=== PATIENT | female | born 1935 | race Caucasian/White ===

== ENCOUNTER → 2018-02-14 14:50 | Outpatient (CLI) | payer MEDICARE, OTHER, SELFPAY ==
--- NOTE | 2018-02-14 | LES_PTH ---
PATIENT: SONIA DOUGHERTY LOC: [facility] U#:[id number] AGE/SX: 89/F ROOM: RE02/14/[address]: Dr. Adrien Taylor MD : [id number] BED: DIS: SPEC #: [id number] RECD: 02/15/18 14:45 STATUS: ESTELLA ROQUE #: [id number] EUNICE: 02/14/18 00:[address]: Adrien Taylor DEPT: SURGICAL PATHOLOGY RECD BY: Bob Amador ENTERED: 02/15/18 14:46 SP TYPE: Lesion OTHR DR: Dr. Morgan Taylor III, MD Tissues: Elbow, NOS Procedures: Surgery Specimen Level IV HEADER OPERATION: Excision left elbow lesion PRE-OP DIAGNOSIS: Left elbow skin lesion TISSUE SUBMITTED: Left elbow tissue MICROSCOPIC DIAGNOSIS Skin lesion of left elbow, excision: Verrucous keratosis, mildly inflamed. AM:joi 9/21/18 COMMENT The lesion appears to have been completely excised in the planes examined. MICROSCOPIC DESCRIPTION Slides are reviewed. GROSS DESCRIPTION Received in fixative is one container labeled with the patient's name and designated left elbow. The specimen consists of a ulloa-white skin ellipse measuring 3 x 1.4 cm and up to 0.5 cm in thickness. A raised nodule is noted on the surface measuring 1 x 1 cm. The specimen is inked, serially sectioned and submitted entirely in three cassettes. Cassette 1 contains the tips of skin ellipse. / SJ:rg 02/15/18 TC:5 CPT: 94789
== END ==
PROVIDERS: Family Provider Family Medicine; PCP Family Medicine; Visit Provider Surgery
DX: L82.0 Inflamed seborrheic keratosis (principal)
CPT/HCPCS: 88305

== ENCOUNTER → 2018-10-05 11:02 | Outpatient (CLI) | payer MEDICARE, OTHER, SELFPAY ==
[2018-01-26 12:49] VITALS: BMI 32.9
--- NOTE | 2018-10-05 11:08 | RAD_ITS ---
STUDY: X-RAY - CERVICAL SPINE REASON FOR EXAM: Female, 83 years old. Posterior cervical pain. TECHNIQUE: 5 view(s) of the cervical spine were obtained. COMPARISON: None FINDINGS: There are degenerative changes of the anterior atlantoaxial articulation. Normal odontoid process. There is straightening of the normal cervical lordosis. There is multi-level endplate spondylosis. 2 there is anterolisthesis of C4 on C5 of 7 mm. The alignment is otherwise preserved. There is no evidence of acute fracture or loss of vertebral axial height. There is mild neural foraminal narrowing on the left at C3-4 and on the right C5-C6. There is no obvious facet joint subluxation. The soft tissue structures are unremarkable. RAD/Cerv Spine 4 or 5 Views IMPRESSION: Degenerative changes cervical spine, as above. Electronically Signed: Fred Gaitan DO at 9:54 EDT Tel [phone], Service support ,
== END ==
PROVIDERS: Family Provider Family Medicine; PCP Family Medicine; Referring Provider Nurse Practitioner Family; Visit Provider Nurse Practitioner Family
DX: M54.2 Cervicalgia (principal)
CPT/HCPCS: 72050

== ENCOUNTER 2018-11-10 13:47 | Inpatient (IN) | payer MEDICARE, OTHER, SELFPAY ==
[2018-11-10] VITALS (10 sets, daily range): BP systolic 121–170; BP diastolic 64–106; PULSE 82–103; RESP 16–19; TEMP 36.6–37; O2SAT 93–98; BMI 32.6; BMI 32.1; BMI 32.2
--- NOTE | 2018-11-10 14:02 | EKG12_ITS ---
Test Reason : DIZZINESS Blood Pressure : / mmHG Vent. Rate : 087 BPM Atrial Rate : 087 BPM P-R Int : 160 ms QRS Dur : 148 ms QT Int : 394 ms P-R-T Axes : 060 -50 108 degrees QTc Int : 474 ms Normal sinus rhythm Left axis deviation Left bundle branch block Abnormal ECG Confirmed by ANGEL STONER, SOLEDAD ([id number]), science editor DAMARI STONE ([id number]) on 11/13/2018 9:29:50 AM Referred By: CLEMENCIA Confirmed By:SOLEDAD ORTIZ MD
--- NOTE | 2018-11-10 14:02 | CT_ITS ---
STUDY: CT BRAIN WITHOUT CONTRAST REASON FOR EXAM: Female, 83 years old. Dizziness likely RADIATION DOSAGE (If Supplied By Facility): CTDIvol = ( 44.99 ) mGy, DLP = ( 762.36 ) mGycm TECHNIQUE: Transaxial CT imaging of the brain was performed without administration of intravenous contrast material. Individualized dose optimization techniques were used for this CT. COMPARISON: May 22, 2016 CT head FINDINGS: Normal soft tissue structures. Normal calvarium. There is mild cerebral atrophy with widening of the extra-axial spaces and ventricular dilatation. There are areas of decreased attenuation within the white matter tracts of the supratentorial brain, consistent with microvascular disease changes. Normal basal ganglia and thalami. Normal brainstem. There is mild cerebellar atrophy. There is no intracranial hemorrhage. There are no findings of an acute ischemic infarction. Normal visualized paranasal sinuses. There is calcification of the cavernous carotid arteries. CT/Brain/Head without Contrast IMPRESSION: Mild atrophy no evidence of acute hemorrhage infarct or edema. Electronically Signed: Ro Patel MD at 14:48 EDT Tel , Service support ,
[2018-11-10] MEDS: 0.9% Normal Saline 1,000 ML 150 ML IV ×2 (14:15→21:59)
[2018-11-10 14:31] LABS: Absolute Lymphocyte Count 1.69 X10^3/ul (0.83-4.51); Absolute Neutrophil Count 5.8 X10^3/uL (2.0-7.7); Basophil# 0.04 X10^3/uL; Basophil% 0.4 % (0-1); Eosinophil# 0.31 X10^3/uL; Eosinophils% 3.4 % (0-5); Hematocrit 38.8 % (37-47); Hemoglobin 12.6 g/dl (12.0-15.0); Lymphocyte # 1.69 X10^3/ul (4.0); Lymphocyte % 18.6 % (19-41); Mean Corp Hgb Conc 32.5 g/gl (32-36); Mean Corpuscular Hgb 32.1 pg (27.0-32.0); Mean Platelet Vol. 8.7 fl (6.2-12.0); Monocyte# 1.27 X10^3/uL; Monocyte% 13.9 % (0-10); Neutrophil # 5.78 X10^3/uL (2.7-7.7); Neutrophil % 63.5 % (47-70); Platelet Count 286 K/mm3 (150-450); RBC Distribution Width SD 50.8 fl (35.1-43.9); Red Blood Count 3.92 M/mm3 (4.2-5.4); White Blood Count 9.1 K/mm3 (4.4-11.0)
[2018-11-10 14:32] LABS: POSITIVE COUNT NO; POSITIVE DIFFERENTIAL NO; POSITIVE MORPHOLOGY NO
--- NOTE | 2018-11-10 14:32 | RAD_ITS ---
STUDY: X-RAY CHEST REASON FOR EXAM: Female, 83 years old. Tachycardia TECHNIQUE: Single AP portable view of the chest. COMPARISON: May 20, 2016 chest x-ray FINDINGS: The lungs are clear and expanded. There is no demonstrated pleural abnormality. Normal size heart. Normal mediastinum and keira. Normal visualized pulmonary arteries. There is atherosclerotic calcification of the aortic arch with tortuosity. There are diffuse degenerative changes of the visualized thoracic spine. Normal visualized ribs, clavicles, and shoulders. There is no demonstrated abnormality of the visualized soft tissue structures of the upper abdomen. RAD/Chest 1 View (Portable) IMPRESSION: Degenerative changes, as described above. No demonstrated acute cardiopulmonary process. Electronically Signed: Ro Patel MD at 14:50 EDT Tel , Service support ,
[2018-11-10 14:43] LABS: Anion Gap 3 (5-15); BUN 15 mg/dL (7-18); BUN/Creat Ratio 21.2 RATIO (10-20); Calcium,Total 8.8 mg/dL (8.5-10.1); Chloride 108 mmol/L (98-107); Creatinine, Serum 0.71 mg/dL (0.55-1.02); EST Glomerular Filtration Rate 84 mL/min (>60); Est Glom Filt Rate - Afr Amer 102 mL/min (>60); Glucose 110 mg/dL (74-106); Potassium 4.2 mmol/L (3.5-5.1); Sodium Level 139 mmol/L (136-145)
[2018-11-10 14:54] LABS: Bacteria 0 SEEN /hpf (None Seen); Mucous, Urine 0 SEEN /hpf (<or=2+); Red Blood Cells-Urine 0 SEEN /hpf (0-5)
[2018-11-10 15:00] LABS: Color, Urine Yellow (Yellow); Glucose, Dipstick Normal (Normal); Ketone-Dipstick Negative (Negative); Leukocyte Esterase-Dipstick 25 /ul (Negative); Nitrite-Dipstick Negative (Negative); Occult Blood-Urine Negative /ul (Negative); Protein-Dipstick Negative (Negative); Urine Bilirubin Dipstick Negative (Negative); Urine Clarity Clear (Clear); Urine Urobilinogen Normal (Normal)
[2018-11-10 15:07] LABS: Squamous Epithelial Cells - UA 0-5 SEEN /hpf (5-10); White Blood Cells 0-5 SEEN /hpf (0-5)
--- NOTE | 2018-11-10 15:14 | ED.VISSUMM ---
- ER Visit Summary Date of Service: 11/10/18 Chief Complaint: [Dizziness and right leg weakness] History of Present Illness: The patient is a 83 F Zentz to the emergency department with lightheaded symptoms since yesterday. Patient also states that she is noticed that since yesterday she is kind of been dragging her right leg and does not seem to want to work just right. Patient denies any headache. She denies any falls or head injuries. She denies any visual changes or difficulty with speech. Had some minimal paresthesias of the left hand intermittently. Patient has chronic neck and back pain issues. Has history of rheumatoid arthritis and osteoarthritis. [] Physical Examination: [HEENT-PERRLA, EOMI. Cranial nerves II through XII grossly intact. TMs clear. Mucous membranes moist. No adenopathy. Cardiovascular-regular rate and rhythm without murmur or ectopy Lungs-clear to auscultation, chest wall stable without crepitus or subcu emphysema Abdomen-normoactive bowel sounds, soft, nontender, no rebound or rigidity, no peritoneal signs. Neuro ucqs-ojqtql-pvyv and heel siu testing within normal limits, negative Romberg, negative pronator drift, fundi benign NIH stroke scale was 0. Extremities-intact ?4, normal range of motion, normal pulses, atraumatic] Test Results: [CT scan of the brain without contrast showed chronic involutional changes. Chest x-ray showed degenerative changes. CBC with additional count of 9.1, hemoglobin 12.6, hematocrit 38.8, platelets 286. Chemistries unremarkable. Urinalysis normal. Troponin is less than 0.015. EKG showed a sinus rhythm with a ventricular rate of 87 bpm with left bundle branch block.] Upon sitting up patient did feel lightheaded during orthostatic testing and her systolic blood pressure dropped by 40 points Emergency Department Course and Treatment: [Patient is not a TPA candidate as she is had symptoms for approximately 24 hours and her NIH stroke scale is a 0.] Treatment Plan: [Admit for further work-up and evaluation. Unclear etiology of patient's complaint of right leg weakness and will need to rule out CVA.] Disposition: [Admit] Impression: [Dizziness Right leg weakness] This note was generated with [employer] dictation software. It may contain incorrect words, spelling, and punctuation that were not noted in review of the chart prior to signing ED Disposition - Plan for ED Patient: Referrals: Morgan Taylor III, MD [Primary Care Provider] -
--- NOTE | 2018-11-10 15:18 | ED.DCSUM_ITS ---
- ER Visit Summary Date of Service: 11/10/18 Chief Complaint: [Dizziness and right leg weakness] History of Present Illness: The patient is a 83 F Zentz to the emergency department with lightheaded symptoms since yesterday. Patient also states that she is noticed that since yesterday she is kind of been dragging her right leg and does not seem to want to work just right. Patient denies any headache. She denies any falls or head injuries. She denies any visual changes or difficulty with speech. Had some minimal paresthesias of the left hand intermittently. Patient has chronic neck and back pain issues. Has history of rheumatoid arthritis and osteoarthritis. [] Physical Examination: [HEENT-PERRLA, EOMI. Cranial nerves II through XII grossly intact. TMs clear. Mucous membranes moist. No adenopathy. Cardiovascular-regular rate and rhythm without murmur or ectopy Lungs-clear to auscultation, chest wall stable without crepitus or subcu emphysema Abdomen-normoactive bowel sounds, soft, nontender, no rebound or rigidity, no peritoneal signs. Neuro hgpg-euneyw-dhyj and heel siu testing within normal limits, negative Romberg, negative pronator drift, fundi benign NIH stroke scale was 0. Extremities-intact ?4, normal range of motion, normal pulses, atraumatic] Test Results: [CT scan of the brain without contrast showed chronic involutional changes. Chest x-ray showed degenerative changes. CBC with additional count of 9.1, hemoglobin 12.6, hematocrit 38.8, platelets 286. Chemistries unremarkable. Urinalysis normal. Troponin is less than 0.015. EKG showed a sinus rhythm with a ventricular rate of 87 bpm with left bundle branch block.] Upon sitting up patient did feel lightheaded during orthostatic testing and her systolic blood pressure dropped by 40 points Emergency Department Course and Treatment: [Patient is not a TPA candidate as she is had symptoms for approximately 24 hours and her NIH stroke scale is a 0.] Treatment Plan: [Admit for further work-up and evaluation. Unclear etiology of patient's complaint of right leg weakness and will need to rule out CVA.] Disposition: [Admit] Impression: [Dizziness Right leg weakness] This note was generated with [employer] dictation software. It may contain incorrect words, spelling, and punctuation that were not noted in review of the chart prior to signing ED Disposition - Plan for ED Patient: Referrals: Morgan Taylor III, MD [Primary Care Provider] -
--- NOTE | 2018-11-10 15:53 | PCM.HP.STD ---
History of Present Illness The patient is a 83 year old F [] Past Medical History Medical History: Medical History (Last Reviewed 03/06/18 @ 12:44 by Mary Jimenez) Skin lesion (Acute) L98.9 Chronic back pain M54.9, G89.29 GERD (gastroesophageal reflux disease) K21.9 Hemorrhoid K64.9 History of hysterectomy Z90.710 Osteoarthritis M19.90 Rheumatoid arthritis M06.9 HTN (hypertension) I10 Allergies erythromycin base [Erythromycin Base] Allergy (Verified 11/10/18 13:50) Rash Sulfa (Sulfonamide Antibiotics) Allergy (Verified 11/10/18 13:50) Rash sulfamethoxazole [From Septra] Allergy (Verified 11/10/18 13:50) Rash trimethoprim [From Janra] Allergy (Verified 11/10/18 13:50) Rash Home Medications: Ambulatory Orders Medication Instructions Recorded Acetaminophen [Tylenol] 325 mg PO PRN PRN 02/25/14 Simvastatin [Zocor] 10 mg PO QHS 02/25/14 lisinopril 5 mg tablet 5 mg PO DAILY 01/26/18 vitamin A-vitamin C-vit E-min 1 tab PO DAILY 01/26/18 tablet Balsalazide Disodium 750 mg PO TID 11/10/18 Magnesium 250 mg PO BID 11/10/18 Meloxicam [Mobic] 1 tab PO DAILY 11/10/18 traMADol [Ultram] 1 tab PO BID PRN 11/10/18 Surgical History: Surgical History (Last Reviewed 03/06/18 @ 12:44 by Mary Jimenez) History of colonoscopy Z98.890 History of esophagogastroduodenoscopy (EGD) Z98.890 History of foot surgery Z98.890 History of laparoscopic cholecystectomy Z90.49 History of left knee replacement Z96.652 History of skin graft Z98.890 History of tonsillectomy Z90.89 Surgical History: cholecystectomy, hysterectomy, total knee arthroplasty, tonsillectomy, - - Skin graft to right hand as a child, foot surgery Psychiatric History: No pertinent psych hx EVENT COORDINATOR History: No pertinent EVENT COORDINATOR history Smoking Status: Never smoker - *Family History Maternal Family History: Family History (Last Reviewed 03/06/18 @ 12:44 by Mary Jimenez) Mother Heart disease Father Heart disease History Items: No pertinent history Paternal Family History: Family History (Last Reviewed 03/06/18 @ 12:44 by Mary Jimenez) Mother Heart disease Father Heart disease History Items: No pertinent history - Physical Exam Vital Signs Temp Pulse Resp BP Pulse Ox 98 F 89 19 H 170/77 H 95 11/10/18 13:48 11/10/18 15:03 11/10/18 15:03 11/10/18 15:03 11/10/18 15:03 Oxygen Delivery Method Room Air Weight: 81.012 kg Body Mass Index (BMI) 32.6 Laboratory Tests Past 24 Hrs 11/10/18 11/10/18 11/10/18 14:11 14:11 14:50 WBC 9.1 RBC 3.92 L Hgb 12.6 Hct 38.8 MCV 99.0 MCH 32.1 H MCHC 32.5 RDW 14.0 RDW Differential 50.8 H Plt Count 286 MPV 8.7 Immature Gran % (Auto) 0.200 Neut % (Auto) 63.5 Lymph % (Auto) 18.6 L [place] % (Auto) 13.9 H Eos % (Auto) 3.4 Baso % (Auto) 0.4 Absolute Neuts (auto) 5.8 Absolute Lymphs (auto) 1.69 Total Counted Not Reportable Sodium 139 Potassium 4.2 Chloride 108 H Carbon Dioxide 28.0 Anion Gap 3 L BUN 15 Creatinine 0.71 Estim Creat Clear Calc 34.90 Est GFR (MDRD) Af Amer 102 Est GFR (MDRD) Non-Af 84 BUN/Creatinine Ratio 21.2 H Glucose 110 H Calcium 8.8 Troponin I < 0.015 Urine Color Yellow Urine Clarity Clear Urine pH 7.0 Ur Specific [place] 1.010 Urine Protein Negative Urine Glucose (UA) Normal Urine Ketones Negative Urine Occult Blood Negative Urine Nitrite Negative Urine Bilirubin Negative Urine Urobilinogen Normal Ur Leukocyte Esterase 25 H Urine RBC 0 SEEN Urine WBC 0-5 SEEN Ur Squamous Epith Cells 0-5 SEEN Urine Bacteria 0 SEEN Urine Mucus 0 SEEN Assessment/Plan All Active Problems (Last Reviewed 03/06/18 @ 12:44 by Mary Jimenez) Skin lesion (Acute) Dizziness (Acute)
--- NOTE | 2018-11-10 16:20 | HP.PCM_ITS ---
<Gelacio Jacob - Last Filed: 11/10/18 16:02> Problem List (1) CVA (cerebral vascular accident) Status: Acute (2) Orthostatic hypotension Status: Chronic (3) Osteoarthritis Status: Chronic History of Present Illness Date of Admission: 11/10/18 Chief Complaint: lightheadedness The patient is a 83 year old F with pmhx of colitis and arthritis who presents to the ER with c/o lightheadedness and RLE weakness. This began yesterday at 0600 after she woke up. She described a feeling of lightheadedness with no spinning sensation. She felt that when she was walking she was dragging her right foot and felt unsteady on her feet when walking. She has no hx stroke. She states she is a dizzy woman and has had dizziness intermittently for several years. She states this is unlike what she has felt in the past. She also has lower back pain and right foot pain chronically from osteoarthritis. According to her and her she has been struggling with her foot worsening for a while. Shedenies recent illness or infection. She has had loose stools but this is nothing new with her hx of colitis. No numbness or tingling. She feels that her symptoms have been constant and have not let up. In the ER her CT brain was negative and her NIH was 0. [] Past Medical History Past Medical History (Chronic Problems): Chronic Problems (Last Reviewed 03/06/18 @ 12:44 by Mary Jimenez) Orthostatic hypotension (Chronic) Osteoarthritis (Chronic) Medical History: Medical History (Last Reviewed 03/06/18 @ 12:44 by Mary Jimenez) Skin lesion (Acute) L98.9 Chronic back pain M54.9, G89.29 GERD (gastroesophageal reflux disease) K21.9 Hemorrhoid K64.9 History of hysterectomy Z90.710 Osteoarthritis M19.90 Rheumatoid arthritis M06.9 HTN (hypertension) I10 Allergies erythromycin base [Erythromycin Base] Allergy (Verified 11/10/18 13:50) Rash Sulfa (Sulfonamide Antibiotics) Allergy (Verified 11/10/18 13:50) Rash sulfamethoxazole [From Septra] Allergy (Verified 11/10/18 13:50) Rash trimethoprim [From Septra] Allergy (Verified 11/10/18 13:50) Rash Home Medications: Ambulatory Orders Medication Instructions Recorded Acetaminophen [Tylenol] 325 mg PO PRN PRN 02/25/14 Simvastatin [Zocor] 10 mg PO QHS 02/25/14 lisinopril 5 mg tablet 5 mg PO DAILY 01/26/18 vitamin A-vitamin C-vit E-min 1 tab PO DAILY 01/26/18 tablet Balsalazide Disodium 750 mg PO TID 11/10/18 Magnesium 250 mg PO BID 11/10/18 Meloxicam [Mobic] 1 tab PO DAILY 11/10/18 traMADol [Ultram] 1 tab PO BID PRN 11/10/18 Surgical History: Surgical History (Last Reviewed 03/06/18 @ 12:44 by Mary Jimenez) History of colonoscopy Z98.890 History of esophagogastroduodenoscopy (EGD) Z98.890 History of foot surgery Z98.890 History of laparoscopic cholecystectomy Z90.49 History of left knee replacement Z96.652 History of skin graft Z98.890 History of tonsillectomy Z90.89 Surgical History: cholecystectomy, hysterectomy, total knee arthroplasty, tonsillectomy, - - Skin graft to right hand as a child, foot surgery Psychiatric History: No pertinent psych hx 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 Lives: Spouse/ Significant Other Smoking Status: Never smoker Tobacco Use: Non-smoker Alcohol: Occasional Drugs: None - *Family History Maternal Family History: Family History (Last Reviewed 03/06/18 @ 12:44 by Mary Jimenez) Mother Heart disease Father Heart disease History Items: No pertinent history Paternal Family History: Family History (Last Reviewed 03/06/18 @ 12:44 by Mary Jimenez) Mother Heart disease Father Heart disease History Items: No pertinent history Review of Systems Constitutional: Denies: Chills, Fever, Weight Change HEENT: Denies: Head Aches, Sinus Congestion, Sinus Drainage Cardiovascular: Denies: Chest Pain, Palpitations Respiratory: Denies: Cough, Shortness of breath at rest, Sputum production Gastrointestinal: Denies: Abdominal Pain, Nausea, Vomiting Genitourinary: Denies: Dysuria Musculoskeletal: Denies: Joint Pain, Joint Tenderness Skin: Denies: Rash, Wounds Neurological: Reports: Balance problems, Focal weakness, Incoordination. Denies: Slurred speech, Confusion, Numbness, Tingling Psychiatric: Denies: Anxiety, Depression, Homicidal Ideations, Suicidal Ideations Hematologic/ Lymphatic: Denies: Easy Bruising, Easy Bleeding VTE Information - Inpt Only VTE Present on Admission: No VTE Mechan Device Prophylaxis: None VTE Pharm Prophylaxis ordered?: Yes Patient Problems: Active and Suspected Problems (Last Reviewed 03/06/18 @ 12:44 by Mary Jimenez) CVA (cerebral vascular accident) (Acute) - Physical Exam General: Alert, Oriented x3, Cooperative HEENT: Atraumatic, PERRLA, EOMI, Normocephalic Neck: Supple, No JVD, Negative Carotid Bruits Lungs: Clear to auscultation, Normal air movement Cardiovascular: Regular rate, No murmurs Abdomen: Bowel Sounds Present, Soft, Non Tender Extremities: No edema, Capillary Refill Less than 3 Seconds Skin: No rashes, No breakdown Musculoskeletal: No Tenderness to Palpation of Joints or Extremities Neurological: Cranial nerves II-XII grossly intact, - - no pronator drift, normal cook helper pastry strength, good point to point upper lower ext, no sensation deficits. Psych/Mental Status: Normal Affect, Appropriate, Alert and oriented to time, place, person, mood and affect Vital Signs Temp Pulse Resp BP Pulse Ox 98 F 89 19 H 170/77 H 95 11/10/18 13:48 11/10/18 15:03 11/10/18 15:03 11/10/18 15:03 11/10/18 15:03 Oxygen Delivery Method Room Air Weight: 178 lb 9.6 oz Body Mass Index (BMI) 32.6 Laboratory Tests Past 24 Hrs 11/10/18 11/10/18 11/10/18 14:11 14:11 14:50 WBC 9.1 RBC 3.92 L Hgb 12.6 Hct 38.8 MCV 99.0 MCH 32.1 H MCHC 32.5 RDW 14.0 RDW Differential 50.8 H Plt Count 286 MPV 8.7 Immature Gran % (Auto) 0.200 Neut % (Auto) 63.5 Lymph % (Auto) 18.6 L [place] % (Auto) 13.9 H Eos % (Auto) 3.4 Baso % (Auto) 0.4 Absolute Neuts (auto) 5.8 Absolute Lymphs (auto) 1.69 Total Counted Not Reportable Sodium 139 Potassium 4.2 Chloride 108 H Carbon Dioxide 28.0 Anion Gap 3 L BUN 15 Creatinine 0.71 Estim Creat Clear Calc 34.90 Est GFR (MDRD) Af Amer 102 Est GFR (MDRD) Non-Af 84 BUN/Creatinine Ratio 21.2 H Glucose 110 H Calcium 8.8 Troponin I < 0.015 Urine Color Yellow Urine Clarity Clear Urine pH 7.0 Ur Specific [place] 1.010 Urine Protein Negative Urine Glucose (UA) Normal Urine Ketones Negative Urine Occult Blood Negative Urine Nitrite Negative Urine Bilirubin Negative Urine Urobilinogen Normal Ur Leukocyte Esterase 25 H Urine RBC 0 SEEN Urine WBC 0-5 SEEN Ur Squamous Epith Cells 0-5 SEEN Urine Bacteria 0 SEEN Urine Mucus 0 SEEN Assessment/Plan All Active Problems (Last Reviewed 03/06/18 @ 12:44 by Mary Jimenez) CVA (cerebral vascular accident) (Acute) Skin lesion (Acute) Dizziness (Acute) 1. RLE weakness with LH for 2 days - CT brain negative. Obtain MRI brain, MRA head and neck. PTOTST evals. NIH 0. Echo in AM. Suspect there may be a component of RLE radiculopathy. Consider MRI lumbar spine. 2. LH - probably 2/2 orthostatic hypotension - + orthos in ER. Gentle hydration with IV 0.9% NaCl 3. Hx Osteoarthritis - pain currently stable, no worsening per patient, however she is requesting morphine for it. Hold mobic. 4. Hx chronic colitis - she is unsure what type, however she is on balsalazide which is for UC. 5. HLD - statin 6. HTN - stable DVT ppx: lovenox This patient was seen by Gelacio Jacob PA-C under the supervision of Dr. Rios. <Khushbu Rios - Last Filed: 11/10/18 17:03> History of Present Illness The patient is a 83 year old F [] Past Medical History Medical History: Medical History (Last Reviewed 03/06/18 @ 12:44 by Mary Jimenez) Skin lesion (Acute) L98.9 Chronic back pain M54.9, G89.29 GERD (gastroesophageal reflux disease) K21.9 Hemorrhoid K64.9 History of hysterectomy Z90.710 Osteoarthritis M19.90 Rheumatoid arthritis M06.9 HTN (hypertension) I10 Allergies erythromycin base [Erythromycin Base] Allergy (Verified 11/10/18 13:50) Rash Sulfa (Sulfonamide Antibiotics) Allergy (Verified 11/10/18 13:50) Rash sulfamethoxazole [From Janra] Allergy (Verified 11/10/18 13:50) Rash trimethoprim [From Janra] Allergy (Verified 11/10/18 13:50) Rash Surgical History: Surgical History (Last Reviewed 03/06/18 @ 12:44 by Mary Jimenez) History of colonoscopy Z98.890 History of esophagogastroduodenoscopy (EGD) Z98.890 History of foot surgery Z98.890 History of laparoscopic cholecystectomy Z90.49 History of left knee replacement Z96.652 History of skin graft Z98.890 History of tonsillectomy Z90.89 - *Family History Maternal Family History: Family History (Last Reviewed 03/06/18 @ 12:44 by Mary Jimenez) Mother Heart disease Father Heart disease Paternal Family History: Family History (Last Reviewed 03/06/18 @ 12:44 by Mary Jimenez) Mother Heart disease Father Heart disease - Physical Exam Vital Signs Temp Pulse Resp BP Pulse Ox 98 F 90 19 H 144/64 H 94 11/10/18 13:48 11/10/18 16:10 11/10/18 15:03 11/10/18 16:10 11/10/18 16:10 Oxygen Delivery Method Room Air Weight: 81.012 kg Body Mass Index (BMI) 32.6 Laboratory Tests Past 24 Hrs 11/10/18 11/10/18 11/10/18 14:11 14:11 14:50 WBC 9.1 RBC 3.92 L Hgb 12.6 Hct 38.8 MCV 99.0 MCH 32.1 H MCHC 32.5 RDW 14.0 RDW Differential 50.8 H Plt Count 286 MPV 8.7 Immature Gran % (Auto) 0.200 Neut % (Auto) 63.5 Lymph % (Auto) 18.6 L [place] % (Auto) 13.9 H Eos % (Auto) 3.4 Baso % (Auto) 0.4 Absolute Neuts (auto) 5.8 Absolute Lymphs (auto) 1.69 Total Counted Not Reportable Sodium 139 Potassium 4.2 Chloride 108 H Carbon Dioxide 28.0 Anion Gap 3 L BUN 15 Creatinine 0.71 Estim Creat Clear Calc 34.90 Est GFR (MDRD) Af Amer 102 Est GFR (MDRD) Non-Af 84 BUN/Creatinine Ratio 21.2 H Glucose 110 H Calcium 8.8 Troponin I < 0.015 Urine Color Yellow Urine Clarity Clear Urine pH 7.0 Ur Specific [place] 1.010 Urine Protein Negative Urine Glucose (UA) Normal Urine Ketones Negative Urine Occult Blood Negative Urine Nitrite Negative Urine Bilirubin Negative Urine Urobilinogen Normal Ur Leukocyte Esterase 25 H Urine RBC 0 SEEN Urine WBC 0-5 SEEN Ur Squamous Epith Cells 0-5 SEEN Urine Bacteria 0 SEEN Urine Mucus 0 SEEN Assessment/Plan This patient was seen in conjunction with JIE Kang. I have independently interviewed and examined the patient and reviewed pertinent historical, laboratory, and other data. Please refer to JIE Kang note for his patient's presentation, findings, and recommendations. I have reviewed and his note and concur with his documentation CC: Dizziness, right lower extremity weakness - 2days HPI: 83-year-old female with past medical history of chronic back and neck pain, usually goes for injections to the back with peripheral neuropathy who comes in with complaints of right lower extremity weakness with a feeling of dragging her right leg. Patient denies any progressive back pain or numbness or tingling. She had ignored the above presentation one day prior to admission and had gone shopping with her and was noticeably dragging the right leg. She had associated dizziness which comes on and off. Denied any hearing loss or upper respiratory illnesses or diarrhea PMHX: Patient also has history of moderate arthritis, osteoarthritis PSHx: Status post cholecystectomy, hysterectomy, total knee arthroplasty, tonsillectomy, skin graft to the right hand as a child, history of foot surgery FHX: Mother and father had heart disease SHX: Lives with her , denies any pain, occasional use of alcohol, denies any illicit drugs Physical Exam: Vitals: Pressure was 98F, blood pressure was 164/81, orthostatic vitals were positive from lying to sitting, respiratory rate was 18, SPO2 is 95% on room air Gen: Appears comfortable, not pale, not jaundiced CVS:HS I +II, regular, no murmurs RESP: Irene clear to auscultation GI: BS present and normal, soft, nontender, no palpable organs EXT:No edema Labs: WBC count is 9.1, hemoglobin 12.6, platelet count 286, sodium 139, potassium 4.2, chloride 108, bicarbonate 28, BUN 15, creatinine 0.7, troponins negative, UA unremarkable. CT scan of the head showed mild atrophy, no evidence of acute hemorrhage/infarct/edema. Chest x-ray showed no acute cardiopulmonary process. ASSESSMENT: 1. Dizziness secondary to orthostatic hypotension 2. Right lower extremity weakness secondary to progressive chronic relative disease versus CVA 3. Rheumatoid arthritis/osteoarthritis 4. History of colitis Plan: Admit to PCU, IV fluids, monitor vitals, repeat orthostatic vitals in a.m. MRI brain, MRA of the head and neck, neurology consult Continue on stroke protocol Code Visit Inpatient E&M: 91953 Init Hosp L3
--- NOTE | 2018-11-10 16:47 | ECHOD_ITS ---
Reason For Study: TIA/CVA Procedure This was a 2D Doppler, Color Flow transthoracic echocardiogram. Exam performed portable in patient room. Left Ventricle Normal LV size. Left ventricular systolic function is normal. The estimated ejection fraction is 55 %. Stage 1 diastolic dysfunction. No regional wall motion abnormalities noted. Right Ventricle Normal right ventricle. Normal systolic function. Atria Normal left atrium. Normal right atrium. Bubble contrast study negative for right to left interatrial shunt. Mitral Valve Normal mitral valve. Tricuspid Valve Normal tricuspid valve. Aortic Valve Normal aortic valve. Pulmonic Valve Normal pulmonic valve. Great Vessels Normal aortic root. The pulmonary artery is normal size. Normal inferior vena cava. Pericardium/Pleural No pericardial effusion. Medication Performed a rapid injection of agitated mix of 9 cc saline and 1cc air to assess for atrial septal defect. MMode/2D Measurements & Calculations LVIDd: 4.5 cm IVSd: 1.4 cm Ao root diam: 3.1 cm LVIDs: 3.4 cm LVPWd: 1.1 cm RVDd: 2.8 cm FS: 24.3 % LAV(MOD-bp): 41.1 ml LA A4 area: 14.4 cm2 LA dimension(2D): 3.9 cm LAV(MOD-bp) Indexed: 22.6 ml/m2 LAV(MOD-sp2): 43.3 ml LAV(MOD-sp4): 37.9 ml RA A4 area: 12.1 cm2 Doppler Measurements & Calculations MV E max andrew: 62.0 cm/sec Lat Peak E' Andrew: 6.8 cm/sec Med Peak E' Andrew: 5.5 cm/sec MV A max andrew: 116.6 cm/sec E/E' lat: 9.1 E/E' med: 11.3 MV E/A: 0.53 Ao V2 max: 127.8 cm/sec LV V1 max: 106.8 cm/sec PA V2 max: 111.9 cm/sec Ao max P.5 mmHg LV V1 max P.6 mmHg TR max andrew: 279.4 cm/sec TR max P.3 mmHg Interpretation Summary Normal LV size. Left ventricular systolic function is normal. The estimated ejection fraction is 55 %. Stage 1 diastolic dysfunction. Bubble contrast study negative for right to left interatrial shunt. Ordering Physician: Khushbu Rios Referring Physician: Morgan Taylor Performed By: Liss Rivera RDCS, RVT
[2018-11-10] MEDS: Atorvastatin Calcium 80 MG Tablet PO (21:06)
[2018-11-10] MEDS: Magnesium Oxide 400 MG Tablet PO (21:06)
[2018-11-11] VITALS (14 sets, daily range): BP systolic 118–153; BP diastolic 71–96; PULSE 81–89; RESP 16–19; TEMP 36.7–37.2; O2SAT 93–95; BMI 32.1
[2018-11-11] MEDS: Acetaminophen 325 MG Tablet 650 MG PO ×4 (01:21→22:34)
[2018-11-11] MEDS: 0.9% Normal Saline 1,000 ML 150 ML IV ×2 (04:40→12:35)
[2018-11-11 07:24] LABS: Anion Gap 8 (5-15); BUN 14 mg/dL (7-18); BUN/Creat Ratio 21.9 RATIO (10-20); Calcium,Total 8.4 mg/dL (8.5-10.1); Chloride 110 mmol/L (98-107); Cholesterol 196 mg/dL (200); Creatinine, Serum 0.64 mg/dL (0.55-1.02); EST Glomerular Filtration Rate 95 mL/min (>60); Est Glom Filt Rate - Afr Amer 115 mL/min (>60); Glucose 99 mg/dL (74-106); High Density Lipoprotein 50 mg/dL; Potassium 4.2 mmol/L (3.5-5.1); Sodium Level 145 mmol/L (136-145); Triglycerides 258 mg/dL; Very Low Density Lipoprotein 52 mg/dL (5-40)
[2018-11-11] MEDS: Aspirin 81 MG TAB.CHEW PO (08:25)
[2018-11-11] MEDS: Lisinopril 5 MG Tablet PO (08:25)
[2018-11-11] MEDS: Magnesium Oxide 400 MG Tablet PO ×2 (08:25→22:34)
[2018-11-11] MEDS: Enoxaparin 40 MG/0.4 ML Syringe SC (08:26)
--- NOTE | 2018-11-11 09:13 | MRI_ITS ---
STUDY: MRI BRAIN WITHOUT CONTRAST REASON FOR EXAM: Female, 83 years old. Right leg weakness and dizziness for 2 days TECHNIQUE: Standardized multiplanar fat and water weighted pulse sequences were obtained. COMPARISON: None. FINDINGS: No evidence for shift of midline structures, mass effect or compression of ventricles noted. No acute intracranial hemorrhage noted. Basal cisterns are patent. Ventricular system appears unremarkable. No discrete mass in the posterior fossa. Small focal area of hyperintense signal on diffusion-weighted imaging in the left posterior limb of the internal capsule seen extending into the left basal ganglia likely a small subacute infarct. No associated hemorrhage or mass effect. Scattered foci of T2/FLAIR hyperintensity in the periventricular and subcortical white matter noted which are nonspecific in imaging appearance however likely related with chronic small vessel disease. Partial opacification of the left-sided mastoid air cells noted. Mild mucosal thickening of the ethmoid vessels. Mild chronic small vessel disease of the brain stem. MRI/Brain without Contrast IMPRESSION: Small subacute infarct in the left posterior limb of the internal capsule/is again noted. No associated hemorrhage or mass effect. Chronic small vessel disease. Electronically Signed: Bashir Hess, at 12:44 EDT Tel , Service support ,
--- NOTE | 2018-11-11 09:14 | MRI_ITS ---
STUDY: MRA NECK WITH AND WITHOUT CONTRAST REASON FOR EXAM: Female, 83 years old. Right-sided leg weakness and dizziness for 2 days TECHNIQUE: 3-D jkxv-hh-[id number] (TOF) imaging was performed in an 1.5 T MRI scanner. 15 IV Dotarem was administered for the contrast enhanced images. COMPARISON: None. FINDINGS: The origin of the great vessels appear patent. Bilateral common carotid arteries the visualized segments appear patent. The carotid bifurcations appear patent. Extracranial segments of the internal carotid arteries are patent. Visualized segments of the vertebral arteries are patent. The origin of the vertebral arteries however are not well visualized. Tortuosity of the vertebral artery seen. IMPRESSION: No evidence for hemodynamically significant extracranial carotid artery stenosis. Motion degraded MRA examination of the neck. Please consider carotid duplex Electronically Signed: Bashir Hess, at 12:50 EDT Tel , Service support , MRI/MRA Neck WITH and W/O Contrast
--- NOTE | 2018-11-11 09:14 | MRI_ITS ---
STUDY: MRA OF THE HEAD WITHOUT CONTRAST REASON FOR EXAM: Female, 83 years old. Right-sided leg weakness and dizziness TECHNIQUE: 3-D [id number]-bkorrh (TOF) imaging was performed with MIPs. The study was performed unenhanced. COMPARISON: None. FINDINGS: Petrous, cavernous and supraclinoid segments of the internal carotid arteries are patent. 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 Bilateral middle cerebral arteries are patent. The anterior cerebral arteries are patent. Visualized segments of the vertebral arteries are patent. Vertebrobasilar junction is patent. The basilar artery is patent. The superior cerebellar arteries are patent. Posterior cerebral arteries are patent. 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 No evidence for intracranial large vessel occlusion. Small left posterior limb internal capsule/basal ganglia subacute infarct better seen on the MRI examination of the brain Electronically Signed: Bashir Hess, at 16:09 EDT Tel , Service support , MRI/MRA Head ONLY without Contrast
--- NOTE | 2018-11-11 09:15 | MRI_ITS ---
STUDY: MRI LUMBAR SPINE WITHOUT CONTRAST REASON FOR EXAM: Female, 83 years old. Right leg weakness and dizziness TECHNIQUE: Standardized fat and water weighted pulse sequences were obtained in the sagittal and axial planes. COMPARISON: None FINDINGS: Levoconvex lumbar scoliotic curvature noted. Visualized spinal cord demonstrates no evidence for edema. Conus terminus at approximately L1 level. Cauda equina nerve roots follow spinal curvature. Mild grade 1 anterolisthesis of L3 on L4 on L5. Left-sided L5 level spondylolysis suspected Mild anterior and lateral wedging of the lumbar vertebrae. Disc desiccation at all levels. Loss of disc height at all levels. Endplate degenerative changes at all levels. Anterior and posterior osteophytic spurring. Hypertrophy of this process processes. T12 vertebral body hemangioma. Level by level segmental analysis L1-L2 level: Bilateral facet arthrosis with broad-based disc bulge resulting in mild to moderate left-sided and moderate right-sided neural foraminal narrowing with mild flattening of thecal sac. L2-L3 level: Bilateral facet arthrosis with eccentric rightward broad-based is bulge and marginal osteophytes resulting in moderate right-sided neural foraminal narrowing and mild left-sided neural foraminal narrowing with mild flattening of the ventral thecal sac. L3-L4 level: Bilateral facet arthrosis with broad-based is bulge and marginal osteophytes resulting in moderate right-sided and mild left-sided neural foraminal narrowing with mild flattening of the thecal sac approximation/impingement of the exiting right L3 nerve root suspected superimposed right subarticular level disc protrusion. L4-L5 level: Bilateral facet arthrosis with broad-based is bulge and marginal osteophytes contributing to moderate bilateral neural foraminal narrowing with approximation/impingement of the exiting L4 nerve root. L5-S1 level: Extensive facet arthrosis with marginal osteophytes and broad-based disc bulge resulting in severe left-sided neural foraminal narrowing with likely impingement of the exiting left L5 nerve root in approximation/impingement of descending S1 nerve root. Moderate right-sided neural foraminal narrowing also noted. Narrowing of the left lateral recess. No paraspinal soft tissue mass. T2 hyperintense lesion left kidney likely cysts. IMPRESSION: Levoconvex lumbar scoliotic curvature with spondylotic changes resulting in multilevel neural foraminal narrowing. No evidence for acute lumbar spine compression fractures. Please see above level by level complete analysis and details. Electronically Signed: Bashir Hess, at 12:21 EDT Tel , Service support , MRI/Spine Lumbar (Routine)
[2018-11-11] MEDS: 0.9% NaCl Peripheral Flush Adult/Peds IV (12:35)
--- NOTE | 2018-11-11 15:41 | PCM.PROGNOTE ---
Patient Problems: Active and Suspected Problems (Last Reviewed 03/06/18 @ 12:44 by Mary Jimenez) CVA (cerebral vascular accident) (Acute) - Physical Exam Vital Signs Temp Pulse Resp BP Pulse Ox 98.1 F 85 19 H 118/88 H 95 11/11/18 12:20 11/11/18 12:36 11/11/18 12:20 11/11/18 12:20 11/11/18 12:20 Oxygen Delivery Method Room Air Weight: 175 lb 14.862 oz Body Mass Index (BMI) 32.1 Orthostatic Vital Signs Start: 11/11/18 00:26 Freq: 0600 Status: Active Protocol: Activity Type Activity Date Activity User E-Sign Co-Sign Detail Recorded Client Recorded Date Recorded By Document 11/11/18 05:04 BB [id number] 11/11/18 05:05 BB 11/11/18 05:04 Orthostatic Vitals Standing -Blood Pressure (90/60-120/80) 137/86 H -Extremity Use Right Arm -Pulse Rate (60-100) 84 Sitting -Blood Pressure (90/60-120/80) 135/96 H -Extremity Use Right Arm -Pulse Rate (60-100) 85 Lying -Blood Pressure (90/60-120/80) 147/73 H -Extremity Use Right Arm -Pulse Rate (60-100) 84 Intake and Output for Last 24 Hours 11/09/18 11/10/18 11/11/18 23:59 23:59 23:59 Intake Total 1163 / 1163 1934 193 Balance 1163 / 1163 1934 Laboratory Tests Past 24 Hrs 11/10/18 11/10/18 11/11/18 17:15 18:16 06:15 Sodium 145 Potassium 4.2 Chloride 110 H Carbon Dioxide 27.0 Anion Gap 8 BUN 14 Creatinine 0.64 Estim Creat Clear Calc 34.90 Est GFR (MDRD) Af Amer 115 Est GFR (MDRD) Non-Af 95 BUN/Creatinine Ratio 21.9 H Glucose 99 Calcium 8.4 L Troponin I < 0.015 < 0.015 Triglycerides 258 H Cholesterol 196 LDL Cholesterol 94 VLDL Cholesterol 52 H HDL Cholesterol 50 Medical Necessity - Tobacco Use Smoking Status: Never smoker Tobacco Use: Non-smoker Assessment/Plan All Active Problems (Last Reviewed 03/06/18 @ 12:44 by Mary Jimenez) CVA (cerebral vascular accident) (Acute) Skin lesion (Acute) Dizziness (Acute)
--- NOTE | 2018-11-11 15:55 | PCM.PROGNOTE ---
<Gelacio Jacob - Last Filed: 11/11/18 15:55> Patient Problems: Active and Suspected Problems (Last Reviewed 03/06/18 @ 12:44 by Mary Jimenez) CVA (cerebral vascular accident) (Acute) Subjective: No slurring, no facial droop, no increased weakness. Pt not sure if symptoms are better or worse as she has not walked today. She has no hx prior stroke. MRI showed subacute stroke. - Physical Exam General: Alert, Oriented x3, Cooperative HEENT: Atraumatic, PERRLA, EOMI, Normocephalic Neck: Supple, No JVD, Negative Carotid Bruits Lungs: Clear to auscultation, Normal air movement Cardiovascular: Regular rate, No murmurs Abdomen: Bowel Sounds Present, Soft, Non Tender Extremities: No edema, Capillary Refill Less than 3 Seconds Skin: No rashes, No breakdown Musculoskeletal: No Tenderness to Palpation of Joints or Extremities Neurological: Cranial nerves II-XII grossly intact Psych/Mental Status: Normal Affect, Appropriate, Alert and oriented to time, place, person, mood and affect Vital Signs Temp Pulse Resp BP Pulse Ox 98.1 F 85 19 H 118/88 H 95 11/11/18 12:20 11/11/18 12:36 11/11/18 12:20 11/11/18 12:20 11/11/18 12:20 Oxygen Delivery Method Room Air Weight: 175 lb 14.862 oz Body Mass Index (BMI) 32.1 Orthostatic Vital Signs Start: 11/11/18 00:26 Freq: 0600 Status: Active Protocol: Activity Type Activity Date Activity User E-Sign Co-Sign Detail Recorded Client Recorded Date Recorded By Document 11/11/18 05:04 BB [id number] 11/11/18 05:05 BB 11/11/18 05:04 Orthostatic Vitals Standing -Blood Pressure (90/60-120/80) 137/86 H -Extremity Use Right Arm -Pulse Rate (60-100) 84 Sitting -Blood Pressure (90/60-120/80) 135/96 H -Extremity Use Right Arm -Pulse Rate (60-100) 85 Lying -Blood Pressure (90/60-120/80) 147/73 H -Extremity Use Right Arm -Pulse Rate (60-100) 84 Intake and Output for Last 24 Hours 0611/10/18 11/11/18 23:59 23:59 23:59 Intake Total 1163 / 1163 1934 Balance 1163 / 1163 1934 Laboratory Tests Past 24 Hrs 11/10/18 11/10/18 11/11/18 17:15 18:16 06:15 Sodium 145 Potassium 4.2 Chloride 110 H Carbon Dioxide 27.0 Anion Gap 8 BUN 14 Creatinine 0.64 Estim Creat Clear Calc 34.90 Est GFR (MDRD) Af Amer 115 Est GFR (MDRD) Non-Af 95 BUN/Creatinine Ratio 21.9 H Glucose 99 Calcium 8.4 L Troponin I < 0.015 < 0.015 Triglycerides 258 H Cholesterol 196 LDL Cholesterol 94 VLDL Cholesterol 52 H HDL Cholesterol 50 Medical Necessity - Tobacco Use Smoking Status: Never smoker Tobacco Use: Non-smoker Assessment/Plan All Active Problems (Last Reviewed 03/06/18 @ 12:44 by Mary Jimenez) CVA (cerebral vascular accident) (Acute) Skin lesion (Acute) Dizziness (Acute) 1. RLE weakness, LH 2/2 small subacute infarct left posterior limb of internal capsule. MRA neck negative. MRA head pending. C/s Neuro, obtain Echo. Continue Asa/statin. 2. orthostatic hypotension - + orthos in ER. Last set negative. DC IV fluids. 3. Hx Osteoarthritis - pain currently stable, no worsening per patient, however she is requesting morphine for it. Hold mobic. 4. Hx chronic colitis - she is unsure what type, however she is on balsalazide which is for UC. Stools are loose, pt requests immodium. 5. HLD - statin 6. HTN - stable DVT ppx: lovenox This patient was seen by Gelacio Jacob PA-C under the supervision of Dr. Mckeon <Drew Mckeon F - Last Filed: 11/12/18 08:29> - Physical Exam Vital Signs Temp Pulse Resp BP Pulse Ox 98.3 F 86 16 160/72 H 93 11/12/18 08:00 11/12/18 08:00 11/12/18 08:00 11/12/18 08:00 11/12/18 08:00 Oxygen Delivery Method Room Air Weight: 175 lb 14.862 oz Body Mass Index (BMI) 32.1 Orthostatic Vital Signs Start: 11/11/18 00:26 Freq: 0600 Status: Active Protocol: Activity Type Activity Date Activity User E-Sign Co-Sign Detail Recorded Client Recorded Date Recorded By Document 11/11/18 05:04 NINA [id number] 11/11/18 05:05 NINA 11/11/18 05:04 Orthostatic Vitals Standing -Blood Pressure (90/60-120/80) 137/86 H -Extremity Use Right Arm -Pulse Rate (60-100) 84 Sitting -Blood Pressure (90/60-120/80) 135/96 H -Extremity Use Right Arm -Pulse Rate (60-100) 85 Lying -Blood Pressure (90/60-120/80) 147/73 H -Extremity Use Right Arm -Pulse Rate (60-100) 84 Intake and Output for Last 24 Hours 11/10/18 11/11/18 11/12/18 23:59 23:59 23:59 Intake Total 1163 / 1163 3465 / 3465 120 / 120 Balance 1163 / 1163 3465 / 3465 120 / 120 Code Visit Addendum: Dr. Mckeon I personally examined the patient and reviewed the chart. I agree with the above. 83 yo F who presented with lightheadedness and RLE weakness. She had an MRI of her brain which was positive for a Left SAMI stroke. She was started on Aspirin and lipitor and will need an echo prior to discharge and f/u with neurology. Anticipate DC in the am if she does not have any therapy needs and she seems to be improving and her strength was 4+/5 in her RLE. Inpatient E&M: 34233 Subs Hosp L2
[2018-11-11] MEDS: Loperamide 2 MG Capsule PO ×2 (16:34→20:34)
[2018-11-11] MEDS: Atorvastatin Calcium 80 MG Tablet PO (22:34)
[2018-11-12] VITALS (8 sets, daily range): BP systolic 127–160; BP diastolic 72–92; PULSE 83–87; RESP 16–18; TEMP 36.8; O2SAT 93–96; BMI 32.1
[2018-11-12] MEDS: Loperamide 2 MG Capsule PO (08:26)
[2018-11-12] MEDS: Aspirin 81 MG TAB.CHEW PO (08:26)
[2018-11-12] MEDS: Acetaminophen 325 MG Tablet 650 MG PO (08:26)
[2018-11-12] MEDS: Enoxaparin 40 MG/0.4 ML Syringe SC (08:55)
[2018-11-12] MEDS: Magnesium Oxide 400 MG Tablet PO (08:55)
[2018-11-12] MEDS: Lisinopril 5 MG Tablet PO (08:55)
--- NOTE | 2018-11-12 09:33 | CON.PCM_ITS ---
Reason for Consult Date of Consultation: 11/12/18 Reason for Consultation: stroke History of Present Illness: im ready to go home. 83 yo right handed female presented after experiecing right sided weakness, now improved, but not back to baseline. also some lightheadedness. per admit note:The patient is a 83 year old F with pmhx of colitis and arthritis who presents to the ER with c/o lightheadedness and RLE weakness. This began yesterday at 0600 after she woke up. She described a feeling of lightheadedness with no spinning sensation. She felt that when she was walking she was dragging her right foot and felt unsteady on her feet when walking. She has no hx stroke. She states she is a dizzy woman and has had dizziness intermittently for several years. She states this is unlike what she has felt in the past. She also has lower back pain and right foot pain chronically from osteoarthritis. According to her and her she has been struggling with her foot worsening for a while. Shedenies recent illness or infection. She has had loose stools but this is nothing new with her hx of colitis. No numbness or tingling. She feels that her symptoms have been constant and have not let up. In the ER her CT brain was negative and her NIH was 0. Past Medical History Past Medical History (Chronic Problems): Chronic Problems (Last Reviewed 11/12/18 @ 09:36 by Karl Thompson MD) Orthostatic hypotension (Chronic) Osteoarthritis (Chronic) Medical History: Medical History (Last Reviewed 11/12/18 @ 09:36 by Karl Thompson MD) Skin lesion (Acute) L98.9 Chronic back pain M54.9, G89.29 GERD (gastroesophageal reflux disease) K21.9 Hemorrhoid K64.9 History of hysterectomy Z90.710 Osteoarthritis M19.90 Rheumatoid arthritis M06.9 HTN (hypertension) I10 Allergies erythromycin base [Erythromycin Base] Allergy (Verified 11/10/18 13:50) Rash Sulfa (Sulfonamide Antibiotics) Allergy (Verified 11/10/18 13:50) Rash sulfamethoxazole [From Septra] Allergy (Verified 11/10/18 13:50) Rash trimethoprim [From Septra] Allergy (Verified 11/10/18 13:50) Rash Home Medications: Ambulatory Orders Medication Instructions Recorded Acetaminophen [Tylenol] 325 mg PO PRN PRN 09/30/14 Simvastatin [Zocor] 10 mg PO QHS 02/25/14 lisinopril 5 mg tablet 5 mg PO DAILY 01/26/18 vitamin A-vitamin C-vit E-min 1 tab PO DAILY 01/26/18 tablet Balsalazide Disodium 750 mg PO TID 11/10/18 Magnesium 250 mg PO BID 11/10/18 Meloxicam [Mobic] 1 tab PO DAILY 11/10/18 Omeprazole 20 mg PO DAILY 11/10/18 traMADol [Ultram] 1 tab PO BID PRN 11/10/18 Surgical History: Surgical History (Last Reviewed 11/12/18 @ 09:36 by Karl Thompson MD) History of colonoscopy Z98.890 History of esophagogastroduodenoscopy (EGD) Z98.890 History of foot surgery Z98.890 History of laparoscopic cholecystectomy Z90.49 History of left knee replacement Z96.652 History of skin graft Z98.890 History of tonsillectomy Z90.89 Surgical History: cholecystectomy, hysterectomy, total knee arthroplasty, tonsillectomy, - - Skin graft to right hand as a child, foot surgery Psychiatric History: No pertinent psych hx 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 Lives: Spouse/ Significant Other Smoking Status: Never smoker Tobacco Use: Non-smoker Alcohol: Occasional Drugs: None - *Family History Maternal Family History: Family History (Last Reviewed 11/12/18 @ 09:36 by Karl Thompson MD) Mother Heart disease Father Heart disease History Items: No pertinent history Paternal Family History: Family History (Last Reviewed 11/12/18 @ 09:36 by Karl Thompson MD) Mother Heart disease Father Heart disease History Items: No pertinent history Review of Systems Constitutional: Denies: Chills, Fever, Weight Change HEENT: Denies: Head Aches, Sinus Congestion, Sinus Drainage Cardiovascular: Denies: Chest Pain, Palpitations Respiratory: Denies: Cough, Shortness of breath at rest, Sputum production Gastrointestinal: Denies: Abdominal Pain, Nausea, Vomiting Genitourinary: Denies: Dysuria Musculoskeletal: Denies: Joint Pain, Joint Tenderness Skin: Denies: Rash, Wounds Neurological: Reports: Focal weakness. Denies: Numbness, Tingling Psychiatric: Denies: Anxiety, Depression, Homicidal Ideations, Suicidal Ideations Hematologic/ Lymphatic: Denies: Easy Bruising, Easy Bleeding Patient Problems: Active and Suspected Problems (Last Reviewed 11/12/18 @ 09:36 by Karl Thompson MD) CVA (cerebral vascular accident) (Acute) - Physical Exam General: Alert, Oriented x3, Cooperative, No apparent distress HEENT: PERRLA, EOMI Neurological: Cranial nerves II-XII grossly intact, - - mild abn right forearm orbit Psych/Mental Status: Normal Affect, Alert and oriented to time, place, person, mood and affect Vital Signs Temp Pulse Resp BP Pulse Ox 36.8 C 86 16 160/72 H 93 11/12/18 08:00 11/12/18 08:00 11/12/18 08:00 11/12/18 08:00 11/12/18 08:00 Oxygen Delivery Method Room Air Weight: 79.8 kg Body Mass Index (BMI) 32.1 Orthostatic Vital Signs Start: 11/11/18 00:26 Freq: 0600 Status: Active Protocol: Activity Type Activity Date Activity User E-Sign Co-Sign Detail Recorded Client Recorded Date Recorded By Document 11/11/18 05:04 BB [id number] 11/11/18 05:05 BB 11/11/18 05:04 Orthostatic Vitals Standing -Blood Pressure (90/60-120/80) 137/86 H -Extremity Use Right Arm -Pulse Rate (60-100) 84 Sitting -Blood Pressure (90/60-120/80) 135/96 H -Extremity Use Right Arm -Pulse Rate (60-100) 85 Lying -Blood Pressure (90/60-120/80) 147/73 H -Extremity Use Right Arm -Pulse Rate (60-100) 84 Intake and Output for Last 24 Hours 11/10/18 11/11/18 11/12/18 23:59 23:59 23:59 Intake Total 1163 / 1163 3465 / 3465 120 / 120 Balance 1163 / 1163 3465 / 3465 120 / 120 Current Home Med List Medication Instructions Recorded Confirmed Type Acetaminophen [Tylenol] 325 mg PO PRN PRN 02/25/14 11/10/18 History Simvastatin [Zocor] 10 mg PO QHS 02/25/14 11/10/18 History lisinopril 5 mg tablet 5 mg PO DAILY 01/26/18 11/10/18 History vitamin A-vitamin C-vit E-min 1 tab PO DAILY 01/26/18 11/10/18 History tablet Balsalazide Disodium 750 mg PO TID 11/10/18 11/10/18 History Magnesium 250 mg PO BID 11/10/18 11/10/18 History Meloxicam [Mobic] 1 tab PO DAILY 11/10/18 11/10/18 History Omeprazole 20 mg PO DAILY 11/10/18 11/10/18 History traMADol [Ultram] 1 tab PO BID PRN 11/10/18 11/10/18 History Current Medications Acetaminophen 650 mg 11/10/18 16:47 11/12/18 08:26 Tylenol PO 650 mg Q6H PRN PRN Administration Mild pain 1-3/Temp > 100.7 F Aspirin 81 mg 11/11/18 08:00 11/12/18 08:26 Aspirin, Baby PO 81 mg DAILY@0800 MARTHA Administration Atorvastatin Calcium 80 mg 11/10/18 22:00 11/11/18 22:34 Lipitor PO 80 mg QHS MARTHA Administration Enoxaparin Sodium 40 mg 11/11/18 10:00 11/12/18 08:55 Lovenox SC 40 mg DAILY MARTHA Administration Lisinopril 5 mg 11/11/18 10:00 11/12/18 08:55 Zestril PO 5 mg DAILY MARTHA Administration Loperamide HCl 2 mg 11/11/18 15:59 11/12/18 08:26 Imodium PO 2 mg Q4H PRN PRN Administration Diarrhea Magnesium Oxide 400 mg 11/10/18 22:00 11/12/18 08:55 Mag-Ox 400 PO 400 mg BID MARTHA Administration Oxycodone HCl 5 mg 11/10/18 16:47 Oxyir PO Q4H PRN PRN Moderate Pain (4-6/10) Sodium Chloride 5 - 15 ml 11/10/18 19:10 11/11/18 12:35 IV 10 ml UD PRN Administration SALINE FLUSH Tramadol HCl 50 mg 11/10/18 16:47 Ultram PO BID PRN PAIN mri reviewed, acute left subcortical infarct, small mra no stenosis Assessment/Plan All Active Problems (Last Reviewed 11/12/18 @ 09:36 by Karl Thompson MD) CVA (cerebral vascular accident) (Acute) Skin lesion (Acute) Dizziness (Acute) acute left subcortical infarct rec no bp rx for 7d after event, until 11/16/18 rec asa daily 81mg ok to dc if echo normal, no arryhthmia and ambulating safely
--- NOTE | 2018-11-12 10:06 | CASEMGMT ---
SW completed a PHQ-9 as patient had a Stroke. Patient scored a 0 which indicates no depression. She denies any need for resources. Netta TYLER MSW
--- NOTE | 2018-11-12 10:50 | CASEMGMT ---
RN CM Assessment Presentation: CVA Intro role of CM and purpose of RN CM assessment to patient and her . Demographics, PCP and Pharmacy verified. Pt is anxious to be dc'd. Dr. Oliveira anticipates dc pending echo results. Discussed Outpt PT/OT with pt. She is agreeable and chooses [facility]. Script completed by JIE Mcclain and faxed to [facility]. PCP: Dr. Morgan Taylor III Preferred Pharmacy: [facility] Insurance: [facility] Prescription Benefit: yes LNOK: , Kamari Simmons Living Arrangements: Lives in one story home, 4 entry steps into home. able to assist if needed. Transportation: Pt drives DME: Rollator, straight cane, raised toilet seat, shower chair, hand held shower HHC: none Patient DC goals: Home DC PLAN: Home with outpt PT- script faxed to [facility]. Lindsey MILLAN RN ACM
--- NOTE | 2018-11-12 11:01 | DCINST_ITS ---
- Discharge Diagnoses Current Active Problems: Current Active and Chronic Problems (Last Reviewed 11/12/18 @ 09:36 by Karl Thompson MD) CVA (cerebral vascular accident) (Acute) Orthostatic hypotension (Chronic) Osteoarthritis (Chronic) You will use the following diet at home:: No restrictions Your food should be the consistency of: Regular Your liquids should be the consistency of: Regular/Thin Discharge Activity: Return to Normal Activity Allergies/Adverse Reactions: Allergies erythromycin base [Erythromycin Base] Allergy (Verified 11/10/18 13:50) Rash Sulfa (Sulfonamide Antibiotics) Allergy (Verified 11/10/18 13:50) Rash sulfamethoxazole [From Septra] Allergy (Verified 11/10/18 13:50) Rash trimethoprim [From ] Allergy (Verified 11/10/18 13:50) Rash Medications to take at Discharge Acetaminophen [Tylenol] 325 mg PO PRN PRN 02/25/14 vitamin A-vitamin C-vit E-min tablet 1 tab PO DAILY 01/26/18 Balsalazide Disodium 750 mg PO TID 11/10/18 Magnesium 250 mg PO BID 11/10/18 Omeprazole 20 mg PO DAILY 11/10/18 traMADol [Ultram] 1 tab PO BID PRN 11/10/18 Aspirin [Aspirin, Baby] 81 mg PO DAILY@0800 tab.chew 11/12/18 Atorvastatin Calcium [Lipitor] 80 mg PO QHS #30 tablet 11/12/18 Lisinopril [Prinivil] 5 mg PO DAILY #0 11/12/18 The following prescriptions were given: Atorvastatin Calcium [Lipitor] 80 mg PO QHS #30 tablet Primary Care Physician: Morgan Taylor III, MD [Primary Care Provider] - Please follow up with your Primary Care Physician in: 1-2 weeks Test Results: Test results from this visit will be discussed in further detail at your follow- up appointment, if applicable. Please Follow Up With: Karl Thompson MD When: 3-4 week Proposed Discharge Date: 11/12/18
--- NOTE | 2018-11-12 11:39 | PHA.DC.MC ---
Pharmacy Service has performed discharge medication reconciliation and counseling for this patient. The patient's discharge medication list was reviewed for discrepancies and discrepancies were resolved. The patient was counseled on the following discharge medications and changes in medications for homegoing were reviewed. 1. ATORVASTATIN 2. ASPIRIN The Reason for Use, instructions for use, and potential side effects were reviewed for all new medications. The patient's questions regarding all of their medications were answered. The patient was able to verbally demonstrate an understanding of their discharge medications. Home Medications Acetaminophen [Tylenol] 325 mg PO PRN PRN 02/25/14 vitamin A-vitamin C-vit E-min tablet 1 tab PO DAILY 01/26/18 Balsalazide Disodium 750 mg PO TID 11/10/18 Magnesium 250 mg PO BID 11/10/18 Omeprazole 20 mg PO DAILY 11/10/18 traMADol [Ultram] 1 tab PO BID PRN 11/10/18 Aspirin [Aspirin, Baby] 81 mg PO DAILY@0800 tab.chew 11/12/18 Atorvastatin Calcium [Lipitor] 80 mg PO QHS #30 tablet 11/12/18 Lisinopril [Prinivil] 5 mg PO DAILY #0 11/12/18
--- NOTE | 2018-11-12 16:20 | PCM.DC.SUM ---
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 RAD/Chest 1 View (Portable) IMPRESSION: Degenerative changes, as described above. No demonstrated acute cardiopulmonary process. MRI/Brain without Contrast IMPRESSION: Small subacute infarct in the left posterior limb of the internal capsule/is again noted. No associated hemorrhage or mass effect. Chronic small vessel disease. 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 No evidence for intracranial large vessel occlusion. Small left posterior limb internal capsule/basal ganglia subacute infarct better seen on the MRI examination of the brain MRA Neck: IMPRESSION: No evidence for hemodynamically significant extracranial carotid artery stenosis. Motion degraded MRA examination of the neck. Please consider carotid duplex MRI lumbar spine IMPRESSION: Levoconvex lumbar scoliotic curvature with spondylotic changes resulting in multilevel neural foraminal narrowing. No evidence for acute lumbar spine compression fractures. Please see above level by level complete analysis and details. Echo: Interpretation Summary Normal LV size. Left ventricular systolic function is normal. The estimated ejection fraction is 55 %. Stage 1 diastolic dysfunction. Bubble contrast study negative for right to left interatrial shunt. Consults: Neuro - Thompson Operations: None Procedures: 2-D Echocardiogram Summary of Care Provided: Hospital Course: The patient is a 83 year old F with pmhx osteoarthritis of the spine and ankle, HTN, HLD, chronic colitis who presented to the ER with c/o RLE weakness and LH that started the day prior. CT brain was negative. She was admitted for concern for acute stroke. She did have orthostatic hypotension and was given IV fluids after which it resolved. UA was negative, troponin was negative. She was placed on aspirin and statin placed on tele in the PCU. MRI brain, MRA head and neck, MRI lumbar spine were obtained. MRI brain revealed subacute infarct as above. 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 MRA neck unremarkable. MRI lumbar with arthritic changes. Neuro was consulted. They recommended Echo, statin, and aspirin. Echo obtained and was unremarkable. She has very good functional status at home and is very active. Outpatient physical therapy was prescribed. She had no events on tele. She will need to follow up with neuro as an outpatient in 3-4 weeks. She will also need to see her PCP in 1-2 weeks. She was discharged home in stable condition. This patient was seen by Gelacio Jacob PA-C under the supervision of Dr. Oliveira [] - Physical Exam General: Alert, Oriented x3, Cooperative HEENT: Atraumatic, PERRLA, EOMI, Normocephalic Neck: Supple, No JVD, Negative Carotid Bruits Lungs: Clear to auscultation, Normal air movement Cardiovascular: Regular rate, No murmurs Abdomen: Bowel Sounds Present, Soft, Non Tender Extremities: No edema, Capillary Refill Less than 3 Seconds Skin: No rashes, No breakdown Musculoskeletal: No Tenderness to Palpation of Joints or Extremities Neurological: Cranial nerves II-XII grossly intact Psych/Mental Status: Normal Affect, Appropriate Vital Signs Temp Pulse Resp BP Pulse Ox 98.3 F 86 18 147/79 H 96 11/12/18 12:43 11/12/18 12:43 11/12/18 12:43 11/12/18 12:43 11/12/18 12:43 Oxygen Delivery Method Room Air Weight: 175 lb 14.862 oz Body Mass Index (BMI) 32.1 Intake and Output for Last 24 Hours 11/10/18 11/11/18 11/12/18 23:59 23:59 23:59 Intake Total 1163 / 1163 3465 / 3465 120 / 120 Balance 1163 / 1163 3465 / 3465 120 / 120 Discharge Diet: Low fat/ Low Cholesterol, 2000 mg Sodium Diet Discharge Activity: Return to Normal Activity Home Medications: Medications to take at Discharge Acetaminophen [Tylenol] 325 mg PO PRN PRN 02/25/14 vitamin A-vitamin C-vit E-min tablet 1 tab PO DAILY 01/26/18 Balsalazide Disodium 750 mg PO TID 11/10/18 Magnesium 250 mg PO BID 11/10/18 Omeprazole 20 mg PO DAILY 11/10/18 traMADol [Ultram] 1 tab PO BID PRN 11/10/18 Aspirin [Aspirin, Baby] 81 mg PO DAILY@0800 tab.chew 11/12/18 Atorvastatin Calcium [Lipitor] 80 mg PO QHS #30 tablet 11/12/18 Lisinopril [Prinivil] 5 mg PO DAILY #0 11/12/18 Following Prescrptions Were Given to Patient: Atorvastatin Calcium [Lipitor] 80 mg PO QHS #30 tablet Primary Care Physician: Morgan Taylor III, MD [Primary Care Provider] - Please follow up with your Primary Care Physician in: 1-2 weeks Please Follow Up With: Karl Thompson MD When: 3-4 week Disposition: Home Medical Necessity - Tobacco Use Smoking Status: Never smoker Tobacco Use: Non-smoker Meaningful Use Info Meaningful Use Diagnoses (Choose all that apply): Ischemic CVA - CVA Therapy Assessed for PT,OT and/or ST?: Yes - Ischemic Stroke Antithrombotic order at d/c?: Yes Dx of Atrial fib/flutter?: No Anticoagulant at discharge?: No Reason anticoagulant not ordered: Procedure not Indicated Statins at discharge?: Yes Primary Dx Acute Ischemic CVA?: Yes IV tPA ordered during stay?: No Reason IV t-PA not ordered: Procedure not Indicated <Al Oliveira - Last Filed: 11/12/18 16:50> Discharge Date and Diagnosis - Secondary Discharge Diagnosis Chronic Problems (Last Reviewed 11/12/18 @ 09:36 by Karl Thompson MD) Orthostatic hypotension (Chronic) Osteoarthritis (Chronic) Hospital Course and Treatment Summary of Care Provided: This patient was seen in conjunction with Gelacio CERON. I have independently interviewed and examined the patient and reviewed pertinent history, examination findings, laboratory and plan of management. I have reviewed the note and agree with the documented findings with the few additional points. In brief, patient is admitted for right lower extremity weakness. CT brain was negative. MRI brain was done which showed Small subacute infarct in the left posterior limb of the internal capsule. MRA neck unremarkable. MRA head showed 3 to 4 mm saccular and review of the SAMI. Seen by neurologist advised discharged home with outpatient physical therapy. No antihypertensive medications for 7 days after event until 11/16/2018. Discharge medication reconciliation done. Discharge follow-up instructions completed. Discharge process discussed with the patient and all questions were answered to patient's satisfaction. Total time spent, exact 35 minutes on discharge meds reconciliation, examination, review of imaging and blood test and discussion with the patient on follow-up instructions. I have discussed my assessment with Gelacio CERON and orders have been reviewed. [] Clinical Impression(s) from Imaging Studies Brain CT 11/10/18 14:02 IMPRESSION: Mild atrophy no evidence of acute hemorrhage infarct or edema. Electronically Signed: Ro Patel MD at 14:48 EDT Tel , Service support , Chest X-Ray 11/10/18 14:32 IMPRESSION: Degenerative changes, as described above. No demonstrated acute cardiopulmonary process. Electronically Signed: Ro Patel MD at 14:50 EDT Tel , Service support , Brain MRI 11/11/18 09:13 IMPRESSION: Small subacute infarct in the left posterior limb of the internal capsule/is again noted. No associated hemorrhage or mass effect. Chronic small vessel disease. Subjective: Patient seen and examined. Patient walked with the help of physical therapist denies any major weakness or problem in walking. - Physical Exam General: Alert, Oriented x3, Cooperative HEENT: Atraumatic, PERRLA, EOMI, Normocephalic Neck: Supple, No JVD, Negative Carotid Bruits Lungs: Clear to auscultation, Normal air movement Cardiovascular: Regular rate, Regular Rhythm, Normal S1, Normal S2, No murmurs Abdomen: Bowel Sounds Present, Soft, Non Tender, Non-Distended Extremities: No edema, Capillary Refill Less than 3 Seconds Skin: No rashes, No breakdown Musculoskeletal: No Tenderness to Palpation of Joints or Extremities Neurological: Cranial nerves II-XII grossly intact, Deep Tendon Reflexes 2+/4 and Symmetrical, Neuro grossly intact, Motor Exam 5/5 strength throughout, - - No speech abnormality/language deficit. No dysarthria or dysphagia Psych/Mental Status: Normal Affect, Appropriate Vital Signs Temp Pulse Resp BP Pulse Ox 98.3 F 86 18 147/79 H 96 11/12/18 12:43 11/12/18 12:43 11/12/18 12:43 11/12/18 12:43 11/12/18 12:43 Oxygen Delivery Method Room Air Weight: 175 lb 14.862 oz Body Mass Index (BMI) 32.1 Intake and Output for Last 24 Hours 11/10/18 11/11/18 11/12/18 23:59 23:59 23:59 Intake Total 1163 / 1163 3465 / 3465 120 / 120 Balance 1163 / 1163 3465 / 3465 120 / 120 Code Visit Inpatient E&M: 62868 Disch Hosp
--- NOTE | 2018-11-12 16:29 | DS.PCM_ITS ---
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 RAD/Chest 1 View (Portable) IMPRESSION: Degenerative changes, as described above. No demonstrated acute cardiopulmonary process. MRI/Brain without Contrast IMPRESSION: Small subacute infarct in the left posterior limb of the internal capsule/is again noted. No associated hemorrhage or mass effect. Chronic small vessel disease. 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 No evidence for intracranial large vessel occlusion. Small left posterior limb internal capsule/basal ganglia subacute infarct better seen on the MRI examination of the brain MRA Neck: IMPRESSION: No evidence for hemodynamically significant extracranial carotid artery stenosis. Motion degraded MRA examination of the neck. Please consider carotid duplex MRI lumbar spine IMPRESSION: Levoconvex lumbar scoliotic curvature with spondylotic changes resulting in multilevel neural foraminal narrowing. No evidence for acute lumbar spine compression fractures. Please see above level by level complete analysis and details. Echo: Interpretation Summary Normal LV size. Left ventricular systolic function is normal. The estimated ejection fraction is 55 %. Stage 1 diastolic dysfunction. Bubble contrast study negative for right to left interatrial shunt. Consults: Neuro - Thompson Operations: None Procedures: 2-D Echocardiogram Summary of Care Provided: Hospital Course: The patient is a 83 year old F with pmhx osteoarthritis of the spine and ankle, HTN, HLD, chronic colitis who presented to the ER with c/o RLE weakness and LH that started the day prior. CT brain was negative. She was admitted for concern for acute stroke. She did have orthostatic hypotension and was given IV fluids after which it resolved. UA was negative, troponin was negative. She was placed on aspirin and statin placed on tele in the PCU. MRI brain, MRA head and neck, MRI lumbar spine were obtained. MRI brain revealed subacute infarct as above. 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 MRA neck unremarkable. MRI lumbar with arthritic changes. Neuro was consulted. They recommended Echo, statin, and aspirin. Echo obtained and was unremarkable. She has very good functional status at home and is very active. Outpatient physical therapy was prescribed. She had no events on tele. She will need to follow up with neuro as an outpatient in 3-4 weeks. She will also need to see her PCP in 1-2 weeks. She was discharged home in stable condition. This patient was seen by Gelacio Jacob PA-C under the supervision of Dr. Oliveira [] - Physical Exam General: Alert, Oriented x3, Cooperative HEENT: Atraumatic, PERRLA, EOMI, Normocephalic Neck: Supple, No JVD, Negative Carotid Bruits Lungs: Clear to auscultation, Normal air movement Cardiovascular: Regular rate, No murmurs Abdomen: Bowel Sounds Present, Soft, Non Tender Extremities: No edema, Capillary Refill Less than 3 Seconds Skin: No rashes, No breakdown Musculoskeletal: No Tenderness to Palpation of Joints or Extremities Neurological: Cranial nerves II-XII grossly intact Psych/Mental Status: Normal Affect, Appropriate Vital Signs Temp Pulse Resp BP Pulse Ox 98.3 F 86 18 147/79 H 96 11/12/18 12:43 11/12/18 12:43 11/12/18 12:43 11/12/18 12:43 11/12/18 12:43 Oxygen Delivery Method Room Air Weight: 175 lb 14.862 oz Body Mass Index (BMI) 32.1 Intake and Output for Last 24 Hours 11/10/18 11/11/18 11/12/18 23:59 23:59 23:59 Intake Total 1163 / 1163 3465 / 3465 120 / 120 Balance 1163 / 1163 3465 / 3465 120 / 120 Discharge Diet: Low fat/ Low Cholesterol, 2000 mg Sodium Diet Discharge Activity: Return to Normal Activity Home Medications: Medications to take at Discharge Acetaminophen [Tylenol] 325 mg PO PRN PRN 02/25/14 vitamin A-vitamin C-vit E-min tablet 1 tab PO DAILY 01/26/18 Balsalazide Disodium 750 mg PO TID 11/10/18 Magnesium 250 mg PO BID 11/10/18 Omeprazole 20 mg PO DAILY 11/10/18 traMADol [Ultram] 1 tab PO BID PRN 11/10/18 Aspirin [Aspirin, Baby] 81 mg PO DAILY@0800 tab.chew 11/12/18 Atorvastatin Calcium [Lipitor] 80 mg PO QHS #30 tablet 11/12/18 Lisinopril [Prinivil] 5 mg PO DAILY #0 11/12/18 Following Prescrptions Were Given to Patient: Atorvastatin Calcium [Lipitor] 80 mg PO QHS #30 tablet Primary Care Physician: Morgan Taylor III, MD [Primary Care Provider] - Please follow up with your Primary Care Physician in: 1-2 weeks Please Follow Up With: Karl Thompson MD When: 3-4 week Disposition: Home Medical Necessity - Tobacco Use Smoking Status: Never smoker Tobacco Use: Non-smoker Meaningful Use Info Meaningful Use Diagnoses (Choose all that apply): Ischemic CVA - CVA Therapy Assessed for PT,OT and/or ST?: Yes - Ischemic Stroke Antithrombotic order at d/c?: Yes Dx of Atrial fib/flutter?: No Anticoagulant at discharge?: No Reason anticoagulant not ordered: Procedure not Indicated Statins at discharge?: Yes Primary Dx Acute Ischemic CVA?: Yes IV tPA ordered during stay?: No Reason IV t-PA not ordered: Procedure not Indicated <Al Oliveira - Last Filed: 11/12/18 16:50> Discharge Date and Diagnosis - Secondary Discharge Diagnosis Chronic Problems (Last Reviewed 11/12/18 @ 09:36 by Karl Thompson MD) Orthostatic hypotension (Chronic) Osteoarthritis (Chronic) Hospital Course and Treatment Summary of Care Provided: This patient was seen in conjunction with Gelacio CERON. I have independently interviewed and examined the patient and reviewed pertinent history, examination findings, laboratory and plan of management. I have reviewed the note and agree with the documented findings with the few additional points. In brief, patient is admitted for right lower extremity weakness. CT brain was negative. MRI brain was done which showed Small subacute infarct in the left posterior limb of the internal capsule. MRA neck unremarkable. MRA head showed 3 to 4 mm saccular and review of the SAMI. Seen by neurologist advised discharged home with outpatient physical therapy. No antihypertensive medications for 7 days after event until 11/16/2018. Discharge medication reconciliation done. Discharge follow-up instructions completed. Discharge process discussed with the patient and all questions were answered to patient's satisfaction. Total time spent, exact 35 minutes on discharge meds reconciliation, examination, review of imaging and blood test and discussion with the patient on follow-up instructions. I have discussed my assessment with Gelacio CERON and orders have been reviewed. [] Clinical Impression(s) from Imaging Studies Brain CT 11/10/18 14:02 IMPRESSION: Mild atrophy no evidence of acute hemorrhage infarct or edema. Electronically Signed: Ro Patel MD at 14:48 EDT Tel , Service support , Chest X-Ray 11/10/18 14:32 IMPRESSION: Degenerative changes, as described above. No demonstrated acute cardiopulmonary process. Electronically Signed: Ro Patel MD at 14:50 EDT Tel , Service support , Brain MRI 11/11/18 09:13 IMPRESSION: Small subacute infarct in the left posterior limb of the internal capsule/is again noted. No associated hemorrhage or mass effect. Chronic small vessel disease. Subjective: Patient seen and examined. Patient walked with the help of physical therapist denies any major weakness or problem in walking. - Physical Exam General: Alert, Oriented x3, Cooperative HEENT: Atraumatic, PERRLA, EOMI, Normocephalic Neck: Supple, No JVD, Negative Carotid Bruits Lungs: Clear to auscultation, Normal air movement Cardiovascular: Regular rate, Regular Rhythm, Normal S1, Normal S2, No murmurs Abdomen: Bowel Sounds Present, Soft, Non Tender, Non-Distended Extremities: No edema, Capillary Refill Less than 3 Seconds Skin: No rashes, No breakdown Musculoskeletal: No Tenderness to Palpation of Joints or Extremities Neurological: Cranial nerves II-XII grossly intact, Deep Tendon Reflexes 2+/4 and Symmetrical, Neuro grossly intact, Motor Exam 5/5 strength throughout, - - No speech abnormality/language deficit. No dysarthria or dysphagia Psych/Mental Status: Normal Affect, Appropriate Vital Signs Temp Pulse Resp BP Pulse Ox 98.3 F 86 18 147/79 H 96 11/12/18 12:43 11/12/18 12:43 11/12/18 12:43 11/12/18 12:43 11/12/18 12:43 Oxygen Delivery Method Room Air Weight: 175 lb 14.862 oz Body Mass Index (BMI) 32.1 Intake and Output for Last 24 Hours 11/10/18 11/11/18 11/12/18 23:59 23:59 23:59 Intake Total 1163 / 1163 3465 / 3465 120 / 120 Balance 1163 / 1163 3465 / 3465 120 / 120 Code Visit Inpatient E&M: [id number] Disch Hosp
== END 2018-11-12 12:27 | disposition home or self-care (01) | DRG 66 ==
LOC: ED 14:14 → PCU 15:56
PROVIDERS: Admitting Provider Internal Medicine; Emergency Provider Emergency Medicine; Family Provider Family Medicine; PCP Family Medicine; Visit Provider Internal Medicine
DX: I63.9 Cerebral infarction, unspecified (principal); I95.1 Orthostatic hypotension; E86.0 Dehydration; E78.5 Hyperlipidemia, unspecified; I10 Essential (primary) hypertension; M19.90 Unspecified osteoarthritis, unspecified site; K52.9 Noninfective gastroenteritis and colitis, unspecified; I67.1 Cerebral aneurysm, nonruptured
CPT/HCPCS: 36415; 70450; 70544; 70549; 70551; 71045; 72148; 80048; 80061; 81001; 84484; 85025; 92610; 93005; 93306; 97162; 97166; 97802; 99285; A9575; J7030; Q9957; A4216

== ENCOUNTER 2018-11-13 05:41 | Inpatient (IN) | payer MEDICARE, OTHER, SELFPAY ==
[2018-11-12 09:52] VITALS: BMI 32.1
[2018-11-13] VITALS (16 sets, daily range): BP systolic 125–157; BP diastolic 55–86; PULSE 75–108; RESP 13–22; TEMP 36.4–37; O2SAT 93–98; BMI 32.5; BMI 31.6
--- NOTE | 2018-11-13 05:46 | RAD_ITS ---
STUDY: X-RAY CHEST REASON FOR EXAM: Female, 83 years old. Stroke alert. TECHNIQUE: AP portable chest. COMPARISON: November 10, 2018. FINDINGS: The lungs are clear and expanded. There is no demonstrated pleural abnormality. Borderline cardiomegaly. Normal mediastinum and keira. Normal visualized pulmonary arteries. Normal visualized aortic arch and descending thoracic aorta. Normal visualized thoracic spine. Normal visualized ribs, clavicles, and shoulders. There is no demonstrated abnormality of the visualized soft tissue structures of the upper abdomen. RAD/Chest 1 View IMPRESSION: No acute cardiopulmonary disease. Electronically Signed: Brian Worley MD at 6:33 EDT , Service support ,
--- NOTE | 2018-11-13 05:46 | EKG12_ITS ---
Test Reason : Blood Pressure : / mmHG Vent. Rate : 076 BPM Atrial Rate : 076 BPM P-R Int : 162 ms QRS Dur : 148 ms QT Int : 446 ms P-R-T Axes : 052 -60 102 degrees QTc Int : 501 ms Normal sinus rhythm Left axis deviation Left bundle branch block Abnormal ECG Confirmed by MANJIT PARDO ([id number]), editor managing newspaper ANTONIO MARCOS ([id number]) on 11/19/2018 10:32:56 AM Referred By: NIC Confirmed By:MANJIT PARDO
--- NOTE | 2018-11-13 05:46 | CT_ITS ---
STUDY: CT BRAIN WITHOUT CONTRAST REASON FOR EXAM: Female, 83 years old. Right sided weakness RADIATION DOSAGE (If Supplied By Facility): CTDIvol = ( 44.99 ) mGy, DLP = ( 796.11 ) mGycm TECHNIQUE: Transaxial CT imaging of the brain was performed without administration of intravenous contrast material. Individualized dose optimization techniques were used for this CT. COMPARISON: No relevant priors. FINDINGS: Normal soft tissue structures. Normal calvarium. Normal size ventricles and extra-axial spaces for the patient's age. Normal white matter tracts of the cerebral hemispheres. Normal basal ganglia and thalami. Normal brainstem. Normal cerebellum. There is no intracranial hemorrhage. There are no findings of an acute ischemic infarction. Normal visualized paranasal sinuses. CT/Brain/Head without Contrast IMPRESSION: Normal unenhanced CT scan of the brain. No acute findings in the brain N.B. : The above information has been verbally conveyed by Mao Malloy MD to Anu Evans on 11/13/2018 06:26:05 (ET). Electronically Signed: Mao Malloy MD at 6:27 EDT Tel , Service support ,
--- NOTE | 2018-11-13 05:46 | ED.RN ---
RN CALLED FOR EKG, PULLED OLD EKGS FOR
--- NOTE | 2018-11-13 05:48 | CT_ITS ---
STUDY: CTA NECK WITH CONTRAST REASON FOR EXAM: Female, 83 years old. Right-sided weakness RADIATION DOSAGE (If Supplied By Facility): CTDIvol = ( ) mGy, DLP = ( ) mGycm TECHNIQUE: CT angiography with multi-detector data acquisition was performed from the aortic arch to the skull base following intravenous administration of 100ML IV Isovue 370. MIP images were reconstructed from the axial data set. Post-processing of the angiographic images was performed, with multiplanar reformation and 3D reconstruction. Individualized dose optimization techniques were used for this CT. COMPARISON: None. FINDINGS: AORTIC ARCH: Normal visualized aortic arch. Normal origins of the brachiocephalic, left common carotid, and left subclavian arteries. RIGHT CAROTID ARTERIES: Normal right common carotid artery (CCA). Normal right common carotid bulb. Normal origin of the right internal carotid (ICA) artery without a hemodynamically significant stenosis. Normal visualized cervical portion of the right internal carotid artery. Normal origin of the right external carotid artery (ECA). LEFT CAROTID ARTERIES: Normal left common carotid artery (CCA). Mild calcific atherosclerosis changes involving the distal end of the left carotid. There is no inguinal canal stenosis. Normal origin of the left internal carotid (ICA) artery without a hemodynamically significant stenosis. Normal visualized cervical portion of the left internal carotid artery. Normal origin of the left external carotid artery (ECA). VERTEBRAL ARTERIES: Normal bilateral vertebral arteries. IMPRESSION: Normal bilateral cervical carotid and vertebral arteries except for a small area of calcified plaque formation in the distal left carotid bulb with no evidence of a hemodynamically significant stenosis. Electronically Signed: Mao Malloy MD at 6:56 EDT Tel , Service support , STUDY: CTA OF THE BRAIN REASON FOR EXAM: Female, 83 years old. Right sided weakness RADIATION DOSAGE (If Supplied By Facility): CTDIvol = ( 16.71 ) mGy, DLP = ( 760.34 ) mGycm TECHNIQUE: CT angiography was performed with a multi-detector CT scanner. Data acquisition was obtained from the skull base through the vertex following intravenous administration of 100mL IV Isovue 370. MIP images were reconstructed from the axial data set. Post-processing of the angiographic images was performed, with multiplanar reformation and 3D reconstruction. Individualized dose optimization techniques were used for this CT. COMPARISON: None. FINDINGS: Normal bilateral petrous carotid arteries. Normal right cavernous carotid artery with a normal supraclinoid bifurcation. Normal left cavernous carotid artery with a normal supraclinoid bifurcation. Normal right A1 segments of the anterior cerebral artery. Normal left A1 segments of the anterior cerebral artery. Normal intact anterior communicating artery (ACOM). Normal bilateral A2 segments of the anterior cerebral arteries. Normal right M1 and M2 segments of the middle cerebral arteries, with a normal M1 bifurcation. Normal left M1 and M2 segments of the middle cerebral arteries, with a normal M1 bifurcation. Normal right posterior communicating artery (PCOM). Normal left posterior communicating artery (PCOM). Normal bilateral vertebral arteries. Normal basilar artery with a normal basilar bifurcation. The visualized bilateral superior cerebellar (SCA) arteries are normal. Normal bilateral P1, P2 and visualized P3 segments of the posterior cerebral arteries. There is no demonstrated aneurysm of the [place]. There is no demonstrated abnormality of the visualized brain. CT/CTA Neck W/WO Contrast IMPRESSION: Normal [place] without a demonstrated aneurysm or hemodynamically significant stenosis. Electronically Signed: Mao Malloy MD at 6:57 EDT Tel , Service support ,
--- NOTE | 2018-11-13 05:48 | CT_ITS ---
STUDY: CTA NECK WITH CONTRAST REASON FOR EXAM: Female, 83 years old. Right-sided weakness RADIATION DOSAGE (If Supplied By Facility): CTDIvol = ( ) mGy, DLP = ( ) mGycm TECHNIQUE: CT angiography with multi-detector data acquisition was performed from the aortic arch to the skull base following intravenous administration of 100ML IV Isovue 370. MIP images were reconstructed from the axial data set. Post-processing of the angiographic images was performed, with multiplanar reformation and 3D reconstruction. Individualized dose optimization techniques were used for this CT. COMPARISON: None. FINDINGS: AORTIC ARCH: Normal visualized aortic arch. Normal origins of the brachiocephalic, left common carotid, and left subclavian arteries. RIGHT CAROTID ARTERIES: Normal right common carotid artery (CCA). Normal right common carotid bulb. Normal origin of the right internal carotid (ICA) artery without a hemodynamically significant stenosis. Normal visualized cervical portion of the right internal carotid artery. Normal origin of the right external carotid artery (ECA). LEFT CAROTID ARTERIES: Normal left common carotid artery (CCA). Mild calcific atherosclerosis changes involving the distal end of the left carotid. There is no inguinal canal stenosis. Normal origin of the left internal carotid (ICA) artery without a hemodynamically significant stenosis. Normal visualized cervical portion of the left internal carotid artery. Normal origin of the left external carotid artery (ECA). VERTEBRAL ARTERIES: Normal bilateral vertebral arteries. IMPRESSION: Normal bilateral cervical carotid and vertebral arteries except for a small area of calcified plaque formation in the distal left carotid bulb with no evidence of a hemodynamically significant stenosis. Electronically Signed: Mao Malloy MD at 6:56 EDT Tel , Service support , STUDY: CTA OF THE BRAIN REASON FOR EXAM: Female, 83 years old. Right sided weakness RADIATION DOSAGE (If Supplied By Facility): CTDIvol = ( 16.71 ) mGy, DLP = ( 760.34 ) mGycm TECHNIQUE: CT angiography was performed with a multi-detector CT scanner. Data acquisition was obtained from the skull base through the vertex following intravenous administration of 100mL IV Isovue 370. MIP images were reconstructed from the axial data set. Post-processing of the angiographic images was performed, with multiplanar reformation and 3D reconstruction. Individualized dose optimization techniques were used for this CT. COMPARISON: None. FINDINGS: Normal bilateral petrous carotid arteries. Normal right cavernous carotid artery with a normal supraclinoid bifurcation. Normal left cavernous carotid artery with a normal supraclinoid bifurcation. Normal right A1 segments of the anterior cerebral artery. Normal left A1 segments of the anterior cerebral artery. Normal intact anterior communicating artery (ACOM). Normal bilateral A2 segments of the anterior cerebral arteries. Normal right M1 and M2 segments of the middle cerebral arteries, with a normal M1 bifurcation. Normal left M1 and M2 segments of the middle cerebral arteries, with a normal M1 bifurcation. Normal right posterior communicating artery (PCOM). Normal left posterior communicating artery (PCOM). Normal bilateral vertebral arteries. Normal basilar artery with a normal basilar bifurcation. The visualized bilateral superior cerebellar (SCA) arteries are normal. Normal bilateral P1, P2 and visualized P3 segments of the posterior cerebral arteries. There is no demonstrated aneurysm of the [place]. There is no demonstrated abnormality of the visualized brain. CT/CTA Head W/WO Contrast IMPRESSION: Normal [place] without a demonstrated aneurysm or hemodynamically significant stenosis. Electronically Signed: Mao Malloy MD at 6:57 EDT Tel , Service support ,
[2018-11-13 05:50] LABS: Bedside Glucose 189 mg/dL (70-110)
[2018-11-13 06:39] LABS: Absolute Lymphocyte Count 2.34 X10^3/ul (0.83-4.51); Absolute Neutrophil Count 4.7 X10^3/uL (2.0-7.7); Basophil# 0.04 X10^3/uL; Basophil% 0.5 % (0-1); Eosinophil# 0.22 X10^3/uL; Eosinophils% 2.7 % (0-5); Hematocrit 39.8 % (37-47); Lymphocyte # 2.34 X10^3/ul (4.0); Lymphocyte % 28.8 % (19-41); Mean Corp Hgb Conc 32.7 g/gl (32-36); Mean Corpuscular Hgb 32.3 pg (27.0-32.0); Mean Platelet Vol. 8.9 fl (6.2-12.0); Monocyte# 0.81 X10^3/uL; Neutrophil % 57.6 % (47-70); Platelet Count 289 K/mm3 (150-450); RBC Distribution Width CV 13.9 % (11.6-14.6); RBC Distribution Width SD 49.3 fl (35.1-43.9); Red Blood Count 4.02 M/mm3 (4.2-5.4); White Blood Count 8.1 K/mm3 (4.4-11.0)
[2018-11-13 06:42] LABS: POSITIVE COUNT NO; POSITIVE DIFFERENTIAL NO; POSITIVE MORPHOLOGY NO
[2018-11-13 06:42] LABS: Neutrophil # 4.68 X10^3/uL (2.7-7.7)
[2018-11-13 06:57] LABS: Anion Gap 8 (5-15); BUN 15 mg/dL (7-18); BUN/Creat Ratio 16.1 RATIO (10-20); Calcium,Total 8.8 mg/dL (8.5-10.1); Chloride 105 mmol/L (98-107); Creatinine, Serum 0.93 mg/dL (0.55-1.02); EST Glomerular Filtration Rate 61 mL/min (>60); Est Glom Filt Rate - Afr Amer 74 mL/min (>60); Estimated Creatinine Clearance 40.97 ml/min; Glucose 162 mg/dL (74-106); Potassium 4.5 mmol/L (3.5-5.1); Sodium Level 139 mmol/L (136-145)
--- NOTE | 2018-11-13 07:04 | ED.DCSUM_ITS ---
- ER Visit Summary Date of Service: 11/13/18 Chief Complaint: Weakness History of Present Illness: The patient is a 83 F called as a prehospital stroke alert. Patient reportedly was admitted to the hospital November 10 with right- sided weakness that quickly improved. She had a subacute infarct in the left posterior limb of the internal capsule noted on MRI. Patient states that she was up this morning and able to speak to her normally. At 5 AM she had onset of right arm and leg paralysis. EMS notes the patient was unresponsive on their arrival. They rapidly moved her to the ambulance and she came around rather quickly. She is been alert and talking since that time. On arrival to the emergency room right arm and leg are limp. Physical Examination: Vital signs unremarkable. Patient lying in bed no acute distress. She is answering questions appropriately. Head and neck examination unremarkable. Heart is regular rate and rhythm. Lung sounds are clear. Abdomen is soft and nontender. NIH score is initially 4. She receives 3 points for right upper extremity w eakness at one point for right lower extremity weakness. Symptoms are improving from the time that she was brought into the ED exam room by squad. Test Results: CT head and CTA head and neck are unremarkable. Portable chest x- ray shows no acute disease. EKG is sinus at 76. CBC and chemistry studies unremarkable. Troponin negative. Emergency Department Course and Treatment: Patient was checked immediately upon returning from CAT scan. NIH score at that point is 2. Right upper extremity strength is quickly improving. At this time she continues to have improved strength in the right upper extremity but does have some ataxia noted. She is able to lift her right leg without any difficulty. Patient we discussed with hospitalist and admitted. I suspect she will need some medication adjustments as she just had a large work-up for the same symptoms. Treatment Plan: [] Disposition: Admit Impression: CVA with right-sided weakness, improving This note was generated with [employer] dictation software. It may contain incorrect words, spelling, and punctuation that were not noted in review of the chart prior to signing ED Disposition - Plan for ED Patient: Referrals: Care Physician,No Primary [Primary Care Provider] -
--- NOTE | 2018-11-13 07:08 | NURSING ---
DR AUSTIN FOR DR MONTEMAYOR
--- NOTE | 2018-11-13 07:11 | NURSING ---
PCU OBS CVA SEMENTI
--- NOTE | 2018-11-13 07:30 | HP.PCM_ITS ---
History of Present Illness Date of Admission: 11/13/18 Chief Complaint: R side weakness and aphasia...waxing and waning The patient is a 83 year old F [] Recent echocardiogram on 11/12/2018 showed a 55% ejection fraction with no wall motion abnormalities and stage I diastolic dysfunction. The bubble contrast study was negative for right to left intra-atrial shunts. MRI done 11/11/2018 showed a small subacute infarct in the left posterior limb of the internal capsule. Small vessel disease. MRI of the neck was unremarkable. 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 Past Medical History Past Medical History (Chronic Problems): Chronic Problems (Last Reviewed 11/12/18 @ 09:36 by Karl Thompson MD) Orthostatic hypotension (Chronic) Osteoarthritis (Chronic) Medical History: Medical History (Last Reviewed 11/12/18 @ 09:36 by Karl Thompson MD) Skin lesion (Acute) L98.9 Chronic back pain M54.9, G89.29 GERD (gastroesophageal reflux disease) K21.9 Hemorrhoid K64.9 History of hysterectomy Z90.710 Osteoarthritis M19.90 Rheumatoid arthritis M06.9 HTN (hypertension) I10 Allergies erythromycin base [Erythromycin Base] Allergy (Verified 11/13/18 05:53) Rash Sulfa (Sulfonamide Antibiotics) Allergy (Verified 11/13/18 05:53) Rash sulfamethoxazole [From Septra] Allergy (Verified 11/13/18 05:53) Rash trimethoprim [From Septra] Allergy (Verified 11/13/18 05:53) Rash Home Medications: Ambulatory Orders Medication Instructions Recorded Acetaminophen [Tylenol] 325 mg PO PRN PRN 02/25/14 Balsalazide Disodium 750 mg PO TID 11/10/18 Omeprazole 20 mg PO DAILY 11/10/18 traMADol [Ultram] 1 tab PO BID PRN 11/10/18 Aspirin [Aspirin, Baby] 81 mg PO DAILY@0800 tab.chew 11/12/18 Atorvastatin Calcium [Lipitor] 80 mg PO QHS #30 tablet 11/12/18 Lisinopril [Prinivil] 5 mg PO DAILY #0 11/12/18 Multivitamin [Multivitamins] 1 ea PO DAILY 11/13/18 Surgical History: Surgical History (Last Reviewed 11/12/18 @ 09:36 by Karl Thompson MD) History of colonoscopy Z98.890 History of esophagogastroduodenoscopy (EGD) Z98.890 History of foot surgery Z98.890 History of laparoscopic cholecystectomy Z90.49 History of left knee replacement Z96.652 History of skin graft Z98.890 History of tonsillectomy Z90.89 Surgical History: cholecystectomy, hysterectomy, total knee arthroplasty, tonsillectomy, - - Skin graft to right hand as a child, foot surgery Psychiatric History: No pertinent psych hx 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 Smoking Status: Never smoker - *Family History Maternal Family History: Family History (Last Reviewed 11/12/18 @ 09:36 by Karl Thompson MD) Mother Heart disease Father Heart disease History Items: No pertinent history Paternal Family History: Family History (Last Reviewed 11/12/18 @ 09:36 by Karl Thompson MD) Mother Heart disease Father Heart disease History Items: No pertinent history - Physical Exam Vital Signs Temp Pulse Resp BP Pulse Ox 97.6 F L 79 22 H 139/66 H 98 11/13/18 05:45 11/13/18 07:05 11/13/18 07:05 11/13/18 07:05 11/13/18 07:05 Oxygen Flow Rate (L/min) 2 Oxygen Delivery Method Room Air Weight: 189 lb 6.033 oz Body Mass Index (BMI) 32.5 Finger Stick Blood Glucose 189 Laboratory Tests Past 24 Hrs 11/13/18 11/13/18 11/13/18 06:26 06:26 06:26 WBC 8.1 RBC 4.02 L Hgb 13.0 Hct 39.8 MCV 99.0 MCH 32.3 H MCHC 32.7 RDW 13.9 RDW Differential 49.3 H Plt Count 289 MPV 8.9 Immature Gran % (Auto) 0.400 Neut % (Auto) 57.6 Lymph % (Auto) 28.8 [place] % (Auto) 10.0 Eos % (Auto) 2.7 Baso % (Auto) 0.5 Absolute Neuts (auto) 4.7 Absolute Lymphs (auto) 2.34 Total Counted Not Reportable PT 12.3 INR 0.9 APTT Pending Sodium 139 Potassium 4.5 Chloride 105 Carbon Dioxide 26.0 Anion Gap 8 BUN 15 Creatinine 0.93 Estim Creat Clear Calc 40.97 Est GFR (MDRD) Af Amer 74 Est GFR (MDRD) Non-Af 61 BUN/Creatinine Ratio 16.1 Glucose 162 H Calcium 8.8 Troponin I < 0.015 POC Glucose 11/13/18 05:47 POC Glucose 189 H Assessment/Plan All Active Problems (Last Reviewed 11/12/18 @ 09:36 by Karl Thompson MD) CVA (cerebral vascular accident) (Acute) Skin lesion (Acute) Dizziness (Acute)
[2018-11-13] MEDS: 0.9% Normal Saline 1,000 ML 100 ML IV ×2 (08:30→18:31)
[2018-11-13] MEDS: Enoxaparin 40 MG/0.4 ML Syringe SC (09:16)
[2018-11-13] MEDS: Aspirin 81 MG TAB.CHEW PO (09:16)
[2018-11-13] MEDS: Multivitamins,Therapeutic Tablet 1 TABLET PO (09:16)
[2018-11-13] MEDS: Loperamide 2 MG Capsule PO ×3 (09:16→21:20)
[2018-11-13 09:44] LABS: Magnesium 2.3 mg/dL (1.6-2.6); Thyroid Stim Hormone (TSH) 2.11 uIU/mL (0.358-3.74)
[2018-11-13 10:35] LABS: International Normalized Ratio 0.9; Prothrombin Time (Protime)PT. 12.1 SECONDS (11.7-14.9)
[2018-11-13 10:36] LABS: Partial Thromboplast Time 25.2 Seconds (24.1-36.2)
--- NOTE | 2018-11-13 12:25 | PCM.CONS.GEN ---
Reason for Consult Date of Consultation: 11/13/18 Reason for Consultation: RIGHT SIDED WEAKNESS History of Present Illness: The patient is a 83 year old F with recent dx of cva with mild right sided weakness.mri showed small left subcortical infarct and was doing well, went home yesterday, this am became more weak and apparently lost consciousness, apparently slumped over but did not go to floor.woke up in ambulance, feels ok now but worsening right sided weakness. symptoms happened after going to bathroom. was given lisinopril Past Medical History Past Medical History (Chronic Problems): Chronic Problems (Last Reviewed 11/12/18 @ 09:36 by Karl Thompson MD) Orthostatic hypotension (Chronic) Osteoarthritis (Chronic) Medical History: Medical History (Last Reviewed 11/12/18 @ 09:36 by Karl Thompson MD) Skin lesion (Acute) L98.9 Chronic back pain M54.9, G89.29 GERD (gastroesophageal reflux disease) K21.9 Hemorrhoid K64.9 History of hysterectomy Z90.710 Osteoarthritis M19.90 Rheumatoid arthritis M06.9 HTN (hypertension) I10 Allergies erythromycin base [Erythromycin Base] Allergy (Verified 11/13/18 05:53) Rash Sulfa (Sulfonamide Antibiotics) Allergy (Verified 11/13/18 05:53) Rash sulfamethoxazole [From Septra] Allergy (Verified 11/13/18 05:53) Rash trimethoprim [From Janra] Allergy (Verified 11/13/18 05:53) Rash Home Medications: Ambulatory Orders Medication Instructions Recorded Acetaminophen [Tylenol] 325 mg PO PRN PRN 02/25/14 Balsalazide Disodium 750 mg PO TID 11/10/18 Omeprazole 20 mg PO DAILY 11/10/18 traMADol [Ultram] 1 tab PO BID PRN 11/10/18 Lisinopril [Prinivil] 5 mg PO DAILY #0 11/12/18 Aspirin [Aspirin, Baby] 81 mg PO DAILY@0800 11/13/18 Multivitamin [Multivitamins] 1 ea PO DAILY 11/13/18 Simvastatin 40 mg PO QHS 11/13/18 Surgical History: Surgical History (Last Reviewed 11/12/18 @ 09:36 by Karl Thompson MD) History of colonoscopy Z98.890 History of esophagogastroduodenoscopy (EGD) Z98.890 History of foot surgery Z98.890 History of laparoscopic cholecystectomy Z90.49 History of left knee replacement Z96.652 History of skin graft Z98.890 History of tonsillectomy Z90.89 Surgical History: cholecystectomy, hysterectomy, total knee arthroplasty, tonsillectomy, - - Skin graft to right hand as a child, foot surgery 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 Smoking Status: Never smoker - *Family History Maternal Family History: Family History (Last Reviewed 11/12/18 @ 09:36 by Karl Thompson MD) Mother Heart disease Father Heart disease History Items: No pertinent history Paternal Family History: Family History (Last Reviewed 11/12/18 @ 09:36 by Karl Thompson MD) Mother Heart disease Father Heart disease History Items: No pertinent history Review of Systems Constitutional: Denies: Chills, Fever, Weight Change Cardiovascular: Denies: Chest Pain, Palpitations - Physical Exam Vital Signs Temp Pulse Resp BP Pulse Ox 36.6 C 85 16 130/79 H 98 11/13/18 08:25 11/13/18 08:56 11/13/18 08:25 11/13/18 08:26 11/13/18 08:25 Oxygen Flow Rate (L/min) 2 Oxygen Delivery Method Room Air Weight: 78.4 kg Body Mass Index (BMI) 31.6 Finger Stick Blood Glucose 189 Laboratory Tests Past 24 Hrs 11/13/18 11/13/18 11/13/18 06:26 06:26 06:26 WBC 8.1 RBC 4.02 L Hgb 13.0 Hct 39.8 MCV 99.0 MCH 32.3 H MCHC 32.7 RDW 13.9 RDW Differential 49.3 H Plt Count 289 MPV 8.9 Immature Gran % (Auto) 0.400 Neut % (Auto) 57.6 Lymph % (Auto) 28.8 [place] % (Auto) 10.0 Eos % (Auto) 2.7 Baso % (Auto) 0.5 Absolute Neuts (auto) 4.7 Absolute Lymphs (auto) 2.34 Total Counted Not Reportable PT Cancelled INR Cancelled APTT Cancelled Sodium 139 Potassium 4.5 Chloride 105 Carbon Dioxide 26.0 Anion Gap 8 BUN 15 Creatinine 0.93 Estim Creat Clear Calc 40.97 Est GFR (MDRD) Af Amer 74 Est GFR (MDRD) Non-Af 61 BUN/Creatinine Ratio 16.1 Glucose 162 H Calcium 8.8 Magnesium Troponin I < 0.015 TSH 11/13/18 11/13/18 09:10 09:10 WBC RBC Hgb Hct MCV MCH MCHC RDW RDW Differential Plt Count MPV Immature Gran % (Auto) Neut % (Auto) Lymph % (Auto) [place] % (Auto) Eos % (Auto) Baso % (Auto) Absolute Neuts (auto) Absolute Lymphs (auto) Total Counted PT 12.1 INR 0.9 APTT 25.2 Sodium Potassium Chloride Carbon Dioxide Anion Gap BUN Creatinine Estim Creat Clear Calc Est GFR (MDRD) Af Amer Est GFR (MDRD) Non-Af BUN/Creatinine Ratio Glucose Calcium Magnesium 2.3 Troponin I < 0.015 TSH 2.11 POC Glucose 11/13/18 05:47 POC Glucose 189 H Assessment/Plan All Active Problems (Last Reviewed 11/12/18 @ 09:36 by Karl Thompson MD) CVA (cerebral vascular accident) (Acute) Skin lesion (Acute) Dizziness (Acute) cva, intercurrent syncope RECOMMEND NO BP RX FOR NOW UNLESS SBP>200, if bp drops below 110 would administer fluids. repeat mri pt/ot/sp exam mildly worse but expect recovery please recall if needed
--- NOTE | 2018-11-13 12:34 | MRI_ITS ---
STUDY: MRI BRAIN WITH AND WITHOUT CONTRAST REASON FOR EXAM: Female, 83 years old. CVA. Increasing right arm and leg weakness. TECHNIQUE: Standardized multiplanar fat and water weighted pulse sequences were obtained. 15 IV Dotarem was administered for the contrast portion of the examination. COMPARISON: 11/11/2018. FINDINGS: There is restricted diffusion in the left putamen, greatest posteriorly and laterally, increased compared to the prior study. No additional areas of restricted diffusion. This is consistent with acute infarct. There is moderate cerebral atrophy with widening of the extra-axial spaces and ventricular dilatation. There are multiple white matter hyperintensities, distributed throughout the deep white matter tracts of the cerebral hemispheres, consistent with moderate chronic white matter ischemic changes. Normal bilateral basal ganglia. Normal thalami. There is no extra-axial fluid accumulation. Normal flow voids within the major intracranial circulation suggesting patency by spin echo criteria. There is no enhancing intra-axial or extra-axial abnormality. Normal sella [place], pituitary gland, infundibular stalk, optic chiasm and hypothalamus. Normal tectal plate and pineal gland. Normal midbrain, [place] and medulla. Normal cerebellum. Normal basal cisterns. Normal bilateral temporal bones. Normal bilateral internal auditory canals. No demonstrated orbital abnormality, within the constraints of a routine brain study. Normal visualized paranasal sinuses. Normal calvarium and skull base. Normal visualized soft tissue structures. MRI/Brain W/WO Contrast IMPRESSION: 1. Small but enlarging 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 2. Mild chronic microvascular ischemic changes. Atrophy. Electronically Signed: Marisol Unger MD at 21:53 EDT Tel , Service support ,
--- NOTE | 2018-11-13 14:16 | CASEMGMT ---
[place] notified patient during her last admission (yesterday 11-12-18) that her advance directives are not on file. Netta TYLER MSW
--- NOTE | 2018-11-13 15:46 | PCM.HP.STD ---
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 She had presented that admission with left sided upper and lower extremity weakness and lightheadedness. She was found to also have orthostatic hypotension. She was started on aspirin and lipitor. She was told to hold her lisinopril for a week. The patient followed her instructions. She directly tells me that she did not take lisinopril at home, and according to her MAR here she has NOT received lisinopril since coming back to the hospital either. At home this morning she developed severel right sided upper and lower extremity weakness. She also had a syncopal episode while sitting - slumped over did not go to the floor. Her weakness is more severe than previous admission. She woke up in the squad on the way to the ER and her mentation was normal however the weakness is persistent. She is comfortable in bed now, with ongoing weakness. She has no chest pain or palp. Labs are unremarkable. [] Past Medical History Past Medical History (Chronic Problems): Chronic Problems (Last Reviewed 11/12/18 @ 09:36 by Karl Thompson MD) Orthostatic hypotension (Chronic) Osteoarthritis (Chronic) Colitis (Chronic) HTN (hypertension) (Chronic) Medical History: Medical History (Last Reviewed 11/12/18 @ 09:36 by Karl Thompson MD) Skin lesion (Acute) L98.9 Chronic back pain M54.9, G89.29 GERD (gastroesophageal reflux disease) K21.9 Hemorrhoid K64.9 History of hysterectomy Z90.710 Osteoarthritis M19.90 Rheumatoid arthritis M06.9 HTN (hypertension) I10 Allergies erythromycin base [Erythromycin Base] Allergy (Verified 11/13/18 05:53) Rash Sulfa (Sulfonamide Antibiotics) Allergy (Verified 11/13/18 05:53) Rash sulfamethoxazole [From Septra] Allergy (Verified 11/13/18 05:53) Rash trimethoprim [From Septra] Allergy (Verified 11/13/18 05:53) Rash Home Medications: Ambulatory Orders Medication Instructions Recorded Acetaminophen [Tylenol] 325 mg PO PRN PRN 02/25/14 Balsalazide Disodium 750 mg PO TID 11/10/18 Omeprazole 20 mg PO DAILY 11/10/18 traMADol [Ultram] 1 tab PO BID PRN 11/10/18 Lisinopril [Prinivil] 5 mg PO DAILY #0 11/12/18 Aspirin [Aspirin, Baby] 81 mg PO DAILY@0800 11/13/18 Multivitamin [Multivitamins] 1 ea PO DAILY 11/13/18 Simvastatin 40 mg PO QHS 11/13/18 Surgical History: Surgical History (Last Reviewed 11/12/18 @ 09:36 by Karl Thompson MD) History of colonoscopy Z98.890 History of esophagogastroduodenoscopy (EGD) Z98.890 History of foot surgery Z98.890 History of laparoscopic cholecystectomy Z90.49 History of left knee replacement Z96.652 History of skin graft Z98.890 History of tonsillectomy Z90.89 Surgical History: cholecystectomy, hysterectomy, total knee arthroplasty, tonsillectomy, - - Skin graft to right hand as a child, foot surgery Psychiatric History: No pertinent psych hx 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 history Lives: Spouse/ Significant Other Smoking Status: Never smoker Tobacco Use: Non-smoker Alcohol: None Drugs: None - *Family History Maternal Family History: Family History (Last Reviewed 11/12/18 @ 09:36 by Karl Thompson MD) Mother Heart disease Father Heart disease History Items: No pertinent history Paternal Family History: Family History (Last Reviewed 11/12/18 @ 09:36 by Karl Thompson MD) Mother Heart disease Father Heart disease History Items: No pertinent history Review of Systems Constitutional: Denies: Chills, Fever, Weight Change HEENT: Denies: Head Aches, Sinus Congestion, Sinus Drainage Cardiovascular: Reports: Syncope. Denies: Chest Pain, Palpitations Respiratory: Denies: Cough, Shortness of breath at rest, Sputum production Gastrointestinal: Denies: Abdominal Pain, Nausea, Vomiting Genitourinary: Denies: Dysuria Musculoskeletal: Denies: Joint Pain, Joint Tenderness Skin: Denies: Rash, Wounds Neurological: Reports: Focal weakness, Numbness, Tingling. Denies: Blurred vision, Double vision, Change in Speech, Slurred speech, Headaches, Tremor, Seizures Psychiatric: Denies: Anxiety, Depression, Homicidal Ideations, Suicidal Ideations Hematologic/ Lymphatic: Denies: Easy Bruising, Easy Bleeding VTE Information - Inpt Only VTE Present on Admission: No VTE Mechan Device Prophylaxis: None VTE Pharm Prophylaxis ordered?: Yes Patient Problems: Active and Suspected Problems (Last Reviewed 11/12/18 @ 09:36 by Karl Thompson MD) HLD (hyperlipidemia) (Acute) - Physical Exam General: Alert, Oriented x3, Cooperative HEENT: Atraumatic, PERRLA, EOMI, Normocephalic Neck: Supple, No JVD, Negative Carotid Bruits Lungs: Clear to auscultation, Normal air movement Cardiovascular: Regular rate, No murmurs Abdomen: Bowel Sounds Present, Soft, Non Tender Extremities: No edema, Capillary Refill Less than 3 Seconds Skin: No rashes, No breakdown Musculoskeletal: No Tenderness to Palpation of Joints or Extremities Neurological: Cranial nerves II-XII grossly intact, - - RLE RUE weakness Psych/Mental Status: Normal Affect, Appropriate, Alert and oriented to time, place, person, mood and affect Vital Signs Temp Pulse Resp BP Pulse Ox 98.6 F 100 18 127/71 H 93 11/13/18 12:25 11/13/18 14:58 11/13/18 12:25 11/13/18 12:25 11/13/18 12:25 Oxygen Flow Rate (L/min) 2 Oxygen Delivery Method Room Air Weight: 172 lb 13.478 oz Body Mass Index (BMI) 31.6 Finger Stick Blood Glucose 189 Intake and Output for Last 24 Hours 11/11/18 11/12/18 11/13/18 23:59 23:59 23:59 Intake Total 651 / 651 Balance 651 / 651 Laboratory Tests Past 24 Hrs 11/13/18 11/13/18 11/13/18 06:26 06:26 06:26 WBC 8.1 RBC 4.02 L Hgb 13.0 Hct 39.8 MCV 99.0 MCH 32.3 H MCHC 32.7 RDW 13.9 RDW Differential 49.3 H Plt Count 289 MPV 8.9 Immature Gran % (Auto) 0.400 Neut % (Auto) 57.6 Lymph % (Auto) 28.8 [place] % (Auto) 10.0 Eos % (Auto) 2.7 Baso % (Auto) 0.5 Absolute Neuts (auto) 4.7 Absolute Lymphs (auto) 2.34 Total Counted Not Reportable PT Cancelled INR Cancelled APTT Cancelled Sodium 139 Potassium 4.5 Chloride 105 Carbon Dioxide 26.0 Anion Gap 8 BUN 15 Creatinine 0.93 Estim Creat Clear Calc 40.97 Est GFR (MDRD) Af Amer 74 Est GFR (MDRD) Non-Af 61 BUN/Creatinine Ratio 16.1 Glucose 162 H Calcium 8.8 Magnesium Troponin I < 0.015 TSH 11/13/18 11/13/18 09:10 09:10 WBC RBC Hgb Hct MCV MCH MCHC RDW RDW Differential Plt Count MPV Immature Gran % (Auto) Neut % (Auto) Lymph % (Auto) [place] % (Auto) Eos % (Auto) Baso % (Auto) Absolute Neuts (auto) Absolute Lymphs (auto) Total Counted PT 12.1 INR 0.9 APTT 25.2 Sodium Potassium Chloride Carbon Dioxide Anion Gap BUN Creatinine Estim Creat Clear Calc Est GFR (MDRD) Af Amer Est GFR (MDRD) Non-Af BUN/Creatinine Ratio Glucose Calcium Magnesium 2.3 Troponin I < 0.015 TSH 2.11 POC Glucose 11/13/18 05:47 POC Glucose 189 H Assessment/Plan All Active Problems (Last Reviewed 11/12/18 @ 09:36 by Karl Thompson MD) CVA (cerebral vascular accident) (Acute) HLD (hyperlipidemia) (Acute) Skin lesion (Acute) Dizziness (Acute) 1. Worsening of RUE RLE weakness and syncopal episode - Trop neg, EKG neg, tele negative so far - maintain. To clarify: No BP meds were administered at home or here. Labs unremarkable. CTA head and neck in ER unremarkable. Neuro reconsulted recommends MRI brain repeat. Echo last admission was unremarkbale. 2. Orthostatic hypotension - present on last admission possibly contributing to syncope, but this doesnt explain her new ongoing weakness and speech change. 3. Htn - antihypertensives continue to be held as directed at discharge last admission 4. Worsening of debility - patient may need SNF at [place]. 5. Hx chronic colitis - pt to bring in her home meds that we do not carry here, until then prn immodium. 6 GERD - continue ppi DVT ppx: lovenox DC Planning: MRI pending, reconsult to PTOT This patient was seen by Gelacio Jacob PA-C under the supervision of Dr. Dolan
--- NOTE | 2018-11-13 17:30 | CASEMGMT ---
TITI CM RE-ADMISSION NOTE: Pt admitted 11/11/18 w/diagnoses of CVA and discharged home on 11/12/18 with Out-pt PT and to follow-up with Neurologist as an out-pt in 3-4 weeks. Pt lives @ home with her . Pt re-admitted 11/13/18 w/CVA, presenting with rt sided weakness and aphasia. PT/OT/ST has been ordered. Repeat MRI ordered. CM to follow for discharge planning. Kuldip MILLAN RN CM
--- NOTE | 2018-11-13 20:30 | NURSING ---
2024 scheduled NIHSS and VSA late d/t patient being off floor for MRI.
[2018-11-13] MEDS: Atorvastatin Calcium 80 MG Tablet PO (21:20)
[2018-11-14] VITALS (13 sets, daily range): BP systolic 139–170; BP diastolic 61–81; PULSE 74–117; RESP 16–18; TEMP 36.7–37; O2SAT 94–97; BMI 31.6
[2018-11-14] MEDS: 0.9% Normal Saline 1,000 ML 100 ML IV ×3 (05:20→22:10)
[2018-11-14] MEDS: BALSALAZIDE DISODIUM 750 MG CAPSULE PO ×3 (05:21→22:09)
[2018-11-14 06:44] LABS: Cholesterol 180 mg/dL (200); High Density Lipoprotein 51 mg/dL; Triglycerides 262 mg/dL; Very Low Density Lipoprotein 52 mg/dL (5-40)
[2018-11-14] MEDS: Aspirin 81 MG TAB.CHEW PO (08:19)
[2018-11-14] MEDS: Pantoprazole Sodium 20 MG Tablet PO (08:20)
[2018-11-14] MEDS: Multivitamins,Therapeutic Tablet 1 TABLET PO (08:20)
--- NOTE | 2018-11-14 09:47 | CASEMGMT ---
OT is recommending [facility] Inpatient Rehab Unit. BIBIANA spoke with patient and she is very interested in going to the rehab unit. BIBIANA told her SW will make the referral and Dr Thompson will have to approve her first. She thanked BIBIANA. BIBIANA called Sarah in rehab and left her a voice mail with referral. Plan: [facility] 4th floor Inpatient Rehab Unit pending acceptance Netta SIMMONS
--- NOTE | 2018-11-14 10:01 | CASEMGMT ---
BIBIANA received a return call from Sarah and she will ask Dr Thompson about patient. She will let BIBIANA know as soon as she hears something. Netta TYLER MSW
--- NOTE | 2018-11-14 12:54 | CASEMGMT ---
Received call from Sarah in Rehab and she said Dr Thompson said patient is not read today. She did say Dr Thompson didn't say he approved patient for rehab nor did he say he wouldn't approve her. notified JIE Brizuela and patient will stay until tomorrow. Sarah will follow up with Dr Thompson regarding whether or not patient can go to the rehab unit. Plan: [facility] 4th floor rehab unit pending acceptance. Netta TYLER REFLECTOR DRILLER AND DEBURRER
[2018-11-14] MEDS: Enoxaparin 40 MG/0.4 ML Syringe SC (13:20)
--- NOTE | 2018-11-14 13:29 | PCM.PROGNOTE ---
Patient Problems: Active and Suspected Problems (Last Reviewed 11/12/18 @ 09:36 by Karl Thompson MD) HLD (hyperlipidemia) (Acute) Subjective: Weakness unchanged. No Dizziness / LH. MRI shows development of prior infarct. - Physical Exam General: Alert, Oriented x3, Cooperative HEENT: Atraumatic, PERRLA, EOMI, Normocephalic Neck: Supple, No JVD, Negative Carotid Bruits Lungs: Clear to auscultation, Normal air movement Cardiovascular: Regular rate, No murmurs Abdomen: Bowel Sounds Present, Soft, Non Tender Extremities: No edema, Capillary Refill Less than 3 Seconds Skin: No rashes, No breakdown Musculoskeletal: No Tenderness to Palpation of Joints or Extremities Neurological: Cranial nerves II-XII grossly intact Psych/Mental Status: Normal Affect, Appropriate, Alert and oriented to time, place, person, mood and affect Vital Signs Temp Pulse Resp BP Pulse Ox 98.1 F 74 18 148/73 H 97 11/14/18 09:00 11/14/18 09:00 11/14/18 09:00 11/14/18 09:00 11/14/18 09:00 Oxygen Flow Rate (L/min) 2 Oxygen Delivery Method Room Air Weight: 172 lb 13.478 oz Body Mass Index (BMI) 31.6 Finger Stick Blood Glucose 189 Orthostatic Vital Signs Start: 11/13/18 18:51 Freq: q24h Status: Active Protocol: Activity Type Activity Date Activity User E-Sign Co-Sign Detail Recorded Client Recorded Date Recorded By Document 11/14/18 05:07 [facility] [id number] 11/14/18 05:12 [facility] 11/14/18 05:07 Orthostatic Vitals Standing -Blood Pressure (90/60-120/80 mm Hg) 147/73 H -Extremity Use Left Arm -Pulse Rate (60-100 beats/min) 117 H Sitting -Blood Pressure (90/60-120/80 mm Hg) 154/79 H -Extremity Use Left Arm -Pulse Rate (60-100 beats/min) 103 H Lying -Blood Pressure (90/60-120/80 mm Hg) 150/78 H -Extremity Use Left Arm -Pulse Rate (60-100 beats/min) 100 Intake and Output for Last 24 Hours 11/12/18 11/13/18 11/14/18 23:59 23:59 23:59 Intake Total 2085 426 / 426 Balance 2085 426 / 426 Laboratory Tests Past 24 Hrs 11/14/18 05:50 Triglycerides 262 H Cholesterol 180 LDL Cholesterol 77 VLDL Cholesterol 52 H HDL Cholesterol 51 Medical Necessity - Tobacco Use Smoking Status: Never smoker Tobacco Use: Non-smoker Assessment/Plan All Active Problems (Last Reviewed 11/12/18 @ 09:36 by Karl Thompson MD) CVA (cerebral vascular accident) (Acute) HLD (hyperlipidemia) (Acute) Skin lesion (Acute) Dizziness (Acute) 1. Worsening of RUE RLE weakness and syncopal episode - MRI shows development of prior infarct. Neuro consult. PTOTST. 2. Orthostatic hypotension - orthos negative. 3. Htn - antihypertensives continue to be held as directed at discharge last admission 4. Worsening of debility - patient may need SNF at dc. 5. Hx chronic colitis - pt to bring in her home meds that we do not carry here, until then prn immodium. 6 GERD - continue ppi DVT ppx: lovenox DC Planning: SNF vs Rehab unit This patient was seen by Gelacio Jacob PA-C under the supervision of Dr. Dolan
--- NOTE | 2018-11-14 16:56 | CHAPLAIN ---
Type of Pastoral Visit _x__ Initial Visit ___ Follow-up Visit ___ On-call Visit ___ General Patient Visit ___ Spiritual Assessment ___ Family Conference ___ Bereavement ___ Rapid Response ___ Code Blue ___ Other (describe below) Pastoral Care Referral From _x__ Patient ___ Family ___ Nurse ___ Physician ___ Liner Machine Operator Helper ___ Network Developer ___ Other (describe below) Sacrament/Intervention _x__ Active listening ___ Anointing ___ Restorationism ___ Bereavement ___ Communion ___ Lyndsay exploration ___ ___ Life review _x__ Prayer ___ Reconciliation ___ Sacrament of Sick _x__ Supportive presence ___ Wedding ___ Other (describe below) Pastoral Comments patient seeks future visits from splicer machine operator if she goes to Rehab
--- NOTE | 2018-11-14 18:53 | CON.PCM_ITS ---
Reason for Consult Date of Consultation: 11/14/18 Reason for Consultation: Evaluation of abnormal heart rhythm History of Present Illness: The patient is a 83 year old F who was just discharged from the hospital on 11/12/18 after being diagnosed with a subacute ischemic infarct of the left posterior limb of the internal capsule. She had no significant residual at the time of discharge. She was discharged on aspirin 81 mg daily and Lipitor 80 mg nightly. She was told NOT to take the Lisinopril for the next week and she confirmed that she had not taken Lisinopril since DC. She represented to the emergency department at [facility] today complaining of sudden onset of right side weakness and transient aphasia. A noncontrasted brain CT done in the emergency room showed no findings of acute ischemic infarction or intracranial hemorrhage. CTA of the head and neck at the initial admission showed normal bilateral cervical carotid and vertebral arteries, except for a small area of calcified plaque in the distal left carotid bulb with no evidence of hemodynamically significant stenosis. It appeared that she had extended her infarct. She was admitted to the telemetry unit and during monitoring she was noted to have a wide-complex tachycardic rhythm which was asymptomatic. Her initial presenting rhythm her demonstrated normal sinus rhythm with a left bundle branch block and a rate of 76 bpm. Her echocardiogram demonstrated an ejection fraction of 55% with no segmental wall motion abnormalities. She denies any neck arm or jaw discomfort suggest angina no previous cardiac issues. Past Medical History Allergies/Adverse Reactions: Allergies erythromycin base [Erythromycin Base] Allergy (Verified 11/13/18 05:53) Rash Sulfa (Sulfonamide Antibiotics) Allergy (Verified 11/13/18 05:53) Rash sulfamethoxazole [From Septra] Allergy (Verified 11/13/18 05:53) Rash trimethoprim [From Janra] Allergy (Verified 11/13/18 05:53) Rash Home Medications: Ambulatory Orders Medication Instructions Recorded Acetaminophen [Tylenol] 325 mg PO PRN PRN 02/25/14 Balsalazide Disodium 750 mg PO TID 11/10/18 Omeprazole 20 mg PO DAILY 11/10/18 traMADol [Ultram] 1 tab PO BID PRN 11/10/18 Lisinopril [Prinivil] 5 mg PO DAILY #0 11/12/18 Aspirin [Aspirin, Baby] 81 mg PO DAILY@0800 11/13/18 Multivitamin [Multivitamins] 1 ea PO DAILY 11/13/18 Simvastatin 40 mg PO QHS 11/13/18 Past Medical History (Chronic Problems): Chronic Problems (Last Reviewed 11/12/18 @ 09:36 by Karl Thompson MD) Orthostatic hypotension (Chronic) Osteoarthritis (Chronic) Colitis (Chronic) HTN (hypertension) (Chronic) Surgical History: cholecystectomy, hysterectomy, total knee arthroplasty, tonsillectomy, - - Skin graft to right hand as a child, foot surgery Psychiatric History: No pertinent psych hx 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 SHAREPOINT ANALYST history - *Family History Maternal Family History: Family History (Last Reviewed 11/12/18 @ 09:36 by Karl Thompson MD) Mother Heart disease Father Heart disease History Items: No pertinent history Paternal Family History: Family History (Last Reviewed 11/12/18 @ 09:36 by Karl Thompson MD) Mother Heart disease Father Heart disease History Items: No pertinent history Lives: Spouse/ Significant Other Smoking Status: Never smoker Tobacco Use: Non-smoker Alcohol: None Drugs: None Review of Systems - Review of Systems General: Denies: Fever, Night Sweats, Fatigue HEENT: Denies: Vision Change Cardiovascular: Denies: Chest Discomfort, Shortness of Breath, Orthopnea, PND, Peripheral Edema, Palpitations, Lightheadedness, Dizziness, Near Syncope, Syncope Respiratory: Denies: Cough, Sputum Production, Hemoptysis Gastrointestinal: Denies: Hematemesis, Hematochezia, Melena Genitourinary: Denies: Dysuria, Hematuria Muscoloskeletal: Denies: Myalgias Skin: Denies: Rash Neurological: Reports: Weakness. Denies: Dizziness Psychiatric: Denies: Anxiety Endocrine: Denies: Heat Intolerance Hematologic/ Lymphatic: Denies: Lymph Node Enlargement Subjectve: Pleasant lady no apparent distress Objective: Vital Signs Temp Pulse Resp BP Pulse Ox 98.1 F 77 18 139/81 H 97 11/14/18 17:00 11/14/18 17:00 11/14/18 17:00 11/14/18 17:00 11/14/18 17:00 Oxygen Flow Rate (L/min) 2 Oxygen Delivery Method Room Air Weight: 172 lb 13.478 oz Body Mass Index (BMI) 31.6 Finger Stick Blood Glucose 189 Orthostatic Vital Signs Start: 11/13/18 18:51 Freq: q24h Status: Active Protocol: Activity Type Activity Date Activity User E-Sign Co-Sign Detail Recorded Client Recorded Date Recorded By Document 11/14/18 05:07 [facility] [id number] 11/14/18 05:12 [facility] 11/14/18 05:07 Orthostatic Vitals Standing -Blood Pressure (90/60-120/80 mm Hg) 147/73 H -Extremity Use Left Arm -Pulse Rate (60-100 beats/min) 117 H Sitting -Blood Pressure (90/60-120/80 mm Hg) 154/79 H -Extremity Use Left Arm -Pulse Rate (60-100 beats/min) 103 H Lying -Blood Pressure (90/60-120/80 mm Hg) 150/78 H -Extremity Use Left Arm -Pulse Rate (60-100 beats/min) 100 Intake and Output for Last 24 Hours 11/12/18 11/13/18 11/14/18 23:59 23:59 23:59 Intake Total 2085 1747 / 174 Output Total 1000 / 1000 Balance 2085 747 / 747 General: Awake, Alert, Oriented x 3 HEENT: PERRL, EOMI, Sclera Non Icteric Neck: Supple, Good ROM, No Lymph Node Enlargement Lungs: Clear to auscultation Cardiovascular: Regular Rhythm, Normal S1, Normal S2, No Murmurs, No Rubs, No Gallops Vascular: No Carotid Bruits, Normal Femoral Pulses, Normal Radial Pulses, Normal Dorsalis Pedal Pulse, Normal Posterior Tibial Pulses Abdomen: Bowel Sounds Present, Soft, Non Tender, No HSM, No Organomegaly Extremities: No Cyanosis, No Clubbing, No edema Musculoskeletal: No Erythema Lymphatic: No Lymph Node Enlargement Neurological: Decreased Motor Strength, - - Right arm weakness 11/14/18 05:50: Triglycerides 262 H, Cholesterol 180, LDL Cholesterol 77, VLDL Cholesterol 52 H, HDL Cholesterol 51 Rhythm: EKG: Normal sinus rhythm with a rate of 76 bpm and left bundle branch block ECHO: Preserved left ventricular systolic function estimated EF 55% Assessment/Plan 1. Wide-complex tachycardia * The above appears to be reminiscent of ventricular tachycardia at a rate of approximately 170 bpm. She does have preserved left ventricular systolic function. Ideally she does need a beta-hannah but in an attempt to prevent hypotension as suggested by the neurologist I would recommend loading her with amiodarone instead. * Would administer an IV loading dose of 150 mg then oral amiodarone 200 mg twice a day * He may eventually need a pharmacologic stress test when she is more stable from the cerebral standpoint * When it is permissible by the neurologist will start a beta-hannah with metoprolol 25 mg twice a day * * Above discussed with patient and hospitalist. * * Thank you for allowing me to participate in the care of your patient. Please don't hesitate to call if any issues arise
[2018-11-14] MEDS: Amiodarone 200 MG Tablet PO (22:10)
[2018-11-14] MEDS: Atorvastatin Calcium 80 MG Tablet PO (22:10)
[2018-11-15] VITALS (7 sets, daily range): BP systolic 137–164; BP diastolic 61–76; PULSE 79–91; RESP 16; TEMP 36.7–36.9; O2SAT 93–96
[2018-11-15] MEDS: BALSALAZIDE DISODIUM 750 MG CAPSULE PO ×2 (05:30→14:17)
[2018-11-15 06:28] LABS: Anion Gap 8 (5-15); BUN 12 mg/dL (7-18); BUN/Creat Ratio 20.4 RATIO (10-20); Calcium,Total 8.6 mg/dL (8.5-10.1); Chloride 108 mmol/L (98-107); Creatinine, Serum 0.59 mg/dL (0.55-1.02); EST Glomerular Filtration Rate 104 mL/min (>60); Est Glom Filt Rate - Afr Amer 126 mL/min (>60); Glucose 102 mg/dL (74-106); Magnesium 2.3 mg/dL (1.6-2.6); Potassium 3.8 mmol/L (3.5-5.1); Sodium Level 142 mmol/L (136-145)
--- NOTE | 2018-11-15 07:39 | PN.CARD_ITS ---
Subjectve: Patient seen and evaluated. Appears to be doing well. Did well overnight with no issues. Objective: Vital Signs Temp Pulse Resp BP Pulse Ox 98.1 F 87 16 154/68 H 94 11/15/18 05:00 11/15/18 05:00 11/15/18 05:00 11/15/18 05:00 11/15/18 05:00 Oxygen Flow Rate (L/min) 2 Oxygen Delivery Method Room Air Weight: 172 lb 13.478 oz Body Mass Index (BMI) 31.6 Finger Stick Blood Glucose 189 Orthostatic Vital Signs Start: 11/13/18 18:51 Freq: 0600 Status: Active Protocol: Activity Type Activity Date Activity User E-Sign Co-Sign Detail Recorded Client Recorded Date Recorded By Document 11/15/18 05:00 BS [id number] 11/15/18 05:27 BS 11/15/18 05:00 Orthostatic Vitals Standing -Blood Pressure (90/60-120/80) 150/61 H -Extremity Use Left Arm -Pulse Rate (60-100) 91 Sitting -Blood Pressure (90/60-120/80) 159/74 H -Extremity Use Left Arm -Pulse Rate (60-100) 89 Lying -Blood Pressure (90/60-120/80) 154/68 H -Extremity Use Left Arm -Pulse Rate (60-100) 87 Intake and Output for Last 24 Hours 11/13/18 11/14/18 11/15/18 23:59 23:59 23:59 Intake Total 2085 2451 / 2451 625 / 625 Output Total 2150 / 2150 Balance 2085 / 2085 301 / 301 625 / 625 General: Awake, Alert, Oriented x 3 HEENT: PERRL, EOMI, Sclera Non Icteric Neck: Supple, Good ROM, No Lymph Node Enlargement Lungs: Clear to auscultation Cardiovascular: Regular Rhythm, Normal S1, Normal S2, No Murmurs, No Rubs, No Gallops Vascular: No Carotid Bruits, Normal Femoral Pulses, Normal Radial Pulses, Normal Dorsalis Pedal Pulse, Normal Posterior Tibial Pulses Abdomen: Bowel Sounds Present, Soft, Non Tender, No HSM, No Organomegaly Extremities: No Cyanosis, No Clubbing, No edema Neurological: No Focal Motor or Sensory Deficit Psych/Mental Status: Appropriate 11/14/18 18:15: Troponin I < 0.015 11/14/18 20:58: Troponin I < 0.015 11/14/18 23:00: Troponin I < 0.015 11/15/18 05:52: Sodium 142, Potassium 3.8, Chloride 108 H, Carbon Dioxide 26.0, Anion Gap 8, BUN 12, Creatinine 0.59, Est GFR (MDRD) Af Amer 126, Est GFR (MDRD) Non-Af 104, BUN/Creatinine Ratio 20.4 H, Glucose 102, Calcium 8.6, Magnesium 2.3 Rhythm: EKG: ECHO: Stress Test: Cardiac Cath: PCI: CT Surgery: Holter monitor: EPS: PPM: CXR: Chest CT Scan: Medical Necessity - Tobacco Use Smoking Status: Never smoker Tobacco Use: Non-smoker Assessment/Plan 1. Wide-complex tachycardia * The above appears to be reminiscent of ventricular tachycardia at a rate of approximately 170 bpm. She does have preserved left ventricular systolic function. Ideally she does need a beta-hannah but in an attempt to prevent hypotension as suggested by the neurologist I would recommend loading her with amiodarone instead. * Would administer an IV loading dose of 150 mg then oral amiodarone 200 mg twice a day. Will recommend continuing this for 2 weeks and then reducing to once a day. * He may eventually need a pharmacologic stress test when she is more stable from the cerebral standpoint * When it is permissible by the neurologist will start a beta-hannah with metoprolol 25 mg twice a day * * Above discussed with patient and hospitalist. * From my standpoint the patient will be ready to start cardiac rehabilitation. * Thank you for allowing me to participate in the care of your patient. Please don't hesitate to call if any issues arise
[2018-11-15 07:55] LABS: Hemoglobin A1c 7.2 % (4.2-6.3)
--- NOTE | 2018-11-15 09:52 | CASEMGMT ---
Addendum entered by Netta Elaine 11/15/18 10:04: Physician and patient notified of approval for rehab unit. Netta SIMMONS Original Note: Received call from Sarah in Rehab and patient was approved. SW notified RN and will notify patient as well as physician. Plan: [facility] 4th floor Inpatient Rehab Unit. Netta SIMMONS
[2018-11-15] MEDS: Aspirin 81 MG TAB.CHEW PO (10:51)
[2018-11-15] MEDS: Multivitamins,Therapeutic Tablet 1 TABLET PO (10:52)
[2018-11-15] MEDS: Pantoprazole Sodium 20 MG Tablet PO (10:52)
[2018-11-15] MEDS: Enoxaparin 40 MG/0.4 ML Syringe SC (10:52)
[2018-11-15] MEDS: Amiodarone 200 MG Tablet PO (10:52)
[2018-11-15] MEDS: Loperamide 2 MG Capsule PO (10:55)
[2018-11-15] MEDS: 0.9% Normal Saline 1,000 ML 100 ML IV (11:15)
--- NOTE | 2018-11-15 15:39 | DCINST_ITS ---
- Discharge Diagnoses Current Active Problems: Current Active and Chronic Problems (Last Reviewed 11/12/18 @ 09:36 by Karl Thompson MD) Colitis (Chronic) HTN (hypertension) (Chronic) HLD (hyperlipidemia) (Acute) You will use the following diet at home:: Cardiac Your food should be the consistency of: Regular Your liquids should be the consistency of: Regular/Thin Additional Instructions: Keep on amiodarone 200 mg BID x 14 days and then d ecrease to 200 mg once a day. In 1 week will start a beta hannah for HTN and DC the Lisinopril. Will need a stress test at some point to evaluate for ischemia in light of Ventricular tachycardia while in the hospital. Allergies/Adverse Reactions: Allergies erythromycin base [Erythromycin Base] Allergy (Verified 11/13/18 05:53) Rash Sulfa (Sulfonamide Antibiotics) Allergy (Verified 11/13/18 05:53) Rash sulfamethoxazole [From Septra] Allergy (Verified 11/13/18 05:53) Rash trimethoprim [From Septra] Allergy (Verified 11/13/18 05:53) Rash Medications to take at Discharge Acetaminophen [Tylenol] 325 mg PO PRN PRN 02/25/14 Balsalazide Disodium 750 mg PO TID 11/10/18 traMADol [Ultram] 1 tab PO BID PRN 11/10/18 Lisinopril [Prinivil] 5 mg PO DAILY #0 11/12/18 Aspirin [Aspirin, Baby] 81 mg PO DAILY@0800 11/13/18 Multivitamin [Multivitamins] 1 ea PO DAILY 11/13/18 Amiodarone HCl [Cordarone] 200 mg PO BID tab 11/15/18 Atorvastatin Calcium [Lipitor] 80 mg PO QHS tab 11/15/18 Loperamide [Imodium] 2 - 4 mg PO Q4H PRN PRN cap 11/15/18 Pantoprazole Sodium [Protonix] 20 mg PO DAILY tab 11/15/18 Primary Care Physician: Morgan Taylor Jr. [HONORARY STAFF] - Please follow up with your Primary Care Physician in: following DC from TCU Test Results: Test results from this visit will be discussed in further detail at your follow- up appointment, if applicable. Proposed Discharge Date: 11/15/18
--- NOTE | 2018-11-15 15:48 | PCM.DC.SUM ---
Discharge Date and Diagnosis - Problem List Patient Problems: Active and Suspected Problems (Last Reviewed 11/16/18 @ 13:49 by Stephanie Dolan DO) Syncope (Acute) Hypotension (Acute) Ventricular tachycardia (Acute) recent hospital admission.....started on Amiodarone Date of Admission: 11/13/18 Date of Discharge: 11/15/18 - Primary Discharge Diagnosis Active and Suspected Problems (Last Reviewed 11/12/18 @ 09:36 by Karl Thompson MD) Ischemic CVA (cerebral vascular accident) (Acute) Ventricular Tachycardia - Secondary Discharge Diagnosis Chronic Problems (Last Reviewed 11/12/18 @ 09:36 by Karl Thompson MD) Obesity (Chronic) Left bundle branch block (Chronic)-intermittent Osteoarthritis (Chronic) Colitis (Chronic) HTN (hypertension) (Chronic) HLD (hyperlipidemia) (Chronic) Stage I diastolic dysfunction Hospital Course and Treatment Imaging Results: Clinical Impression(s) from Imaging Studies Brain CT 11/13/18 05:46 IMPRESSION: Normal unenhanced CT scan of the brain. No acute findings in the brain N.B. : The above information has been verbally conveyed by Mao Malloy MD to Anu Evans on 11/13/2018 06:26:05 (ET). Electronically Signed: Mao Malloy MD at 6:27 EDT Tel , Service support , ADDENDUM: 11/13/18 0634 IMPRESSION: Normal unenhanced CT scan of the brain. No acute findings in the brain N.B. : The above information has been verbally conveyed by Mao Malloy MD to Anu Evans on 11/13/2018 06:26:05 (ET). Electronically Signed: Mao Malloy MD at 6:27 EDT Tel , Service support , Chest X-Ray 11/13/18 05:46 IMPRESSION: No acute cardiopulmonary disease. Electronically Signed: Brian Worley MD at 6:33 EDT , Service support , Head CTA 11/13/18 05:48 IMPRESSION: Normal oneida of Wang without a demonstrated aneurysm or hemodynamically significant stenosis. Electronically Signed: Mao Malloy MD at 6:57 EDT Tel , Service support , Neck CTA 11/13/18 05:48 IMPRESSION: Normal oneida of Wang without a demonstrated aneurysm or hemodynamically significant stenosis. Electronically Signed: Mao Malloy MD at 6:57 EDT Tel , Service support , Brain MRI 11/13/18 12:34 IMPRESSION: 1. Small but enlarging 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 2. Mild chronic microvascular ischemic changes. Atrophy. Electronically Signed: Marisol Unger MD at 21:53 EDT Tel , Service support , Laboratory Results - last 24 hr 11/14/18 11/14/18 11/14/18 18:15 20:58 23:00 Sodium Potassium Chloride Carbon Dioxide Anion Gap BUN Creatinine Estim Creat Clear Calc Est GFR (MDRD) Af Amer Est GFR (MDRD) Non-Af BUN/Creatinine Ratio Glucose Hemoglobin A1c Calcium Magnesium Troponin I < 0.015 < 0.015 < 0.015 11/15/18 11/15/18 05:52 05:52 Sodium 142 Potassium 3.8 Chloride 108 H Carbon Dioxide 26.0 Anion Gap 8 BUN 12 Creatinine 0.59 Estim Creat Clear Calc 34.90 Est GFR (MDRD) Af Amer 126 Est GFR (MDRD) Non-Af 104 BUN/Creatinine Ratio 20.4 H Glucose 102 Hemoglobin A1c 7.2 H Calcium 8.6 Magnesium 2[address] Karl Thompson-neurology Dr. [facility] cardiology Operations: None Procedures: None Summary of Care Provided: The patient is an 83-year-old female with a past medical history of colitis, hypertension, hyperlipidemia, obesity and dyslipidemia who presented to the emergency department at [facility] on 11/13/2018 complaining of right-sided weakness. She had just been discharged from the hospital on 11/12/2018 after being admitted to the hospital for subacute ischemic infarct in the left posterior limb of internal capsule. She was discharged on aspirin 81 mg daily and Lipitor 80 mg nightly. She was instructed not to resume lisinopril for 1 week and she was compliant with this order. On 11/13/2018 she experienced sudden onset of right-sided weakness and also had a aphasia which was fortunately transient. A noncontrasted CT brain at admission showed no acute ischemic infarction and no intracranial hemorrhage. CTA of the head showed a normal oneida of Wang without a demonstrated aneurysm or hemodynamically significant stenosis. CTA of the neck showed normal bilateral cervical carotid and vertebral arteries except for a small area of calcified plaque formation in the distal left carotid bulb with no evidence of hemodynamically significant stenosis. MRI of the brain showed a small but enlarging 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 While in the hospital she had 2 runs of NSVT and she was seen in consultation by Dr. Mir. She was started on Amiodarone and had no VT after MN on the . She was seen in consultation by Dr. Thompson from neurology and accepted for transfer to inpatient rehab on 11/15/2018. Lisinopril has been discontinued and will allow permissive HTN for the next 1 week. Will start a beta hannah in 1 week which will help prevent VT and may help with chronic orthostatic hypotension. Will need a Stress test to evaluate for CAD in the future after recovery from acute CVA to evaluate for ischemia. PHYSICAL EXAM: GENERAL: alert, oriented X 3, Cooperative, NAD ORAL: moist mucosa, no mucosal lesions NECK: No JVD, supple, trachea midline LUNGS: CTA, symmetric chest expansion HEART: RRR, Normal S1 and S2, no rub, no gallop ABDOMEN: soft, NT, ND, BS present, no guarding with palpation EXTREMITIES: no edema, no cyanosis, no calf tenderness SKIN: No rashes, no breakdown NEUROLOGIC: Cranial nerves II through XII grossly intact. Residual right-sided weakness in the upper extremity and lower extremity area no a aphasia PSYCH: appropriate, normal affect, pleasant This note was generated with [employer] dictation software. It may contain incorrect words, spelling, and punctuation that were not noted in checking the note before signing. Patient Problems: Active and Suspected Problems (Last Reviewed 11/16/18 @ 13:49 by Stephanie Dolan DO) Syncope (Acute) Hypotension (Acute) Ventricular tachycardia (Acute) recent hospital admission.....started on Amiodarone - Physical Exam Vital Signs Temp Pulse Resp BP Pulse Ox 98.3 F 87 16 137/68 H 93 11/15/18 13:00 11/15/18 13:00 11/15/18 13:00 11/15/18 13:00 11/15/18 13:00 Oxygen Flow Rate (L/min) 2 Oxygen Delivery Method Room Air Weight: 172 lb 13.478 oz Body Mass Index (BMI) 31.6 Finger Stick Blood Glucose 189 Orthostatic Vital Signs Start: 11/13/18 18:51 Freq: 0600 Status: Active Protocol: Activity Type Activity Date Activity User E-Sign Co-Sign Detail Recorded Client Recorded Date Recorded By Document 11/15/18 05:00 BS [id number] 11/15/18 05:27 BS 11/15/18 05:00 Orthostatic Vitals Standing -Blood Pressure (90/60-120/80 mm Hg) 150/61 H -Extremity Use Left Arm -Pulse Rate (60-100 beats/min) 91 Sitting -Blood Pressure (90/60-120/80 mm Hg) 159/74 H -Extremity Use Left Arm -Pulse Rate (60-100 beats/min) 89 Lying -Blood Pressure (90/60-120/80 mm Hg) 154/68 H -Extremity Use Left Arm -Pulse Rate (60-100 beats/min) 87 Intake and Output for Last 24 Hours 11/13/18 11/14/18 11/15/18 23:59 23:59 23:59 Intake Total 2085 2451 / 2451 969 / 969 Output Total 2149 / 215 250 / 250 Balance 2085 301 / 301 719 / 719 Laboratory Tests Past 24 Hrs 11/14/18 11/14/18 11/14/18 18:15 20:58 23:00 Sodium Potassium Chloride Carbon Dioxide Anion Gap BUN Creatinine Estim Creat Clear Calc Est GFR (MDRD) Af Amer Est GFR (MDRD) Non-Af BUN/Creatinine Ratio Glucose Hemoglobin A1c Calcium Magnesium Troponin I < 0.015 < 0.015 < 0.015 11/15/18 11/15/18 05:52 05:52 Sodium 142 Potassium 3.8 Chloride 108 H Carbon Dioxide 26.0 Anion Gap 8 BUN 12 Creatinine 0.59 Estim Creat Clear Calc 34.90 Est GFR (MDRD) Af Amer 126 Est GFR (MDRD) Non-Af 104 BUN/Creatinine Ratio 20.4 H Glucose 102 Hemoglobin A1c 7.2 H Calcium 8.6 Magnesium 2.3 Troponin I Home Medications: Medications to take at Discharge Balsalazide Disodium 750 mg PO TID 11/10/18 traMADol [Ultram] 50 mg PO BID PRN 11/10/18 Lisinopril [Prinivil] 5 mg PO DAILY #0 11/12/18 Aspirin [Aspirin, Baby] 81 mg PO DAILY@0800 11/13/18 Multivitamin [Multivitamins] 1 ea PO DAILY 11/13/18 Amiodarone HCl [Cordarone] 200 mg PO BID 11/15/18 Atorvastatin Calcium [Lipitor] 80 mg PO QHS 11/15/18 Pantoprazole Sodium [Protonix] 20 mg PO DAILY 11/15/18 Loperamide [Imodium] 2 mg PO Q4H PRN PRN 11/16/18 Primary Care Physician: Morgan Taylor Jr. [HONORARY STAFF] - Please follow up with your Primary Care Physician in: following DC from TCU Disposition: Inpt Rehab Unit/Facility Minutes spent on discharge:: 35 Patient Condition:: Stable Medical Necessity - Tobacco Use Smoking Status: Never smoker Tobacco Use: Non-smoker Meaningful Use Info Meaningful Use Diagnoses (Choose all that apply): Ischemic CVA - CVA Therapy Assessed for PT,OT and/or ST?: Yes - Ischemic Stroke Antithrombotic order at d/c?: Yes Dx of Atrial fib/flutter?: No Anticoagulant at discharge?: No Reason anticoagulant not ordered: Treatment not Indicated Statins at discharge?: Yes Primary Dx Acute Ischemic CVA?: Yes IV tPA ordered during stay?: No Reason IV t-PA not ordered: Treatment not Indicated Code Visit Inpatient E&M: 52580 Disch Hosp
== END 2018-11-15 16:56 | DRG 65 ==
LOC: ED 07:36 → PCU 07:59
PROVIDERS: Admitting Provider Internal Medicine; Emergency Provider Emergency Medicine; Family Provider Family Medicine; PCP Family Medicine; Visit Provider Internal Medicine
DX: I63.9 Cerebral infarction, unspecified (principal); I47.2 Ventricular tachycardia; G81.91 Hemiplegia, unspecified affecting right dominant side; K21.9 Gastro-esophageal reflux disease without esophagitis; R47.01 Aphasia; I10 Essential (primary) hypertension; R29.704 NIHSS score 4; R55 Syncope and collapse; E66.9 Obesity, unspecified; Z68.31 Body mass index [BMI] 31.0-31.9, adult; M19.90 Unspecified osteoarthritis, unspecified site; E78.5 Hyperlipidemia, unspecified; I44.7 Left bundle-branch block, unspecified; K52.9 Noninfective gastroenteritis and colitis, unspecified; I51.89 Other ill-defined heart diseases
CPT/HCPCS: 36415; 70450; 70496; 70498; 70553; 71045; 80048; 80061; 82962; 83036; 83735; 84443; 84484; 85025; 85610; 85730; 92523; 93005; 97163; 97166; 97530; 97535; 97802; 99285; A9575; J7030; Q9967

== ENCOUNTER 2018-11-15 17:07 | Inpatient (IN) | payer MEDICARE, OTHER, SELFPAY ==
[2018-11-14 23:40] VITALS: BMI 31.6
[2018-11-15 17:24] VITALS: BP 149/82; PULSE 92; RESP 16; TEMP 37; O2SAT 91; BMI 31.6; BMI 31.7
--- NOTE | 2018-11-15 17:36 | NURSING ---
Patient aware of being a fall risk and must ask for staff assist.
--- NOTE | 2018-11-15 17:50 | HP.PCM.COS_ITS ---
History of Present Illness Date of Admission: 11/15/18 Chief Complaint: Debility secondary to 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 The patient is a 83 year old F with PMH of HTN, HLD, ulcerative colitis, GERD, RA, and HX of uterine cancer post hysterectomy admitted to [facility] on 11/15/2018 for debility secondary to 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 On November 10, 2018 patient presented to [facility] ER for complaints of lightheadedness and right lower extremity weakness, which she felt unsteady when walking. Patient's dizziness was secondary to orthostatic hypotension. A CT of brain was completed and negative for acute findings and her NIH was 0. Echocardiogram obtained showed a normal LV and left ventricular systolic function and EF is 55%. Stage 1 diastolic dysfunction in the bubble contrast study negative for right to left intra-arterial shunt. On 11/11/2018 MRA neck showed no evidence for hemodynamically significant extracranial carotid artery stenosis. 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 She was started on aspirin and statin. Her strength was 5 out of 5 and was discharged home on November 12, 2018 with outpatient therapy. Patient returned back to [facility] on November 13, 2018 due to an onset of right-sided weakness, transient aphasia and couple episodes while sitting without fall. CT of brain completed showed no findings of acute ischemic infarction or intracranial hemorrhage. CTA of neck showed normal bilateral vocal cervical carotid and vertebral arteries except for small area of calcified plaque formation in the distal left carotid bulb with no evidence of a hemodynamically significant stenosis. Head CTA normal three affiliated of Wang without a demonstrated aneurysm or hemodynamically significant stenosis. 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 Atrophy. November 14, 2018 LDL 77. November 15, 2018 HgbA1c 7.2%. Biomedical Instrument Technician was consulted and Dr. Mir saw patient on November 15, 2018 for reminiscent of ventricular tachycardia, rate of 170 bpm. DX wide?complex tachycardia. Started on amiodarone 200 mg twice a day for 2 weeks then will be decreased to 200 mg daily. On 11/15/2018 patient was started on lisinopril 5mg daily for 1 week and then to start a metoprolol 25 mg twice daily for hypertension, directed by neurology. Patient lives with spouse in a one level home 3 steps to enter. It has a full flight of steps into the basement which she uses daily. Patient was independent with all ADLs, mobility and driving prior to hospital admission. Past Medical History Past Medical History (Chronic Problems): Chronic Problems (Last Updated 11/15/18 @ 17:58 by Carina Cameron NP-C) Osteoarthritis (Chronic) Colitis (Chronic) HTN (hypertension) (Chronic) HLD (hyperlipidemia) (Chronic) Left bundle branch block (Chronic) Obesity (Chronic) Medical History: Medical History (Last Updated 11/15/18 @ 17:58 by NIYA TorresC) Uterine cancer C55 hysterectomy and chemo Chronic back pain M54.9, G89.29 GERD (gastroesophageal reflux disease) K21.9 Hemorrhoid K64.9 History of hysterectomy Z90.710 Osteoarthritis M19.90 Rheumatoid arthritis M06.9 HTN (hypertension) I10 Allergies erythromycin base [Erythromycin Base] Allergy (Verified 11/13/18 05:53) Rash Sulfa (Sulfonamide Antibiotics) Allergy (Verified 11/13/18 05:53) Rash sulfamethoxazole [From Septra] Allergy (Verified 11/13/18 05:53) Rash trimethoprim [From Septra] Allergy (Verified 11/13/18 05:53) Rash Home Medications: Ambulatory Orders Medication Instructions Recorded Balsalazide Disodium 750 mg PO TID 11/10/18 traMADol [Ultram] 1 tab PO BID PRN 11/10/18 Lisinopril [Prinivil] 5 mg PO DAILY #0 11/12/18 Aspirin [Aspirin, Baby] 81 mg PO DAILY@0800 11/13/18 Multivitamin [Multivitamins] 1 ea PO DAILY 11/13/18 Amiodarone HCl [Cordarone] 200 mg PO BID 11/15/18 Atorvastatin Calcium [Lipitor] 80 mg PO QHS 11/15/18 Loperamide [Imodium] 2 - 4 mg PO Q4H PRN PRN cap 11/15/18 Pantoprazole Sodium [Protonix] 20 mg PO DAILY 11/15/18 Surgical History: Surgical History (Last Reviewed 11/12/18 @ 09:36 by Karl Thompson MD) History of colonoscopy Z98.890 History of esophagogastroduodenoscopy (EGD) Z98.890 History of foot surgery Z98.890 History of laparoscopic cholecystectomy Z90.49 History of left knee replacement Z96.652 History of skin graft Z98.890 History of tonsillectomy Z90.89 Surgical History: cholecystectomy, hysterectomy - D/T uterine CA, total knee arthroplasty, tonsillectomy, - - Skin graft to right hand as a child, foot surgery. Bunion removals to bilateral feet. Psychiatric History: Depression - prior history GUIDANCE SERVICES COORDINATOR History: No pertinent GUIDANCE SERVICES COORDINATOR history Lives: Spouse/ Significant Other Smoking Status: Never smoker Alcohol: Rare - 2 drinks per month Drugs: None - *Family History Maternal Family History: Family History (Last Updated 11/15/18 @ 19:07 by Carina Cameron NP-C) Mother No problems noted. Father No problems noted. History Items: Dementia, Stroke Paternal Family History: Family History (Last Updated 11/15/18 @ 19:07 by Carina Cameron NP-C) Mother No problems noted. Father No problems noted. History Items: - - Patient unaware Review of Systems Constitutional: Denies: Chills, Fever, Weight Change Eyes: Denies: Blurred vision, Double vision, Pain, Vision Change HEENT: Denies: Difficulty Hearing, Difficulty Swallowing, Dysphasia Cardiovascular: Denies: Chest Pain, Chest Pressure, Chest Tightness, Edema Respiratory: Denies: Cough, Shortness of Breath, Shortness of breath at rest Gastrointestinal: Reports: Diarrhea - ulcerative colitis. Denies: Abdominal Pain, Constipation, Nausea Musculoskeletal: Denies: Joint Pain, Joint Tenderness Skin: Denies: Rash, Wounds Neurological: Reports: Focal weakness - unable to move RUE and RLE weaker. Denies: Blurred vision, Double vision, Change in Speech, Slurred speech, Confusion, Difficulty swallowing, Headaches Psychiatric: Reports: Depression - History and some feeling of sadness from diagnosis of stroke VTE Information - Inpt Only VTE Present on Admission: No VTE Mechan Device Prophylaxis: Knee High JAMEE Hose VTE Pharm Prophylaxis ordered?: Yes Subjective: Per patient discussed feelings of sadness of unable to move RUE and RLE weaker and does not want to be a burden on family. Denied thoughts of harming self, nor has a plan. Per patient had a history of depression during chemo treatments, but could not remember medication. Discussed Lexapro and agreeable. Son in-law present in room. - Physical Exam General: Alert, Oriented x3, Cooperative HEENT: Atraumatic, PERRLA Oral: Moist Mucosa Neck: Supple, No JVD Lungs: Clear to auscultation, Normal air movement Cardiovascular: Regular rate, Regular Rhythm Abdomen: Bowel Sounds Present, Soft, Non Tender, Obese Extremities: No clubbing, No cyanosis, No edema Neurological: Cranial nerves II-XII grossly intact - Motor strength LUE/LLE 5/5, RUE flaccid, RLE 3/5 Psych/Mental Status: Normal Affect, Appropriate, Alert and oriented to time, place, person, mood and affect Vital Signs Temp Pulse Resp BP Pulse Ox 98.6 F 92 16 149/82 H 91 11/15/18 17:24 11/15/18 17:24 11/15/18 17:24 11/15/18 17:24 11/15/18 17:24 Oxygen Delivery Method Room Air Weight: 78.613 kg Body Mass Index (BMI) 31.6 Finger Stick Blood Glucose 189 Assessment/Plan All Active Problems (Last Updated 11/15/18 @ 17:58 by Carina Cameron, EXTRACT MIXER-C) CVA (cerebral vascular accident) (Acute) Orthostatic hypotension (Ruled-out) The patient is a 83 year old F with PMH of HTN, HLD, ulcerative colitis, GERD, RA, and HX of uterine cancer post hysterectomy admitted to [facility] on 11/15/2018 for debility secondary to 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 On November 10, 2018 patient presented to [facility] ER for complaints of lightheadedness and right lower extremity weakness, which she felt unsteady when walking. Patient's dizziness was secondary to orthostatic hypotension. A CT of brain was completed and negative for acute findings and her NIH was 0. Echocardiogram obtained showed a normal LV and left ventricular systolic function and EF is 55%. Stage 1 diastolic dysfunction in the bubble contrast study negative for right to left intra-arterial shunt. On 11/11/2018 MRA neck showed no evidence for hemodynamically significant extracranial carotid artery stenosis. 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 She was started on aspirin and statin. Her strength was 5 out of 5 and was discharged home on November 12, 2018 with outpatient therapy. Patient returned back to [facility] on November 13, 2018 due to an onset of right-sided weakness, transient aphasia and couple episodes while sitting without fall. CT of brain completed showed no findings of acute ischemic infarction or intracranial hemorrhage. CTA of neck showed normal bilateral vocal cervical carotid and vertebral arteries except for small area of calcified plaque formation in the distal left carotid bulb with no evidence of a hemodynamically significant stenosis. Head CTA normal three affiliated of Wang without a demonstrated aneurysm or hemodynamically significant stenosis. 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 Atrophy. November 14, 2018 LDL 77. November 15, 2018 HgbA1c 7.2%. Biomedical Instrument Technician was consulted and Dr. Mir saw patient on November 15, 2018 for reminiscent of ventricular tachycardia, rate of 170 bpm. DX wide?complex tachycardia. Started on amiodarone 200 mg twice a day for 2 weeks then will be decreased to 200 mg daily. On 11/15/2018 patient was started on lisinopril 5mg daily for 1 week and then to start a metoprolol 25 mg twice daily for hypertension, directed by neurology. Patient lives with spouse in a one level home 3 steps to enter. It has a full flight of steps into the basement which she uses daily. Patient was independent with all ADLs, mobility and driving prior to hospital admission. 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 - HTN on lisinopril and amiodarone BP goal SBP >130 - HLD on Lipitor 11/14/18 LDL 87 - GERD on Protonix - RA sees pain management Dr. Del Castillo on Ultram as needed - Ulcerative colitis on balsalazide and Imodium as needed - Depression started Lexapro - HgbA1c 7.2% on 11/15/18 monitor accuchecks AC/HS x 24 hours - GI/DVT prophylax on Protonix/Lovenox, knee-high JAMEE hose, and SCDs - Bowel protocol - Fall precautions - Medical management per hospitalist-consult - F/U cardiology, PCP, neurology
[2018-11-15 21:40] LABS: Bedside Glucose 113 mg/dL (70-110)
[2018-11-15] MEDS: BALSALAZIDE DISODIUM 750 MG CAPSULE PO (22:31)
[2018-11-15] MEDS: Atorvastatin Calcium 80 MG Tablet PO (22:32)
[2018-11-15] MEDS: Acetaminophen 325 MG Tablet 650 MG PO (22:32)
[2018-11-15] MEDS: Amiodarone 200 MG Tablet PO (22:32)
[2018-11-16 02:10] VITALS: BMI 31.6
--- NOTE | 2018-11-16 04:30 | NURSING ---
Reviewed and agree with LPNs fims and handoff
[2018-11-16 06:15] LABS: Absolute Lymphocyte Count 2.41 X10^3/ul (0.83-4.51); Absolute Neutrophil Count 4.5 X10^3/uL (2.0-7.7); Basophil# 0.05 X10^3/uL; Basophil% 0.6 % (0-1); Eosinophils% 3.7 % (0-5); Hematocrit 40.8 % (37-47); Hemoglobin 13.2 g/dl (12.0-15.0); Lymphocyte # 2.41 X10^3/ul (4.0); Lymphocyte % 29.9 % (19-41); Mean Corp Hgb Conc 32.4 g/gl (32-36); Mean Corpuscular Hgb 31.7 pg (27.0-32.0); Mean Corpuscular Volume 97.8 fL (81-99); Monocyte# 0.79 X10^3/uL; Monocyte% 9.8 % (0-10); Neutrophil # 4.51 X10^3/uL (2.7-7.7); Neutrophil % 55.9 % (47-70); Platelet Count 290 K/mm3 (150-450); RBC Distribution Width CV 13.7 % (11.6-14.6); RBC Distribution Width SD 47.9 fl (35.1-43.9); Red Blood Count 4.17 M/mm3 (4.2-5.4); White Blood Count 8.1 K/mm3 (4.4-11.0)
[2018-11-16 06:16] LABS: POSITIVE COUNT NO; POSITIVE DIFFERENTIAL NO; POSITIVE MORPHOLOGY NO
[2018-11-16] MEDS: BALSALAZIDE DISODIUM 750 MG CAPSULE PO (06:24)
[2018-11-16] MEDS: Enoxaparin 40 MG/0.4 ML Syringe SC (06:24)
[2018-11-16 06:45] LABS: ALB/GLOB Ratio 0.9 RATIO (0.9-2.4); AST(SGOT) 31 U/L (15-37); Alanine Aminotransfer ALT/SGPT 43 U/L (13-56); Albumin, Serum 3.2 g/dL (3.2-5.0); Alkaline Phosphatase 102 U/L (45-117); Anion Gap 5 (5-15); BUN 11 mg/dL (7-18); BUN/Creat Ratio 17.7 RATIO (10-20); Chloride 107 mmol/L (98-107); Creatinine, Serum 0.62 mg/dL (0.55-1.02); EST Glomerular Filtration Rate 98 mL/min (>60); Est Glom Filt Rate - Afr Amer 118 mL/min (>60); Globulin 3.6 g/dL (2.2-4.2); Glucose 112 mg/dL (74-106); Potassium 3.8 mmol/L (3.5-5.1); Protein, Total 6.8 g/dL (6.4-8.2); Sodium Level 139 mmol/L (136-145)
[2018-11-16 06:48] VITALS: O2SAT 91
[2018-11-16 07:10] LABS: Bedside Glucose 111 mg/dL (70-110)
[2018-11-16] MEDS: Aspirin 81 MG TAB.CHEW PO (07:52)
[2018-11-16] MEDS: Escitalopram Oxalate 10 MG Tablet PO (07:52)
[2018-11-16] MEDS: Amiodarone 200 MG Tablet PO (07:52)
[2018-11-16] MEDS: Multivitamins,Therapeutic Tablet 1 TABLET PO (07:53)
[2018-11-16] MEDS: Pantoprazole Sodium 20 MG Tablet PO (07:53)
--- NOTE | 2018-11-16 08:10 | PCM.PN.NEU ---
Patient Problems: Active and Suspected Problems (Last Reviewed 11/16/18 @ 13:49 by Stephanie Dolan DO) Syncope (Acute) Hypotension (Acute) Ventricular tachycardia (Acute) recent hospital admission.....started on Amiodarone Subjective: Per nursing no issues overnight. Per patient voiced awakened a couple of times at night and had some difficulty falling back to sleep. Discussed standing order for insomnia to try tonight. Patient denies headaches, blurred/double vision, dizziness or lightheadedness. Patient sitting up in chair eating breakfast. Patient pleasant and talkative. Denies further questions or concerns. - Physical Exam General: Alert, Oriented x3, Cooperative HEENT: Atraumatic, PERRLA Oral: Moist Mucosa Neck: Supple, No JVD Lungs: Clear to auscultation, Normal air movement Cardiovascular: Regular rate, Regular Rhythm Abdomen: Bowel Sounds Present, Soft, Non Tender Extremities: No clubbing, No cyanosis, No edema Skin: Excoriated - under bilateral breasts Neurological: Cranial nerves II-XII grossly intact, Deep Tendon Reflexes 2+/4 and Symmetrical, - - motor strength LUE/LLE 5/5, RUE flaccid, RLE 3/5 Psych/Mental Status: Normal Affect, Appropriate, Alert and oriented to time, place, person, mood and affect Vital Signs Temp Pulse Resp BP Pulse Ox 97.6 F L 78 79 H 147/87 H 93 11/16/18 08:49 11/16/18 10:08 11/16/18 08:49 11/16/18 10:08 11/16/18 08:49 Oxygen Delivery Method Room Air Weight: 78.613 kg Body Mass Index (BMI) 31.6 Finger Stick Blood Glucose 189 Intake and Output for Last 24 Hours 11/14/18 11/15/18 11/16/18 23:59 23:59 23:59 Intake Total 240 / 240 Output Total 201 / 201 Balance 240 / 240 -201 / -201 Laboratory Tests Past 24 Hrs 11/16/18 11/16/18 05:47 05:47 WBC 8.1 RBC 4.17 L Hgb 13.2 Hct 40.8 MCV 97.8 MCH 31.7 MCHC 32.4 RDW 13.7 RDW Differential 47.9 H Plt Count 290 MPV 9.0 Immature Gran % (Auto) 0.100 Neut % (Auto) 55.9 Lymph % (Auto) 29.9 [place] % (Auto) 9.8 Eos % (Auto) 3.7 Baso % (Auto) 0.6 Absolute Neuts (auto) 4.5 Absolute Lymphs (auto) 2.41 Total Counted Not Reportable Sodium 139 Potassium 3.8 Chloride 107 Carbon Dioxide 27.0 Anion Gap 5 BUN 11 Creatinine 0.62 Estim Creat Clear Calc 34.90 Est GFR (MDRD) Af Amer 118 Est GFR (MDRD) Non-Af 98 BUN/Creatinine Ratio 17.7 Glucose 112 H Calcium 9.0 Total Bilirubin 0.70 AST 31 ALT 43 Alkaline Phosphatase 102 Total Protein 6.8 Albumin 3.2 Globulin 3.6 Albumin/Globulin Ratio 0.9 POC Glucose 11/16/18 11/16/18 11/15/18 11:18 07:06 21:28 POC Glucose 97 111 H 113 H Medical Necessity - Tobacco Use Smoking Status: Never smoker Assessment/Plan All Active Problems (Last Reviewed 11/16/18 @ 13:49 by Stephanie Dolan DO) Syncope (Acute) Hypotension (Acute) Ventricular tachycardia (Acute) The patient is a 83 year old F with PMH of HTN, HLD, ulcerative colitis, GERD, RA, and HX of uterine cancer post hysterectomy admitted to [facility] on 11/15/2018 for debility secondary to 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 On November 10, 2018 patient presented to [facility] ER for complaints of lightheadedness and right lower extremity weakness, which she felt unsteady when walking. Patient's dizziness was secondary to orthostatic hypotension. A CT of brain was completed and negative for acute findings and her NIH was 0. Echocardiogram obtained showed a normal LV and left ventricular systolic function and EF is 55%. Stage 1 diastolic dysfunction in the bubble contrast study negative for right to left intra-arterial shunt. On 11/11/2018 MRA neck showed no evidence for hemodynamically significant extracranial carotid artery stenosis. 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 She was started on aspirin and statin. Her strength was 5 out of 5 and was discharged home on November 12, 2018 with outpatient therapy. Patient returned back to [facility] on November 13, 2018 due to an onset of right-sided weakness, transient aphasia and couple episodes while sitting without fall. CT of brain completed showed no findings of acute ischemic infarction or intracranial hemorrhage. CTA of neck showed normal bilateral vocal cervical carotid and vertebral arteries except for small area of calcified plaque formation in the distal left carotid bulb with no evidence of a hemodynamically significant stenosis. Head CTA normal [place] without a demonstrated aneurysm or hemodynamically significant stenosis. 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 Atrophy. November 14, 2018 LDL 77. November 15, 2018 HgbA1c 7.2%. S[employer] Portable Machine was consulted and Dr. Mir saw patient on November 15, 2018 for reminiscent of ventricular tachycardia, rate of 170 bpm. DX wide?complex tachycardia. Started on amiodarone 200 mg twice a day for 2 weeks then will be decreased to 200 mg daily. On 11/15/2018 patient was started on lisinopril 5mg daily for 1 week and then to start a metoprolol 25 mg twice daily for hypertension, directed by neurology. Patient lives with spouse in a one level home 3 steps to enter. It has a full flight of steps into the basement which she uses daily. Patient was independent with all ADLs, mobility and driving prior to hospital admission. 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 - HTN on lisinopril and amiodarone BP goal SBP >130 - HLD on Lipitor 11/14/18 LDL 87 - GERD on Protonix - RA sees pain management Dr. Del Castillo on Ultram as needed - Ulcerative colitis on balsalazide and Imodium as needed - Depression started Lexapro - HgbA1c 7.2% on 11/15/18 monitor accuchecks AC/HS x 24 hours - GI/DVT prophylax on Protonix/Lovenox, knee-high JAMEE hose, and SCDs - Excoriation under bilateral breasts- nystatin powder - Bowel protocol - Fall precautions - Medical management per hospitalist-consult - F/U cardiology, PCP, neurology
[2018-11-16 08:49] VITALS: BP 146/65; PULSE 79; RESP 79; TEMP 36.4; O2SAT 93
[2018-11-16] MEDS: Lisinopril 5 MG Tablet PO (10:06)
[2018-11-16 10:08] VITALS: BP 147/87; PULSE 78
[2018-11-16 10:18] VITALS: BMI 31.6
[2018-11-16 11:35] LABS: Bedside Glucose 97 mg/dL (70-110)
--- NOTE | 2018-11-16 12:00 | NURSING ---
Syncope episode during end of therapy session, patient very lethargic, pale in color, diaphoretic. Patient assisted to bed x2 assist. BS taken prior recently and wnl. BP per machine left arm semi fowlers 96/42. Pulse 77 and normal rhythm. Respirations 18- 92% RA. Patient agreed to drink 8 oz water and once patient was in bed patient became more alert and talking to staff wnl. Patient alert and oriented. Carina RECIO called with update and will await call back.
--- NOTE | 2018-11-16 12:20 | NURSING ---
BP 78/42, pulse 70-18- 90%RA. Patient reports she feels dizzy. Dr. Dolan had been paged per finisher operator 5 minutes ago, Neurology Carina called at this time and Dr. Thompson given update with order to call KITCHEN AIDE. IV lock had been started to right wrist.
--- NOTE | 2018-11-16 12:25 | NURSING ---
Dr. Dolan present, bolus IV started. New order to transfer patient to PCU.
--- NOTE | 2018-11-19 11:31 | PCM.RU.DC ---
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 Patient Problems: Active and Suspected Problems (Last Reviewed 11/16/18 @ 13:49 by Stephanie Dolan DO) Syncope (Acute) Hypotension (Acute) Ventricular tachycardia (Acute) recent hospital admission.....started on Amiodarone - Physical Exam Vital Signs Temp Pulse Resp BP Pulse Ox 97.6 F L 78 79 H 147/87 H 93 11/16/18 08:49 11/16/18 10:08 11/16/18 08:49 11/16/18 10:08 11/16/18 08:49 Oxygen Delivery Method Room Air Weight: 78.613 kg Body Mass Index (BMI) 31.6 Finger Stick Blood Glucose 189 Home Medications: Medications to take at Discharge Balsalazide Disodium 750 mg PO TID 11/10/18 traMADol [Ultram] 50 mg PO BID PRN 11/10/18 Lisinopril [Prinivil] 5 mg PO DAILY #0 11/12/18 Aspirin [Aspirin, Baby] 81 mg PO DAILY@0800 11/13/18 Multivitamin [Multivitamins] 1 ea PO DAILY 11/13/18 Amiodarone HCl [Cordarone] 200 mg PO BID 11/15/18 Atorvastatin Calcium [Lipitor] 80 mg PO QHS 11/15/18 Pantoprazole Sodium [Protonix] 20 mg PO DAILY 11/15/18 Loperamide [Imodium] 2 mg PO Q4H PRN PRN 11/16/18 Primary Care Physician: Morgan Taylor III, MD [Primary Care Provider] - Rehab Course The patient is a 83 year old F with PMH of HTN, HLD, ulcerative colitis, GERD, RA, and HX of uterine cancer post hysterectomy admitted to [facility] on 11/15/2018 for debility secondary to 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 On November 10, 2018 patient presented to [facility] ER for complaints of lightheadedness and right lower extremity weakness, which she felt unsteady when walking. Patient's dizziness was secondary to orthostatic hypotension. A CT of brain was completed and negative for acute findings and her NIH was 0. Echocardiogram obtained showed a normal LV and left ventricular systolic function and EF is 55%. Stage 1 diastolic dysfunction in the bubble contrast study negative for right to left intra-arterial shunt. On 11/11/2018 MRA neck showed no evidence for hemodynamically significant extracranial carotid artery stenosis. 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 She was started on aspirin and statin. Her strength was 5 out of 5 and was discharged home on November 12, 2018 with outpatient therapy. Patient returned back to [facility] on November 13, 2018 due to an onset of right-sided weakness, transient aphasia and couple episodes while sitting without fall. CT of brain completed showed no findings of acute ischemic infarction or intracranial hemorrhage. CTA of neck showed normal bilateral vocal cervical carotid and vertebral arteries except for small area of calcified plaque formation in the distal left carotid bulb with no evidence of a hemodynamically significant stenosis. Head CTA normal [place] of [place] without a demonstrated aneurysm or hemodynamically significant stenosis. 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 Atrophy. November 14, 2018 LDL 77. November 15, 2018 HgbA1c 7.2%. Driver'S License Examiner was consulted and Dr. Mir saw patient on November 15, 2018 for reminiscent of ventricular tachycardia, rate of 170 bpm. DX wide?complex tachycardia. Started on amiodarone 200 mg twice a day for 2 weeks then will be decreased to 200 mg daily. On 11/15/2018 patient was started on lisinopril 5mg daily for 1 week and then to start a metoprolol 25 mg twice daily for hypertension, directed by neurology. Patient lives with spouse in a one level home 3 steps to enter. It has a full flight of steps into the basement which she uses daily. Patient was independent with all ADLs, mobility and driving prior to hospital admission. During the end of therapy session in rehab on 11/16/18, patient had a syncope episode, which the patient was lethargic, pale and diaphoretic. Bedside glucose was 97, BP decreased to 78/42, pulse 70 R 18 and SPO2 90% RA, with c/o dizziness. INSTRUMENT ADJUSTER called and patient was given IV fluids and discharged to PCU and was not readmitted within the 3 days back to [facility]. Patient discharged on 11/16/2018 to PCU at [facility]. Meaningful Use Info Meaningful Use Diagnoses (Choose all that apply): Ischemic CVA - CVA Therapy Assessed for PT,OT and/or ST?: Yes - Ischemic Stroke Antithrombotic order at d/c?: Yes Dx of Atrial fib/flutter?: No Statins at discharge?: Yes Primary Dx Acute Ischemic CVA?: Yes IV tPA ordered during stay?: No Reason IV t-PA not ordered: Treatment not Indicated
== END 2018-11-16 12:53 | disposition short-term general hospital (02) | DRG 57 ==
PROVIDERS: Nurse Practitioner Family; Admitting Provider Psychiatry & Neurology Neurology; Family Provider Family Medicine; PCP Family Medicine; Referring Provider Psychiatry & Neurology Neurology; Visit Provider Psychiatry & Neurology Neurology
DX: I69.351 Hemiplegia and hemiparesis following cerebral infarction affecting right dominant side (principal); K51.90 Ulcerative colitis, unspecified, without complications; I69.320 Aphasia following cerebral infarction; K21.9 Gastro-esophageal reflux disease without esophagitis; I10 Essential (primary) hypertension; E78.5 Hyperlipidemia, unspecified; M19.90 Unspecified osteoarthritis, unspecified site; E66.9 Obesity, unspecified; Z68.31 Body mass index [BMI] 31.0-31.9, adult; Z71.3 Dietary counseling and surveillance; Z85.42 Personal history of malignant neoplasm of other parts of uterus; G89.29 Other chronic pain; M06.9 Rheumatoid arthritis, unspecified; F32.9 Major depressive disorder, single episode, unspecified
CPT/HCPCS: 36415; 80053; 82962; 85025; 93005; 97163; 97166; 97802

== ENCOUNTER 2018-11-16 13:02 | Inpatient (IN) | payer MEDICARE, OTHER, SELFPAY ==
[2018-11-16] VITALS (8 sets, daily range): BP systolic 120–147; BP diastolic 48–68; PULSE 75–88; RESP 18; TEMP 36.6–37.3; O2SAT 92–97; BMI 31.6; BMI 31.1; BMI 29.2
--- NOTE | 2018-11-16 13:42 | HP.PCM_ITS ---
Problem List (1) Syncope Status: Acute (2) Hypotension Status: Acute (3) CVA (cerebral vascular accident) Status: Chronic (4) Orthostatic hypotension Status: Suspected (5) Osteoarthritis Status: Chronic (6) Colitis Status: Chronic (7) HTN (hypertension) Status: Chronic (8) HLD (hyperlipidemia) Status: Chronic (9) Left bundle branch block Status: Chronic (10) Obesity Status: Chronic (11) Ventricular tachycardia Status: Acute Comment: recent hospital admission.....started on Amiodarone History of Present Illness Date of Admission: 11/16/18 Chief Complaint: syncope, lightheadedness, hypotension The patient is a 83 year old F with a past medical history of colitis, hypertension, hyperlipidemia, obesity, left bundle branch block and dyslipidemia who was discharged from [facility] on 11/15/2018 after having extension of a recent left putamen ischemic CVA. She has right-sided weakness. Was discharged to the rehab unit and an DIESEL TECHNOLOGY INSTRUCTOR was called 11/16/2018 when the patient had a syncopal episode while in physical therapy. She was hypotensive plaint of lightheadedness. She denied any chest discomfort or shortness of breath. She was pale. Systolic blood pressure was in the 70-90 range. A 500 cc bolus of normal saline was administered. Patient denied any palpitations. She was recently started on amiodarone while in the acute hospital setting for 2 runs of ventricular tachycardia. She is going to be transferred to PCU and fluid resuscitation has been ordered. She will remain at bedrest today. Orthostatic blood pressures will be ordered for the a.m. She did receive 5 mg of lisinopril today. This was to be discontinued and allow permissive hypertension for 1 week. In 1 week if her blood pressure is stable she was to be started on a beta-hannah for nonsustained ventricular tachycardia. Past Medical History Past Medical History (Chronic Problems): Chronic Problems (Last Updated 11/15/18 @ 17:58 by GARRETT Torres) CVA (cerebral vascular accident) (Chronic) Osteoarthritis (Chronic) Colitis (Chronic) HTN (hypertension) (Chronic) HLD (hyperlipidemia) (Chronic) Left bundle branch block (Chronic) Obesity (Chronic) Medical History: Medical History (Last Reviewed 11/16/18 @ 13:49 by Stephanie Dolan DO) Chronic back pain M54.9, G89.29 GERD (gastroesophageal reflux disease) K21.9 Hemorrhoid K64.9 History of hysterectomy Z90.710 Osteoarthritis M19.90 Rheumatoid arthritis M06.9 HTN (hypertension) I10 Uterine cancer C55 hysterectomy and chemo Allergies erythromycin base [Erythromycin Base] Allergy (Verified 11/13/18 05:53) Rash Sulfa (Sulfonamide Antibiotics) Allergy (Verified 11/13/18 05:53) Rash sulfamethoxazole [From Septra] Allergy (Verified 11/13/18 05:53) Rash trimethoprim [From Janra] Allergy (Verified 11/13/18 05:53) Rash Home Medications: Ambulatory Orders Medication Instructions Recorded Balsalazide Disodium 750 mg PO TID 11/10/18 traMADol [Ultram] 50 mg PO BID PRN 11/10/18 Lisinopril [Prinivil] 5 mg PO DAILY #0 11/12/18 Aspirin [Aspirin, Baby] 81 mg PO DAILY@0800 11/13/18 Multivitamin [Multivitamins] 1 ea PO DAILY 11/13/18 Amiodarone HCl [Cordarone] 200 mg PO BID 11/15/18 Atorvastatin Calcium [Lipitor] 80 mg PO QHS 11/15/18 Pantoprazole Sodium [Protonix] 20 mg PO DAILY 11/15/18 Loperamide [Imodium] 2 mg PO Q4H PRN PRN 11/16/18 Surgical History: Surgical History (Last Reviewed 11/16/18 @ 13:49 by Stephanie Dolan DO) History of colonoscopy Z98.890 History of esophagogastroduodenoscopy (EGD) Z98.890 History of foot surgery Z98.890 History of laparoscopic cholecystectomy Z90.49 History of left knee replacement Z96.652 History of skin graft Z98.890 History of tonsillectomy Z90.89 Surgical History: cholecystectomy, hysterectomy - D/T uterine CA, total knee arthroplasty, tonsillectomy, - - Skin graft to right hand as a child, foot surgery. Bunion removals to bilateral feet. Psychiatric History: Depression - prior history SOUND TECHNICIAN SUPERVISOR History: No pertinent SOUND TECHNICIAN SUPERVISOR history Lives: Spouse/ Significant Other Smoking Status: Never smoker Tobacco Use: Non-smoker Alcohol: Rare Drugs: None - *Family History Paternal Family History: Family History (Last Updated 11/15/18 @ 19:07 by GARRETT Torres) Mother No problems noted. Father No problems noted. History Items: - - Patient unaware Maternal Family History: Family History (Last Updated 11/15/18 @ 19:07 by GARRETT Torres) Mother No problems noted. Father No problems noted. History Items: Dementia, Stroke Review of Systems Constitutional: Denies: Anorexia, Chills, Fever, Weight Change HEENT: Denies: Difficulty Swallowing, Head Aches, Sinus Congestion, Sinus Drainage Cardiovascular: Reports: Light Headedness. Denies: Chest Pain, Palpitations Respiratory: Denies: Cough, Shortness of breath at rest, Sputum production Gastrointestinal: Denies: Abdominal Pain, Nausea, Vomiting Genitourinary: Denies: Dysuria Musculoskeletal: Denies: Joint Pain, Joint Tenderness Skin: Denies: Rash, Wounds Neurological: Denies: Numbness, Tingling, Focal weakness Psychiatric: Denies: Anxiety, Depression, Homicidal Ideations, Suicidal Ideations Hematologic/ Lymphatic: Denies: Easy Bruising, Easy Bleeding, Hx of blood clot VTE Information - Inpt Only VTE Present on Admission: No VTE Mechan Device Prophylaxis: SCD's, Knee High JAMEE Hose VTE Pharm Prophylaxis ordered?: Yes Patient Problems: Active and Suspected Problems (Last Updated 11/15/18 @ 17:58 by GARRETT Torres) Syncope (Acute) Hypotension (Acute) Ventricular tachycardia (Acute) recent hospital admission.....started on Amiodarone - Physical Exam General: Alert, Oriented x3, Cooperative, - - pale HEENT: Atraumatic, PERRLA, EOMI, Normocephalic Oral: Dry Mucosa Neck: Supple, No JVD Lungs: Clear to auscultation, Normal air movement Cardiovascular: Regular rate, Regular Rhythm, No murmurs, No Ectopic Activity, No Gallop, - - Review of the EKG shows left bundle branch block which is un changed from prior EKGs. Rhythm is sinus. Abdomen: Bowel Sounds Present, Soft, Non Tender Extremities: No clubbing, No cyanosis, No edema, Capillary Refill Less than 3 Seconds Skin: No rashes, No breakdown Neurological: Cranial nerves II-XII grossly intact, - - Right-sided weakness. Psych/Mental Status: Normal Affect, Appropriate Body Mass Index (BMI) 31.6 Finger Stick Blood Glucose 189 Assessment/Plan All Active Problems (Last Updated 11/15/18 @ 17:58 by Carina Cameron, ALMITA-C) Syncope (Acute) Hypotension (Acute) Ventricular tachycardia (Acute) Impressions 1. Syncope-possibly secondary to orthostatic hypotension related to volume depletion and administration of lisinopril today. Lisinopril was to be disconti nued and we were going to allow permissive HTN for the next week. 2. hypotension 3. recent extension of a Left putamen CVA with right side weakness and transient aphsia. 4. History of hypertension 5. Colitis 6. Recent episodes of nonsustained ventricular tachycardia while on PCU. Seen in consultation by Dr. Mir. Amiodarone was initiated and the patient is currently on amiodarone 200 mg p.o. twice daily. 7. Diabetes mellitus type 2-hemoglobin A1c is 7.2. This is a new diagnosis 8. Hyperlipidemia 9. History of chronic orthostatic hypotension Admit to a monitored bed on the acute side of the hospital/PCU CBC, CMP, magnesium, phosphorus, cardiac enzymes series now EKG at presentation to progressive care unit Keep at bedrest today Orthostatic blood pressures in the a.m. Discontinue lisinopril and do not treat blood pressure unless greater than 200/[address] Thompson was notified of the transfer by the rehab charge nurse. Code Visit Inpatient E&M: 61649 Init Hosp L3
[2018-11-16 14:06] LABS: Hematocrit 37.5 % (37-47); Hemoglobin 12.1 g/dl (12.0-15.0); Mean Corp Hgb Conc 32.3 g/gl (32-36); Mean Corpuscular Hgb 31.7 pg (27.0-32.0); Mean Corpuscular Volume 98.2 fL (81-99); Mean Platelet Vol. 8.7 fl (6.2-12.0); Platelet Count 238 K/mm3 (150-450); RBC Distribution Width CV 13.7 % (11.6-14.6); RBC Distribution Width SD 47.5 fl (35.1-43.9); Red Blood Count 3.82 M/mm3 (4.2-5.4); White Blood Count 8.5 K/mm3 (4.4-11.0)
[2018-11-16 14:07] LABS: Scan Indicated on CBC? Y/N NO
[2018-11-16 14:19] LABS: ALB/GLOB Ratio 0.9 RATIO (0.9-2.4); AST(SGOT) 29 U/L (15-37); Alanine Aminotransfer ALT/SGPT 40 U/L (13-56); Alkaline Phosphatase 94 U/L (45-117); Anion Gap 4 (5-15); BUN 15 mg/dL (7-18); BUN/Creat Ratio 21.3 RATIO (10-20); Calcium,Total 8.6 mg/dL (8.5-10.1); Chloride 108 mmol/L (98-107); EST Glomerular Filtration Rate 85 mL/min (>60); Est Glom Filt Rate - Afr Amer 102 mL/min (>60); Globulin 3.3 g/dL (2.2-4.2); Glucose 107 mg/dL (74-106); Magnesium 2.1 mg/dL (1.6-2.6); Potassium 4.2 mmol/L (3.5-5.1); Protein, Total 6.3 g/dL (6.4-8.2); Sodium Level 139 mmol/L (136-145)
[2018-11-16] MEDS: 0.9% Normal Saline 1,000 ML 150 ML IV (14:37)
--- NOTE | 2018-11-16 16:21 | PCM.PN.NEU ---
Patient Problems: Active and Suspected Problems (Last Reviewed 11/16/18 @ 13:49 by Stephanie Dolan DO) Syncope (Acute) Hypotension (Acute) Ventricular tachycardia (Acute) recent hospital admission.....started on Amiodarone Subjective: Per nursing no issues overnight. Per patient voiced awakened a couple of times at night and had some difficulty falling back to sleep. Discussed standing order for insomnia to try tonight. Patient denies headaches, blurred/double vision, dizziness or lightheadedness. Patient sitting up in chair eating breakfast. Patient pleasant and talkative. Denies further questions or concerns. - Physical Exam General: Alert, Oriented x3, Cooperative HEENT: Atraumatic, PERRLA Oral: Moist Mucosa Lungs: Clear to auscultation, Normal air movement Cardiovascular: Regular rate, Regular Rhythm Abdomen: Bowel Sounds Present, Soft, Non Tender Extremities: No clubbing, No cyanosis, No edema Skin: Excoriated - under bilateral breasts Neurological: Cranial nerves II-XII grossly intact, Deep Tendon Reflexes 2+/4 and Symmetrical, - - muscle strength LUE/LLE 5/5, RUE flaccid, RLE 3/5 Psych/Mental Status: Normal Affect, Appropriate, Alert and oriented to time, place, person, mood and affect Vital Signs Temp Pulse Resp BP Pulse Ox 98.1 F 75 18 124/48 H 97 11/16/18 13:45 11/16/18 14:30 11/16/18 13:45 11/16/18 14:30 11/16/18 14:18 Oxygen Delivery Method Room Air Weight: 79.8 kg Body Mass Index (BMI) 29.2 Finger Stick Blood Glucose 189 Orthostatic Vital Signs Start: 11/16/18 15:35 Freq: q24h Status: Active Protocol: Activity Type Activity Date Activity User E-Sign Co-Sign Detail Recorded Client Recorded Date Recorded By Document 11/16/18 14:30 LUCY [id number] 11/16/18 15:46 LUCY 11/16/18 14:30 Orthostatic Vitals Standing -Blood Pressure (90/60-120/80) 121/51 H -Extremity Use Left Arm -Pulse Rate (60-100) 88 Sitting -Blood Pressure (90/60-120/80) 120/49 L -Extremity Use Left Arm -Pulse Rate (60-100) 85 Lying -Blood Pressure (90/60-120/80) 124/48 H -Extremity Use Left Arm -Pulse Rate (60-100) 75 Laboratory Tests Past 24 Hrs 11/16/18 11/16/18 11/16/18 13:50 13:50 13:55 WBC 8.5 RBC 3.82 L Hgb 12.1 Hct 37.5 MCV 98.2 MCH 31.7 MCHC 32.3 RDW 13.7 RDW Differential 47.5 H Plt Count 238 MPV 8.7 Sodium 139 Potassium 4.2 Chloride 108 H Carbon Dioxide 27.0 Anion Gap 4 L BUN 15 Creatinine 0.70 Estim Creat Clear Calc 39.70 Est GFR (MDRD) Af Amer 102 Est GFR (MDRD) Non-Af 85 BUN/Creatinine Ratio 21.3 H Glucose 107 H Calcium 8.6 Magnesium 2.1 Total Bilirubin 0.50 AST 29 ALT 40 Alkaline Phosphatase 94 Troponin I < 0.015 Total Protein 6.3 L Albumin 3.0 L Globulin 3.3 Albumin/Globulin Ratio 0.9 Medical Necessity - Tobacco Use Smoking Status: Never smoker Tobacco Use: Non-smoker Assessment/Plan All Active Problems (Last Reviewed 11/16/18 @ 13:49 by Stephanie Dolan DO) Syncope (Acute) Hypotension (Acute) Ventricular tachycardia (Acute) The patient is a 83 year old F with PMH of HTN, HLD, ulcerative colitis, GERD, RA, and HX of uterine cancer post hysterectomy admitted to [facility] on 11/15/2018 for debility secondary to 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 On November 10, 2018 patient presented to [facility] ER for complaints of lightheadedness and right lower extremity weakness, which she felt unsteady when walking. Patient's dizziness was secondary to orthostatic hypotension. A CT of brain was completed and negative for acute findings and her NIH was 0. Echocardiogram obtained showed a normal LV and left ventricular systolic function and EF is 55%. Stage 1 diastolic dysfunction in the bubble contrast study negative for right to left intra-arterial shunt. On 11/11/2018 MRA neck showed no evidence for hemodynamically significant extracranial carotid artery stenosis. 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 She was started on aspirin and statin. Her strength was 5 out of 5 and was discharged home on November 12, 2018 with outpatient therapy. Patient returned back to [facility] on November 13, 2018 due to an onset of right-sided weakness, transient aphasia and couple episodes while sitting without fall. CT of brain completed showed no findings of acute ischemic infarction or intracranial hemorrhage. CTA of neck showed normal bilateral vocal cervical carotid and vertebral arteries except for small area of calcified plaque formation in the distal left carotid bulb with no evidence of a hemodynamically significant stenosis. Head CTA normal [place] without a demonstrated aneurysm or hemodynamically significant stenosis. 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 Atrophy. November 14, 2018 LDL 77. November 15, 2018 HgbA1c 7.2%. Manager Housekeeping was consulted and Dr. Mir saw patient on November 15, 2018 for reminiscent of ventricular tachycardia, rate of 170 bpm. DX wide?complex tachycardia. Started on amiodarone 200 mg twice a day for 2 weeks then will be decreased to 200 mg daily. On 11/15/2018 patient was started on lisinopril 5mg daily for 1 week and then to start a metoprolol 25 mg twice daily for hypertension, directed by neurology. Patient lives with spouse in a one level home 3 steps to enter. It has a full flight of steps into the basement which she uses daily. Patient was independent with all ADLs, mobility and driving prior to hospital admission. 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 - HTN on lisinopril and amiodarone BP goal SBP >130 - HLD on Lipitor 11/14/18 LDL 87 - GERD on Protonix - RA sees pain management Dr. Del Castillo on Ultram as needed - Ulcerative colitis on balsalazide and Imodium as needed - Depression started Lexapro - HgbA1c 7.2% on 11/15/18 monitor accuchecks AC/HS x 24 hours - GI/DVT prophylax on Protonix/Lovenox, knee-high JAMEE hose, and SCDs - Excoriation under bilateral breasts- nystatin powder - Bowel protocol - Fall precautions - Medical management per hospitalist-consult - F/U cardiology, PCP, neurology
--- NOTE | 2018-11-16 16:26 | CASEMGMT ---
Patient came from [facility] 4th floor rehab unit. Per Sarah in rehab she can return when ready. Green sheet on chart. Netta TYLER MSW
--- NOTE | 2018-11-16 16:30 | PN.NEURO_ITS ---
Patient Problems: Active and Suspected Problems (Last Reviewed 11/16/18 @ 13:49 by Stephanie Dolan DO) Syncope (Acute) Hypotension (Acute) Ventricular tachycardia (Acute) recent hospital admission.....started on Amiodarone Subjective: Per nursing no issues overnight. Per patient voiced awakened a couple of times at night and had some difficulty falling back to sleep. Discussed standing order for insomnia to try tonight. Patient denies headaches, blurred/double vision, dizziness or lightheadedness. Patient sitting up in chair eating breakfast. Patient pleasant and talkative. Denies further questions or concerns. - Physical Exam General: Alert, Oriented x3, Cooperative HEENT: Atraumatic, PERRLA Oral: Moist Mucosa Neck: Supple, No JVD Lungs: Clear to auscultation, Normal air movement Cardiovascular: Regular rate, Regular Rhythm Abdomen: Bowel Sounds Present, Soft, Non Tender Extremities: No clubbing, No cyanosis, No edema, - Skin: Excoriated - under bilateral breasts Neurological: Cranial nerves II-XII grossly intact, Deep Tendon Reflexes 2+/4 and Symmetrical, - - Motor strength LUE/LLE 5/5, RUE flaccid, RLE 3/5 Psych/Mental Status: Normal Affect, Appropriate, Alert and oriented to time, place, person, mood and affect Vital Signs Temp Pulse Resp BP Pulse Ox 98.1 F 75 18 124/48 H 97 11/16/18 13:45 11/16/18 14:30 11/16/18 13:45 11/16/18 14:30 11/16/18 14:18 Oxygen Delivery Method Room Air Weight: 79.8 kg Body Mass Index (BMI) 29.2 Finger Stick Blood Glucose 189 Orthostatic Vital Signs Start: 11/16/18 15:35 Freq: q24h Status: Active Protocol: Activity Type Activity Date Activity User E-Sign Co-Sign Detail Recorded Client Recorded Date Recorded By Document 11/16/18 14:30 LUCY [id number] 11/16/18 15:46 ANG 11/16/18 14:30 Orthostatic Vitals Standing -Blood Pressure (90/60-120/80) 121/51 H -Extremity Use Left Arm -Pulse Rate (60-100) 88 Sitting -Blood Pressure (90/60-120/80) 120/49 L -Extremity Use Left Arm -Pulse Rate (60-100) 85 Lying -Blood Pressure (90/60-120/80) 124/48 H -Extremity Use Left Arm -Pulse Rate (60-100) 75 Laboratory Tests Past 24 Hrs 11/16/18 11/16/18 11/16/18 13:50 13:50 13:55 WBC 8.5 RBC 3.82 L Hgb 12.1 Hct 37.5 MCV 98.2 MCH 31.7 MCHC 32.3 RDW 13.7 RDW Differential 47.5 H Plt Count 238 MPV 8.7 Sodium 139 Potassium 4.2 Chloride 108 H Carbon Dioxide 27.0 Anion Gap 4 L BUN 15 Creatinine 0.70 Estim Creat Clear Calc 39.70 Est GFR (MDRD) Af Amer 102 Est GFR (MDRD) Non-Af 85 BUN/Creatinine Ratio 21.3 H Glucose 107 H Calcium 8.6 Magnesium 2.1 Total Bilirubin 0.50 AST 29 ALT 40 Alkaline Phosphatase 94 Troponin I < 0.015 Total Protein 6.3 L Albumin 3.0 L Globulin 3.3 Albumin/Globulin Ratio 0.9 Medical Necessity - Tobacco Use Smoking Status: Never smoker Tobacco Use: Non-smoker Assessment/Plan All Active Problems (Last Reviewed 11/16/18 @ 13:49 by Stephanie Dolan DO) Syncope (Acute) Hypotension (Acute) Ventricular tachycardia (Acute) The patient is a 83 year old F with PMH of HTN, HLD, ulcerative colitis, GERD, RA, and HX of uterine cancer post hysterectomy admitted to [facility] on 11/15/2018 for debility secondary to 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 On November 10, 2018 patient presented to [facility] ER for complaints of lightheadedness and right lower extremity weakness, which she felt unsteady when walking. Patient's dizziness was secondary to orthostatic hypotension. A CT of brain was completed and negative for acute findings and her NIH was 0. Echocardiogram obtained showed a normal LV and left ventricular systolic function and EF is 55%. Stage 1 diastolic dysfunction in the bubble contrast study negative for right to left intra-arterial shunt. On 11/11/2018 MRA neck showed no evidence for hemodynamically significant extracranial carotid artery stenosis. 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 She was started on aspirin and statin. Her strength was 5 out of 5 and was discharged home on November 12, 2018 with outpatient therapy. Patient returned back to [facility] on November 13, 2018 due to an onset of right-sided weakness, transient aphasia and couple episodes while sitting without fall. CT of brain completed showed no findings of acute ischemic infarction or intracranial hemorrhage. CTA of neck showed normal bilateral vocal cervical carotid and vertebral arteries except for small area of calcified plaque formation in the distal left carotid bulb with no evidence of a hemodynamically significant stenosis. Head CTA normal [place] of [place] without a demonstrated aneurysm or hemodynamically significant stenosis. 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 Atrophy. November 14, 2018 LDL 77. November 15, 2018 HgbA1c 7.2%. Financial Health Counselor was consulted and Dr. Mir saw patient on November 15, 2018 for reminiscent of ventricular tachycardia, rate of 170 bpm. DX wide?complex tachycardia. Started on amiodarone 200 mg twice a day for 2 weeks then will be decreased to 200 mg daily. On 11/15/2018 patient was started on lisinopril 5mg daily for 1 week and then to start a metoprolol 25 mg twice daily for hypertension, directed by neurology. Patient lives with spouse in a one level home 3 steps to enter. It has a full flight of steps into the basement which she uses daily. Patient was independent with all ADLs, mobility and driving prior to hospital admission. 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 - HTN on lisinopril and amiodarone BP goal SBP >130 - HLD on Lipitor 11/14/18 LDL 87 - GERD on Protonix - RA sees pain management Dr. Del Castillo on Ultram as needed - Ulcerative colitis on balsalazide and Imodium as needed - Depression started Lexapro - HgbA1c 7.2% on 11/15/18 monitor accuchecks AC/HS x 24 hours - GI/DVT prophylax on Protonix/Lovenox, knee-high JAMEE hose, and SCDs - Excoriation under bilateral breasts- nystatin powder - Bowel protocol - Fall precautions - Medical management per hospitalist-consult - F/U cardiology, PCP, neurology
[2018-11-16 21:31] LABS: Bedside Glucose 124 mg/dL (70-110)
[2018-11-16] MEDS: Atorvastatin Calcium 80 MG Tablet PO (22:22)
[2018-11-16] MEDS: Amiodarone 200 MG Tablet PO (22:23)
[2018-11-16] MEDS: Nystatin Powder 15gm Bottle 1 APPLIC TOPICAL (22:23)
[2018-11-16] MEDS: BALSALAZIDE DISODIUM 750 MG CAPSULE PO (22:24)
[2018-11-16 22:36] LABS: Bedside Glucose 107 mg/dL (70-110)
[2018-11-16] MEDS: MELATONIN 3 MG TABLET PO (22:46)
[2018-11-17] VITALS (12 sets, daily range): BP systolic 131–154; BP diastolic 58–76; PULSE 70–77; RESP 16–18; TEMP 36.8–37.2; O2SAT 92–95; BMI 29.2
[2018-11-17] MEDS: BALSALAZIDE DISODIUM 750 MG CAPSULE PO ×3 (06:18→21:08)
[2018-11-17 07:01] LABS: Bedside Glucose 120 mg/dL (70-110)
[2018-11-17] MEDS: Acetaminophen 325 MG Tablet 650 MG PO (07:04)
[2018-11-17] MEDS: Nystatin Powder 15gm Bottle 1 APPLIC TOPICAL ×2 (08:36→21:08)
[2018-11-17] MEDS: Multivitamins,Therapeutic Tablet 1 TABLET PO (08:36)
[2018-11-17] MEDS: Aspirin 81 MG TAB.CHEW PO (08:36)
[2018-11-17] MEDS: Amiodarone 200 MG Tablet PO ×2 (08:36→21:08)
[2018-11-17] MEDS: Pantoprazole Sodium 20 MG Tablet PO (08:37)
[2018-11-17] MEDS: Enoxaparin 40 MG/0.4 ML Syringe SC (08:37)
[2018-11-17 12:11] LABS: Bedside Glucose 116 mg/dL (70-110)
--- NOTE | 2018-11-17 12:26 | PN_ITS ---
Patient Problems: Active and Suspected Problems (Last Reviewed 11/16/18 @ 13:49 by Stephanie Dolan DO) Syncope (Acute) Hypotension (Acute) Ventricular tachycardia (Acute) recent hospital admission.....started on Amiodarone Subjective: Afebrile Vital signs stable. Current blood pressure is 141/72. She is maintaining marianne ropriate oxygen saturation on room air. All lab was reviewed. Serial troponins were negative. Orthostatic vital signs at presentation to PCU were negative. She denies lightheadedness Telemetry shows normal sinus rhythm with no atrial fibrillation and no ventricular tachycardia Serial troponins were negative. Patient tells me that she does get bloated in her stomach feels like it does not empty. She sometimes has bowel movement right after eating. She chronically has lightheadedness with prolonged standing and she manages this by owrking a little and then sitting down and then working again and then sitting down Objective: PHYSICAL EXAM: GENERAL: alert, oriented X 3, Cooperative, NAD ORAL: moist mucosa, no mucosal lesions NECK: No JVD, supple, trachea midline LUNGS: CTA, symmetric chest expansion HEART: RRR, Normal S1 and S2, no rub, no gallop ABDOMEN: soft, NT, ND, BS present, no guarding with palpation EXTREMITIES: no edema, no cyanosis, no calf tenderness SKIN: No rashes, no breakdown NEUROLOGIC: mild right side weakness PSYCH: appropriate, normal affect, pleasant - Physical Exam Vital Signs Temp Pulse Resp BP Pulse Ox 98.3 F 74 17 141/72 H 94 11/17/18 08:33 11/17/18 08:33 11/17/18 08:33 11/17/18 08:33 11/17/18 08:33 Oxygen Delivery Method Room Air Weight: 175 lb 14.862 oz Body Mass Index (BMI) 29.2 Finger Stick Blood Glucose 189 Orthostatic Vital Signs Start: 11/16/18 15:35 Freq: q24h Status: Active Protocol: Activity Type Activity Date Activity User E-Sign Co-Sign Detail Recorded Client Recorded Date Recorded By Document 11/16/18 14:30 ANG [id number] 11/16/18 15:46 ANG 11/16/18 14:30 Orthostatic Vitals Standing -Blood Pressure (90/60-120/80 mm Hg) 121/51 H -Extremity Use Left Arm -Pulse Rate (60-100 beats/min) 88 Sitting -Blood Pressure (90/60-120/80 mm Hg) 120/49 L -Extremity Use Left Arm -Pulse Rate (60-100 beats/min) 85 Lying -Blood Pressure (90/60-120/80 mm Hg) 124/48 H -Extremity Use Left Arm -Pulse Rate (60-100 beats/min) 75 Intake and Output for Last 24 Hours 11/15/18 11/16/18 11/17/18 23:59 23:59 23:59 Intake Total 745 / 1703 1528 / 1528 Output Total 500 / 1050 550 / 550 Balance 245 / 653 978 / 978 Laboratory Tests Past 24 Hrs 11/16/18 11/16/18 11/16/18 13:50 13:50 13:55 WBC 8.5 RBC 3.82 L Hgb 12.1 Hct 37.5 MCV 98.2 MCH 31.7 MCHC 32.3 RDW 13.7 RDW Differential 47.5 H Plt Count 238 MPV 8.7 Sodium 139 Potassium 4.2 Chloride 108 H Carbon Dioxide 27.0 Anion Gap 4 L BUN 15 Creatinine 0.70 Estim Creat Clear Calc 39.70 Est GFR (MDRD) Af Amer 102 Est GFR (MDRD) Non-Af 85 BUN/Creatinine Ratio 21.3 H Glucose 107 H Calcium 8.6 Magnesium 2.1 Total Bilirubin 0.50 AST 29 ALT 40 Alkaline Phosphatase 94 Troponin I < 0.015 Total Protein 6.3 L Albumin 3.0 L Globulin 3.3 Albumin/Globulin Ratio 0.9 11/16/18 11/16/18 17:13 20:21 WBC RBC Hgb Hct MCV MCH MCHC RDW RDW Differential Plt Count MPV Sodium Potassium Chloride Carbon Dioxide Anion Gap BUN Creatinine Estim Creat Clear Calc Est GFR (MDRD) Af Amer Est GFR (MDRD) Non-Af BUN/Creatinine Ratio Glucose Calcium Magnesium Total Bilirubin AST ALT Alkaline Phosphatase Troponin I < 0.015 < 0.015 Total Protein Albumin Globulin Albumin/Globulin Ratio POC Glucose 11/17/18 11/17/18 11/16/18 11:47 06:54 22:27 POC Glucose 116 H 120 H 107 11/16/18 17:58 POC Glucose 124 H Medical Necessity - Tobacco Use Smoking Status: Never smoker Tobacco Use: Non-smoker Assessment/Plan All Active Problems (Last Reviewed 11/16/18 @ 13:49 by Stephanie Dolan DO) Syncope (Acute) Hypotension (Acute) Ventricular tachycardia (Acute) Impressions 1. Syncope-possibly secondary to orthostatic hypotension related to volume depletion and administration of lisinopril today. Lisinopril was to be dis continued and we were going to allow permissive HTN for the next week. 2. hypotension - I suspect she may have autonomic hypotension........she likely got symptomatic yesterday because she was standing for a prolonged period of time doing PT 3. recent extension of a Left putamen CVA with right side weakness and transient aphasia. 4. History of hypertension 5. Colitis 6. Recent episodes of nonsustained ventricular tachycardia while on PCU. Seen in consultation by Dr. Mir. Amiodarone was initiated and the patient is currently on amiodarone 200 mg p.o. twice daily. 7. Diabetes mellitus type 2-hemoglobin A1c is 7.2. This is a new diagnosis 8. Hyperlipidemia 9. History of chronic orthostatic hypotension Continue current care DC the bedrest Must have assist to the BR Will discuss with Dr. Mir getting a tilt table test in the future JAMEE olvera Code Visit Inpatient E&M: 76883 Subs Hosp L2
[2018-11-17 16:55] LABS: Bedside Glucose 99 mg/dL (70-110)
[2018-11-17] MEDS: Atorvastatin Calcium 80 MG Tablet PO (21:08)
[2018-11-17] MEDS: MELATONIN 3 MG TABLET PO (21:09)
[2018-11-17 21:36] LABS: Bedside Glucose 130 mg/dL (70-110)
[2018-11-18] VITALS (11 sets, daily range): BP systolic 110–156; BP diastolic 60–86; PULSE 64–84; RESP 16–17; TEMP 36.7–36.9; O2SAT 92–94
[2018-11-18] MEDS: BALSALAZIDE DISODIUM 750 MG CAPSULE PO ×3 (05:36→22:01)
[2018-11-18 06:51] LABS: Bedside Glucose 112 mg/dL (70-110)
[2018-11-18] MEDS: Multivitamins,Therapeutic Tablet 1 TABLET PO (10:04)
[2018-11-18] MEDS: Aspirin 81 MG TAB.CHEW PO (10:05)
[2018-11-18] MEDS: Amiodarone 200 MG Tablet PO ×2 (10:05→22:01)
[2018-11-18] MEDS: Nystatin Powder 15gm Bottle 1 APPLIC TOPICAL ×2 (10:05→22:01)
[2018-11-18] MEDS: Pantoprazole Sodium 20 MG Tablet PO (10:05)
[2018-11-18] MEDS: Enoxaparin 40 MG/0.4 ML Syringe SC (10:05)
[2018-11-18 12:11] LABS: Bedside Glucose 109 mg/dL (70-110)
--- NOTE | 2018-11-18 16:31 | PCM.PROGNOTE ---
Patient Problems: Active and Suspected Problems (Last Reviewed 11/16/18 @ 13:49 by Stephanie Dolan DO) Syncope (Acute) Hypotension (Acute) Ventricular tachycardia (Acute) recent hospital admission.....started on Amiodarone Subjective: Vital signs stable Telemetry shows normal sinus rhythm with no ectopy Patient denies lightheadedness, shortness of breath, chest pain, headache Objective: GENERAL: alert, oriented X 3, Cooperative, NAD ORAL: moist mucosa, no mucosal lesions NECK: No JVD, supple, trachea midline LUNGS: CTA, symmetric chest expansion HEART: RRR, Normal S1 and S2, no rub, no gallop ABDOMEN: soft, NT, ND, BS present, no guarding with palpation EXTREMITIES: no edema, no cyanosis, no calf tenderness SKIN: No rashes, no breakdown NEUROLOGIC: she has 2/5 strength in the RUE and the RLE, no facial asymmetry, decreased metal worker strength on the R PSYCH: appropriate, normal affect, pleasant - Physical Exam Vital Signs Temp Pulse Resp BP Pulse Ox 98.5 F 69 17 156/78 H 94 11/18/18 16:03 11/18/18 16:03 11/18/18 16:03 11/18/18 16:03 11/18/18 16:03 Oxygen Delivery Method Room Air Weight: 175 lb 14.862 oz Body Mass Index (BMI) 29.2 Finger Stick Blood Glucose 189 Orthostatic Vital Signs Start: 11/16/18 15:35 Freq: 0600 Status: Active Protocol: Activity Type Activity Date Activity User E-Sign Co-Sign Detail Recorded Client Recorded Date Recorded By Document 11/18/18 05:38 BS [id number] 11/18/18 05:51 BS 11/18/18 05:38 Orthostatic Vitals Standing -Blood Pressure (90/60-120/80 mm Hg) 131/60 H -Extremity Use Left Arm -Pulse Rate (60-100 beats/min) 84 Sitting -Blood Pressure (90/60-120/80 mm Hg) 142/86 H -Extremity Use Left Arm -Pulse Rate (60-100 beats/min) 72 Lying -Blood Pressure (90/60-120/80 mm Hg) 133/64 H -Extremity Use Left Arm -Pulse Rate (60-100 beats/min) 71 Intake and Output for Last 24 Hours 11/16/18 11/17/1819 23:59 23:59 23:59 Intake Total 745 / 1703 2188 / 2188 645 / 645 Output Total 500 / 1050 550 / 550 Balance 245 / 653 1638 / 1638 645 / 645 POC Glucose 11/18/18 11/18/18 11/17/18 11:44 06:32 21:03 POC Glucose 109 112 H 130 H 11/17/18 16:25 POC Glucose 99 Medical Necessity - Tobacco Use Smoking Status: Never smoker Tobacco Use: Non-smoker Assessment/Plan All Active Problems (Last Reviewed 11/16/18 @ 13:49 by Stephanie Dolan DO) Syncope (Acute) Hypotension (Acute) Ventricular tachycardia (Acute) Impressions 1. Syncope-possibly secondary to orthostatic hypotension related to volume depletion and administration of lisinopril today. Lisinopril was to be discontinued and we were going to allow permissive HTN for the next week. 2. hypotension - I suspect she may have autonomic hypotension........she likely got symptomatic yesterday because she was standing for a prolonged period of time doing PT 3. recent extension of a Left putamen CVA with right side weakness and transient aphasia. 4. History of hypertension 5. Colitis 6. Recent episodes of nonsustained ventricular tachycardia while on PCU. Seen in consultation by Dr. Mir. Amiodarone was initiated and the patient is currently on amiodarone 200 mg p.o. twice daily. 7. Diabetes mellitus type 2-hemoglobin A1c is 7.2. This is a new diagnosis 8. Hyperlipidemia 9. History of chronic orthostatic hypotension Transfer to Rehab tomorrow Will D/W Dr. Mir scheduling a tilt table test Continue the amiodarone Code Visit Inpatient E&M: 47590 Subs Hosp L1
[2018-11-18 16:36] LABS: Bedside Glucose 115 mg/dL (70-110)
[2018-11-18] MEDS: Atorvastatin Calcium 80 MG Tablet PO (22:01)
[2018-11-18] MEDS: MELATONIN 3 MG TABLET PO (22:02)
[2018-11-18] MEDS: Acetaminophen 325 MG Tablet 650 MG PO (22:05)
[2018-11-18 22:41] LABS: Bedside Glucose 129 mg/dL (70-110)
[2018-11-19] VITALS (8 sets, daily range): BP systolic 120–145; BP diastolic 79–88; PULSE 64–77; RESP 16–18; TEMP 36.7–36.8; O2SAT 96–98
[2018-11-19] MEDS: BALSALAZIDE DISODIUM 750 MG CAPSULE PO ×2 (06:19→14:49)
[2018-11-19 06:45] LABS: Bedside Glucose 115 mg/dL (70-110)
[2018-11-19] MEDS: Pantoprazole Sodium 20 MG Tablet PO (09:16)
[2018-11-19] MEDS: Multivitamins,Therapeutic Tablet 1 TABLET PO (09:16)
[2018-11-19] MEDS: Nystatin Powder 15gm Bottle 1 APPLIC TOPICAL (09:16)
[2018-11-19] MEDS: Amiodarone 200 MG Tablet PO (09:16)
[2018-11-19] MEDS: Aspirin 81 MG TAB.CHEW PO (09:16)
[2018-11-19] MEDS: Enoxaparin 40 MG/0.4 ML Syringe SC (09:17)
[2018-11-19 11:45] LABS: Bedside Glucose 118 mg/dL (70-110)
--- NOTE | 2018-11-19 11:55 | CASEMGMT ---
Inpatient Rehab is not able to take patient back as they feel medically 3 hours of therapy would be too much. Sarah said they will have a bed for her in TCU. SW spoke with patient explaining above. She was in agreement with going to TCU. She expressed frustration as she feels like she is not making any progress. She said she would like to be started on an anti-depressant. SW told her SW will talk with physician about this. SW provided emotional support. Plan: [facility] Netta TYLER MSW
--- NOTE | 2018-11-19 14:20 | CASEMGMT ---
Patient has a Healthcare LW and Healthcare POA. She is aware they are not on file at [facility]. Netta TYLER MSW
[2018-11-19] MEDS: Venlafaxine XR 75 MG Capsule PO (15:38)
--- NOTE | 2018-11-19 15:53 | PCM.TXEXTCAR ---
- Diet 11/16/18 13:45 Diet: Cardiac: Calorie-Controlled Food consistency:: Regular Liquid Consistency:: Regular/Thin How many daily calories?: 1600 calorie - Routine Orders/Code Status Enema Type: Fleetz Enema Frequency: Daily PRN Suppository Type: Dulcolax 10mg Suppository Frequency: Daily PRN - Suggestions for Active Care Positions to Avoid: no prolonged standing - Therapies Weight Bearing: Full weight bearing Extremity Affected:: Right Upper Physical Therapy: Eval and Treat Occupational Therapy: Eval and Treat - Problem/Diagnosis (1) Syncope Status: Acute Comment: due to orthostatic hypotension Current Visit: Yes (2) Hypotension Status: Acute Comment: likely due to orthostasis Current Visit: Yes (3) CVA (cerebral vascular accident) Status: Acute Comment: subactue with R side hemiparesis Current Visit: No (4) Orthostatic hypotension Status: Suspected Current Visit: No (5) Osteoarthritis Status: Chronic Current Visit: No (6) Colitis Status: Chronic Current Visit: No (7) HTN (hypertension) Status: Chronic Current Visit: No (8) HLD (hyperlipidemia) Status: Chronic Current Visit: No (9) Left bundle branch block Status: Chronic Current Visit: No (10) Obesity Status: Chronic Current Visit: No (11) Ventricular tachycardia Status: Acute Comment: recent hospital admission.....started on Amiodarone Current Visit: Yes (12) Autonomic neuropathy Status: Suspected Current Visit: Yes - Allergies/Procedures Done in Hospital Allergies/Adverse Reactions: Allergies erythromycin base [Erythromycin Base] Allergy (Verified 11/13/18 05:53) Rash Sulfa (Sulfonamide Antibiotics) Allergy (Verified 11/13/18 05:53) Rash sulfamethoxazole [From Septra] Allergy (Verified 11/13/18 05:53) Rash trimethoprim [From Septra] Allergy (Verified 11/13/18 05:53) Rash - Type of Care/Length of Stay Estimated LOS: Convalescent Care Less Than 30 days Type of Care Needed: Skilled Rehab Potential: Good Prognosis: Good - Additional Orders/Day of Discharge Additional Orders: She MUST always have JAMEE hose on if she is getting out of bed.......please put them on the minute she swings her legs over the edge of the bed. NO ANTIHYPERTENSIVES H&P will serve as current which was dated: 11/16/18 Day of Discharge: 11/19/18 - Follow Up Care Primary Care Physician: Morgan Taylor III, MD [Primary Care Provider] - Please follow up with your Primary Care Physician in: Following discharge from transitional care Please Follow Up With: neurology When: following DC from TCU Please Follow Up With: Yoni Mir MD When: 1 month
--- NOTE | 2018-11-19 16:03 | DS.PCM_ITS ---
Discharge Date and Diagnosis - Problem List Patient Problems: Active and Suspected Problems (Last Reviewed 11/16/18 @ 13:49 by Stephanie Dolan DO) Syncope (Acute) due to orthostatic hypotension Hypotension (Acute) likely due to orthostasis Ventricular tachycardia (Acute) recent hospital admission.....started on Amiodarone Autonomic neuropathy (Suspected) Date of Admission: 11/16/18 Date of Discharge: 11/19/18 - Primary Discharge Diagnosis Active and Suspected Problems (Last Reviewed 11/16/18 @ 13:49 by Stephanie Dolan DO) Syncope (Acute) suspect due to orthostatic hypotension due to suspected autonomic neuropathy Hypotension (Acute) likely due to orthostasis Ventricular tachycardia (Acute) recent hospital admission.....started on Amiodarone.....no VT while in the hospital for this admission Autonomic neuropathy (Suspected) - Secondary Discharge Diagnosis Chronic Problems (Last Reviewed 11/16/18 @ 13:49 by Stephanie Dolan DO) Osteoarthritis (Chronic) Colitis (Chronic) HTN (hypertension) (Chronic) HLD (hyperlipidemia) (Chronic) Left bundle branch block (Chronic) Obesity (Chronic) Hospital Course and Treatment Imaging Results: Laboratory Tests 11/19/18 11/19/18 11/18/18 Range/Units 11:36 06:17 22:00 WBC (4.4-11.0) K/mm3 RBC (4.2-5.4) M/mm3 Hgb (12.0-15.0) g/dl Hct (37-47) % MCV (81-99) fL MCH (27.0-32.0) pg MCHC (32-36) g/gl RDW (11.6-14.6) % RDW Differential (35.1-43.9) fl Plt Count (150-450) K/mm3 MPV (6.2-12.0) fl Sodium (136-145) mmol/L Potassium (3.5-5.1) mmol/L Chloride (98-107) mmol/L Carbon Dioxide (21.0-32.0) mmol/L Anion Gap (5-15) BUN (7-18) mg/dL Creatinine (0.55-1.02) mg/dL Estim Creat Clear Calc ml/min Est GFR (MDRD) Af Amer (>60) mL/min Est GFR (MDRD) Non-Af (>60) mL/min BUN/Creatinine Ratio (10-20) RATIO Glucose (74-106) mg/dL Calcium (8.5-10.1) mg/dL Magnesium (1.6-2.6) mg/dL Total Bilirubin (0.20-1.00) mg/dL AST (15-37) U/L ALT (13-56) U/L Alkaline Phosphatase (45-117) U/L Troponin I (<0.045) ng/mL Total Protein (6.4-8.2) g/dL Albumin (3.2-5.0) g/dL Globulin (2.2-4.2) g/dL Albumin/Globulin Ratio (0.9-2.4) RATIO POC Glucose 118 H 115 H 129 H (70-110) mg/dL 11/18/18 11/18/18 11/18/18 Range/Units 16:17 11:44 06:32 WBC (4.4-11.0) K/mm3 RBC (4.2-5.4) M/mm3 Hgb (12.0-15.0) g/dl Hct (37-47) % MCV (81-99) fL MCH (27.0-32.0) pg MCHC (32-36) g/gl RDW (11.6-14.6) % RDW Differential (35.1-43.9) fl Plt Count (150-450) K/mm3 MPV (6.2-12.0) fl Sodium (136-145) mmol/L Potassium (3.5-5.1) mmol/L Chloride (98-107) mmol/L Carbon Dioxide (21.0-32.0) mmol/L Anion Gap (5-15) BUN (7-18) mg/dL Creatinine (0.55-1.02) mg/dL Estim Creat Clear Calc ml/min Est GFR (MDRD) Af Amer (>60) mL/min Est GFR (MDRD) Non-Af (>60) mL/min BUN/Creatinine Ratio (10-20) RATIO Glucose (74-106) mg/dL Calcium (8.5-10.1) mg/dL Magnesium (1.6-2.6) mg/dL Total Bilirubin (0.20-1.00) mg/dL AST (15-37) U/L ALT (13-56) U/L Alkaline Phosphatase (45-117) U/L Troponin I (<0.045) ng/mL Total Protein (6.4-8.2) g/dL Albumin (3.2-5.0) g/dL Globulin (2.2-4.2) g/dL Albumin/Globulin Ratio (0.9-2.4) RATIO POC Glucose 115 H 109 112 H (70-110) mg/dL 11/17/18 11/17/18 11/17/18 Range/Units 21:03 16:25 11:47 WBC (4.4-11.0) K/mm3 RBC (4.2-5.4) M/mm3 Hgb (12.0-15.0) g/dl Hct (37-47) % MCV (81-99) fL MCH (27.0-32.0) pg MCHC (32-36) g/gl RDW (11.6-14.6) % RDW Differential (35.1-43.9) fl Plt Count (150-450) K/mm3 MPV (6.2-12.0) fl Sodium (136-145) mmol/L Potassium (3.5-5.1) mmol/L Chloride (98-107) mmol/L Carbon Dioxide (21.0-32.0) mmol/L Anion Gap (5-15) BUN (7-18) mg/dL Creatinine (0.55-1.02) mg/dL Estim Creat Clear Calc ml/min Est GFR (MDRD) Af Amer (>60) mL/min Est GFR (MDRD) Non-Af (>60) mL/min BUN/Creatinine Ratio (10-20) RATIO Glucose (74-106) mg/dL Calcium (8.5-10.1) mg/dL Magnesium (1.6-2.6) mg/dL Total Bilirubin (0.20-1.00) mg/dL AST (15-37) U/L ALT (13-56) U/L Alkaline Phosphatase (45-117) U/L Troponin I (<0.045) ng/mL Total Protein (6.4-8.2) g/dL Albumin (3.2-5.0) g/dL Globulin (2.2-4.2) g/dL Albumin/Globulin Ratio (0.9-2.4) RATIO POC Glucose 130 H 99 116 H (70-110) mg/dL 11/17/18 11/16/18 11/16/18 Range/Units 06:54 22:27 20:21 WBC (4.4-11.0) K/mm3 RBC (4.2-5.4) M/mm3 Hgb (12.0-15.0) g/dl Hct (37-47) % MCV (81-99) fL MCH (27.0-32.0) pg MCHC (32-36) g/gl RDW (11.6-14.6) % RDW Differential (35.1-43.9) fl Plt Count (150-450) K/mm3 MPV (6.2-12.0) fl Sodium (136-145) mmol/L Potassium (3.5-5.1) mmol/L Chloride (98-107) mmol/L Carbon Dioxide (21.0-32.0) mmol/L Anion Gap (5-15) BUN (7-18) mg/dL Creatinine (0.55-1.02) mg/dL Estim Creat Clear Calc ml/min Est GFR (MDRD) Af Amer (>60) mL/min Est GFR (MDRD) Non-Af (>60) mL/min BUN/Creatinine Ratio (10-20) RATIO Glucose (74-106) mg/dL Calcium (8.5-10.1) mg/dL Magnesium (1.6-2.6) mg/dL Total Bilirubin (0.20-1.00) mg/dL AST (15-37) U/L ALT (13-56) U/L Alkaline Phosphatase (45-117) U/L Troponin I < 0.015 (<0.045) ng/mL Total Protein (6.4-8.2) g/dL Albumin (3.2-5.0) g/dL Globulin (2.2-4.2) g/dL Albumin/Globulin Ratio (0.9-2.4) RATIO POC Glucose 120 H 107 (70-110) mg/dL 11/16/18 11/16/18 11/16/18 Range/Units 17:58 17:13 13:55 WBC (4.4-11.0) K/mm3 RBC (4.2-5.4) M/mm3 Hgb (12.0-15.0) g/dl Hct (37-47) % MCV (81-99) fL MCH (27.0-32.0) pg MCHC (32-36) g/gl RDW (11.6-14.6) % RDW Differential (35.1-43.9) fl Plt Count (150-450) K/mm3 MPV (6.2-12.0) fl Sodium (136-145) mmol/L Potassium (3.5-5.1) mmol/L Chloride (98-107) mmol/L Carbon Dioxide (21.0-32.0) mmol/L Anion Gap (5-15) BUN (7-18) mg/dL Creatinine (0.55-1.02) mg/dL Estim Creat Clear Calc ml/min Est GFR (MDRD) Af Amer (>60) mL/min Est GFR (MDRD) Non-Af (>60) mL/min BUN/Creatinine Ratio (10-20) RATIO Glucose (74-106) mg/dL Calcium (8.5-10.1) mg/dL Magnesium (1.6-2.6) mg/dL Total Bilirubin (0.20-1.00) mg/dL AST (15-37) U/L ALT (13-56) U/L Alkaline Phosphatase (45-117) U/L Troponin I < 0.015 < 0.015 (<0.045) ng/mL Total Protein (6.4-8.2) g/dL Albumin (3.2-5.0) g/dL Globulin (2.2-4.2) g/dL Albumin/Globulin Ratio (0.9-2.4) RATIO POC Glucose 124 H (70-110) mg/dL 11/16/18 11/16/18 Range/Units 13:50 13:50 WBC 8.5 (4.4-11.0) K/mm3 RBC 3.82 L (4.2-5.4) M/mm3 Hgb 12.1 (12.0-15.0) g/dl Hct 37.5 (37-47) % MCV 98.2 (81-99) fL MCH 31.7 (27.0-32.0) pg MCHC 32.3 (32-36) g/gl RDW 13.7 (11.6-14.6) % RDW Differential 47.5 H (35.1-43.9) fl Plt Count 238 (150-450) K/mm3 MPV 8.7 (6.2-12.0) fl Sodium 139 (136-145) mmol/L Potassium 4.2 (3.5-5.1) mmol/L Chloride 108 H (98-107) mmol/L Carbon Dioxide 27.0 (21.0-32.0) mmol/L Anion Gap 4 L (5-15) BUN 15 (7-18) mg/dL Creatinine 0.70 (0.55-1.02) mg/dL Estim Creat Clear Calc 39.70 ml/min Est GFR (MDRD) Af Amer 102 (>60) mL/min Est GFR (MDRD) Non-Af 85 (>60) mL/min BUN/Creatinine Ratio 21.3 H (10-20) RATIO Glucose 107 H (74-106) mg/dL Calcium 8.6 (8.5-10.1) mg/dL Magnesium 2.1 (1.6-2.6) mg/dL Total Bilirubin 0.50 (0.20-1.00) mg/dL AST 29 (15-37) U/L ALT 40 (13-56) U/L Alkaline Phosphatase 94 (45-117) U/L Troponin I (<0.045) ng/mL Total Protein 6.3 L (6.4-8.2) g/dL Albumin 3.0 L (3.2-5.0) g/dL Globulin 3.3 (2.2-4.2) g/dL Albumin/Globulin Ratio 0.9 (0.9-2.4) RATIO POC Glucose (70-110) mg/dL none Operations: None Procedures: None Summary of Care Provided: The patient is an 83 year old F with a past medical history of colitis, hypertension, hyperlipidemia, obesity, left bundle branch block and dyslipidemia who was discharged from [facility] on 11/15/2018 after having extension of a recent left putamen ischemic CVA. She has right-sided weakness 2/5 in the RLE and the RUE. She was discharged to the rehab unit on 11/15/18. [employer] THER[employer]IST was called on 11/16/2018 when the patient had a syncopal episode while in physical therapy. She was hypotensive with a BP of 70- 90 systolic and complaining of lightheadedness. She denied any chest discomfort or shortness of breath. She was pale. EKG showed NSR with a LBBB tht was unchanged from prior EKG's. A 500 cc bolus of normal saline was administered. Patient denied any palpitations. She had NSVT during the initial hospital admit and was seen by Dr. Mir. She was placed on Amiodarone prior to DC to the rehab unit. She was given a 500 cc bolus of NS and transferred to a monitored bed on PCU. She was kept at bedrest on 11/16 and the following morning orthostatics were done. The BP did not drop but the HR increased by 13 BPM. She was only able to stand for a brief time. Serial cardiac enzymes were negative. BMP at admission showed unremarkable electrolytes with a BUN of 15 and creatinine of 0.7. CBC was within normal limits. Telemetry monitoring during the hospital admission revealed NSR with no significant ventricular ectopy and no AF. She had no N SVT. BP was stable throughout the hospital stay. She has bloating after meals and episodic lightheadedness. She has abdominal cramping and diarrhea which may be due to colitis but, the sx come and go. I suspect she has autonomic neuropathy/POTS. Kj hose were ordered for anytime she is out of bed. she was instructed to always stay well hydrated. She was instructed to avoid prolonged standing. At some point she may be a candidate for a tilt table test but, that would be very dangerous at this point due to the recent ischemic CVA with R hemiplegia......we do not want to risk dropping the BP. She should NOT take antihypertensives. On the day of DC she told me she was depressed and requested an antidepressant. I chose Effexor because this medication is used to treat orthostatic hypotension....so are SSRI's and Effexor tends to increase BP. Dr. Thompson feels that she can not tolerate 3 hours of therapy and so she is going to be transferred to TCU. If she continues to have syncope and lightheadedness may consider starting a low dose of midodrine. She should have a stress test sometime in the future to exclude CAD as the etiology of the NSVT but, not for at least 6-8 weeks. She will follow up with Dr. Mir in 1 month. GENERAL: alert, oriented X 3, Cooperative, NAD ORAL: moist mucosa, no mucosal lesions NECK: No JVD, supple, trachea midline LUNGS: CTA, symmetric chest expansion HEART: RRR, Normal S1 and S2, no rub, no gallop ABDOMEN: soft, NT, ND, BS present, no guarding with palpation EXTREMITIES: no edema, no cyanosis, no calf tenderness SKIN: No rashes, no breakdown NEUROLOGIC: she has 2/5 strength in the RUE and the RLE, no facial asymmetry, decreased environmental monitoring specialist strength on the R PSYCH: appropriate, normal affect, pleasant This note was generated with [employer] software. It may contain incorrect words, spelling, and punctuation that were not noted in checking the note before signing. Patient Problems: Active and Suspected Problems (Last Reviewed 11/16/18 @ 13:49 by Stephanie Dolan DO) Syncope (Acute) due to orthostatic hypotension Hypotension (Acute) likely due to orthostasis Ventricular tachycardia (Acute) recent hospital admission.....started on Amiodarone Autonomic neuropathy (Suspected) - Physical Exam Vital Signs Temp Pulse Resp BP Pulse Ox 98.3 F 72 18 139/88 H 96 11/19/18 09:20 11/19/18 12:00 11/19/18 09:20 11/19/18 09:20 11/19/18 09:20 Oxygen Delivery Method Room Air Weight: 175 lb 14.862 oz Body Mass Index (BMI) 29.2 Finger Stick Blood Glucose 189 Orthostatic Vital Signs Start: 11/16/18 15:35 Freq: 0600 Status: Active Protocol: Activity Type Activity Date Activity User E-Sign Co-Sign Detail Recorded Client Recorded Date Recorded By Document 11/18/18 05:38 BS [id number] 11/18/18 05:51 BS 11/18/18 05:38 Orthostatic Vitals Standing -Blood Pressure (90/60-120/80 mm Hg) 131/60 H -Extremity Use Left Arm -Pulse Rate (60-100 beats/min) 84 Sitting -Blood Pressure (90/60-120/80 mm Hg) 142/86 H -Extremity Use Left Arm -Pulse Rate (60-100 beats/min) 72 Lying -Blood Pressure (90/60-120/80 mm Hg) 133/64 H -Extremity Use Left Arm -Pulse Rate (60-100 beats/min) 71 Intake and Output for Last 24 Hours 11/17/18 11/18/18 11/19/18 23:59 23:59 23:59 Intake Total 2188 / 2188 1440 / 1440 410 / 410 Output Total 550 / 550 450 / 450 Balance 1638 / 1638 1440 / 1440 -40 / -40 POC Glucose 11/19/18 11/19/18 11/18/18 11:36 06:17 22:00 POC Glucose 118 H 115 H 129 H 11/18/18 16:17 POC Glucose 115 H Home Medications: Medications to take at Discharge Balsalazide Disodium 750 mg PO TID 11/10/18 Aspirin [Aspirin, Baby] 81 mg PO DAILY@0800 11/13/18 Multivitamin [Multivitamins] 1 ea PO DAILY 11/13/18 Atorvastatin Calcium [Lipitor] 80 mg PO QHS 11/15/18 Pantoprazole Sodium [Protonix] 20 mg PO DAILY 11/15/18 Loperamide [Imodium] 2 mg PO Q4H PRN PRN 11/16/18 Amiodarone HCl [Cordarone] 200 mg PO BID #0 11/19/18 Magnesium Hydroxide [Milk Of Magnesia] 30 ml PO DAILY PRN PRN udc 11/19/18 Melatonin 3 mg PO QHS PRN PRN tab 11/19/18 Nystatin Powder [Mycostatin Powder] 1 applic TOPICAL BID bottle 11/19/18 Venlafaxine XR [Effexor Xr] 75 mg PO DAILY cap 11/19/18 traMADol [Ultram] 50 mg PO BID PRN PRN #0 11/19/18 Primary Care Physician: Morgan Taylor III, MD [Primary Care Provider] - Please follow up with your Primary Care Physician in: Following discharge from transitional care Please Follow Up With: neurology When: following DC from TCU Please Follow Up With: Yoni Mir MD When: 1 month Disposition: [facility] facility Minutes spent on discharge:: 40 Medical Necessity - Tobacco Use Smoking Status: Never smoker Tobacco Use: Non-smoker Meaningful Use Info Meaningful Use Diagnoses (Choose all that apply): Ischemic CVA - CVA Therapy Assessed for PT,OT and/or ST?: Yes - Ischemic Stroke Antithrombotic order at d/c?: Yes Dx of Atrial fib/flutter?: No Anticoagulant at discharge?: No Reason anticoagulant not ordered: Treatment not Indicated Statins at discharge?: Yes Primary Dx Acute Ischemic CVA?: Yes IV tPA ordered during stay?: No Reason IV t-PA not ordered: Treatment not Indicated Code Visit Inpatient E&M: 08010 Disch Hosp
[2018-11-19 16:41] LABS: Bedside Glucose 96 mg/dL (70-110)
== END 2018-11-19 18:55 | disposition skilled nursing facility (03) | DRG 312 ==
PROVIDERS: Admitting Provider Internal Medicine; Family Provider Family Medicine; PCP Family Medicine; Referring Provider Internal Medicine; Visit Provider Internal Medicine
DX: I95.1 Orthostatic hypotension (principal); I69.351 Hemiplegia and hemiparesis following cerebral infarction affecting right dominant side; I10 Essential (primary) hypertension; E78.5 Hyperlipidemia, unspecified; E11.9 Type 2 diabetes mellitus without complications; G90.9 Disorder of the autonomic nervous system, unspecified; M19.90 Unspecified osteoarthritis, unspecified site; E66.9 Obesity, unspecified; I44.7 Left bundle-branch block, unspecified; K52.9 Noninfective gastroenteritis and colitis, unspecified; Z68.29 Body mass index [BMI] 29.0-29.9, adult
CPT/HCPCS: 36415; 80053; 82962; 83735; 84484; 85027; 97110; 97162; 97166; 97530; 97535; J7030

== ENCOUNTER 2018-11-19 19:05 | Inpatient (IN) | payer MEDICARE, OTHER, SELFPAY ==
[2018-11-17 08:42] VITALS: BMI 29.2
[2018-11-19 19:38] VITALS: BP 151/53; PULSE 62; RESP 16; TEMP 36.9; O2SAT 92
--- NOTE | 2018-11-19 19:51 | PCM.HP.STD ---
Problem List (1) Debility Status: Acute (2) Diabetes mellitus Status: Acute (3) Right hemiparesis Status: Acute (4) GERD (gastroesophageal reflux disease) Status: Chronic (5) CVA (cerebral vascular accident) Status: Acute Comment: subactue with R side hemiparesis (6) Orthostatic hypotension Status: Chronic (7) Colitis Status: Chronic (8) HTN (hypertension) Status: Chronic (9) HLD (hyperlipidemia) Status: Chronic (10) Left bundle branch block Status: Chronic (11) Syncope Status: Acute Comment: due to orthostatic hypotension (12) Ventricular tachycardia Status: Acute Comment: recent hospital admission.....started on Amiodarone History of Present Illness Date of Admission: 11/19/18 Chief Complaint: Here for rehabilitation, strengthening, prior to discharge home with spouse. The patient is a 83 year old Female with below past medical history presented to [facility] Emergency Department 11/13/2018 with weakness. 11/12/2018 Echo Normal LV size. EF 55 % Stage 1 diastolic dysfunction. Bubble study negative shunt. 11/13/2018 CT head NEGATIVE. 11/13/2018 Chest X-ray negative. 11/13/2018 EKG showed normal sinus rhythm, left axis deviation, left bundle branch block. 11/13/2018 CTA neck small plaque distal left carotid bulb. 11/13/2018 CTA head negative. 11/13/2018 MRI brain small but enlarging left putamen stroke. Recent stroke 11/10/2018. Right arm, right leg paralysis, unresponsive upon squad arrival. CBCD okay, BMP okay, Troponin negative 11/15/2018 Admit to [facility]. 11/16/2917 Admit to Hospital for syncope, lightheadedness, hypotension. IV fluid resuscitation ordered. Lisinopril stopped. Jamee hose ordered for orthostatic hypotension. Recommend NO antihypertensives. Effexor ordered for depression, and to help maintain blood pressure. Consider midodrine for orthostasis if persists. Patient had non-sustained ventricular tachycardia, Dr. Mir consulted and started amiodarone. Cardiac stress test after 01/19/2019 to evaluate cause of NSVT, follow up with Dr. Mir as outpatient. Unable to tolerate 3 hours therapy daily. 11/19/2018 Admit to TCU with debility, here for rehabilitation, strengthening, prior to discharge home with spouse. Past Medical History Past Medical History (Chronic Problems): Chronic Problems (Last Reviewed 11/16/18 @ 13:49 by Stephanie Dolan DO) Orthostatic hypotension (Chronic) Osteoarthritis (Chronic) Colitis (Chronic) HTN (hypertension) (Chronic) HLD (hyperlipidemia) (Chronic) Left bundle branch block (Chronic) Obesity (Chronic) GERD (gastroesophageal reflux disease) (Chronic) Medical History: Medical History (Last Reviewed 11/16/18 @ 13:49 by Stephanie Dolan DO) Chronic back pain M54.9, G89.29 GERD (gastroesophageal reflux disease) K21.9 Hemorrhoid K64.9 History of hysterectomy Z90.710 Osteoarthritis M19.90 Rheumatoid arthritis M06.9 HTN (hypertension) I10 Uterine cancer C55 hysterectomy and chemo Allergies erythromycin base [Erythromycin Base] Allergy (Verified 11/13/18 05:53) Rash Sulfa (Sulfonamide Antibiotics) Allergy (Verified 11/13/18 05:53) Rash sulfamethoxazole [From Septra] Allergy (Verified 11/13/18 05:53) Rash trimethoprim [From Janra] Allergy (Verified 11/13/18 05:53) Rash Home Medications: Ambulatory Orders Medication Instructions Recorded Balsalazide Disodium 750 mg PO TID 11/10/18 Aspirin [Aspirin, Baby] 81 mg PO DAILY@0800 11/13/18 Multivitamin [Multivitamins] 1 ea PO DAILY 11/13/18 Atorvastatin Calcium [Lipitor] 80 mg PO QHS 11/15/18 Pantoprazole Sodium [Protonix] 20 mg PO DAILY 11/15/18 Loperamide [Imodium] 2 mg PO Q4H PRN PRN 11/16/18 Amiodarone HCl [Cordarone] 200 mg PO BID #0 11/19/18 Magnesium Hydroxide [Milk Of 30 ml PO DAILY PRN PRN udc 11/19/18 Magnesia] Melatonin 3 mg PO QHS PRN PRN tab 11/19/18 Nystatin Powder [Mycostatin Powder] 1 applic TOPICAL BID 11/19/18 Venlafaxine XR [Effexor Xr] 75 mg PO DAILY 11/19/18 traMADol [Ultram] 50 mg PO BID PRN PRN #0 11/19/18 Surgical History: Surgical History (Last Reviewed 11/16/18 @ 13:49 by Stephanie Dolan DO) History of colonoscopy Z98.890 History of esophagogastroduodenoscopy (EGD) Z98.890 History of foot surgery Z98.890 History of laparoscopic cholecystectomy Z90.49 History of left knee replacement Z96.652 History of skin graft Z98.890 History of tonsillectomy Z90.89 Surgical History: cholecystectomy - Laparoscopic., hysterectomy - D/T uterine CA, total knee arthroplasty - Left., tonsillectomy, - - Skin graft to right hand as a child, foot surgery. Bunion removals to bilateral feet. 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 Father No problems noted. History Items: - - Patient unaware Maternal Family History: Family History (Last Updated 11/15/18 @ 19:07 by Carina Cameron NP-Emani) Mother No problems noted. Father No problems noted. History Items: Dementia, Stroke Review of Systems Constitutional: Denies: Chills, Fever, Weight Change HEENT: Denies: Head Aches, Sinus Congestion, Sinus Drainage Cardiovascular: Denies: Chest Pain, Palpitations Respiratory: Denies: Cough, Shortness of breath at rest, Sputum production Gastrointestinal: Denies: Abdominal Pain, Nausea, Vomiting Genitourinary: Denies: Dysuria Musculoskeletal: Denies: Joint Pain, Joint Tenderness Skin: Denies: Rash, Wounds Neurological: Reports: - - Right sided weakness.. Denies: Focal weakness, Numbness, Tingling Psychiatric: Denies: Anxiety, Depression, Homicidal Ideations, Suicidal Ideations Hematologic/ Lymphatic: Denies: Easy Bruising, Easy Bleeding VTE Information - Inpt Only VTE Present on Admission: No VTE Mechan Device Prophylaxis: Knee High JAMEE Hose VTE Pharm Prophylaxis ordered?: Yes Patient Problems: Active and Suspected Problems (Last Reviewed 11/16/18 @ 13:49 by Stephanie Dolan DO) Debility (Acute) Diabetes mellitus (Acute) Right hemiparesis (Acute) - Physical Exam General: Alert, Oriented x3, Cooperative HEENT: Atraumatic, PERRLA, EOMI, Normocephalic Neck: Supple, No JVD, Negative Carotid Bruits Lungs: Clear to auscultation, Normal air movement Cardiovascular: Regular rate, No murmurs Abdomen: Bowel Sounds Present, Soft, Non Tender Extremities: No edema, Capillary Refill Less than 3 Seconds Skin: No rashes, No breakdown Musculoskeletal: No Tenderness to Palpation of Joints or Extremities Neurological: Cranial nerves II-XII grossly intact, - - Right hemiparesis. Psych/Mental Status: Normal Affect, Appropriate Vital Signs Temp Pulse Resp BP Pulse Ox 98.4 F 62 16 151/53 H 92 11/19/18 19:38 11/19/18 19:38 11/19/18 19:38 11/19/18 19:38 11/19/18 19:38 Oxygen Delivery Method Room Air Weight: 170 kg Body Mass Index (BMI) 29.2 Finger Stick Blood Glucose 189 Assessment/Plan All Active Problems (Last Reviewed 11/16/18 @ 13:49 by Stephanie Dolan DO) CVA (cerebral vascular accident) (Acute) Syncope (Acute) Hypotension (Acute) Ventricular tachycardia (Acute) Debility (Acute) Diabetes mellitus (Acute) Right hemiparesis (Acute) 83 year old female with below past medical history hospitalized for syncope secondary to orthostatic hypotension, complicated by recent left putamen stroke with extension, NSVT, admitted to TCU with debility, here for rehabilitation, strengthening, prior to discharge home with spouse. Debility - PT/OT. Pain - Tylenol 1000MG Q6H PRN mild pain, Tramadol 50MG BID PRN moderate pain. Bowel - Dulcolax 10MG daily PRN, order X-ray of abdomen to evaluate for constipation, she has history of colitis, X-ray shows constipation, clean out with Magnesium Citrate 300ML PO x 1 dose, add Miralax 17GM daily, Senna/colace 1 tablet BID. Pneumonia vaccination - Administer Prevnar 13 and/or Pneumovax 23 as necessary. DVT prophylaxis - Lovenox 30MG SC daily. NSVT - Amiodarone 200MG BID thru 11/26/2018, then 200MG daily, stress test after 01/19/2019, follow up with Dr. Mir. Left putamen stroke - Aspirin 81MG daily. Hyperlipidemia - Atorvastatin 80MG QHS. Colitis - Balsalazide 750MG TID. Diarrhea - Loperamide 2MG Q4H PRN, order X-ray of abdomen to look for stool impaction, resident constipated, stop Loperamide. Insomnia - Melatonin 3MG QHS PRN. Nutrition - MVI daily. Tinea Corporis - Nystatin powder BID under breasts. GERD - Pantoprazole 20MG daily. Depression - Venlafaxine XR 75MG daily. Orthostatic hypotension - Consider Ryley Stewart Northera.
[2018-11-19 20:08] VITALS: BMI 31.1
[2018-11-19 20:16] VITALS: BMI 31.1
--- NOTE | 2018-11-19 20:34 | NURSING ---
Pt arrived from [facility] at 1905.
--- NOTE | 2018-11-19 20:36 | RAD_ITS ---
STUDY: X-RAY - ABDOMEN/PELVIS REASON FOR EXAM: Female, 83 years old. Constipation, abdominal distention TECHNIQUE: 2 views COMPARISON: None. FINDINGS: Normal visualized lung bases. Cardiomegaly. There is an unremarkable bowel gas pattern. There is no demonstrated free abdominal air. There are surgical clips in the right upper quadrant. Normal soft tissue structures. Degenerative vertebral changes. RAD/Abdomen Single View IMPRESSION: No sign of bowel obstruction. Electronically Signed: Toni King DO at 20:57 EDT Tel [phone], Service support ,
[2018-11-19] MEDS: BALSALAZIDE DISODIUM 750 MG CAPSULE PO (21:11)
[2018-11-19] MEDS: Amiodarone 200 MG Tablet PO (21:13)
[2018-11-19] MEDS: Atorvastatin Calcium 80 MG Tablet PO (21:13)
[2018-11-19] MEDS: Nystatin Powder 15gm Bottle 1 APPLIC TOPICAL (21:14)
[2018-11-19] MEDS: Acetaminophen 500 MG Tablet 1000 MG PO (21:25)
[2018-11-19 21:29] VITALS: PULSE 76; O2SAT 93
[2018-11-20 05:28] LABS: Absolute Lymphocyte Count 1.79 X10^3/ul (0.83-4.51); Absolute Neutrophil Count 4.6 X10^3/uL (2.0-7.7); Basophil# 0.04 X10^3/uL; Basophil% 0.5 % (0-1); Eosinophil# 0.44 X10^3/uL; Eosinophils% 5.8 % (0-5); Hematocrit 39.1 % (37-47); Hemoglobin 12.8 g/dl (12.0-15.0); Lymphocyte # 1.79 X10^3/ul (4.0); Lymphocyte % 23.6 % (19-41); Mean Corp Hgb Conc 32.7 g/gl (32-36); Mean Corpuscular Hgb 31.6 pg (27.0-32.0); Mean Corpuscular Volume 96.5 fL (81-99); Mean Platelet Vol. 8.7 fl (6.2-12.0); Monocyte# 0.71 X10^3/uL; Monocyte% 9.3 % (0-10); Neutrophil % 60.5 % (47-70); Platelet Count 320 K/mm3 (150-450); RBC Distribution Width CV 13.5 % (11.6-14.6); RBC Distribution Width SD 45.3 fl (35.1-43.9); Red Blood Count 4.05 M/mm3 (4.2-5.4); White Blood Count 7.6 K/mm3 (4.4-11.0)
[2018-11-20 05:34] LABS: POSITIVE COUNT NO; POSITIVE DIFFERENTIAL NO; POSITIVE MORPHOLOGY NO
[2018-11-20 05:43] LABS: Anion Gap 8 (5-15); BUN 14 mg/dL (7-18); Calcium,Total 9.1 mg/dL (8.5-10.1); Chloride 106 mmol/L (98-107); Creatinine, Serum 0.67 mg/dL (0.55-1.02); EST Glomerular Filtration Rate 90 mL/min (>60); Est Glom Filt Rate - Afr Amer 109 mL/min (>60); Glucose 107 mg/dL (74-106); Potassium 3.7 mmol/L (3.5-5.1); Sodium Level 143 mmol/L (136-145)
[2018-11-20] MEDS: Nystatin Powder 15gm Bottle 1 APPLIC TOPICAL ×2 (05:46→21:04)
[2018-11-20] MEDS: Menthol/Lanolin/Calamine/Znox 113 GM Tube 1 APPLIC TOPICAL ×2 (05:49→21:04)
[2018-11-20] MEDS: Amiodarone 200 MG Tablet PO ×2 (05:51→17:42)
[2018-11-20] MEDS: Venlafaxine XR 75 MG Capsule PO (05:51)
[2018-11-20] MEDS: BALSALAZIDE DISODIUM 750 MG CAPSULE PO ×3 (05:51→21:06)
[2018-11-20] MEDS: Enoxaparin 30 MG/0.3 ML Syringe SC (05:52)
[2018-11-20] MEDS: Pantoprazole Sodium 20 MG Tablet PO (05:55)
[2018-11-20] MEDS: Acetaminophen 500 MG Tablet 1000 MG PO ×2 (05:58→21:13)
[2018-11-20 06:31] LABS: Bedside Glucose 115 mg/dL (70-110)
--- NOTE | 2018-11-20 08:24 | NURSING ---
Addendum entered by Melissa Chamorro 11/20/18 09:13: Pt prefers to take mag citrate after therapy is completed. Original Note: Dr Perez reviewed KUB, new orders for miralax & senna daily, mag citrate x1
[2018-11-20] MEDS: Glucerna Shake 120 ML LIQUID PO ×3 (08:28→17:41)
[2018-11-20] MEDS: Aspirin 81 MG TAB.CHEW PO (08:29)
[2018-11-20] MEDS: Multivitamins,Therapeutic Tablet 1 TABLET PO (08:29)
[2018-11-20] MEDS: Tuberculin,Purif.prot.deriv. 50 TU/ML Vial 5 ML ID (09:36)
[2018-11-20 09:40] VITALS: O2SAT 88
[2018-11-20 10:00] VITALS: PULSE 72; RESP 18; O2SAT 95
--- NOTE | 2018-11-20 11:01 | NURSING ---
Nahun from therapy came to this nurse and stated pt SpO2 was 88% ON RA. This nurse went to room with O2 supplies and SpO2 had dropped to 85% on RA. BP 135/72, P 72, R 18. Pt stated she felt light-headed and hot. O2 applied at 2L via NC and SpO2 increased to 97%. This nurse took O2 off, removed pulse oximeter and placed on different finger. Pt fluctuating between 93-95% on RA. Pt transferred from recliner chair to bed by therapy. Pt still having c/o light-headedness and feeling hot. Cool washcloth placed on forehead. BP 115/65, P 70. SpO2 fluctuating between 87-92% on RA. Vitals retaken BP 120/59, P 66, SpO2 fluctuating between 93-96% on RA. Pt states she felt better with no more c/o of light-headedness or feeling hot. Stephanie WALLS aware.
[2018-11-20] MEDS: Magnesium Citrate 300 ML PO (15:45)
[2018-11-20 16:00] VITALS: BP 147/78; PULSE 70; RESP 20; TEMP 36.6; O2SAT 93
[2018-11-20] MEDS: Senna/Docusate Sodium 1 Tablet PO (17:42)
--- NOTE | 2018-11-20 19:32 | NURSING ---
Pt has had no more c/o light-headedness. Pt SpO2 monitored frequently by this nurse with and w/o activity. Spo2 fluctuating between 94-97% on RA. Stephanie WALLS aware.
--- NOTE | 2018-11-20 20:00 | NURSING ---
Addendum entered by Ashley Davies 11/21/18 08:49: New order for artificial tears and to monitor eye. Original Note: When this nurse entered room found patient rubbing left eye. States 'It feels itchy. Sl redness noted lower lid and discoloration in corner of bottom lid. Enc not to rub so hard. Given cool cloth to apply with some relief noted. Clear watery drainage noted. Granddaughter was visiting. Granddaughter had been working outside on the farm and in the barn. Afebrile. Will cont to monitor. Same reported to TITI Mariee and TITI Vasquez.
[2018-11-20] MEDS: Atorvastatin Calcium 80 MG Tablet PO (21:07)
[2018-11-21] MEDS: Acetaminophen 500 MG Tablet 1000 MG PO (06:06)
[2018-11-21] MEDS: Menthol/Lanolin/Calamine/Znox 113 GM Tube 1 APPLIC TOPICAL ×2 (06:08→22:04)
[2018-11-21] MEDS: BALSALAZIDE DISODIUM 750 MG CAPSULE PO ×3 (06:08→22:04)
[2018-11-21] MEDS: Senna/Docusate Sodium 1 Tablet PO (06:09)
[2018-11-21] MEDS: Polyethylene Glycol 3350 17 GM PACKET PO (06:09)
[2018-11-21] MEDS: Enoxaparin 30 MG/0.3 ML Syringe SC (06:09)
[2018-11-21] MEDS: Venlafaxine XR 75 MG Capsule PO (06:09)
[2018-11-21] MEDS: Amiodarone 200 MG Tablet PO ×2 (06:09→17:10)
[2018-11-21] MEDS: Nystatin Powder 15gm Bottle 1 APPLIC TOPICAL ×2 (06:10→22:03)
[2018-11-21] MEDS: Pantoprazole Sodium 20 MG Tablet PO (06:15)
[2018-11-21 06:26] LABS: Bedside Glucose 98 mg/dL (70-110)
[2018-11-21] MEDS: Aspirin 81 MG TAB.CHEW PO (09:08)
[2018-11-21] MEDS: Multivitamins,Therapeutic Tablet 1 TABLET PO (09:08)
--- NOTE | 2018-11-21 12:32 | NURSING ---
Patient having frequent diarrhea, afebrile, no other complaints. History of colitis. Dr. Perez notified, new order for imodium PRN and make senokot and miralax PRN.
[2018-11-21] MEDS: Loperamide 2 MG Capsule PO (13:30)
[2018-11-21 16:00] VITALS: BP 143/67; PULSE 76; RESP 18; TEMP 36.7; O2SAT 98
[2018-11-21 16:30] VITALS: PULSE 76; RESP 18; O2SAT 95
[2018-11-21] MEDS: Glucerna Shake 120 ML LIQUID PO (17:08)
[2018-11-21] MEDS: Atorvastatin Calcium 80 MG Tablet PO (22:01)
[2018-11-21] MEDS: Glycerin/Hypromellose/PEG400 15 ml Bottle 2 DRP LEFT EYE (22:02)
[2018-11-22] MEDS: BALSALAZIDE DISODIUM 750 MG CAPSULE PO ×3 (06:12→21:05)
[2018-11-22] MEDS: Amiodarone 200 MG Tablet PO ×2 (06:12→17:49)
[2018-11-22] MEDS: Venlafaxine XR 75 MG Capsule PO (06:13)
[2018-11-22] MEDS: Enoxaparin 30 MG/0.3 ML Syringe SC (06:13)
[2018-11-22] MEDS: Pantoprazole Sodium 20 MG Tablet PO (06:15)
[2018-11-22] MEDS: Glycerin/Hypromellose/PEG400 15 ml Bottle 2 DRP LEFT EYE (06:17)
[2018-11-22] MEDS: Menthol/Lanolin/Calamine/Znox 113 GM Tube 1 APPLIC TOPICAL ×2 (06:21→21:05)
[2018-11-22] MEDS: Nystatin Powder 15gm Bottle 1 APPLIC TOPICAL ×2 (06:21→21:05)
[2018-11-22 06:41] LABS: Bedside Glucose 104 mg/dL (70-110)
[2018-11-22] MEDS: Aspirin 81 MG TAB.CHEW PO (08:34)
[2018-11-22] MEDS: Multivitamins,Therapeutic Tablet 1 TABLET PO (08:34)
[2018-11-22] MEDS: Acetaminophen 500 MG Tablet 1000 MG PO ×2 (08:34→21:09)
[2018-11-22] MEDS: Glucerna Shake 120 ML LIQUID PO ×2 (13:45→17:49)
[2018-11-22] MEDS: traMADol 50 MG Tablet PO (13:52)
--- NOTE | 2018-11-22 14:12 | PHA.CONS_ITS ---
<Chas Farmer D - Last Filed: 11/22/18 14:12> Progress Note - Pharmacy Subjective: TCU Admission Objective: Allergies erythromycin base [Erythromycin Base] Allergy (Verified 11/13/18 05:53) Rash Sulfa (Sulfonamide Antibiotics) Allergy (Verified 11/13/18 05:53) Rash sulfamethoxazole [From Janra] Allergy (Verified 11/13/18 05:53) Rash trimethoprim [From Janra] Allergy (Verified 11/13/18 05:53) Rash Current Medications Generic Name Dose Route Start Last Admin Trade Name Freq PRN Reason Stop Dose Admin Acetaminophen 1,000 mg 11/19/18 20:09 11/22/18 08:34 Tylenol PO 1,000 mg Q6H PRN Administration MILD PAIN (1-310) Amiodarone HCl 200 mg 11/19/18 22:00 11/22/18 06:12 Cordarone PO 11/26/18 22:01 200 mg BID MARTHA Administration Amiodarone HCl 200 mg 11/27/18 06:00 Cordarone PO DAILY MARTHA Aspirin 81 mg 11/20/18 08:00 11/22/18 08:34 Aspirin, Baby PO 81 mg DAILY@0800 [facility] Administration Atorvastatin Calcium 80 mg 11/19/18 22:00 11/21/18 22:01 Lipitor PO 80 mg QHS MARTHA Administration Balsalazide 750 mg 11/20/18 06:00 11/22/18 13:50 Balsalazide Disodium PO 750 mg TID MARTHA Administration Bisacodyl 10 mg 11/19/18 19:54 Dulcolax PO DAILY PRN PRN Constipation Calamine/Phenol 1 applic 11/20/18 06:00 11/22/18 06:21 Calmoseptine Ointment TOPICAL 1 applicatio 0600,2200 [facility] Administration Protocol Enoxaparin Sodium 30 mg 11/20/18 06:00 11/22/18 06:13 Lovenox SC 30 mg DAILY@0600 [facility] Administration Loperamide HCl 2 mg 11/21/18 12:30 11/21/18 13:30 Imodium PO 2 mg Q6H PRN PRN Administration Constipation Melatonin 3 mg 11/19/18 19:49 Melatonin PO QHS PRN PRN SLEEP Multivitamins 1 tablet 11/20/18 08:00 11/22/18 08:34 Multivitamin PO 1 tablet DAILY@0800 MARTHA Administration Nutritional Formula (Lactose Free) 120 ml 11/20/18 07:45 11/22/18 13:45 Glucerna Shake PO 120 ml TIDCM MARTHA Administration Nystatin 1 applic 11/19/18 22:00 11/22/18 06:21 Mycostatin Powder TOPICAL 1 applicatio 0600,2200 MARTHA Administration Protocol Pantoprazole Sodium 20 mg 11/20/18 06:00 11/22/18 06:15 Protonix PO 20 mg DAILY MARTHA Administration Polyethylene Glycol 17 gm 11/21/18 12:31 Miralax PO DAILY PRN Constipation Senna/Docusate Sodium 1 tablet 11/21/18 12:31 Senokot-S, Joya-Colace PO DAILY PRN Constipation Tramadol HCl 50 mg 11/19/18 20:10 11/22/18 13:52 Ultram PO 50 mg BID PRN PRN Administration MODERATE PAIN (4-5/10) Tuberculin PPD 5 tu 11/27/18 10:00 Tubersol, Aplisol, Ppd ID 11/27/18 10:01 X1 ONE Venlafaxine HCl 75 mg 11/20/18 06:00 11/22/18 06:13 Effexor Xr PO 75 mg DAILY MARTHA Administration Problem List (Last Reviewed 11/16/18 @ 13:49 by Stephanie Dolan DO) Debility (Acute) Diabetes mellitus (Acute) Right hemiparesis (Acute) GERD (gastroesophageal reflux disease) (Chronic) Vital Signs Temp Pulse Resp BP Pulse Ox 98.1 F 76 18 143/67 H 95 11/21/18 16:00 11/21/18 16:30 11/21/18 16:30 11/21/18 16:00 11/21/18 16:30 Oxygen Delivery Method Room Air Weight: 77.111 kg Body Mass Index (BMI) 31.1 Finger Stick Blood Glucose 189 Sodium 143 mmol/L (136-145) 11/20/18 05:05 Potassium 3.7 mmol/L (3.5-5.1) 11/20/18 05:05 Chloride 106 mmol/L (98-107) 11/20/18 05:05 Carbon Dioxide 29.0 mmol/L (21.0-32.0) 11/20/18 05:05 8 (5-15) 11/20/18 05:05 BUN 14 mg/dL (7-18) 11/20/18 05:05 0.67 mg/dL (0.55-1.02) 11/20/18 05:05 Est GFR (MDRD) Af Amer 109 mL/min (>60) 11/20/18 05:05 Est GFR (MDRD) Non-Af 90 mL/min (>60) 11/20/18 05:05 21.0 RATIO (10-20) H 11/20/18 05:05 Glucose 107 mg/dL (74-106) H 11/20/18 05:05 Assessment/Plan: 1) Pain APAP for mild pain, tramadol for moderate pain. Continue to monitor daily pain scores, prn medication use. 2) NSVT Amiodarone. Continue to monitor BP/HR. 3) Stroke ASA, atorvastatin. Continue to monitor lipids, s/s stroke. 4) DVT PPx Enoxaparin. Continue to monitor for bleeding/clot. 5) GI Pantoprazole, balsalazide. Continue to monitor s/s GI distress. Psychotropic Medications: 6) Depression Venlafaxine daily. Continue to monitor s/s infection. Unnecessary Medications: None Bowel Regimen: * 7) Senna/s, PEG, prn bisacodyl, prn loperamide. Continue to monitor prn medication use, for constipation/diarrhea. * Loperamide prn instruction is for constipation. Please clarify. Thank you. Date of Note:: 11/22/18 - Provider Comments Provider responsibility: Provider responsible to enter orders to implement recommendations <Carlton Perez Chi - Last Filed: 11/22/18 20:19> Progress Note - Pharmacy Subjective: [] Objective: Allergies erythromycin base [Erythromycin Base] Allergy (Verified 11/13/18 05:53) Rash Sulfa (Sulfonamide Antibiotics) Allergy (Verified 11/13/18 05:53) Rash sulfamethoxazole [From Septra] Allergy (Verified 11/13/18 05:53) Rash trimethoprim [From Janra] Allergy (Verified 11/13/18 05:53) Rash Current Medications Generic Name Dose Route Start Last Admin Trade Name Freq PRN Reason Stop Dose Admin Acetaminophen 1,000 mg 11/19/18 20:09 11/22/18 08:34 Tylenol PO 1,000 mg Q6H PRN Administration MILD PAIN (1-3/10) Amiodarone HCl 200 mg 11/19/18 22:00 11/22/18 17:49 Cordarone PO 11/26/18 22:01 200 mg BID MARTHA Administration Amiodarone HCl 200 mg 11/27/18 06:00 Cordarone PO DAILY [facility] Aspirin 81 mg 11/20/18 08:00 11/22/18 08:34 Aspirin, Baby PO 81 mg DAILY@0800 [facility] Administration Atorvastatin Calcium 80 mg 11/19/18 22:00 11/21/18 22:01 Lipitor PO 80 mg QHS [facility] Administration Balsalazide 750 mg 11/20/18 06:00 11/22/18 13:50 Balsalazide Disodium PO 750 mg TID [facility] Administration Bisacodyl 10 mg 11/19/18 19:54 Dulcolax PO DAILY PRN PRN Constipation Calamine/Phenol 1 applic 11/20/18 06:00 11/22/18 06:21 Calmoseptine Ointment TOPICAL 1 applicatio 599,0 [facility] Administration Protocol Enoxaparin Sodium 30 mg 11/20/18 06:00 11/22/18 06:13 Lovenox SC 30 mg DAILY@0600 [facility] Administration Loperamide HCl 2 mg 11/21/18 12:30 11/21/18 13:30 Imodium PO 2 mg Q6H PRN PRN Administration Constipation Melatonin 3 mg 11/19/18 19:49 Melatonin PO QHS PRN PRN SLEEP Multivitamins 1 tablet 11/20/18 08:00 11/22/18 08:34 Multivitamin PO 1 tablet DAILY@0800 [facility] Administration Nutritional Formula (Lactose Free) 120 ml 11/20/18 07:45 11/22/18 17:49 Glucerna Shake PO 120 ml TIDCM [facility] Administration Nystatin 1 applic 11/19/18 22:00 11/22/18 06:21 Mycostatin Powder TOPICAL 1 applicatio 599,2200 [facility] Administration Protocol Pantoprazole Sodium 20 mg 11/20/18 06:00 11/22/18 06:15 Protonix PO 20 mg DAILY MARTHA Administration Polyethylene Glycol 17 gm 11/21/18 12:31 Miralax PO DAILY PRN Constipation Senna/Docusate Sodium 1 tablet 11/21/18 12:31 Senokot-S, Joya-Colace PO DAILY PRN Constipation Tramadol HCl 50 mg 11/19/18 20:10 11/22/18 13:52 Ultram PO 50 mg BID PRN PRN Administration MODERATE PAIN (4-5/10) Tuberculin PPD 5 tu 11/27/18 10:00 Tubersol, Aplisol, Ppd ID 11/27/18 10:01 X1 ONE Venlafaxine HCl 75 mg 11/20/18 06:00 11/22/18 06:13 Effexor Xr PO 75 mg DAILY MARTHA Administration Problem List (Last Reviewed 11/16/18 @ 13:49 by Stephanie Dolan DO) Debility (Acute) Diabetes mellitus (Acute) Right hemiparesis (Acute) GERD (gastroesophageal reflux disease) (Chronic) Vital Signs Temp Pulse Resp BP Pulse Ox 98.1 F 68 18 127/59 H 94 11/22/18 15:39 11/22/18 15:39 11/22/18 15:39 11/22/18 15:39 11/22/18 15:39 Oxygen Delivery Method Room Air Weight: 77.111 kg Body Mass Index (BMI) 31.1 Finger Stick Blood Glucose 189 Sodium 143 mmol/L (136-145) 11/20/18 05:05 Potassium 3.7 mmol/L (3.5-5.1) 11/20/18 05:05 Chloride 106 mmol/L (98-107) 11/20/18 05:05 Carbon Dioxide 29.0 mmol/L (21.0-32.0) 11/20/18 05:05 8 (5-15) 11/20/18 05:05 BUN 14 mg/dL (7-18) 11/20/18 05:05 0.67 mg/dL (0.55-1.02) 11/20/18 05:05 Est GFR (MDRD) Af Amer 109 mL/min (>60) 11/20/18 05:05 Est GFR (MDRD) Non-Af 90 mL/min (>60) 11/20/18 05:05 21.0 RATIO (10-20) H 11/20/18 05:05 Glucose 107 mg/dL (74-106) H 11/20/18 05:05 Assessment/Plan: Psychotropic Medications: Unnecessary Medications: Bowel Regimen: - Provider Comments Provider responsibility: Provider responsible to enter orders to implement recommendations Provider Comments to Recommendations by Pharmacy: Agree
[2018-11-22 15:39] VITALS: BP 127/59; PULSE 68; RESP 18; TEMP 36.7; O2SAT 94
[2018-11-22] MEDS: Atorvastatin Calcium 80 MG Tablet PO (21:05)
[2018-11-23] MEDS: Pantoprazole Sodium 20 MG Tablet PO (06:36)
[2018-11-23] MEDS: Venlafaxine XR 75 MG Capsule PO (06:36)
[2018-11-23] MEDS: Amiodarone 200 MG Tablet PO ×2 (06:36→17:19)
[2018-11-23] MEDS: BALSALAZIDE DISODIUM 750 MG CAPSULE PO ×3 (06:37→21:34)
[2018-11-23] MEDS: Enoxaparin 30 MG/0.3 ML Syringe SC (06:37)
[2018-11-23] MEDS: Nystatin Powder 15gm Bottle 1 APPLIC TOPICAL ×2 (06:40→21:41)
[2018-11-23] MEDS: Menthol/Lanolin/Calamine/Znox 113 GM Tube 1 APPLIC TOPICAL ×2 (06:40→21:41)
[2018-11-23] MEDS: Aspirin 81 MG TAB.CHEW PO (08:03)
[2018-11-23] MEDS: Multivitamins,Therapeutic Tablet 1 TABLET PO (08:03)
[2018-11-23] MEDS: Glucerna Shake 120 ML LIQUID PO ×3 (08:09→17:18)
[2018-11-23] MEDS: Glycerin/Hypromellose/PEG400 15 ml Bottle 2 DRP LEFT EYE ×2 (11:11→17:19)
[2018-11-23 15:21] VITALS: BP 131/72; PULSE 72; RESP 16; TEMP 36.2; O2SAT 93
[2018-11-23] MEDS: Atorvastatin Calcium 80 MG Tablet PO (21:34)
[2018-11-23] MEDS: Acetaminophen 500 MG Tablet 1000 MG PO (21:38)
[2018-11-24] MEDS: Enoxaparin 30 MG/0.3 ML Syringe SC (05:55)
[2018-11-24] MEDS: BALSALAZIDE DISODIUM 750 MG CAPSULE PO ×3 (05:55→20:16)
[2018-11-24] MEDS: Amiodarone 200 MG Tablet PO ×2 (05:55→17:22)
[2018-11-24] MEDS: Venlafaxine XR 75 MG Capsule PO (05:55)
[2018-11-24] MEDS: Pantoprazole Sodium 20 MG Tablet PO (05:58)
[2018-11-24] MEDS: Menthol/Lanolin/Calamine/Znox 113 GM Tube 1 APPLIC TOPICAL ×2 (06:02→20:16)
[2018-11-24] MEDS: Nystatin Powder 15gm Bottle 1 APPLIC TOPICAL ×2 (06:02→20:16)
[2018-11-24] MEDS: Multivitamins,Therapeutic Tablet 1 TABLET PO (08:15)
[2018-11-24] MEDS: Glucerna Shake 120 ML LIQUID PO ×3 (08:15→17:21)
[2018-11-24] MEDS: Aspirin 81 MG TAB.CHEW PO (08:15)
--- NOTE | 2018-11-24 11:48 | NURSING ---
Eucerin cream not available in pharmacy per Tiffany. Ashley WALLS aware.
[2018-11-24 15:42] VITALS: BP 159/62; PULSE 72; RESP 18; TEMP 37.1; O2SAT 94
[2018-11-24] MEDS: Glycerin/Hypromellose/PEG400 15 ml Bottle 2 DRP LEFT EYE (17:23)
[2018-11-24] MEDS: Acetaminophen 500 MG Tablet 1000 MG PO (17:31)
--- NOTE | 2018-11-24 17:52 | NURSING ---
Family took home bottle of Balsalazide Disodium 750mg provided from home. Medication now available from pharmacy. Summer WALLS made aware.
[2018-11-24] MEDS: Atorvastatin Calcium 80 MG Tablet PO (20:16)
[2018-11-24 20:29] VITALS: PULSE 52; RESP 18; O2SAT 96
[2018-11-25] MEDS: Venlafaxine XR 75 MG Capsule PO (06:27)
[2018-11-25] MEDS: Enoxaparin 30 MG/0.3 ML Syringe SC (06:27)
[2018-11-25] MEDS: BALSALAZIDE DISODIUM 750 MG CAPSULE PO ×3 (06:28→20:46)
[2018-11-25] MEDS: Nystatin Powder 15gm Bottle 1 APPLIC TOPICAL ×2 (06:28→20:47)
[2018-11-25] MEDS: Amiodarone 200 MG Tablet PO ×2 (06:28→17:04)
[2018-11-25] MEDS: Pantoprazole Sodium 20 MG Tablet PO (06:29)
[2018-11-25] MEDS: Menthol/Lanolin/Calamine/Znox 113 GM Tube 1 APPLIC TOPICAL ×2 (06:29→20:47)
[2018-11-25] MEDS: Multivitamins,Therapeutic Tablet 1 TABLET PO (08:12)
[2018-11-25] MEDS: Glucerna Shake 120 ML LIQUID PO ×3 (08:12→17:04)
[2018-11-25] MEDS: Aspirin 81 MG TAB.CHEW PO (08:12)
[2018-11-25] MEDS: Acetaminophen 500 MG Tablet 1000 MG PO ×2 (08:15→17:07)
[2018-11-25] MEDS: Glycerin/Hypromellose/PEG400 15 ml Bottle 2 DRP LEFT EYE (13:43)
[2018-11-25 14:17] VITALS: BP 137/50; PULSE 71; RESP 14; TEMP 36.5; O2SAT 96
[2018-11-25 14:36] VITALS: RESP 18; O2SAT 95
[2018-11-25] MEDS: Atorvastatin Calcium 80 MG Tablet PO (20:46)
[2018-11-26] MEDS: Enoxaparin 30 MG/0.3 ML Syringe SC (05:22)
[2018-11-26] MEDS: BALSALAZIDE DISODIUM 750 MG CAPSULE PO ×3 (05:22→20:28)
[2018-11-26] MEDS: Amiodarone 200 MG Tablet PO ×2 (05:23→17:07)
[2018-11-26] MEDS: Senna/Docusate Sodium 1 Tablet PO (05:23)
[2018-11-26] MEDS: Venlafaxine XR 75 MG Capsule PO (05:23)
[2018-11-26] MEDS: Pantoprazole Sodium 20 MG Tablet PO (05:26)
[2018-11-26] MEDS: Nystatin Powder 15gm Bottle 1 APPLIC TOPICAL ×2 (05:29→20:29)
[2018-11-26] MEDS: Menthol/Lanolin/Calamine/Znox 113 GM Tube 1 APPLIC TOPICAL ×2 (05:29→20:29)
[2018-11-26] MEDS: Multivitamins,Therapeutic Tablet 1 TABLET PO (09:35)
[2018-11-26] MEDS: Aspirin 81 MG TAB.CHEW PO (09:35)
[2018-11-26] MEDS: Glucerna Shake 120 ML LIQUID PO ×2 (11:09→17:06)
[2018-11-26] MEDS: Acetaminophen 500 MG Tablet 1000 MG PO (15:23)
[2018-11-26 15:53] VITALS: BP 129/66; PULSE 72; RESP 18; TEMP 36.9; O2SAT 96
--- NOTE | 2018-11-26 16:49 | CHAPLAIN ---
Type of Pastoral Visit _x__ Initial Visit ___ Follow-up Visit ___ On-call Visit ___ General Patient Visit ___ Spiritual Assessment ___ Family Conference ___ Bereavement ___ Rapid Response ___ Code Blue ___ Other (describe below) Pastoral Care Referral From _x__ Patient ___ Family ___ Nurse ___ Physician ___ Refrigeration Engineering Teacher ___ Director Orange ___ Other (describe below) Sacrament/Intervention _x__ Active listening ___ Anointing ___ Mormon ___ Bereavement ___ Communion ___ Lyndsay exploration ___ _x__ Life review _x__ Prayer ___ Reconciliation ___ Sacrament of Sick _x__ Supportive presence ___ Wedding ___ Other (describe below) Pastoral Comments
[2018-11-26] MEDS: Atorvastatin Calcium 80 MG Tablet PO (20:28)
[2018-11-27] MEDS: Venlafaxine XR 75 MG Capsule PO (05:11)
[2018-11-27] MEDS: Amiodarone 200 MG Tablet PO (05:11)
[2018-11-27] MEDS: BALSALAZIDE DISODIUM 750 MG CAPSULE PO ×3 (05:11→20:22)
[2018-11-27] MEDS: Enoxaparin 30 MG/0.3 ML Syringe SC (05:12)
[2018-11-27] MEDS: Pantoprazole Sodium 20 MG Tablet PO (05:13)
[2018-11-27] MEDS: Nystatin Powder 15gm Bottle 1 APPLIC TOPICAL ×2 (05:14→20:26)
[2018-11-27] MEDS: Menthol/Lanolin/Calamine/Znox 113 GM Tube 1 APPLIC TOPICAL ×2 (05:16→20:26)
[2018-11-27 05:47] LABS: Absolute Lymphocyte Count 2.03 X10^3/ul (0.83-4.51); Absolute Neutrophil Count 4.3 X10^3/uL (2.0-7.7); Basophil# 0.05 X10^3/uL; Basophil% 0.6 % (0-1); Eosinophil# 0.63 X10^3/uL; Eosinophils% 7.8 % (0-5); Hematocrit 39.3 % (37-47); Hemoglobin 12.8 g/dl (12.0-15.0); Lymphocyte # 2.03 X10^3/ul (4.0); Lymphocyte % 25.3 % (19-41); Mean Corp Hgb Conc 32.6 g/gl (32-36); Mean Corpuscular Hgb 32.1 pg (27.0-32.0); Mean Corpuscular Volume 98.5 fL (81-99); Mean Platelet Vol. 8.9 fl (6.2-12.0); Monocyte# 0.98 X10^3/uL; Monocyte% 12.2 % (0-10); Neutrophil % 53.6 % (47-70); Platelet Count 409 K/mm3 (150-450); RBC Distribution Width CV 13.8 % (11.6-14.6); RBC Distribution Width SD 48.5 fl (35.1-43.9); Red Blood Count 3.99 M/mm3 (4.2-5.4)
[2018-11-27 05:51] LABS: POSITIVE COUNT NO; POSITIVE DIFFERENTIAL NO; POSITIVE MORPHOLOGY NO
[2018-11-27 05:58] LABS: Anion Gap 8 (5-15); BUN 14 mg/dL (7-18); BUN/Creat Ratio 19.7 RATIO (10-20); Calcium,Total 8.8 mg/dL (8.5-10.1); Chloride 104 mmol/L (98-107); Creatinine, Serum 0.71 mg/dL (0.55-1.02); EST Glomerular Filtration Rate 84 mL/min (>60); Est Glom Filt Rate - Afr Amer 101 mL/min (>60); Glucose 102 mg/dL (74-106); Potassium 4.5 mmol/L (3.5-5.1); Sodium Level 140 mmol/L (136-145)
[2018-11-27] MEDS: Glucerna Shake 120 ML LIQUID PO ×3 (07:54→17:04)
[2018-11-27] MEDS: Aspirin 81 MG TAB.CHEW PO (07:54)
[2018-11-27] MEDS: Multivitamins,Therapeutic Tablet 1 TABLET PO (07:54)
[2018-11-27] MEDS: Tuberculin,Purif.prot.deriv. 50 TU/ML Vial 5 ML ID (10:19)
[2018-11-27 15:39] VITALS: BP 156/71; PULSE 88; RESP 16; O2SAT 97
[2018-11-27] MEDS: Atorvastatin Calcium 80 MG Tablet PO (20:22)
[2018-11-27] MEDS: Acetaminophen 500 MG Tablet 1000 MG PO (20:25)
[2018-11-28] MEDS: BALSALAZIDE DISODIUM 750 MG CAPSULE PO ×3 (05:58→21:18)
[2018-11-28] MEDS: Pantoprazole Sodium 20 MG Tablet PO (05:58)
[2018-11-28] MEDS: Amiodarone 200 MG Tablet PO (05:58)
[2018-11-28] MEDS: Venlafaxine XR 75 MG Capsule PO (05:58)
[2018-11-28] MEDS: Enoxaparin 30 MG/0.3 ML Syringe SC (05:58)
[2018-11-28] MEDS: Menthol/Lanolin/Calamine/Znox 113 GM Tube 1 APPLIC TOPICAL ×2 (06:03→21:20)
[2018-11-28] MEDS: Nystatin Powder 15gm Bottle 1 APPLIC TOPICAL ×2 (06:03→21:20)
--- NOTE | 2018-11-28 07:51 | MDS.RN ---
Information for the mds was obtained from review of the clinical record, interview of resident, staff, and direct observation of resident's care.
[2018-11-28] MEDS: Multivitamins,Therapeutic Tablet 1 TABLET PO (09:36)
[2018-11-28] MEDS: Aspirin 81 MG TAB.CHEW PO (09:36)
[2018-11-28] MEDS: Glucerna Shake 120 ML LIQUID PO ×3 (09:36→17:29)
--- NOTE | 2018-11-28 15:15 | CASEMGMT ---
Social Work IDT met with pt, daughter and . Discussed progress in therapy. Still mod-max assist with lower body, mod assist with upper body, and beginning to walk with tierra-walker. Pt continuing to improve and adjust to right-sided neglect. Explained Medicare insurance - pt understood. Goal is to return home with . Will continue to follow. Katie Parry, ROOFING SUPERINTENDENT FPGA ENGINEER
[2018-11-28 16:00] VITALS: BP 145/58; PULSE 78; RESP 18; TEMP 36.8; O2SAT 91
[2018-11-28] MEDS: Acetaminophen 500 MG Tablet 1000 MG PO (21:18)
[2018-11-28] MEDS: Atorvastatin Calcium 80 MG Tablet PO (21:18)
[2018-11-29] MEDS: Venlafaxine XR 75 MG Capsule PO (05:44)
[2018-11-29] MEDS: Menthol/Lanolin/Calamine/Znox 113 GM Tube 1 APPLIC TOPICAL ×2 (05:44→21:10)
[2018-11-29] MEDS: Amiodarone 200 MG Tablet PO (05:44)
[2018-11-29] MEDS: BALSALAZIDE DISODIUM 750 MG CAPSULE PO ×3 (05:44→21:09)
[2018-11-29] MEDS: Enoxaparin 30 MG/0.3 ML Syringe SC (05:44)
[2018-11-29] MEDS: Nystatin Powder 15gm Bottle 1 APPLIC TOPICAL ×2 (05:44→21:09)
[2018-11-29] MEDS: Pantoprazole Sodium 20 MG Tablet PO (05:46)
[2018-11-29] MEDS: Aspirin 81 MG TAB.CHEW PO (08:13)
[2018-11-29] MEDS: Glucerna Shake 120 ML LIQUID PO ×3 (08:13→17:20)
[2018-11-29] MEDS: Multivitamins,Therapeutic Tablet 1 TABLET PO (08:14)
[2018-11-29] MEDS: Acetaminophen 500 MG Tablet 1000 MG PO ×2 (08:16→21:12)
[2018-11-29 14:20] VITALS: BP 143/66; PULSE 93; RESP 16; TEMP 36.8; O2SAT 93
[2018-11-29] MEDS: Atorvastatin Calcium 80 MG Tablet PO (21:09)
[2018-11-30] MEDS: Pantoprazole Sodium 20 MG Tablet PO (06:36)
[2018-11-30] MEDS: Amiodarone 200 MG Tablet PO (06:36)
[2018-11-30] MEDS: Enoxaparin 30 MG/0.3 ML Syringe SC (06:36)
[2018-11-30] MEDS: Venlafaxine XR 75 MG Capsule PO (06:36)
[2018-11-30] MEDS: BALSALAZIDE DISODIUM 750 MG CAPSULE PO ×3 (06:36→21:01)
[2018-11-30] MEDS: Nystatin Powder 15gm Bottle 1 APPLIC TOPICAL ×2 (06:39→21:03)
[2018-11-30] MEDS: Menthol/Lanolin/Calamine/Znox 113 GM Tube 1 APPLIC TOPICAL ×2 (06:40→21:05)
[2018-11-30] MEDS: Acetaminophen 500 MG Tablet 1000 MG PO ×2 (08:24→17:38)
[2018-11-30] MEDS: Glucerna Shake 120 ML LIQUID PO ×3 (08:24→17:37)
[2018-11-30] MEDS: Multivitamins,Therapeutic Tablet 1 TABLET PO (08:24)
[2018-11-30] MEDS: Aspirin 81 MG TAB.CHEW PO (08:24)
[2018-11-30 10:00] VITALS: RESP 18; O2SAT 95
[2018-11-30 15:28] VITALS: BP 147/69; PULSE 74; RESP 20; TEMP 36.4; O2SAT 92
[2018-11-30] MEDS: Atorvastatin Calcium 80 MG Tablet PO (21:01)
[2018-12-01] MEDS: Venlafaxine XR 75 MG Capsule PO (06:42)
[2018-12-01] MEDS: BALSALAZIDE DISODIUM 750 MG CAPSULE PO ×3 (06:42→20:31)
[2018-12-01] MEDS: Amiodarone 200 MG Tablet PO (06:42)
[2018-12-01] MEDS: Enoxaparin 30 MG/0.3 ML Syringe SC (06:43)
[2018-12-01] MEDS: Acetaminophen 500 MG Tablet 1000 MG PO ×3 (06:48→20:36)
[2018-12-01] MEDS: Pantoprazole Sodium 20 MG Tablet PO (06:48)
[2018-12-01] MEDS: Menthol/Lanolin/Calamine/Znox 113 GM Tube 1 APPLIC TOPICAL ×2 (06:53→20:30)
[2018-12-01] MEDS: Nystatin Powder 15gm Bottle 1 APPLIC TOPICAL ×2 (06:53→20:31)
[2018-12-01] MEDS: Aspirin 81 MG TAB.CHEW PO (08:08)
[2018-12-01] MEDS: Multivitamins,Therapeutic Tablet 1 TABLET PO (08:08)
[2018-12-01] MEDS: Glucerna Shake 120 ML LIQUID PO ×3 (08:09→17:08)
[2018-12-01 10:00] VITALS: PULSE 68; RESP 18; O2SAT 95
[2018-12-01 16:00] VITALS: BP 131/60; PULSE 76; RESP 17; TEMP 36.8; O2SAT 94
[2018-12-01] MEDS: Atorvastatin Calcium 80 MG Tablet PO (20:32)
[2018-12-02] MEDS: Enoxaparin 30 MG/0.3 ML Syringe SC (06:56)
[2018-12-02] MEDS: Amiodarone 200 MG Tablet PO (06:56)
[2018-12-02] MEDS: Venlafaxine XR 75 MG Capsule PO (06:56)
[2018-12-02] MEDS: Menthol/Lanolin/Calamine/Znox 113 GM Tube 1 APPLIC TOPICAL ×2 (06:56→19:59)
[2018-12-02] MEDS: BALSALAZIDE DISODIUM 750 MG CAPSULE PO ×3 (06:56→20:01)
[2018-12-02] MEDS: Nystatin Powder 15gm Bottle 1 APPLIC TOPICAL ×2 (06:57→20:00)
[2018-12-02] MEDS: Pantoprazole Sodium 20 MG Tablet PO (07:00)
[2018-12-02] MEDS: Glucerna Shake 120 ML LIQUID PO ×3 (08:19→16:25)
[2018-12-02] MEDS: Aspirin 81 MG TAB.CHEW PO (08:20)
[2018-12-02] MEDS: Multivitamins,Therapeutic Tablet 1 TABLET PO (08:20)
[2018-12-02 10:00] VITALS: PULSE 74; RESP 18; O2SAT 96
[2018-12-02] MEDS: Senna/Docusate Sodium 1 Tablet PO (14:02)
[2018-12-02 16:00] VITALS: BP 154/70; PULSE 68; RESP 18; TEMP 37; O2SAT 90
[2018-12-02] MEDS: Acetaminophen 500 MG Tablet 1000 MG PO (19:58)
[2018-12-02] MEDS: Atorvastatin Calcium 80 MG Tablet PO (20:01)
[2018-12-02 20:05] VITALS: PULSE 70; RESP 16; O2SAT 94
[2018-12-03] MEDS: Nystatin Powder 15gm Bottle 1 APPLIC TOPICAL ×2 (04:50→19:36)
[2018-12-03] MEDS: Menthol/Lanolin/Calamine/Znox 113 GM Tube 1 APPLIC TOPICAL ×2 (04:50→19:37)
[2018-12-03] MEDS: Venlafaxine XR 75 MG Capsule PO (04:52)
[2018-12-03] MEDS: Amiodarone 200 MG Tablet PO (04:52)
[2018-12-03] MEDS: BALSALAZIDE DISODIUM 750 MG CAPSULE PO ×3 (04:52→19:36)
[2018-12-03] MEDS: Acetaminophen 500 MG Tablet 1000 MG PO ×2 (04:53→17:21)
[2018-12-03] MEDS: Enoxaparin 30 MG/0.3 ML Syringe SC (04:54)
[2018-12-03] MEDS: Pantoprazole Sodium 20 MG Tablet PO (07:10)
[2018-12-03] MEDS: Glucerna Shake 120 ML LIQUID PO ×3 (07:44→17:18)
[2018-12-03] MEDS: Multivitamins,Therapeutic Tablet 1 TABLET PO (07:44)
[2018-12-03] MEDS: Aspirin 81 MG TAB.CHEW PO (07:44)
[2018-12-03 19:30] VITALS: BP 147/61; PULSE 70; RESP 18; TEMP 36.9; O2SAT 91
[2018-12-03] MEDS: Atorvastatin Calcium 80 MG Tablet PO (19:36)
[2018-12-04] MEDS: Acetaminophen 500 MG Tablet 1000 MG PO ×2 (03:10→14:27)
[2018-12-04] MEDS: Enoxaparin 30 MG/0.3 ML Syringe SC (06:14)
[2018-12-04] MEDS: Amiodarone 200 MG Tablet PO (06:15)
[2018-12-04] MEDS: Venlafaxine XR 75 MG Capsule PO (06:16)
[2018-12-04] MEDS: BALSALAZIDE DISODIUM 750 MG CAPSULE PO ×3 (06:16→19:55)
[2018-12-04] MEDS: Menthol/Lanolin/Calamine/Znox 113 GM Tube 1 APPLIC TOPICAL ×2 (06:18→19:54)
[2018-12-04 06:20] LABS: Anion Gap 5 (5-15); BUN 13 mg/dL (7-18); BUN/Creat Ratio 18.4 RATIO (10-20); Calcium,Total 9.1 mg/dL (8.5-10.1); Chloride 105 mmol/L (98-107); EST Glomerular Filtration Rate 85 mL/min (>60); Est Glom Filt Rate - Afr Amer 102 mL/min (>60); Glucose 105 mg/dL (74-106); Potassium 4.3 mmol/L (3.5-5.1); Sodium Level 138 mmol/L (136-145)
[2018-12-04] MEDS: Nystatin Powder 15gm Bottle 1 APPLIC TOPICAL ×2 (06:20→19:53)
[2018-12-04] MEDS: Pantoprazole Sodium 20 MG Tablet PO (06:28)
[2018-12-04 06:49] LABS: Absolute Lymphocyte Count 2.05 X10^3/ul (0.83-4.51); Absolute Neutrophil Count 4.9 X10^3/uL (2.0-7.7); Basophil# 0.05 X10^3/uL; Basophil% 0.6 % (0-1); Eosinophil# 0.32 X10^3/uL; Eosinophils% 3.9 % (0-5); Hematocrit 39.4 % (37-47); Hemoglobin 12.7 g/dl (12.0-15.0); Lymphocyte # 2.05 X10^3/ul (4.0); Lymphocyte % 24.8 % (19-41); Mean Corp Hgb Conc 32.2 g/gl (32-36); Mean Corpuscular Hgb 31.9 pg (27.0-32.0); Mean Platelet Vol. 9.2 fl (6.2-12.0); Monocyte# 0.86 X10^3/uL; Monocyte% 10.4 % (0-10); Neutrophil # 4.94 X10^3/uL (2.7-7.7); Neutrophil % 59.9 % (47-70); Platelet Count 368 K/mm3 (150-450); RBC Distribution Width CV 13.8 % (11.6-14.6); RBC Distribution Width SD 49.5 fl (35.1-43.9); Red Blood Count 3.98 M/mm3 (4.2-5.4); White Blood Count 8.3 K/mm3 (4.4-11.0)
[2018-12-04 07:15] LABS: POSITIVE COUNT NO; POSITIVE DIFFERENTIAL NO; POSITIVE MORPHOLOGY NO
[2018-12-04] MEDS: Glucerna Shake 120 ML LIQUID PO ×3 (08:22→16:54)
[2018-12-04] MEDS: Multivitamins,Therapeutic Tablet 1 TABLET PO (08:22)
[2018-12-04] MEDS: Aspirin 81 MG TAB.CHEW PO (08:22)
[2018-12-04] MEDS: Senna/Docusate Sodium 1 Tablet PO (14:28)
[2018-12-04 16:00] VITALS: BP 143/71; PULSE 76; RESP 18; TEMP 37.1; O2SAT 92
[2018-12-04 19:45] VITALS: BP 157/69; PULSE 72; RESP 18; TEMP 37; O2SAT 94
[2018-12-04] MEDS: Atorvastatin Calcium 80 MG Tablet PO (19:54)
[2018-12-05] MEDS: BALSALAZIDE DISODIUM 750 MG CAPSULE PO ×3 (05:07→20:08)
[2018-12-05] MEDS: Amiodarone 200 MG Tablet PO (05:07)
[2018-12-05] MEDS: Menthol/Lanolin/Calamine/Znox 113 GM Tube 1 APPLIC TOPICAL ×2 (05:07→20:06)
[2018-12-05] MEDS: Venlafaxine XR 75 MG Capsule PO (05:07)
[2018-12-05] MEDS: Enoxaparin 30 MG/0.3 ML Syringe SC (05:08)
[2018-12-05] MEDS: Nystatin Powder 15gm Bottle 1 APPLIC TOPICAL ×2 (05:09→20:06)
[2018-12-05] MEDS: Pantoprazole Sodium 20 MG Tablet PO (05:13)
[2018-12-05] MEDS: Senna/Docusate Sodium 1 Tablet PO (05:14)
[2018-12-05] MEDS: Acetaminophen 500 MG Tablet 1000 MG PO ×2 (08:46→20:12)
[2018-12-05] MEDS: Aspirin 81 MG TAB.CHEW PO (08:47)
[2018-12-05] MEDS: Glucerna Shake 120 ML LIQUID PO (08:47)
[2018-12-05] MEDS: Multivitamins,Therapeutic Tablet 1 TABLET PO (08:47)
[2018-12-05 16:00] VITALS: BP 140/62; PULSE 79; RESP 22; TEMP 37.1; O2SAT 93
[2018-12-05] MEDS: Atorvastatin Calcium 80 MG Tablet PO (20:08)
[2018-12-06] MEDS: Menthol/Lanolin/Calamine/Znox 113 GM Tube 1 APPLIC TOPICAL ×2 (06:45→21:44)
[2018-12-06] MEDS: Venlafaxine XR 75 MG Capsule PO (06:46)
[2018-12-06] MEDS: Amiodarone 200 MG Tablet PO (06:46)
[2018-12-06] MEDS: Pantoprazole Sodium 20 MG Tablet PO (06:46)
[2018-12-06] MEDS: BALSALAZIDE DISODIUM 750 MG CAPSULE PO ×3 (06:46→21:44)
[2018-12-06] MEDS: Nystatin Powder 15gm Bottle 1 APPLIC TOPICAL ×2 (06:48→21:45)
[2018-12-06] MEDS: Enoxaparin 30 MG/0.3 ML Syringe SC (06:48)
[2018-12-06] MEDS: Multivitamins,Therapeutic Tablet 1 TABLET PO (08:36)
[2018-12-06] MEDS: Aspirin 81 MG TAB.CHEW PO (08:36)
--- NOTE | 2018-12-06 09:33 | NURSING ---
New order to change Senokot to BID.
[2018-12-06] MEDS: Acetaminophen 500 MG Tablet 1000 MG PO ×2 (13:17→21:49)
[2018-12-06 16:00] VITALS: BP 131/57; PULSE 78; RESP 18; TEMP 36.9; O2SAT 91
[2018-12-06] MEDS: Atorvastatin Calcium 80 MG Tablet PO (21:45)
[2018-12-06] MEDS: Senna/Docusate Sodium 1 Tablet PO (21:50)
[2018-12-06 22:00] VITALS: PULSE 70; RESP 16; O2SAT 95
[2018-12-07] MEDS: Venlafaxine XR 75 MG Capsule PO (06:22)
[2018-12-07] MEDS: Pantoprazole Sodium 20 MG Tablet PO (06:22)
[2018-12-07] MEDS: BALSALAZIDE DISODIUM 750 MG CAPSULE PO ×3 (06:22→20:20)
[2018-12-07] MEDS: Amiodarone 200 MG Tablet PO (06:22)
[2018-12-07] MEDS: Nystatin Powder 15gm Bottle 1 APPLIC TOPICAL ×2 (06:23→20:24)
[2018-12-07] MEDS: Menthol/Lanolin/Calamine/Znox 113 GM Tube 1 APPLIC TOPICAL ×2 (06:23→20:24)
[2018-12-07] MEDS: Enoxaparin 30 MG/0.3 ML Syringe SC (06:24)
[2018-12-07] MEDS: Acetaminophen 500 MG Tablet 1000 MG PO ×2 (06:30→20:22)
[2018-12-07] MEDS: Bisacodyl 5 MG Tablet 10 MG PO (06:30)
[2018-12-07] MEDS: Multivitamins,Therapeutic Tablet 1 TABLET PO (07:57)
[2018-12-07] MEDS: Aspirin 81 MG TAB.CHEW PO (07:57)
[2018-12-07 10:00] VITALS: PULSE 74; RESP 16; O2SAT 95
[2018-12-07 16:00] VITALS: BP 141/62; PULSE 76; RESP 18; TEMP 37; O2SAT 93
[2018-12-07] MEDS: Atorvastatin Calcium 80 MG Tablet PO (20:20)
[2018-12-08] MEDS: Amiodarone 200 MG Tablet PO (05:50)
[2018-12-08] MEDS: Venlafaxine XR 75 MG Capsule PO (05:50)
[2018-12-08] MEDS: BALSALAZIDE DISODIUM 750 MG CAPSULE PO ×3 (05:50→21:40)
[2018-12-08] MEDS: Enoxaparin 30 MG/0.3 ML Syringe SC (05:50)
[2018-12-08] MEDS: Pantoprazole Sodium 20 MG Tablet PO (05:50)
[2018-12-08] MEDS: Nystatin Powder 15gm Bottle 1 APPLIC TOPICAL ×2 (05:54→21:43)
[2018-12-08] MEDS: Menthol/Lanolin/Calamine/Znox 113 GM Tube 1 APPLIC TOPICAL (05:54)
[2018-12-08] MEDS: Aspirin 81 MG TAB.CHEW PO (08:03)
[2018-12-08] MEDS: Multivitamins,Therapeutic Tablet 1 TABLET PO (08:03)
[2018-12-08 15:22] VITALS: BP 134/62; PULSE 79; RESP 18; TEMP 36.7; O2SAT 95
[2018-12-08] MEDS: Atorvastatin Calcium 80 MG Tablet PO (21:40)
[2018-12-08] MEDS: Acetaminophen 500 MG Tablet 1000 MG PO (21:40)
[2018-12-08 22:00] VITALS: RESP 15
[2018-12-09] MEDS: Enoxaparin 30 MG/0.3 ML Syringe SC (04:37)
[2018-12-09] MEDS: Venlafaxine XR 75 MG Capsule PO (04:38)
[2018-12-09] MEDS: Pantoprazole Sodium 20 MG Tablet PO (04:38)
[2018-12-09] MEDS: Amiodarone 200 MG Tablet PO (04:38)
[2018-12-09] MEDS: BALSALAZIDE DISODIUM 750 MG CAPSULE PO ×3 (04:38→20:17)
[2018-12-09] MEDS: Nystatin Powder 15gm Bottle 1 APPLIC TOPICAL ×2 (04:39→20:21)
[2018-12-09] MEDS: Menthol/Lanolin/Calamine/Znox 113 GM Tube 1 APPLIC TOPICAL ×3 (04:39→20:20)
[2018-12-09] MEDS: Acetaminophen 500 MG Tablet 1000 MG PO ×2 (08:11→20:17)
[2018-12-09] MEDS: Multivitamins,Therapeutic Tablet 1 TABLET PO (08:12)
[2018-12-09] MEDS: Aspirin 81 MG TAB.CHEW PO (08:12)
[2018-12-09 15:34] VITALS: BP 140/76; PULSE 72; RESP 16; TEMP 37.3; O2SAT 90
[2018-12-09] MEDS: Atorvastatin Calcium 80 MG Tablet PO (20:17)
[2018-12-10] MEDS: BALSALAZIDE DISODIUM 750 MG CAPSULE PO ×3 (06:30→21:53)
[2018-12-10] MEDS: Pantoprazole Sodium 20 MG Tablet PO (06:30)
[2018-12-10] MEDS: Amiodarone 200 MG Tablet PO (06:30)
[2018-12-10] MEDS: Venlafaxine XR 75 MG Capsule PO (06:30)
[2018-12-10] MEDS: Enoxaparin 30 MG/0.3 ML Syringe SC (06:31)
[2018-12-10] MEDS: Acetaminophen 500 MG Tablet 1000 MG PO ×2 (06:34→21:53)
[2018-12-10] MEDS: Nystatin Powder 15gm Bottle 1 APPLIC TOPICAL ×2 (06:36→21:57)
[2018-12-10] MEDS: Menthol/Lanolin/Calamine/Znox 113 GM Tube 1 APPLIC TOPICAL ×2 (06:36→21:55)
[2018-12-10] MEDS: Aspirin 81 MG TAB.CHEW PO (08:12)
[2018-12-10] MEDS: Multivitamins,Therapeutic Tablet 1 TABLET PO (08:12)
[2018-12-10 16:00] VITALS: BP 147/61; PULSE 71; RESP 18; TEMP 36; O2SAT 92
[2018-12-10] MEDS: Atorvastatin Calcium 80 MG Tablet PO (21:53)
[2018-12-11 05:55] LABS: Absolute Lymphocyte Count 1.95 X10^3/ul (0.83-4.51); Absolute Neutrophil Count 4.9 X10^3/uL (2.0-7.7); Basophil# 0.03 X10^3/uL; Basophil% 0.4 % (0-1); Eosinophil# 0.64 X10^3/uL; Eosinophils% 7.6 % (0-5); Hematocrit 38.8 % (37-47); Hemoglobin 12.4 g/dl (12.0-15.0); Lymphocyte # 1.95 X10^3/ul (4.0); Lymphocyte % 23.2 % (19-41); Mean Corpuscular Hgb 31.7 pg (27.0-32.0); Mean Corpuscular Volume 99.2 fL (81-99); Mean Platelet Vol. 9.2 fl (6.2-12.0); Monocyte# 0.91 X10^3/uL; Monocyte% 10.8 % (0-10); Neutrophil # 4.86 X10^3/uL (2.7-7.7); Neutrophil % 57.8 % (47-70); Platelet Count 289 K/mm3 (150-450); RBC Distribution Width CV 13.8 % (11.6-14.6); RBC Distribution Width SD 48.7 fl (35.1-43.9); Red Blood Count 3.91 M/mm3 (4.2-5.4); White Blood Count 8.4 K/mm3 (4.4-11.0)
[2018-12-11 06:02] LABS: POSITIVE COUNT NO; POSITIVE DIFFERENTIAL NO; POSITIVE MORPHOLOGY NO
[2018-12-11 06:14] LABS: Anion Gap 3 (5-15); BUN 13 mg/dL (7-18); Calcium,Total 8.9 mg/dL (8.5-10.1); Chloride 106 mmol/L (98-107); Creatinine, Serum 0.82 mg/dL (0.55-1.02); EST Glomerular Filtration Rate 72 mL/min (>60); Est Glom Filt Rate - Afr Amer 87 mL/min (>60); Estimated Creatinine Clearance 42.56 ml/min; Glucose 104 mg/dL (74-106); Potassium 4.1 mmol/L (3.5-5.1); Sodium Level 139 mmol/L (136-145)
[2018-12-11] MEDS: Pantoprazole Sodium 20 MG Tablet PO (06:15)
[2018-12-11] MEDS: BALSALAZIDE DISODIUM 750 MG CAPSULE PO ×3 (06:15→22:22)
[2018-12-11] MEDS: Enoxaparin 30 MG/0.3 ML Syringe SC (06:15)
[2018-12-11] MEDS: Amiodarone 200 MG Tablet PO (06:15)
[2018-12-11] MEDS: Venlafaxine XR 75 MG Capsule PO (06:15)
[2018-12-11] MEDS: Nystatin Powder 15gm Bottle 1 APPLIC TOPICAL ×2 (06:19→22:23)
[2018-12-11] MEDS: Menthol/Lanolin/Calamine/Znox 113 GM Tube 1 APPLIC TOPICAL ×2 (06:19→22:23)
[2018-12-11] MEDS: Multivitamin (Healthy Eyes) Capsule 1 CAP PO (08:13)
[2018-12-11] MEDS: Aspirin 81 MG TAB.CHEW PO (08:13)
[2018-12-11] MEDS: Multivitamins,Therapeutic Tablet 1 TABLET PO (08:13)
[2018-12-11] MEDS: Acetaminophen 500 MG Tablet 1000 MG PO (08:16)
[2018-12-11 16:00] VITALS: BP 142/68; PULSE 72; RESP 18; TEMP 36.9; O2SAT 91
[2018-12-11] MEDS: Atorvastatin Calcium 80 MG Tablet PO (22:22)
[2018-12-12] MEDS: BALSALAZIDE DISODIUM 750 MG CAPSULE PO ×3 (04:59→20:17)
[2018-12-12] MEDS: Venlafaxine XR 75 MG Capsule PO (04:59)
[2018-12-12] MEDS: Pantoprazole Sodium 20 MG Tablet PO (04:59)
[2018-12-12] MEDS: Amiodarone 200 MG Tablet PO (04:59)
[2018-12-12] MEDS: Enoxaparin 30 MG/0.3 ML Syringe SC (05:00)
[2018-12-12] MEDS: Menthol/Lanolin/Calamine/Znox 113 GM Tube 1 APPLIC TOPICAL ×2 (05:04→20:16)
[2018-12-12] MEDS: Nystatin Powder 15gm Bottle 1 APPLIC TOPICAL ×2 (05:05→20:16)
[2018-12-12] MEDS: Aspirin 81 MG TAB.CHEW PO (08:09)
[2018-12-12] MEDS: Multivitamin (Healthy Eyes) Capsule 1 CAP PO (08:09)
[2018-12-12] MEDS: Multivitamins,Therapeutic Tablet 1 TABLET PO (08:09)
[2018-12-12] MEDS: Acetaminophen 500 MG Tablet 1000 MG PO ×2 (08:09→20:23)
[2018-12-12 15:00] VITALS: PULSE 75; RESP 18; O2SAT 93
[2018-12-12 16:00] VITALS: BP 138/67; PULSE 73; RESP 18; TEMP 36.5; O2SAT 92
[2018-12-12] MEDS: Atorvastatin Calcium 80 MG Tablet PO (20:16)
[2018-12-13] MEDS: Amiodarone 200 MG Tablet PO (05:30)
[2018-12-13] MEDS: Pantoprazole Sodium 20 MG Tablet PO (05:30)
[2018-12-13] MEDS: Venlafaxine XR 75 MG Capsule PO (05:30)
[2018-12-13] MEDS: BALSALAZIDE DISODIUM 750 MG CAPSULE PO ×3 (05:30→21:59)
[2018-12-13] MEDS: Enoxaparin 30 MG/0.3 ML Syringe SC (05:30)
[2018-12-13] MEDS: Menthol/Lanolin/Calamine/Znox 113 GM Tube 1 APPLIC TOPICAL ×2 (05:31→22:00)
[2018-12-13] MEDS: Nystatin Powder 15gm Bottle 1 APPLIC TOPICAL ×2 (05:32→22:01)
[2018-12-13] MEDS: Multivitamins,Therapeutic Tablet 1 TABLET PO (08:07)
[2018-12-13] MEDS: Aspirin 81 MG TAB.CHEW PO (08:07)
[2018-12-13] MEDS: Multivitamin (Healthy Eyes) Capsule 1 CAP PO (08:07)
--- NOTE | 2018-12-13 12:23 | MDS.RN ---
Information for the mds was obtained from review of the clinical record, interview of resident, staff, and direct observation of resident's care.
[2018-12-13 16:00] VITALS: BP 138/66; PULSE 71; RESP 18; TEMP 36.5; O2SAT 92
[2018-12-13] MEDS: Acetaminophen 500 MG Tablet 1000 MG PO (21:59)
[2018-12-13] MEDS: Atorvastatin Calcium 80 MG Tablet PO (21:59)
[2018-12-14] MEDS: Amiodarone 200 MG Tablet PO (05:57)
[2018-12-14] MEDS: Venlafaxine XR 75 MG Capsule PO (05:57)
[2018-12-14] MEDS: BALSALAZIDE DISODIUM 750 MG CAPSULE PO ×3 (05:57→20:51)
[2018-12-14] MEDS: Acetaminophen 500 MG Tablet 1000 MG PO ×2 (05:57→20:54)
[2018-12-14] MEDS: Enoxaparin 30 MG/0.3 ML Syringe SC (05:57)
[2018-12-14] MEDS: Pantoprazole Sodium 20 MG Tablet PO (05:57)
[2018-12-14] MEDS: Menthol/Lanolin/Calamine/Znox 113 GM Tube 1 APPLIC TOPICAL ×2 (06:00→20:48)
[2018-12-14] MEDS: Nystatin Powder 15gm Bottle 1 APPLIC TOPICAL ×2 (06:00→20:48)
[2018-12-14] MEDS: Aspirin 81 MG TAB.CHEW PO (08:36)
[2018-12-14] MEDS: Multivitamins,Therapeutic Tablet 1 TABLET PO (08:36)
[2018-12-14] MEDS: Multivitamin (Healthy Eyes) Capsule 1 CAP PO (08:36)
[2018-12-14 10:00] VITALS: O2SAT 96
[2018-12-14 15:41] VITALS: BP 157/72; PULSE 79; RESP 17; TEMP 36.6; O2SAT 93
[2018-12-14] MEDS: Atorvastatin Calcium 80 MG Tablet PO (20:51)
[2018-12-15] MEDS: Menthol/Lanolin/Calamine/Znox 113 GM Tube 1 APPLIC TOPICAL ×2 (05:54→21:54)
[2018-12-15] MEDS: Pantoprazole Sodium 20 MG Tablet PO (05:54)
[2018-12-15] MEDS: BALSALAZIDE DISODIUM 750 MG CAPSULE PO ×3 (05:54→21:47)
[2018-12-15] MEDS: Venlafaxine XR 75 MG Capsule PO (05:54)
[2018-12-15] MEDS: Amiodarone 200 MG Tablet PO (05:54)
[2018-12-15] MEDS: Nystatin Powder 15gm Bottle 1 APPLIC TOPICAL ×2 (05:55→21:55)
[2018-12-15] MEDS: Enoxaparin 30 MG/0.3 ML Syringe SC (05:56)
[2018-12-15] MEDS: Acetaminophen 500 MG Tablet 1000 MG PO ×2 (06:01→21:51)
[2018-12-15] MEDS: Multivitamin (Healthy Eyes) Capsule 1 CAP PO (07:59)
[2018-12-15] MEDS: Aspirin 81 MG TAB.CHEW PO (07:59)
[2018-12-15] MEDS: Multivitamins,Therapeutic Tablet 1 TABLET PO (07:59)
[2018-12-15] MEDS: Polyethylene Glycol 3350 17 GM PACKET PO (14:50)
--- NOTE | 2018-12-15 14:54 | NURSING ---
Pt requesting a mild stool softener. PRN Miralax given at this time.
[2018-12-15 15:36] VITALS: BP 143/65; PULSE 75; RESP 16; TEMP 36.8; O2SAT 95
[2018-12-15] MEDS: Atorvastatin Calcium 80 MG Tablet PO (21:47)
[2018-12-16] MEDS: Amiodarone 200 MG Tablet PO (07:29)
[2018-12-16] MEDS: Venlafaxine XR 75 MG Capsule PO (07:29)
[2018-12-16] MEDS: Acetaminophen 500 MG Tablet 1000 MG PO ×2 (07:29→21:11)
[2018-12-16] MEDS: Pantoprazole Sodium 20 MG Tablet PO (07:30)
[2018-12-16] MEDS: Enoxaparin 30 MG/0.3 ML Syringe SC (07:30)
[2018-12-16] MEDS: BALSALAZIDE DISODIUM 750 MG CAPSULE PO ×3 (07:30→21:12)
[2018-12-16] MEDS: Nystatin Powder 15gm Bottle 1 APPLIC TOPICAL ×2 (07:38→21:20)
[2018-12-16] MEDS: Menthol/Lanolin/Calamine/Znox 113 GM Tube 1 APPLIC TOPICAL ×2 (07:38→21:19)
[2018-12-16 08:30] VITALS: PULSE 76; RESP 16; O2SAT 97
[2018-12-16] MEDS: Multivitamins,Therapeutic Tablet 1 TABLET PO (08:30)
[2018-12-16] MEDS: Aspirin 81 MG TAB.CHEW PO (08:30)
[2018-12-16] MEDS: Multivitamin (Healthy Eyes) Capsule 1 CAP PO (08:30)
[2018-12-16 16:00] VITALS: BP 134/54; PULSE 86; RESP 16; TEMP 36.9; O2SAT 98
[2018-12-16] MEDS: Atorvastatin Calcium 80 MG Tablet PO (21:13)
[2018-12-17] MEDS: Acetaminophen 500 MG Tablet 1000 MG PO ×2 (05:58→21:27)
[2018-12-17] MEDS: Nystatin Powder 15gm Bottle 1 APPLIC TOPICAL ×2 (05:59→21:32)
[2018-12-17] MEDS: Enoxaparin 30 MG/0.3 ML Syringe SC (06:02)
[2018-12-17] MEDS: Amiodarone 200 MG Tablet PO (06:02)
[2018-12-17] MEDS: Pantoprazole Sodium 20 MG Tablet PO (06:02)
[2018-12-17] MEDS: BALSALAZIDE DISODIUM 750 MG CAPSULE PO ×3 (06:02→21:28)
[2018-12-17] MEDS: Venlafaxine XR 75 MG Capsule PO (06:02)
[2018-12-17] MEDS: Menthol/Lanolin/Calamine/Znox 113 GM Tube 1 APPLIC TOPICAL ×2 (06:03→21:31)
[2018-12-17] MEDS: Multivitamins,Therapeutic Tablet 1 TABLET PO (08:00)
[2018-12-17] MEDS: Multivitamin (Healthy Eyes) Capsule 1 CAP PO (08:00)
[2018-12-17] MEDS: Aspirin 81 MG TAB.CHEW PO (08:01)
[2018-12-17 14:50] VITALS: PULSE 82; RESP 18; O2SAT 94
[2018-12-17 15:31] VITALS: BP 142/69; PULSE 85; RESP 18; TEMP 37.3; O2SAT 95
--- NOTE | 2018-12-17 21:02 | PN_ITS ---
Subjective: Resident seen in room, sitting in recliner. She is here for regulatory visit. She has no complaints, progressing well in therapy, she is looking forward to going home. Vitals/I&O's: Vital Signs Temp Pulse Resp BP Pulse Ox 99.1 F 85 18 142/69 H 95 12/17/18 15:31 12/17/18 15:31 12/17/18 15:31 12/17/18 15:31 12/17/18 15:31 Oxygen Delivery Method Room Air Weight: 78.16 kg Body Mass Index (BMI) 31.1 Finger Stick Blood Glucose 189 Intake and Output for Last 24 Hours 12/15/18 12/16/18 12/17/18 23:59 23:59 23:59 Intake Total 720 / 720 1040 / 1040 480 / 480 Balance 720 / 720 1040 / 1040 480 / 480 Past Medical History Past Medical History (Chronic Problems): Chronic Problems (Last Reviewed 12/14/18 @ 13:07 by Yoni Mir MD) Paroxysmal ventricular tachycardia (Chronic 11/15/18) started on Amiodarone Essential (primary) hypertension (Chronic) CVA (cerebral vascular accident) (Chronic 10/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 Orthostatic hypotension (Chronic) HLD (hyperlipidemia) (Chronic) Left bundle branch block (Chronic) Obesity (Chronic) Medical History: Medical History (Last Reviewed 12/14/18 @ 13:07 by Yoni Mir MD) Paroxysmal ventricular tachycardia (Chronic) Onset Date: 11/15/18 I47.2 started on Amiodarone Essential (primary) hypertension (Chronic) I10 CVA (cerebral vascular accident) (Chronic) Onset Date: 10/2018 I63.9 subactue with R side hemiparesis Orthostatic hypotension (Chronic) I95.1 HLD (hyperlipidemia) (Chronic) E78.5 Left bundle branch block (Chronic) I44.7 Obesity (Chronic) E66.9 Debility R53.81 GERD (gastroesophageal reflux disease) K21.9 Right hemiparesis G81.91 Autonomic neuropathy G90.9 Chronic back pain M54.9, G89.29 Colitis K52.9 GERD (gastroesophageal reflux disease) K21.9 Hemorrhoid K64.9 Osteoarthritis M19.90 Osteoarthritis M19.90 Rheumatoid arthritis M06.9 Type 2 diabetes mellitus E11.9 Uterine cancer C55 hysterectomy and chemo Syncope R55 due to orthostatic hypotension Allergies erythromycin base [Erythromycin Base] Allergy (Verified 12/14/18 11:47) Rash Sulfa (Sulfonamide Antibiotics) Allergy (Verified 12/14/18 11:47) Rash sulfamethoxazole [From Septra] Allergy (Verified 12/14/18 11:47) Rash trimethoprim [From ] Allergy (Verified 12/14/18 11:47) Rash Home Medications: Ambulatory Orders Medication Instructions Recorded Balsalazide Disodium 750 mg PO TID 11/10/18 Aspirin [Aspirin, Baby] 81 mg PO DAILY@0800 11/13/18 Multivitamin [Multivitamins] 1 ea PO DAILY 11/13/18 Atorvastatin Calcium [Lipitor] 80 mg PO QHS 11/15/18 Pantoprazole Sodium [Protonix] 20 mg PO DAILY 11/15/18 Loperamide [Imodium] 2 mg PO Q4H PRN PRN 11/16/18 Magnesium Hydroxide [Milk Of 30 ml PO DAILY PRN PRN udc 11/19/18 Magnesia] Melatonin 3 mg PO QHS PRN PRN tab 11/19/18 Nystatin Powder [Mycostatin Powder] 1 applic TOPICAL BID 11/19/18 Venlafaxine XR [Effexor Xr] 75 mg PO DAILY 11/19/18 traMADol [Ultram] 50 mg PO BID PRN PRN #0 11/19/18 amiodarone 200 mg tablet 200 mg PO .COMPLEX #36 tab 12/14/18 enoxaparin 30 mg/0.3 mL 30 mg SC DAILY ml 12/14/18 subcutaneous syringe Surgical History: Surgical History (Last Reviewed 12/14/18 @ 13:07 by Yoni Mir MD) History of colonoscopy Z98.890 History of esophagogastroduodenoscopy (EGD) Z98.890 History of foot surgery Z98.890 History of hysterectomy Z90.710 History of laparoscopic cholecystectomy Z90.49 History of left knee replacement Z96.652 History of skin graft Z98.890 History of tonsillectomy Z90.89 Surgical History: cholecystectomy - Laparoscopic., hysterectomy - D/T uterine CA, total knee arthroplasty - Left., tonsillectomy, - - Skin graft to right hand as a child, foot surgery. Bunion removals to bilateral feet. 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 Father No problems noted. History Items: Dementia, Stroke Paternal Family History: Family History (Last Reviewed 12/14/18 @ 13:07 by Yoni Mir MD) Mother No problems noted. Father No problems noted. History Items: - - Patient unaware Capacity - Capacity Assessment Tool Can the patient make a choice & communicate that choice?: Yes Can the patient understand benefits, risks and alternatives?: Yes Can the patient make a logical, rational choice?: Yes Is the choice the patient makes consistent w/ their values?: Yes Is there an impending, emergent risk to the patient?: No Does the patient have an Advance Directive?: No Is there a Surrogate Available?: Yes i.e. HCPOA: Unable to Determine i.e. close relative (spouse, child, parent, sibling)?: Yes Review of Systems Constitutional: Denies: Chills, Fever, Weight Change HEENT: Denies: Head Aches, Sinus Congestion, Sinus Drainage Cardiovascular: Denies: Chest Pain, Palpitations Respiratory: Denies: Cough, Shortness of breath at rest, Sputum production Gastrointestinal: Denies: Abdominal Pain, Nausea, Vomiting Genitourinary: Denies: Dysuria Musculoskeletal: Denies: Joint Pain, Joint Tenderness Skin: Denies: Rash, Wounds Neurological: Denies: Numbness, Tingling, Focal weakness Psychiatric: Denies: Anxiety, Depression, Homicidal Ideations, Suicidal Ideations Hematologic/ Lymphatic: Denies: Easy Bruising, Easy Bleeding - Physical Exam General: Alert, Oriented x3, Cooperative HEENT: Atraumatic, PERRLA, EOMI, Normocephalic Neck: Supple, No JVD, Negative Carotid Bruits Lungs: Clear to auscultation, Normal air movement Cardiovascular: Regular rate, No murmurs Abdomen: Bowel Sounds Present, Soft, Non Tender Extremities: No edema, Capillary Refill Less than 3 Seconds Skin: No rashes, No breakdown Musculoskeletal: No Tenderness to Palpation of Joints or Extremities Neurological: Cranial nerves II-XII grossly intact, - - Right hemiparesis. Psych/Mental Status: Normal Affect, Appropriate Vital Signs Temp Pulse Resp BP Pulse Ox 99.1 F 85 18 142/69 H 95 12/17/18 15:31 12/17/18 15:31 12/17/18 15:31 12/17/18 15:31 12/17/18 15:31 Oxygen Delivery Method Room Air Weight: 78.16 kg Body Mass Index (BMI) 31.1 Finger Stick Blood Glucose 189 Intake and Output for Last 24 Hours 12/15/18 12/16/18 12/17/18 23:59 23:59 23:59 Intake Total 720 / 720 1040 / 1040 480 / 480 Balance 720 / 720 1040 / 1040 480 / 480 Assessment/Plan 83 year old female with below past medical history hospitalized for syncope secondary to orthostatic hypotension, complicated by recent left putamen stroke with extension, NSVT, admitted to TCU with debility, here for rehabilitation, strengthening, prior to discharge home with spouse. * Debility - PT/OT, able to walk using walker. * Pain - Tylenol 1000MG Q6H PRN mild pain, Tramadol 50MG BID PRN moderate pain. * Bowel - Miralax 17GM daily PRN, Senna/colace 1 tablet BID PRN, Dulcolax 10MG daily PRN. * Pneumonia vaccination - Administer Prevnar 13 and/or Pneumovax 23 as necessary. * DVT prophylaxis - Lovenox 30MG SC daily. * NSVT - Amiodarone 200MG daily, stress test per Dr. Mir. * Left putamen stroke - Aspirin 81MG daily. * Hyperlipidemia - Atorvastatin 80MG QHS. * Colitis - Balsalazide 750MG TID. * Diarrhea - Loperamide 2MG Q4H PRN. * Insomnia - Melatonin 3MG QHS PRN. * Nutrition - MVI daily, Healthy Eyes 1 tablet daily. * Tinea Corporis - Nystatin powder BID under breasts. * GERD - Pantoprazole 20MG daily. * Depression - Venlafaxine XR 75MG daily. * Skin Irritation - Calmoseptine BID, Eucerin BID. * Dry Eyes - Artificial Tears 2GTT OS Q1H PRN.
[2018-12-17] MEDS: Atorvastatin Calcium 80 MG Tablet PO (21:28)
[2018-12-17 21:35] VITALS: RESP 16; O2SAT 97
[2018-12-18] MEDS: Acetaminophen 500 MG Tablet 1000 MG PO ×2 (06:14→19:49)
[2018-12-18] MEDS: Amiodarone 200 MG Tablet PO (06:15)
[2018-12-18] MEDS: Venlafaxine XR 75 MG Capsule PO (06:15)
[2018-12-18] MEDS: Pantoprazole Sodium 20 MG Tablet PO (06:15)
[2018-12-18] MEDS: Enoxaparin 30 MG/0.3 ML Syringe SC (06:15)
[2018-12-18] MEDS: Menthol/Lanolin/Calamine/Znox 113 GM Tube 1 APPLIC TOPICAL ×2 (06:16→19:51)
[2018-12-18] MEDS: BALSALAZIDE DISODIUM 750 MG CAPSULE PO ×3 (06:17→19:49)
[2018-12-18] MEDS: Nystatin Powder 15gm Bottle 1 APPLIC TOPICAL ×2 (06:18→19:51)
[2018-12-18] MEDS: Aspirin 81 MG TAB.CHEW PO (07:58)
[2018-12-18] MEDS: Multivitamins,Therapeutic Tablet 1 TABLET PO (07:58)
[2018-12-18] MEDS: Multivitamin (Healthy Eyes) Capsule 1 CAP PO (07:58)
[2018-12-18 15:16] VITALS: BP 146/71; PULSE 76; RESP 20; TEMP 36.9; O2SAT 93
[2018-12-18] MEDS: Atorvastatin Calcium 80 MG Tablet PO (19:49)
[2018-12-18] MEDS: Polyethylene Glycol 3350 17 GM PACKET PO (19:50)
[2018-12-19] MEDS: BALSALAZIDE DISODIUM 750 MG CAPSULE PO ×3 (06:19→22:13)
[2018-12-19] MEDS: Venlafaxine XR 75 MG Capsule PO (06:19)
[2018-12-19] MEDS: Amiodarone 200 MG Tablet PO (06:20)
[2018-12-19] MEDS: Menthol/Lanolin/Calamine/Znox 113 GM Tube 1 APPLIC TOPICAL ×2 (06:20→22:16)
[2018-12-19] MEDS: Enoxaparin 30 MG/0.3 ML Syringe SC (06:20)
[2018-12-19] MEDS: Pantoprazole Sodium 20 MG Tablet PO (06:20)
[2018-12-19] MEDS: Nystatin Powder 15gm Bottle 1 APPLIC TOPICAL ×2 (06:21→22:17)
[2018-12-19] MEDS: Aspirin 81 MG TAB.CHEW PO (08:11)
[2018-12-19] MEDS: Multivitamins,Therapeutic Tablet 1 TABLET PO (08:11)
[2018-12-19] MEDS: Acetaminophen 500 MG Tablet 1000 MG PO ×2 (08:11→22:12)
[2018-12-19] MEDS: Multivitamin (Healthy Eyes) Capsule 1 CAP PO (08:11)
[2018-12-19 10:00] VITALS: PULSE 80; O2SAT 94
[2018-12-19 15:14] VITALS: BP 135/60; PULSE 72; RESP 20; TEMP 36.4; O2SAT 95
[2018-12-19] MEDS: Atorvastatin Calcium 80 MG Tablet PO (22:13)
[2018-12-20] MEDS: Enoxaparin 30 MG/0.3 ML Syringe SC (06:24)
[2018-12-20] MEDS: Venlafaxine XR 75 MG Capsule PO (06:26)
[2018-12-20] MEDS: BALSALAZIDE DISODIUM 750 MG CAPSULE PO ×3 (06:26→21:50)
[2018-12-20] MEDS: Pantoprazole Sodium 20 MG Tablet PO (06:26)
[2018-12-20] MEDS: Amiodarone 200 MG Tablet PO (06:26)
[2018-12-20] MEDS: Acetaminophen 500 MG Tablet 1000 MG PO ×3 (06:27→21:51)
[2018-12-20] MEDS: Menthol/Lanolin/Calamine/Znox 113 GM Tube 1 APPLIC TOPICAL ×2 (06:29→21:52)
[2018-12-20] MEDS: Nystatin Powder 15gm Bottle 1 APPLIC TOPICAL ×2 (06:29→21:55)
[2018-12-20] MEDS: Aspirin 81 MG TAB.CHEW PO (08:22)
[2018-12-20] MEDS: Multivitamins,Therapeutic Tablet 1 TABLET PO (08:22)
[2018-12-20] MEDS: Multivitamin (Healthy Eyes) Capsule 1 CAP PO (08:23)
[2018-12-20 16:00] VITALS: BP 140/73; PULSE 69; RESP 20; TEMP 36.6; O2SAT 93
[2018-12-20] MEDS: Atorvastatin Calcium 80 MG Tablet PO (21:49)
[2018-12-21] MEDS: Menthol/Lanolin/Calamine/Znox 113 GM Tube 1 APPLIC TOPICAL ×2 (05:43→20:26)
[2018-12-21] MEDS: Enoxaparin 30 MG/0.3 ML Syringe SC (05:43)
[2018-12-21] MEDS: Nystatin Powder 15gm Bottle 1 APPLIC TOPICAL ×2 (05:44→20:27)
[2018-12-21] MEDS: Amiodarone 200 MG Tablet PO (09:18)
[2018-12-21] MEDS: BALSALAZIDE DISODIUM 750 MG CAPSULE PO ×3 (09:20→20:28)
[2018-12-21] MEDS: Multivitamins,Therapeutic Tablet 1 TABLET PO (09:20)
[2018-12-21] MEDS: Pantoprazole Sodium 20 MG Tablet PO (09:20)
[2018-12-21] MEDS: Acetaminophen 500 MG Tablet 1000 MG PO ×2 (09:20→20:26)
[2018-12-21] MEDS: Aspirin 81 MG TAB.CHEW PO (09:20)
[2018-12-21] MEDS: Multivitamin (Healthy Eyes) Capsule 1 CAP PO (09:20)
[2018-12-21] MEDS: Venlafaxine XR 75 MG Capsule PO (09:20)
[2018-12-21 09:27] VITALS: BP 150/73; PULSE 80
--- NOTE | 2018-12-21 10:25 | NURSING ---
Verbal order from JIE Lee to decrease Atorvastatin 40mg daily.
[2018-12-21 15:57] VITALS: BP 141/74; PULSE 75; RESP 18; TEMP 37.2; O2SAT 92
[2018-12-21] MEDS: Atorvastatin Calcium 80 MG Tablet 40 MG PO (20:29)
[2018-12-22] MEDS: Acetaminophen 500 MG Tablet 1000 MG PO ×3 (06:12→21:13)
[2018-12-22] MEDS: Nystatin Powder 15gm Bottle 1 APPLIC TOPICAL ×2 (06:13→21:09)
[2018-12-22] MEDS: Menthol/Lanolin/Calamine/Znox 113 GM Tube 1 APPLIC TOPICAL ×2 (06:14→21:07)
[2018-12-22] MEDS: Venlafaxine XR 75 MG Capsule PO (06:15)
[2018-12-22] MEDS: BALSALAZIDE DISODIUM 750 MG CAPSULE PO ×3 (06:15→21:16)
[2018-12-22] MEDS: Pantoprazole Sodium 20 MG Tablet PO (06:15)
[2018-12-22] MEDS: Amiodarone 200 MG Tablet PO (06:15)
[2018-12-22] MEDS: Enoxaparin 30 MG/0.3 ML Syringe SC (06:15)
[2018-12-22] MEDS: Multivitamins,Therapeutic Tablet 1 TABLET PO (08:07)
[2018-12-22] MEDS: Aspirin 81 MG TAB.CHEW PO (08:07)
[2018-12-22] MEDS: Multivitamin (Healthy Eyes) Capsule 1 CAP PO (08:07)
[2018-12-22 15:35] VITALS: BP 132/68; PULSE 71; RESP 21; TEMP 36.9; O2SAT 93
[2018-12-22 21:00] VITALS: PULSE 73; RESP 18; O2SAT 96
[2018-12-22] MEDS: Atorvastatin Calcium 80 MG Tablet 40 MG PO (21:15)
[2018-12-23] MEDS: Acetaminophen 500 MG Tablet 1000 MG PO ×2 (06:47→19:55)
[2018-12-23] MEDS: Venlafaxine XR 75 MG Capsule PO (06:48)
[2018-12-23] MEDS: Nystatin Powder 15gm Bottle 1 APPLIC TOPICAL ×2 (06:49→19:51)
[2018-12-23] MEDS: Amiodarone 200 MG Tablet PO (06:49)
[2018-12-23] MEDS: BALSALAZIDE DISODIUM 750 MG CAPSULE PO ×3 (06:49→19:52)
[2018-12-23] MEDS: Pantoprazole Sodium 20 MG Tablet PO (06:49)
[2018-12-23] MEDS: Enoxaparin 30 MG/0.3 ML Syringe SC (06:50)
[2018-12-23] MEDS: Menthol/Lanolin/Calamine/Znox 113 GM Tube 1 APPLIC TOPICAL ×2 (06:50→19:51)
[2018-12-23] MEDS: Multivitamins,Therapeutic Tablet 1 TABLET PO (08:21)
[2018-12-23] MEDS: Multivitamin (Healthy Eyes) Capsule 1 CAP PO (08:22)
[2018-12-23] MEDS: Aspirin 81 MG TAB.CHEW PO (08:22)
[2018-12-23 10:00] VITALS: PULSE 78; RESP 18; O2SAT 96
[2018-12-23 16:00] VITALS: BP 145/62; PULSE 74; RESP 19; TEMP 37.1; O2SAT 94
[2018-12-23] MEDS: Atorvastatin Calcium 80 MG Tablet 40 MG PO (19:52)
[2018-12-24] MEDS: Acetaminophen 500 MG Tablet 1000 MG PO ×2 (06:26→19:51)
[2018-12-24] MEDS: Venlafaxine XR 75 MG Capsule PO (06:27)
[2018-12-24] MEDS: Pantoprazole Sodium 20 MG Tablet PO (06:27)
[2018-12-24] MEDS: Amiodarone 200 MG Tablet PO (06:27)
[2018-12-24] MEDS: Menthol/Lanolin/Calamine/Znox 113 GM Tube 1 APPLIC TOPICAL ×2 (06:28→19:54)
[2018-12-24] MEDS: BALSALAZIDE DISODIUM 750 MG CAPSULE PO ×3 (06:28→19:52)
[2018-12-24] MEDS: Nystatin Powder 15gm Bottle 1 APPLIC TOPICAL ×2 (06:29→19:54)
[2018-12-24] MEDS: Enoxaparin 30 MG/0.3 ML Syringe SC (06:30)
[2018-12-24] MEDS: Multivitamin (Healthy Eyes) Capsule 1 CAP PO (07:52)
[2018-12-24] MEDS: Multivitamins,Therapeutic Tablet 1 TABLET PO (07:52)
[2018-12-24] MEDS: Aspirin 81 MG TAB.CHEW PO (07:52)
--- NOTE | 2018-12-24 08:07 | STRESSREP ---
Stress Test Report Pharmacologic myocardial perfusion stress test. 83-year-old lady with a history of previous cerebrovascular accident. Stress protocol: Resting EKG demonstrates normal sinus rhythm with a rate of 71 bpm and left bundle branch block. 0.4 mg of regadenoson was infused per usual protocol followed by rapid intravenous saline flush injection continuous EKG monitoring was performed. Patient maintained sinus rhythm throughout the recording the maximum heart rate attained was 87 bpm which was 62% of maximum predicted heart rate maximum workload was [address]-T wave changes were noted. Myocardial perfusion protocol. 14.2 mCi of technetium 99m sestamibi was injected at rest. 0.4 mg of regadenoson was infused per usual protocol peak infusion 43.9 mCi of technetium 99m sestamibi was injected stress images were obtained stress and rest images are reconstructed and compared in the short axis vertical and horizontal long axis. Gated images were also obtained for Perfusion SPECT analysis: Review of the stress images demonstrate normal uptake of tracer noted in all rest myocardium. There is a small portion of the apex with mildly reduced perfusion with minimal improvement on resting. A small amount of ischemia cannot be completely excluded. Gated SPECT analysis: The gated ejection fraction is noted to be 73%. Conclusion: Myocardial perfusion stress test with minimal apical septal ischemia noted Preserved ejection fraction.
[2018-12-24 10:00] VITALS: PULSE 82; RESP 18; O2SAT 95
[2018-12-24 16:00] VITALS: BP 139/74; PULSE 69; RESP 18; TEMP 36.8; O2SAT 91
[2018-12-24] MEDS: Atorvastatin Calcium 80 MG Tablet 40 MG PO (19:52)
[2018-12-25 05:19] VITALS: BP 131/68; PULSE 74
[2018-12-25] MEDS: Pantoprazole Sodium 20 MG Tablet PO (05:22)
[2018-12-25] MEDS: Enoxaparin 30 MG/0.3 ML Syringe SC (05:22)
[2018-12-25] MEDS: Amiodarone 200 MG Tablet PO (05:22)
[2018-12-25] MEDS: BALSALAZIDE DISODIUM 750 MG CAPSULE PO ×3 (05:22→21:08)
[2018-12-25] MEDS: Menthol/Lanolin/Calamine/Znox 113 GM Tube 1 APPLIC TOPICAL ×2 (05:23→21:11)
[2018-12-25] MEDS: Venlafaxine XR 75 MG Capsule PO (05:23)
[2018-12-25] MEDS: Nystatin Powder 15gm Bottle 1 APPLIC TOPICAL ×2 (05:24→21:11)
[2018-12-25] MEDS: Acetaminophen 500 MG Tablet 1000 MG PO ×2 (06:32→21:07)
[2018-12-25] MEDS: Aspirin 81 MG TAB.CHEW PO (07:55)
[2018-12-25] MEDS: Multivitamin (Healthy Eyes) Capsule 1 CAP PO (07:55)
[2018-12-25] MEDS: Multivitamins,Therapeutic Tablet 1 TABLET PO (07:55)
--- NOTE | 2018-12-25 14:23 | PHA.CONS_ITS ---
<Drew Willard - Last Filed: 12/25/18 14:23> Progress Note - Pharmacy Subjective: [] November Tcu Progress note Objective: Allergies erythromycin base [Erythromycin Base] Allergy (Verified 12/14/18 11:47) Rash Sulfa (Sulfonamide Antibiotics) Allergy (Verified 12/14/18 11:47) Rash sulfamethoxazole [From Janra] Allergy (Verified 12/14/18 11:47) Rash trimethoprim [From Janra] Allergy (Verified 12/14/18 11:47) Rash Current Medications Generic Name Dose Route Start Last Admin Trade Name Freq PRN Reason Stop Dose Admin Acetaminophen 1,000 mg 11/19/18 20:09 12/25/18 06:32 Tylenol PO 1,000 mg Q6H PRN Administration MILD PAIN (1-08/05) Amiodarone HCl 200 mg 11/27/18 06:00 12/25/18 05:22 Cordarone PO 200 mg DAILY MARTHA Administration Aspirin 81 mg 11/20/18 08:00 12/25/18 07:55 Aspirin, Baby PO 81 mg DAILY@0800 MARTHA Administration Atorvastatin Calcium 40 mg 12/21/18 22:00 12/24/18 19:52 Lipitor PO 40 mg QHS MARTHA Administration Balsalazide 750 mg 11/20/18 06:00 12/25/18 13:19 Balsalazide Disodium PO 750 mg TID MARTHA Administration Bisacodyl 10 mg 11/19/18 19:54 12/07/18 06:30 Dulcolax PO 5 mg DAILY PRN PRN Administration Constipation Calamine/Phenol 1 applic 11/20/18 06:00 12/25/18 05:23 Calmoseptine Ointment TOPICAL 1 applicatio 599,2199 [facility] Administration Protocol Enoxaparin Sodium 30 mg 11/20/18 06:00 12/25/18 05:22 Lovenox SC 30 mg DAILY@0600 [facility] Administration Loperamide HCl 2 mg 11/22/18 20:20 Imodium PO Q6H PRN PRN Diarrhea Melatonin 3 mg 11/19/18 19:49 Melatonin PO QHS PRN PRN SLEEP Multi-Ingredient Cream 1 applic 11/24/18 06:00 12/25/18 05:24 Eucerin TOPICAL 1 applicatio 599,2199 [facility] Administration Protocol Multivitamins 1 tablet 11/20/18 08:00 12/25/18 07:55 Multivitamin PO 1 tablet DAILY@0800 MARTHA Administration Multivitamins/Minerals 1 capsule 12/11/18 08:00 12/25/18 07:55 Healthy Eyes PO 1 capsule DAILYCM MARTHA Administration Nystatin 1 applic 11/19/18 22:00 12/25/18 05:24 Mycostatin Powder TOPICAL 1 applicatio 0600,2200 MARTHA Administration Protocol Pantoprazole Sodium 20 mg 12/05/18 06:00 12/25/18 05:22 Protonix PO 20 mg DAILY MARTHA Administration Polyethylene Glycol 17 gm 11/21/18 12:31 12/18/18 19:50 Miralax PO 17 gm DAILY PRN Administration Constipation Senna/Docusate Sodium 1 tablet 12/06/18 09:14 12/06/18 21:50 Senokot-S, Joya-Colace PO 1 tablet BID PRN PRN Administration Constipation Tramadol HCl 50 mg 11/19/18 20:10 11/22/18 13:52 Ultram PO 50 mg BID PRN PRN Administration MODERATE PAIN (4-5/10) Venlafaxine HCl 75 mg 11/20/18 06:00 12/25/18 05:23 Effexor Xr PO 75 mg DAILY MARTHA Administration Vital Signs Temp Pulse Resp BP Pulse Ox 98.3 F 74 18 131/68 H 91 12/24/18 16:00 12/25/18 05:19 12/24/18 16:00 12/25/18 05:19 12/24/18 16:00 Oxygen Delivery Method Room Air Weight: 79.52 kg Body Mass Index (BMI) 31.1 Finger Stick Blood Glucose 189 Sodium 139 mmol/L (136-145) 12/11/18 05:15 Potassium 4.1 mmol/L (3.5-5.1) 12/11/18 05:15 Chloride 106 mmol/L (98-107) 12/11/18 05:15 Carbon Dioxide 30.0 mmol/L (21.0-32.0) 12/11/18 05:15 3 (5-15) L 12/11/18 05:15 BUN 13 mg/dL (7-18) 12/11/18 05:15 0.82 mg/dL (0.55-1.02) 12/11/18 05:15 Est GFR (MDRD) Af Amer 87 mL/min (>60) 12/11/18 05:15 Est GFR (MDRD) Non-Af 72 mL/min (>60) 12/11/18 05:15 16.0 RATIO (10-20) 12/11/18 05:15 Glucose 104 mg/dL (74-106) 12/11/18 05:15 Assessment/Plan: 1) Pain: Acetaminophen 1000mg po q6h prn for mild pain, Tramadol 50mg po bid prn for moderate pain. Pt has had fairly routine bid use of Acetaminophen and 1 dose of Tramadol. Please continue to monitor 2) DVT Prophylaxis: Pt's Plts are 289. Please continue to monitor. 3) Hyperlipidemia: Atorvastatin 40mg po qhs. Labs up to date 4) GERD: Pantoprazole 20mg po daily. Please continue to monitor for signs/symptoms of GERD 5) Diarrhea: Loperamide 2mg po q4h prn. No use in the past month. Please continue to monitor 6) NSVT, Stroke: Amiodarone 200mg po daily, Aspirin 81mg po daily. 4 out of the last 10 pulse rhythms have been irregular. Please continue to monitor. 7) Colitis: Balsalazide 750mg po tid. Please continue to monitor for signs/symptoms of colitis Psychotropic Medications: Melatonin 3mg po qhs prn for sleep. No usage in the past 30 days. Please continue to monitor Venlafaxine XR 75mg po daily for depression. Medication will require a GDR by 04/2019 unless clinically contraindicated Unnecessary Medications: Bowel Regimen: Bisacodyl 10mg po daily prn for constipation, Miralax 17gm po daily prn for constipation, Senna/Docusate 1 tablet po bid prn for constipation. Please continue to monitor prn usage and for signs/symptoms of constipation/diarrhea. Date of Note:: 12/25/18 - Provider Comments Provider responsibility: Provider responsible to enter orders to implement recommendations <Carlton Perez Chi - Last Filed: 12/25/18 20:02> Progress Note - Pharmacy Subjective: [] Objective: Allergies erythromycin base [Erythromycin Base] Allergy (Verified 12/14/18 11:47) Rash Sulfa (Sulfonamide Antibiotics) Allergy (Verified 12/14/18 11:47) Rash sulfamethoxazole [From Septra] Allergy (Verified 12/14/18 11:47) Rash trimethoprim [From Septra] Allergy (Verified 12/14/18 11:47) Rash Current Medications Generic Name Dose Route Start Last Admin Trade Name Freq PRN Reason Stop Dose Admin Acetaminophen 1,000 mg 11/19/18 20:09 12/25/18 06:32 Tylenol PO 1,000 mg Q6H PRN Administration MILD PAIN (1-3/10) Amiodarone HCl 200 mg 11/27/18 06:00 12/25/18 05:22 Cordarone PO 200 mg DAILY MARTHA Administration Aspirin 81 mg 11/20/18 08:00 12/25/18 07:55 Aspirin, Baby PO 81 mg DAILY@0800 MARTHA Administration Atorvastatin Calcium 40 mg 12/21/18 22:00 12/24/18 19:52 Lipitor PO 40 mg QHS MARTHA Administration Balsalazide 750 mg 11/20/18 06:00 12/25/18 13:19 Balsalazide Disodium PO 750 mg TID MARTHA Administration Bisacodyl 10 mg 11/19/18 19:54 12/07/18 06:30 Dulcolax PO 5 mg DAILY PRN PRN Administration Constipation Calamine/Phenol 1 applic 11/20/18 06:00 12/25/18 05:23 Calmoseptine Ointment TOPICAL 1 applicatio 599,2199 [facility] Administration Protocol Enoxaparin Sodium 30 mg 11/20/18 06:00 12/25/18 05:22 Lovenox SC 30 mg DAILY@0600 MARTHA Administration Loperamide HCl 2 mg 11/22/18 20:20 Imodium PO Q6H PRN PRN Diarrhea Melatonin 3 mg 11/19/18 19:49 Melatonin PO QHS PRN PRN SLEEP Multi-Ingredient Cream 1 applic 11/24/18 06:00 12/25/18 05:24 Eucerin TOPICAL 1 applicatio 599,2199 [facility] Administration Protocol Multivitamins 1 tablet 11/20/18 08:00 12/25/18 07:55 Multivitamin PO 1 tablet DAILY@0800 MARTHA Administration Multivitamins/Minerals 1 capsule 12/11/18 08:00 12/25/18 07:55 Healthy Eyes PO 1 capsule DAILYCM MARTHA Administration Nystatin 1 applic 11/19/18 22:00 12/25/18 05:24 Mycostatin Powder TOPICAL 1 applicatio 0600,2200 MARTHA Administration Protocol Pantoprazole Sodium 20 mg 12/05/18 06:00 12/25/18 05:22 Protonix PO 20 mg DAILY MARTHA Administration Polyethylene Glycol 17 gm 11/21/18 12:31 12/18/18 19:50 Miralax PO 17 gm DAILY PRN Administration Constipation Senna/Docusate Sodium 1 tablet 12/06/18 09:14 12/06/18 21:50 Senokot-S, Joya-Colace PO 1 tablet BID PRN PRN Administration Constipation Tramadol HCl 50 mg 11/19/18 20:10 11/22/18 13:52 Ultram PO 50 mg BID PRN PRN Administration MODERATE PAIN (4-5/10) Venlafaxine HCl 75 mg 11/20/18 06:00 12/25/18 05:23 Effexor Xr PO 75 mg DAILY MARTHA Administration Vital Signs Temp Pulse Resp BP Pulse Ox 98.7 F 76 18 142/67 H 94 12/25/18 15:13 12/25/18 15:13 12/25/18 15:13 12/25/18 15:13 12/25/18 15:13 Oxygen Delivery Method Room Air Weight: 79.52 kg Body Mass Index (BMI) 31.1 Finger Stick Blood Glucose 189 Sodium 139 mmol/L (136-145) 12/11/18 05:15 Potassium 4.1 mmol/L (3.5-5.1) 12/11/18 05:15 Chloride 106 mmol/L (98-107) 12/11/18 05:15 Carbon Dioxide 30.0 mmol/L (21.0-32.0) 12/11/18 05:15 3 (5-15) L 12/11/18 05:15 BUN 13 mg/dL (7-18) 12/11/18 05:15 0.82 mg/dL (0.55-1.02) 12/11/18 05:15 Est GFR (MDRD) Af Amer 87 mL/min (>60) 12/11/18 05:15 Est GFR (MDRD) Non-Af 72 mL/min (>60) 12/11/18 05:15 16.0 RATIO (10-20) 12/11/18 05:15 Glucose 104 mg/dL (74-106) 12/11/18 05:15 Assessment/Plan: Psychotropic Medications: Unnecessary Medications: Bowel Regimen: - Provider Comments Provider responsibility: Provider responsible to enter orders to implement recommendations Provider Comments to Recommendations by Pharmacy: Agree
[2018-12-25 15:13] VITALS: BP 142/67; PULSE 76; RESP 18; TEMP 37.1; O2SAT 94
[2018-12-25] MEDS: Atorvastatin Calcium 80 MG Tablet 40 MG PO (21:08)
[2018-12-26] MEDS: Polyethylene Glycol 3350 17 GM PACKET PO (06:21)
[2018-12-26] MEDS: Acetaminophen 500 MG Tablet 1000 MG PO ×2 (06:21→21:52)
[2018-12-26] MEDS: Amiodarone 200 MG Tablet PO (06:22)
[2018-12-26] MEDS: Enoxaparin 30 MG/0.3 ML Syringe SC (06:23)
[2018-12-26] MEDS: Venlafaxine XR 75 MG Capsule PO (06:23)
[2018-12-26] MEDS: Pantoprazole Sodium 20 MG Tablet PO (06:23)
[2018-12-26] MEDS: BALSALAZIDE DISODIUM 750 MG CAPSULE PO ×3 (06:23→21:45)
[2018-12-26] MEDS: Nystatin Powder 15gm Bottle 1 APPLIC TOPICAL ×2 (06:27→21:45)
[2018-12-26] MEDS: Menthol/Lanolin/Calamine/Znox 113 GM Tube 1 APPLIC TOPICAL ×2 (06:27→21:45)
[2018-12-26 06:28] VITALS: BP 146/80; PULSE 73
[2018-12-26] MEDS: Aspirin 81 MG TAB.CHEW PO (08:27)
[2018-12-26] MEDS: Multivitamins,Therapeutic Tablet 1 TABLET PO (08:27)
[2018-12-26] MEDS: Multivitamin (Healthy Eyes) Capsule 1 CAP PO (08:27)
[2018-12-26 15:36] VITALS: BP 117/62; PULSE 77; RESP 18; TEMP 37.1; O2SAT 91
[2018-12-26 16:00] VITALS: PULSE 77; RESP 18; O2SAT 96
[2018-12-26] MEDS: Atorvastatin Calcium 80 MG Tablet 40 MG PO (21:44)
[2018-12-26] MEDS: MELATONIN 3 MG TABLET PO (21:52)
[2018-12-27] MEDS: BALSALAZIDE DISODIUM 750 MG CAPSULE PO ×3 (06:20→20:01)
[2018-12-27] MEDS: Pantoprazole Sodium 20 MG Tablet PO (06:20)
[2018-12-27] MEDS: Amiodarone 200 MG Tablet PO (06:20)
[2018-12-27] MEDS: Venlafaxine XR 75 MG Capsule PO (06:20)
[2018-12-27] MEDS: Enoxaparin 30 MG/0.3 ML Syringe SC (06:22)
[2018-12-27] MEDS: Nystatin Powder 15gm Bottle 1 APPLIC TOPICAL ×2 (06:24→20:01)
[2018-12-27] MEDS: Menthol/Lanolin/Calamine/Znox 113 GM Tube 1 APPLIC TOPICAL ×2 (06:24→20:01)
[2018-12-27] MEDS: Aspirin 81 MG TAB.CHEW PO (08:01)
[2018-12-27] MEDS: Multivitamins,Therapeutic Tablet 1 TABLET PO (08:01)
[2018-12-27] MEDS: Multivitamin (Healthy Eyes) Capsule 1 CAP PO (08:01)
[2018-12-27] MEDS: Acetaminophen 500 MG Tablet 1000 MG PO ×2 (08:02→19:55)
--- NOTE | 2018-12-27 10:44 | MDS.RN ---
Information for the mds was obtained from review of the clinical record, interview of resident, staff, and direct observation of resident's care.
--- NOTE | 2018-12-27 12:59 | NURSING ---
Pt stated she took PRN Melatonin last night at and does not want to take it again. Pt stated she had to be woke up this AM and it made her feel weird. Reported to Stephanie WALLS.
[2018-12-27 16:00] VITALS: BP 122/56; PULSE 75; RESP 16; TEMP 36.6; O2SAT 93
[2018-12-27] MEDS: Atorvastatin Calcium 80 MG Tablet 40 MG PO (20:01)
[2018-12-27] MEDS: Polyethylene Glycol 3350 17 GM PACKET PO (20:02)
[2018-12-28] MEDS: Venlafaxine XR 75 MG Capsule PO (05:56)
[2018-12-28] MEDS: Acetaminophen 500 MG Tablet 1000 MG PO ×2 (05:56→21:18)
[2018-12-28] MEDS: Menthol/Lanolin/Calamine/Znox 113 GM Tube 1 APPLIC TOPICAL ×2 (05:56→21:22)
[2018-12-28] MEDS: Pantoprazole Sodium 20 MG Tablet PO (05:56)
[2018-12-28] MEDS: BALSALAZIDE DISODIUM 750 MG CAPSULE PO ×3 (05:56→21:20)
[2018-12-28] MEDS: Amiodarone 200 MG Tablet PO (05:56)
[2018-12-28] MEDS: Nystatin Powder 15gm Bottle 1 APPLIC TOPICAL ×2 (05:57→21:23)
[2018-12-28] MEDS: Enoxaparin 30 MG/0.3 ML Syringe SC (05:57)
[2018-12-28] MEDS: Multivitamin (Healthy Eyes) Capsule 1 CAP PO (07:51)
[2018-12-28] MEDS: Multivitamins,Therapeutic Tablet 1 TABLET PO (07:52)
[2018-12-28] MEDS: Aspirin 81 MG TAB.CHEW PO (07:52)
[2018-12-28 15:31] VITALS: BP 143/66; PULSE 74; RESP 18; TEMP 36.6; O2SAT 94
[2018-12-28] MEDS: Atorvastatin Calcium 80 MG Tablet 40 MG PO (21:20)
[2018-12-29] MEDS: Acetaminophen 500 MG Tablet 1000 MG PO ×2 (05:30→20:55)
[2018-12-29] MEDS: Pantoprazole Sodium 20 MG Tablet PO (05:31)
[2018-12-29] MEDS: Amiodarone 200 MG Tablet PO (05:31)
[2018-12-29] MEDS: Enoxaparin 30 MG/0.3 ML Syringe SC (05:31)
[2018-12-29] MEDS: BALSALAZIDE DISODIUM 750 MG CAPSULE PO ×3 (05:31→20:55)
[2018-12-29] MEDS: Venlafaxine XR 75 MG Capsule PO (05:31)
[2018-12-29] MEDS: Menthol/Lanolin/Calamine/Znox 113 GM Tube 1 APPLIC TOPICAL ×2 (05:35→20:57)
[2018-12-29] MEDS: Nystatin Powder 15gm Bottle 1 APPLIC TOPICAL ×2 (05:35→20:57)
[2018-12-29] MEDS: Multivitamin (Healthy Eyes) Capsule 1 CAP PO (08:13)
[2018-12-29] MEDS: Multivitamins,Therapeutic Tablet 1 TABLET PO (08:14)
[2018-12-29] MEDS: Aspirin 81 MG TAB.CHEW PO (08:14)
[2018-12-29 10:45] VITALS: PULSE 71; RESP 18; O2SAT 92
[2018-12-29 15:35] VITALS: BP 144/69; PULSE 70; RESP 18; TEMP 36.1; O2SAT 95
[2018-12-29] MEDS: Polyethylene Glycol 3350 17 GM PACKET PO (20:55)
[2018-12-29] MEDS: Atorvastatin Calcium 80 MG Tablet 40 MG PO (20:55)
[2018-12-30] MEDS: Enoxaparin 30 MG/0.3 ML Syringe SC (06:21)
[2018-12-30] MEDS: Acetaminophen 500 MG Tablet 1000 MG PO ×2 (06:21→20:26)
[2018-12-30] MEDS: Amiodarone 200 MG Tablet PO (06:22)
[2018-12-30] MEDS: Pantoprazole Sodium 20 MG Tablet PO (06:22)
[2018-12-30] MEDS: Venlafaxine XR 75 MG Capsule PO (06:22)
[2018-12-30] MEDS: BALSALAZIDE DISODIUM 750 MG CAPSULE PO ×3 (06:22→20:25)
[2018-12-30] MEDS: Menthol/Lanolin/Calamine/Znox 113 GM Tube 1 APPLIC TOPICAL ×2 (06:26→20:29)
[2018-12-30] MEDS: Nystatin Powder 15gm Bottle 1 APPLIC TOPICAL ×2 (06:26→20:29)
[2018-12-30] MEDS: Multivitamin (Healthy Eyes) Capsule 1 CAP PO (08:02)
[2018-12-30] MEDS: Multivitamins,Therapeutic Tablet 1 TABLET PO (08:02)
[2018-12-30] MEDS: Aspirin 81 MG TAB.CHEW PO (08:02)
[2018-12-30 15:35] VITALS: BP 140/70; PULSE 73; RESP 18; TEMP 36.5; O2SAT 91
[2018-12-30] MEDS: Atorvastatin Calcium 80 MG Tablet 40 MG PO (20:25)
[2018-12-31] MEDS: Acetaminophen 500 MG Tablet 1000 MG PO ×2 (06:15→20:14)
[2018-12-31] MEDS: Venlafaxine XR 75 MG Capsule PO (06:16)
[2018-12-31] MEDS: Amiodarone 200 MG Tablet PO (06:17)
[2018-12-31] MEDS: Pantoprazole Sodium 20 MG Tablet PO (06:17)
[2018-12-31] MEDS: BALSALAZIDE DISODIUM 750 MG CAPSULE PO ×3 (06:17→20:07)
[2018-12-31] MEDS: Enoxaparin 30 MG/0.3 ML Syringe SC (06:18)
[2018-12-31] MEDS: Menthol/Lanolin/Calamine/Znox 113 GM Tube 1 APPLIC TOPICAL (06:20)
[2018-12-31] MEDS: Nystatin Powder 15gm Bottle 1 APPLIC TOPICAL ×2 (06:21→20:15)
[2018-12-31] MEDS: Multivitamin (Healthy Eyes) Capsule 1 CAP PO (08:13)
[2018-12-31] MEDS: Aspirin 81 MG TAB.CHEW PO (08:13)
[2018-12-31] MEDS: Multivitamins,Therapeutic Tablet 1 TABLET PO (08:13)
[2018-12-31 10:30] VITALS: PULSE 79; RESP 18; O2SAT 92
[2018-12-31 15:46] VITALS: BP 126/69; PULSE 76; RESP 18; TEMP 36.8; O2SAT 93
[2018-12-31] MEDS: Atorvastatin Calcium 80 MG Tablet 40 MG PO (20:06)
[2018-12-31] MEDS: Polyethylene Glycol 3350 17 GM PACKET PO (20:14)
[2019-01-01] MEDS: Pantoprazole Sodium 20 MG Tablet PO (05:58)
[2019-01-01] MEDS: Venlafaxine XR 75 MG Capsule PO (05:58)
[2019-01-01] MEDS: Amiodarone 200 MG Tablet PO (05:58)
[2019-01-01] MEDS: Enoxaparin 30 MG/0.3 ML Syringe SC (05:58)
[2019-01-01] MEDS: BALSALAZIDE DISODIUM 750 MG CAPSULE PO ×3 (05:59→20:42)
[2019-01-01] MEDS: Menthol/Lanolin/Calamine/Znox 113 GM Tube 1 APPLIC TOPICAL ×2 (05:59→20:40)
[2019-01-01] MEDS: Nystatin Powder 15gm Bottle 1 APPLIC TOPICAL ×2 (06:00→20:41)
[2019-01-01] MEDS: Acetaminophen 500 MG Tablet 1000 MG PO ×2 (06:07→20:39)
[2019-01-01] MEDS: Multivitamins,Therapeutic Tablet 1 TABLET PO (08:07)
[2019-01-01] MEDS: Aspirin 81 MG TAB.CHEW PO (08:07)
[2019-01-01] MEDS: Multivitamin (Healthy Eyes) Capsule 1 CAP PO (08:08)
[2019-01-01 16:00] VITALS: BP 165/72; PULSE 76; RESP 18; TEMP 37; O2SAT 95
[2019-01-01 20:30] VITALS: PULSE 73; RESP 16; O2SAT 95
[2019-01-01] MEDS: Atorvastatin Calcium 80 MG Tablet 40 MG PO (20:42)
[2019-01-02] MEDS: Nystatin Powder 15gm Bottle 1 APPLIC TOPICAL ×2 (06:27→21:24)
[2019-01-02] MEDS: Acetaminophen 500 MG Tablet 1000 MG PO ×2 (06:27→21:21)
[2019-01-02] MEDS: Menthol/Lanolin/Calamine/Znox 113 GM Tube 1 APPLIC TOPICAL ×2 (06:28→21:25)
[2019-01-02] MEDS: Pantoprazole Sodium 20 MG Tablet PO (06:29)
[2019-01-02] MEDS: Enoxaparin 30 MG/0.3 ML Syringe SC (06:29)
[2019-01-02] MEDS: Amiodarone 200 MG Tablet PO (06:29)
[2019-01-02] MEDS: Venlafaxine XR 75 MG Capsule PO (06:29)
[2019-01-02] MEDS: BALSALAZIDE DISODIUM 750 MG CAPSULE PO ×3 (06:34→21:22)
[2019-01-02] MEDS: Multivitamin (Healthy Eyes) Capsule 1 CAP PO (08:18)
[2019-01-02] MEDS: Multivitamins,Therapeutic Tablet 1 TABLET PO (08:18)
[2019-01-02] MEDS: Aspirin 81 MG TAB.CHEW PO (08:18)
[2019-01-02 16:00] VITALS: BP 125/70; PULSE 83; RESP 18; TEMP 37.1; O2SAT 93
[2019-01-02] MEDS: Atorvastatin Calcium 80 MG Tablet 40 MG PO (21:24)
[2019-01-03] MEDS: Acetaminophen 500 MG Tablet 1000 MG PO ×2 (06:20→21:21)
[2019-01-03] MEDS: Menthol/Lanolin/Calamine/Znox 113 GM Tube 1 APPLIC TOPICAL ×2 (06:21→21:22)
[2019-01-03] MEDS: Nystatin Powder 15gm Bottle 1 APPLIC TOPICAL ×2 (06:21→21:22)
[2019-01-03] MEDS: Enoxaparin 30 MG/0.3 ML Syringe SC (06:23)
[2019-01-03] MEDS: Venlafaxine XR 75 MG Capsule PO (06:23)
[2019-01-03] MEDS: Amiodarone 200 MG Tablet PO (06:23)
[2019-01-03] MEDS: BALSALAZIDE DISODIUM 750 MG CAPSULE PO ×3 (06:23→21:21)
[2019-01-03] MEDS: Pantoprazole Sodium 20 MG Tablet PO (06:25)
[2019-01-03] MEDS: Aspirin 81 MG TAB.CHEW PO (07:47)
[2019-01-03] MEDS: Multivitamin (Healthy Eyes) Capsule 1 CAP PO (07:47)
[2019-01-03] MEDS: Multivitamins,Therapeutic Tablet 1 TABLET PO (07:47)
--- NOTE | 2019-01-03 11:38 | CASEMGMT ---
Social Work Spoke with pt and family about discharge plans. Pt requesting to discharge home 01/15 with outpatient PT at [facility]. Will need FWW ordered. Pt will continue to work with therapy until DC date. Referrals made. TROY GarciaW
[2019-01-03 15:43] VITALS: BP 131/66; PULSE 86; RESP 18; TEMP 36.9; O2SAT 93
[2019-01-03] MEDS: Atorvastatin Calcium 80 MG Tablet 40 MG PO (21:21)
[2019-01-04] MEDS: Menthol/Lanolin/Calamine/Znox 113 GM Tube 1 APPLIC TOPICAL ×3 (06:04→21:32)
[2019-01-04] MEDS: Acetaminophen 500 MG Tablet 1000 MG PO ×2 (06:04→21:31)
[2019-01-04] MEDS: Pantoprazole Sodium 20 MG Tablet PO (06:04)
[2019-01-04] MEDS: Amiodarone 200 MG Tablet PO (06:04)
[2019-01-04] MEDS: Venlafaxine XR 75 MG Capsule PO (06:04)
[2019-01-04] MEDS: BALSALAZIDE DISODIUM 750 MG CAPSULE PO ×3 (06:04→21:34)
[2019-01-04] MEDS: Enoxaparin 30 MG/0.3 ML Syringe SC (06:05)
[2019-01-04] MEDS: Nystatin Powder 15gm Bottle 1 APPLIC TOPICAL ×2 (06:05→21:32)
[2019-01-04] MEDS: traMADol 50 MG Tablet PO (08:30)
[2019-01-04] MEDS: Aspirin 81 MG TAB.CHEW PO (08:33)
[2019-01-04] MEDS: Multivitamins,Therapeutic Tablet 1 TABLET PO (08:33)
[2019-01-04] MEDS: Multivitamin (Healthy Eyes) Capsule 1 CAP PO (08:38)
[2019-01-04 10:20] VITALS: PULSE 72; RESP 18; O2SAT 96
--- NOTE | 2019-01-04 14:57 | DCINST_ITS ---
You will use the following diet at home:: No restrictions, Regular Your food should be the consistency of: Regular Your liquids should be the consistency of: Regular/Thin Discharge Activity: Return to Normal Activity, May Shower, Use Walker Weight Bearing Status: Weight bearing as tolerated Call your doctor if you observe: Fever of 101 or Higher, Inability to urinate, Inability to have a bowel movement, Shortness of breath, Chest pain, Uncontrolled pain Allergies/Adverse Reactions: Allergies erythromycin base [Erythromycin Base] Allergy (Verified 12/14/18 11:47) Rash Sulfa (Sulfonamide Antibiotics) Allergy (Verified 12/14/18 11:47) Rash sulfamethoxazole [From Janra] Allergy (Verified 12/14/18 11:47) Rash trimethoprim [From ] Allergy (Verified 12/14/18 11:47) Rash Medications to take at Discharge Balsalazide Disodium 750 mg PO TID 11/10/18 Aspirin [Aspirin, Baby] 81 mg PO DAILY@0800 11/13/18 Multivitamin [Multivitamins] 1 ea PO DAILY 11/13/18 Nystatin Powder [Mycostatin Powder] 1 applic TOPICAL BID 11/19/18 atorvastatin 40 mg tablet 40 mg PO QHS 12/21/18 Acetaminophen [Tylenol] 1,000 mg PO Q6H PRN tab 01/04/19 Amiodarone HCl [Cordarone] 200 mg PO DAILY #30 tab 01/04/19 Atorvastatin Calcium [Lipitor] 40 mg PO QHS #30 tab 01/04/19 Menthol/Lanolin/Calamine/Znox [Calmoseptine Ointment] 1 applic TOPICAL 0600,2200 tube 01/04/19 Mineral Oil/Petrolatum,White [Eucerin] 1 applic TOPICAL 0600,2200 jar 01/04/19 Pantoprazole Sodium [Protonix] 20 mg PO DAILY #30 tab 01/04/19 Peg 400/Hypromellose/Glycerin [Artificial Tears] 2 drp LEFT EYE Q1H PRN bottle 01/04/19 Venlafaxine XR [Effexor Xr] 75 mg PO DAILY #30 cap 01/04/19 traMADol [Ultram] 50 mg PO BID PRN PRN 7 Days #14 tab 01/04/19 The following prescriptions were given: Amiodarone HCl [Cordarone] 200 mg PO DAILY #30 tab Transmission Status: [id number] Venlafaxine XR [Effexor Xr] 75 mg PO DAILY #30 cap Transmission Status: [id number] Atorvastatin Calcium [Lipitor] 40 mg PO QHS #30 tab Transmission Status: [id number] Pantoprazole Sodium [Protonix] 20 mg PO DAILY #30 tab Transmission Status: [id number] traMADol [Ultram] 50 mg PO BID PRN PRN 7 Days #14 tab PRN Reason: Pain Prescription Printed Primary Care Physician: Morgan Taylor III, MD [Primary Care Provider] - Please follow up with your Primary Care Physician in: 1 week. Test Results: Test results from this visit will be discussed in further detail at your follow- up appointment, if applicable. Please Follow Up With: Dr Mir When: 2 weeks. Please Follow Up With: Neurology When: 2 weeks. Please Follow Up With: Dr Taylor PCP When: 1 week. Proposed Discharge Date: 01/15/19
--- NOTE | 2019-01-04 14:58 | DS.PCM_ITS ---
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 Electronically Signed: Toni King DO at 20:57 EDT Tel [phone], Service support , Operations: None Procedures: None Summary of Care Provided: The patient is a 83 year old Female with below past medical history hospitalized for syncope secondary to orthostatic hypotension, complicated by recent left putamen stroke with extension, NSVT, admitted to TCU with debility, here for rehabilitation, strengthening, prior to discharge home with spouse. Discharge home with spouse/family, outpatient PT at [facility]. - Physical Exam Vital Signs Temp Pulse Resp BP Pulse Ox 98.4 F 72 18 131/66 H 96 01/03/19 15:43 01/04/19 10:20 01/04/19 10:20 01/03/19 15:43 01/04/19 10:20 Oxygen Delivery Method Room Air Weight: 79.52 kg Body Mass Index (BMI) 31.1 Finger Stick Blood Glucose 189 Intake and Output for Last 24 Hours 01/02/19 01/03/19 01/04/19 23:59 23:59 23:59 Intake Total 720 / 720 840 / 840 560 / 560 Balance 720 / 720 840 / 840 560 / 560 Discharge Diet: No Restrictions Discharge Activity: Return to Normal Activity, May Shower, Use Walker Weight Bearing Status: Weight bearing as tolerated Call your doctor if you observe: Fever of 101 or Higher, Inability to urinate, Inability to have a bowel movement, Shortness of breath, Chest pain, Uncontrolled pain Home Medications: Medications to take at Discharge RX: Balsalazide Disodium 750 mg PO TID 11/10/18 RX: Aspirin [Aspirin, Baby] 81 mg PO DAILY@0800 11/13/18 RX: Multivitamin [Multivitamins] 1 ea PO DAILY 11/13/18 RX: Nystatin Powder [Mycostatin Powder] 1 applic TOPICAL BID 11/19/18 atorvastatin 40 mg tablet 40 mg PO QHS 12/21/18 RX: Acetaminophen [Tylenol] 1,000 mg PO Q6H PRN tab 01/04/19 RX: Amiodarone HCl [Cordarone] 200 mg PO DAILY #30 tab 01/04/19 RX: Atorvastatin Calcium [Lipitor] 40 mg PO QHS #30 tab 01/04/19 RX: Menthol/Lanolin/Calamine/Znox [Calmoseptine Ointment] 1 applic TOPICAL 0600,2200 tube 01/04/19 RX: Mineral Oil/Petrolatum,White [Eucerin] 1 applic TOPICAL 0600,2200 jar 01/04/19 RX: Pantoprazole Sodium [Protonix] 20 mg PO DAILY #30 tab 01/04/19 RX: Peg 400/Hypromellose/Glycerin [Artificial Tears] 2 drp LEFT EYE Q1H PRN bottle 01/04/19 RX: Venlafaxine XR [Effexor Xr] 75 mg PO DAILY #30 cap 01/04/19 RX: traMADol [Ultram] 50 mg PO BID PRN PRN 7 Days #14 tab 01/04/19 Following Prescrptions Were Given to Patient: RX: Amiodarone HCl [Cordarone] 200 mg PO DAILY #30 tab Transmission Status: [id number] RX: Venlafaxine XR [Effexor Xr] 75 mg PO DAILY #30 cap Transmission Status: [id number] RX: Atorvastatin Calcium [Lipitor] 40 mg PO QHS #30 tab Transmission Status: [id number] RX: Pantoprazole Sodium [Protonix] 20 mg PO DAILY #30 tab Transmission Status: [id number] RX: traMADol [Ultram] 50 mg PO BID PRN PRN 7 Days #14 tab PRN Reason: Pain Prescription Printed Primary Care Physician: Morgan Taylor III, MD [Primary Care Provider] - Please follow up with your Primary Care Physician in: 1 week. Please Follow Up With: Dr Mir When: 2 weeks. Please Follow Up With: Neurology When: 2 weeks. Please Follow Up With: Dr Taylor PCP When: 1 week. Disposition: Home Minutes spent on discharge:: 30 Patient Condition:: Good Medical Necessity - Tobacco Use Smoking Status: Never smoker Tobacco Use: Non-smoker Meaningful Use Info Meaningful Use Diagnoses (Choose all that apply): None applicable
[2019-01-04 15:21] VITALS: BP 133/66; PULSE 71; RESP 18; TEMP 37; O2SAT 93
[2019-01-04] MEDS: Atorvastatin Calcium 80 MG Tablet 40 MG PO (21:33)
[2019-01-05] MEDS: Acetaminophen 500 MG Tablet 1000 MG PO ×2 (05:43→13:20)
[2019-01-05] MEDS: Nystatin Powder 15gm Bottle 1 APPLIC TOPICAL ×2 (05:44→21:26)
[2019-01-05] MEDS: Venlafaxine XR 75 MG Capsule PO (05:45)
[2019-01-05] MEDS: Pantoprazole Sodium 20 MG Tablet PO (05:45)
[2019-01-05] MEDS: BALSALAZIDE DISODIUM 750 MG CAPSULE PO ×3 (05:45→21:19)
[2019-01-05] MEDS: Amiodarone 200 MG Tablet PO (05:45)
[2019-01-05] MEDS: Enoxaparin 30 MG/0.3 ML Syringe SC (05:45)
[2019-01-05] MEDS: Multivitamin (Healthy Eyes) Capsule 1 CAP PO (07:48)
[2019-01-05] MEDS: Aspirin 81 MG TAB.CHEW PO (07:48)
[2019-01-05] MEDS: Multivitamins,Therapeutic Tablet 1 TABLET PO (07:48)
[2019-01-05 09:19] VITALS: PULSE 74; O2SAT 95
[2019-01-05] MEDS: traMADol 50 MG Tablet PO ×2 (09:25→21:23)
[2019-01-05 15:34] VITALS: BP 151/66; PULSE 70; RESP 18; TEMP 36.8; O2SAT 96
[2019-01-05] MEDS: Atorvastatin Calcium 80 MG Tablet 40 MG PO (21:19)
[2019-01-06] MEDS: Enoxaparin 30 MG/0.3 ML Syringe SC (05:11)
[2019-01-06] MEDS: Venlafaxine XR 75 MG Capsule PO (05:13)
[2019-01-06] MEDS: BALSALAZIDE DISODIUM 750 MG CAPSULE PO ×3 (05:13→20:59)
[2019-01-06] MEDS: Amiodarone 200 MG Tablet PO (05:13)
[2019-01-06] MEDS: Pantoprazole Sodium 20 MG Tablet PO (05:13)
[2019-01-06 05:14] VITALS: BP 136/63; PULSE 74
[2019-01-06] MEDS: Acetaminophen 500 MG Tablet 1000 MG PO ×2 (05:19→13:33)
[2019-01-06] MEDS: Menthol/Lanolin/Calamine/Znox 113 GM Tube 1 APPLIC TOPICAL ×2 (05:21→20:59)
[2019-01-06] MEDS: Nystatin Powder 15gm Bottle 1 APPLIC TOPICAL ×2 (05:22→21:00)
[2019-01-06] MEDS: Multivitamins,Therapeutic Tablet 1 TABLET PO (07:53)
[2019-01-06] MEDS: Aspirin 81 MG TAB.CHEW PO (07:53)
[2019-01-06] MEDS: Multivitamin (Healthy Eyes) Capsule 1 CAP PO (07:53)
[2019-01-06 10:00] VITALS: PULSE 78; RESP 16; O2SAT 96
[2019-01-06 15:19] VITALS: BP 138/58; PULSE 85; RESP 16; TEMP 36.4; O2SAT 100
[2019-01-06] MEDS: Atorvastatin Calcium 80 MG Tablet 40 MG PO (21:00)
[2019-01-06] MEDS: traMADol 50 MG Tablet PO (21:03)
[2019-01-06] MEDS: Polyethylene Glycol 3350 17 GM PACKET PO (21:10)
[2019-01-07] MEDS: Nystatin Powder 15gm Bottle 1 APPLIC TOPICAL ×2 (05:08→21:15)
[2019-01-07] MEDS: Venlafaxine XR 75 MG Capsule PO (05:08)
[2019-01-07] MEDS: Amiodarone 200 MG Tablet PO (05:08)
[2019-01-07] MEDS: Pantoprazole Sodium 20 MG Tablet PO (05:08)
[2019-01-07] MEDS: Menthol/Lanolin/Calamine/Znox 113 GM Tube 1 APPLIC TOPICAL ×2 (05:09→21:15)
[2019-01-07] MEDS: Enoxaparin 30 MG/0.3 ML Syringe SC (05:09)
[2019-01-07] MEDS: BALSALAZIDE DISODIUM 750 MG CAPSULE PO ×3 (05:09→21:13)
[2019-01-07] MEDS: Acetaminophen 500 MG Tablet 1000 MG PO ×2 (05:11→21:12)
[2019-01-07] MEDS: Multivitamins,Therapeutic Tablet 1 TABLET PO (08:45)
[2019-01-07] MEDS: Multivitamin (Healthy Eyes) Capsule 1 CAP PO (08:45)
[2019-01-07] MEDS: Aspirin 81 MG TAB.CHEW PO (08:45)
[2019-01-07] MEDS: traMADol 50 MG Tablet PO (08:48)
[2019-01-07 09:15] VITALS: PULSE 73; RESP 18; O2SAT 96
[2019-01-07 16:00] VITALS: BP 136/66; PULSE 74; RESP 17; TEMP 36.8; O2SAT 98
--- NOTE | 2019-01-07 17:36 | EKG12_ITS ---
Test Reason : CHECK QT INTERVAL Blood Pressure : / mmHG Vent. Rate : 080 BPM Atrial Rate : 080 BPM P-R Int : 182 ms QRS Dur : 168 ms QT Int : 426 ms P-R-T Axes : 042 -54 115 degrees QTc Int : 491 ms Normal sinus rhythm Left bundle branch block Left ventricular hypertrophy with QRS widening and repolarization abnormality Abnormal ECG Confirmed by MANJIT PARDO ([id number]), newspaper editor managing DAMARI STONE ([id number]) on 01/10/2019 2:54:13 PM Referred By: Carlton Perez Confirmed By:MANJIT PARDO
--- NOTE | 2019-01-07 18:09 | NURSING ---
[facility] called [facility] interaction with pt amiodarone and Effexor. Dr Perez notified, EKG done. OK to continue meds as prescribed.
[2019-01-07] MEDS: Atorvastatin Calcium 80 MG Tablet 40 MG PO (21:12)
[2019-01-07] MEDS: Polyethylene Glycol 3350 17 GM PACKET PO (22:00)
[2019-01-08] MEDS: Amiodarone 200 MG Tablet PO (05:52)
[2019-01-08] MEDS: BALSALAZIDE DISODIUM 750 MG CAPSULE PO ×3 (05:52→19:53)
[2019-01-08] MEDS: Acetaminophen 500 MG Tablet 1000 MG PO (05:52)
[2019-01-08] MEDS: Venlafaxine XR 75 MG Capsule PO (05:52)
[2019-01-08] MEDS: Nystatin Powder 15gm Bottle 1 APPLIC TOPICAL ×2 (05:52→19:56)
[2019-01-08] MEDS: Menthol/Lanolin/Calamine/Znox 113 GM Tube 1 APPLIC TOPICAL ×2 (05:52→19:56)
[2019-01-08] MEDS: Pantoprazole Sodium 20 MG Tablet PO (05:52)
[2019-01-08] MEDS: Enoxaparin 30 MG/0.3 ML Syringe SC (05:53)
[2019-01-08] MEDS: Multivitamin (Healthy Eyes) Capsule 1 CAP PO (08:39)
[2019-01-08] MEDS: Multivitamins,Therapeutic Tablet 1 TABLET PO (08:39)
[2019-01-08] MEDS: Aspirin 81 MG TAB.CHEW PO (08:39)
[2019-01-08 15:11] VITALS: BP 123/49; PULSE 76; RESP 18; TEMP 36.8; O2SAT 96
[2019-01-08] MEDS: Atorvastatin Calcium 80 MG Tablet 40 MG PO (19:53)
[2019-01-08] MEDS: traMADol 50 MG Tablet PO (19:53)
[2019-01-09] MEDS: Amiodarone 200 MG Tablet PO (05:08)
[2019-01-09] MEDS: BALSALAZIDE DISODIUM 750 MG CAPSULE PO ×3 (05:08→21:23)
[2019-01-09] MEDS: Pantoprazole Sodium 20 MG Tablet PO (05:08)
[2019-01-09] MEDS: Venlafaxine XR 75 MG Capsule PO (05:08)
[2019-01-09] MEDS: Acetaminophen 500 MG Tablet 1000 MG PO ×2 (05:10→21:23)
[2019-01-09] MEDS: Enoxaparin 30 MG/0.3 ML Syringe SC (05:10)
[2019-01-09] MEDS: Nystatin Powder 15gm Bottle 1 APPLIC TOPICAL ×2 (05:16→21:28)
[2019-01-09] MEDS: Menthol/Lanolin/Calamine/Znox 113 GM Tube 1 APPLIC TOPICAL ×2 (05:16→21:28)
[2019-01-09] MEDS: Aspirin 81 MG TAB.CHEW PO (07:54)
[2019-01-09] MEDS: Multivitamin (Healthy Eyes) Capsule 1 CAP PO (07:55)
[2019-01-09] MEDS: Multivitamins,Therapeutic Tablet 1 TABLET PO (07:55)
[2019-01-09 10:00] VITALS: RESP 16; O2SAT 95
[2019-01-09 15:37] VITALS: BP 131/63; PULSE 77; RESP 18; TEMP 36.7; O2SAT 94
[2019-01-09] MEDS: Atorvastatin Calcium 80 MG Tablet 40 MG PO (21:24)
[2019-01-09] MEDS: Senna/Docusate Sodium 1 Tablet PO (21:24)
[2019-01-10] MEDS: Acetaminophen 500 MG Tablet 1000 MG PO ×2 (04:55→20:06)
[2019-01-10] MEDS: Enoxaparin 30 MG/0.3 ML Syringe SC (04:56)
[2019-01-10] MEDS: BALSALAZIDE DISODIUM 750 MG CAPSULE PO ×3 (04:56→20:09)
[2019-01-10] MEDS: Amiodarone 200 MG Tablet PO (04:56)
[2019-01-10] MEDS: Venlafaxine XR 75 MG Capsule PO (04:56)
[2019-01-10] MEDS: Pantoprazole Sodium 20 MG Tablet PO (04:56)
[2019-01-10] MEDS: Menthol/Lanolin/Calamine/Znox 113 GM Tube 1 APPLIC TOPICAL ×2 (04:57→20:10)
[2019-01-10] MEDS: Nystatin Powder 15gm Bottle 1 APPLIC TOPICAL ×2 (04:57→20:11)
[2019-01-10] MEDS: Multivitamin (Healthy Eyes) Capsule 1 CAP PO (08:13)
[2019-01-10] MEDS: Aspirin 81 MG TAB.CHEW PO (08:13)
[2019-01-10] MEDS: Multivitamins,Therapeutic Tablet 1 TABLET PO (08:13)
[2019-01-10] MEDS: traMADol 50 MG Tablet PO (09:35)
[2019-01-10 16:00] VITALS: BP 143/56; PULSE 78; RESP 18; TEMP 37.1; O2SAT 94
[2019-01-10] MEDS: Atorvastatin Calcium 80 MG Tablet 40 MG PO (20:08)
[2019-01-10 20:19] VITALS: BP 141/56; PULSE 71; RESP 16; TEMP 36.9; O2SAT 95
[2019-01-10 20:22] VITALS: PULSE 71; RESP 16; O2SAT 95
[2019-01-11] MEDS: Enoxaparin 30 MG/0.3 ML Syringe SC (05:23)
[2019-01-11] MEDS: Venlafaxine XR 75 MG Capsule PO (05:23)
[2019-01-11] MEDS: Menthol/Lanolin/Calamine/Znox 113 GM Tube 1 APPLIC TOPICAL ×2 (05:24→21:08)
[2019-01-11] MEDS: Amiodarone 200 MG Tablet PO (05:24)
[2019-01-11] MEDS: Pantoprazole Sodium 20 MG Tablet PO (05:24)
[2019-01-11] MEDS: BALSALAZIDE DISODIUM 750 MG CAPSULE PO ×3 (05:24→21:08)
[2019-01-11] MEDS: Nystatin Powder 15gm Bottle 1 APPLIC TOPICAL ×2 (05:25→21:36)
[2019-01-11] MEDS: Acetaminophen 500 MG Tablet 1000 MG PO ×2 (05:29→21:07)
[2019-01-11] MEDS: Multivitamin (Healthy Eyes) Capsule 1 CAP PO (07:31)
[2019-01-11] MEDS: Multivitamins,Therapeutic Tablet 1 TABLET PO (07:31)
[2019-01-11] MEDS: Aspirin 81 MG TAB.CHEW PO (07:31)
[2019-01-11 15:00] VITALS: PULSE 75; RESP 18; O2SAT 95
[2019-01-11 16:00] VITALS: BP 143/69; PULSE 76; RESP 18; TEMP 37; O2SAT 93
[2019-01-11] MEDS: Atorvastatin Calcium 80 MG Tablet 40 MG PO (21:11)
[2019-01-12] MEDS: Acetaminophen 500 MG Tablet 1000 MG PO ×3 (06:42→21:11)
[2019-01-12] MEDS: Amiodarone 200 MG Tablet PO (06:43)
[2019-01-12] MEDS: Nystatin Powder 15gm Bottle 1 APPLIC TOPICAL ×2 (06:43→21:13)
[2019-01-12] MEDS: Enoxaparin 30 MG/0.3 ML Syringe SC (06:43)
[2019-01-12] MEDS: Pantoprazole Sodium 20 MG Tablet PO (06:43)
[2019-01-12] MEDS: Venlafaxine XR 75 MG Capsule PO (06:43)
[2019-01-12] MEDS: BALSALAZIDE DISODIUM 750 MG CAPSULE PO ×3 (06:43→21:10)
[2019-01-12] MEDS: Menthol/Lanolin/Calamine/Znox 113 GM Tube 1 APPLIC TOPICAL ×2 (06:44→21:12)
[2019-01-12] MEDS: Aspirin 81 MG TAB.CHEW PO (09:14)
[2019-01-12] MEDS: Multivitamins,Therapeutic Tablet 1 TABLET PO (09:14)
[2019-01-12] MEDS: Multivitamin (Healthy Eyes) Capsule 1 CAP PO (09:14)
[2019-01-12 16:00] VITALS: BP 122/62; PULSE 72; RESP 16; TEMP 36.8; O2SAT 98
[2019-01-12 21:00] VITALS: PULSE 70; RESP 18; O2SAT 96
[2019-01-12] MEDS: Atorvastatin Calcium 80 MG Tablet 40 MG PO (21:11)
[2019-01-13] MEDS: traMADol 50 MG Tablet PO (06:27)
[2019-01-13] MEDS: Enoxaparin 30 MG/0.3 ML Syringe SC (06:28)
[2019-01-13] MEDS: Pantoprazole Sodium 20 MG Tablet PO (06:28)
[2019-01-13] MEDS: Venlafaxine XR 75 MG Capsule PO (06:28)
[2019-01-13] MEDS: Amiodarone 200 MG Tablet PO (06:29)
[2019-01-13] MEDS: BALSALAZIDE DISODIUM 750 MG CAPSULE PO ×3 (06:29→21:22)
[2019-01-13 06:30] VITALS: PULSE 80; RESP 18; O2SAT 97
[2019-01-13] MEDS: Menthol/Lanolin/Calamine/Znox 113 GM Tube 1 APPLIC TOPICAL ×2 (06:34→21:25)
[2019-01-13] MEDS: Nystatin Powder 15gm Bottle 1 APPLIC TOPICAL ×2 (06:35→21:25)
[2019-01-13] MEDS: Multivitamin (Healthy Eyes) Capsule 1 CAP PO (07:53)
[2019-01-13] MEDS: Aspirin 81 MG TAB.CHEW PO (07:53)
[2019-01-13] MEDS: Multivitamins,Therapeutic Tablet 1 TABLET PO (07:54)
[2019-01-13] MEDS: Acetaminophen 500 MG Tablet 1000 MG PO ×2 (13:11→21:21)
[2019-01-13 16:00] VITALS: BP 145/62; PULSE 77; RESP 18; TEMP 36.6; O2SAT 92
[2019-01-13] MEDS: Atorvastatin Calcium 80 MG Tablet 40 MG PO (21:22)
[2019-01-14] MEDS: Amiodarone 200 MG Tablet PO (05:16)
[2019-01-14] MEDS: Venlafaxine XR 75 MG Capsule PO (05:16)
[2019-01-14] MEDS: BALSALAZIDE DISODIUM 750 MG CAPSULE PO ×3 (05:16→20:26)
[2019-01-14] MEDS: Acetaminophen 500 MG Tablet 1000 MG PO ×2 (05:16→20:22)
[2019-01-14] MEDS: Pantoprazole Sodium 20 MG Tablet PO (05:16)
[2019-01-14] MEDS: Menthol/Lanolin/Calamine/Znox 113 GM Tube 1 APPLIC TOPICAL ×2 (05:17→20:37)
[2019-01-14] MEDS: Nystatin Powder 15gm Bottle 1 APPLIC TOPICAL ×2 (05:18→20:37)
[2019-01-14] MEDS: Enoxaparin 30 MG/0.3 ML Syringe SC (05:18)
[2019-01-14] MEDS: Multivitamins,Therapeutic Tablet 1 TABLET PO (07:54)
[2019-01-14] MEDS: Multivitamin (Healthy Eyes) Capsule 1 CAP PO (07:54)
[2019-01-14] MEDS: Aspirin 81 MG TAB.CHEW PO (07:54)
[2019-01-14] MEDS: traMADol 50 MG Tablet PO (13:13)
[2019-01-14 14:59] VITALS: BP 155/75; PULSE 77; RESP 18; TEMP 37.1; O2SAT 93
[2019-01-14] MEDS: Atorvastatin Calcium 80 MG Tablet 40 MG PO (20:25)
[2019-01-15] MEDS: Acetaminophen 500 MG Tablet 1000 MG PO (05:49)
[2019-01-15] MEDS: Enoxaparin 30 MG/0.3 ML Syringe SC (05:49)
[2019-01-15] MEDS: Venlafaxine XR 75 MG Capsule PO (05:49)
[2019-01-15] MEDS: Pantoprazole Sodium 20 MG Tablet PO (05:49)
[2019-01-15] MEDS: Amiodarone 200 MG Tablet PO (05:49)
[2019-01-15] MEDS: BALSALAZIDE DISODIUM 750 MG CAPSULE PO (05:52)
[2019-01-15] MEDS: Nystatin Powder 15gm Bottle 1 APPLIC TOPICAL (06:08)
[2019-01-15] MEDS: Menthol/Lanolin/Calamine/Znox 113 GM Tube 1 APPLIC TOPICAL (06:08)
[2019-01-15] MEDS: Multivitamins,Therapeutic Tablet 1 TABLET PO (07:41)
[2019-01-15] MEDS: Multivitamin (Healthy Eyes) Capsule 1 CAP PO (07:41)
[2019-01-15] MEDS: Aspirin 81 MG TAB.CHEW PO (07:41)
[2019-01-15 11:01] VITALS: BP 137/68; PULSE 82; RESP 18; TEMP 36.6; O2SAT 93
== END 2019-01-15 09:55 | disposition home or self-care (01) | DRG 57 ==
PROVIDERS: Admitting Provider Family Medicine Geriatric Medicine; Family Provider Family Medicine; PCP Family Medicine; Referring Provider Family Medicine Geriatric Medicine; Visit Provider Family Medicine Geriatric Medicine
DX: I69.351 Hemiplegia and hemiparesis following cerebral infarction affecting right dominant side (principal); I47.2 Ventricular tachycardia; E11.9 Type 2 diabetes mellitus without complications; E78.5 Hyperlipidemia, unspecified; K21.9 Gastro-esophageal reflux disease without esophagitis; F32.9 Major depressive disorder, single episode, unspecified; B35.4 Tinea corporis; K52.9 Noninfective gastroenteritis and colitis, unspecified; I10 Essential (primary) hypertension; M19.90 Unspecified osteoarthritis, unspecified site; E66.9 Obesity, unspecified; Z68.31 Body mass index [BMI] 31.0-31.9, adult; Z71.3 Dietary counseling and surveillance; M06.9 Rheumatoid arthritis, unspecified; G89.29 Other chronic pain
CPT/HCPCS: 36415; 74018; 78452; 80048; 82962; 85025; 93005; 93017; 97032; 97110; 97116; 97162; 97166; 97530; 97535; 97802; A9500; A4216; J2785

== ENCOUNTER → 2018-12-21 06:02 | Outpatient (CLI) | payer MEDICARE, OTHER, SELFPAY ==
[2018-12-14 11:46] VITALS: BMI 31.4
== END ==
PROVIDERS: Family Provider Family Medicine; PCP Family Medicine; Referring Provider Internal Medicine Cardiovascular Disease; Visit Provider Internal Medicine Cardiovascular Disease
DX: I25.10 Atherosclerotic heart disease of native coronary artery without angina pectoris (principal); I47.2 Ventricular tachycardia
CPT/HCPCS: 78452; 93017; A9500; A4216; J2785

== ENCOUNTER → 2019-05-14 10:34 | Outpatient (CLI) | payer MEDICARE, OTHER, SELFPAY ==
[2019-04-16 08:51] VITALS: BMI 31.6
== END ==
PROVIDERS: Family Provider Family Medicine; PCP Family Medicine; Referring Provider Physician Assistant Medical; Visit Provider Physician Assistant Medical
DX: I47.2 Ventricular tachycardia (principal)
CPT/HCPCS: 93225; 93226

== ENCOUNTER 2019-06-29 13:39 | Emergency (ER) | payer MEDICARE, OTHER, SELFPAY ==
[2019-06-26 08:44] VITALS: BMI 31.6
[2019-06-29 13:39] VITALS: BP 146/60; PULSE 88; RESP 14; TEMP 36.7; O2SAT 96; BMI 31.8
--- NOTE | 2019-06-29 15:13 | ED.VIS.GEN ---
History of Present Illness Chief Complaint: Fall Informant: Patient, Family Onset: Yesterday Maximum Severity: Mild Narrative: The patient complains of right hip pain after fall yesterday, she is a prior history of stroke arthritis in every part of her body by her history, stumbled using her walker when she was in a hurry and fell landing on her right hip persistent right hip pain the pain is worse when she tries to ambulate she is able to ambulate with a walker, and markedly improved if she rests no other complaints did not hit her head no chest pain abdominal pain she indicates she simply tripped and fell Past Medical History - Allergies and Home Meds Allergies/Adverse Reactions: Allergies erythromycin base [Erythromycin Base] Allergy (Verified 06/29/19 13:43) Rash Sulfa (Sulfonamide Antibiotics) Allergy (Verified 06/29/19 13:43) Rash sulfamethoxazole [From Septra] Allergy (Verified 06/29/19 13:43) Rash trimethoprim [From Janra] Allergy (Verified 06/29/19 13:43) Rash Primary Care Physician: Morgan Taylor III, MD [Primary Care Provider] - Past Medical History: - Surgical History: cholecystectomy - Laparoscopic., hysterectomy - D/T uterine CA, total knee arthroplasty - Left., tonsillectomy, - - Skin graft to right hand as a child, foot surgery. Bunion removals to bilateral feet. Smoking Status: Never smoker - Family History Paternal Family History: Family History (Last Updated 06/25/19 @ 14:41 by Vandana Redman) Mother No problems noted. Father No problems noted. Other Asthma Heart disease Myocardial infarction Family History: Reports: - - Patient unaware Maternal Family History: Family History (Last Updated 06/25/19 @ 14:41 by Vandana Redman) Mother No problems noted. Father No problems noted. Other Asthma Heart disease Myocardial infarction Family History: Reports: Dementia, Stroke Review of Systems ROS: - As above General: Denies: Chills, Fever, Sweats Eyes: Denies: Visual changes - bilaterally, Diplopia ENT: Denies: Rhinorrhea, Sore throat Cardiovascular: Denies: Chest pain, Palpitations Respiratory: Denies: Dyspnea, Cough, Dyspnea on exertion Gastrointestinal: Denies: Abdominal pain, Nausea, Vomiting, Diarrhea, Melena, Hematochezia Genitourinary: Denies: Dysuria, Hematuria, Frequency Musculoskeletal: Reports: Extremity Pain, - - Right hip pain. Denies: Back pain Skin: Denies: Rash, Wounds Neurological: Denies: Headache, Weakness, Numbness Physical Exam Vital Signs/Narrative: Vital Signs Temp Pulse Resp BP Pulse Ox 06/29/19 13:39 98.0 F 88 14 146/60 H 96 General: Well nourished, Well developed, No Acute Distress Head: Normocephalic, Atraumatic Eyes: Perrl, EOMI ENT: Moist mucous membranes, No rhinorrhea Neck: Supple, Nontender Cardiovascular: Regular rate, Regular rhythm, No murmurs Respiratory: No distress, CTA bilaterally, Chest nontender Abdomen: Soft, Nontender, Nondistended, Normal bowel sounds Back: Nontender, Normal Inspection Extremities: No edema, - - He has some nonspecific pain to the right hip she has full range of motion of the hip the knee foot and ankle when she is in the bed she has no back pain pelvis is stable the rest of her extremities unremarkable Skin: Normal color, No rash Neurological: Alert, Oriented x3, Cranial nerves II-XII grossly intact, Normal Strength, Normal Sensation Psychological: Normal affect, Normal Mood Diagnostic/Tx/Re-eval - Medical Decision Making obtained x-ray wants nothing for the pain Per radiology shows nothing acute discussed with the patient and her family discussed the concept of an occult injury they are comfortable discharge home she has walking devices at home she will follow with outpatient provider she has orthopedic physician she seen return for change in symptoms Final impression right hip pain after fall disposition home stable ED Disposition - Plan for ED Patient: Diagnosis: Hip injury, right Instructions: FALL, Mechanical Referrals: Morgan Taylor III, MD [Primary Care Provider] -
--- NOTE | 2019-06-29 15:49 | RAD_ITS ---
STUDY: X-RAY - PELVIS AND RIGHT HIP REASON FOR EXAM: Female, 84 years old. PT ARRIVES TO ED AFTER A FALL AT HOME. NO LOC. RIGHT HIP PAIN WITH BEARING WEIGHT, BUT NONE DURING POSITION CHANGES. TECHNIQUE: 3 views of the pelvis and hip. COMPARISON: None. FINDINGS: There is a non-specific bowel gas pattern. Normal visualized soft tissue structures. Normal bilateral iliac wings, sacroiliac joints and visualized sacrum. Normal bilateral superior and inferior pubic rami. Normal pubic symphysis. Normal bilateral ischial tuberosities. Normal visualized femoral head. Normal acetabulum. Normal hip joint. RAD/HIP, UNI W/ Pelvis 2-3 Views IMPRESSION: Normal x-ray examination of the pelvis and hip. Electronically Signed: Adolfo Omer MD at 16:12 EST , Service support ,
[2019-06-29 16:47] VITALS: PULSE 82; RESP 17; O2SAT 97
== END 2019-06-29 16:48 | disposition home or self-care (01) ==
LOC: ED 16:19
PROVIDERS: Emergency Provider Emergency Medicine; PCP Family Medicine
DX: S79.911A Unspecified injury of right hip, initial encounter (principal); W01.0XXA Fall on same level from slipping, tripping and stumbling without subsequent striking against object, initial encounter; Y93.01 Activity, walking, marching and hiking; Y92.009 Unspecified place in unspecified non-institutional (private) residence as the place of occurrence of the external cause; Z86.73 Personal history of transient ischemic attack (TIA), and cerebral infarction without residual deficits
CPT/HCPCS: 73502; 99282

== ENCOUNTER 2019-08-15 13:00 | Outpatient (RCR) | payer MEDICARE, OTHER, SELFPAY ==
[2018-12-14 11:46] VITALS: BMI 31.4
--- NOTE | 2019-01-21 13:52 | HP.PTEVAL_ITS ---
Patient's Visit Information SONIA DOUGHERTY is a 83 year old F referred to Physical Therapy by Carlton Perez MD with a diagnosis of CVA wtih R sided weakness. Date of Evaluation: 01/17/19 Physical Therapist: Daquan Sanches DPT - Visit Plan Frequency: 2x /Week Duration: 6 Weeks Plan: Start with BLE strengthening, core stability, dynamic balance, gait training. Progress HEP as able. I would recommend that she gets OT as well to work on R shoulder/arm mobility and strength. - Subjective Findings: Pt. is here today for here for here initial evaluation with diagnosis fo CVA. DOI: November 01. Pt. reports being on TCU for several weeks. Pt. got back home 3 days ago. Pt. reports using FWW at home for mobility. R side effected both UE and LE. Pt. reprots having some N/T in her R UE and LE. Pt. reports noting being able to stand without AD for assistance. Pt. reorts beuing able to get out of chair independently. Pt. is able to complete bed mobility independently with ebd rail. Pt. is hopeful to get back to all recreational activities inlcuding walking as independently as possible. - Objective POSTURE: Pt. has generalized flexed posture. Pt. is able to sit indepedently. Pt. is able to stand without assistance, but has a lot of postural sway. Steady with AD. Pt. reprots no pain in stance. PALPATION: Pt. has no pain or tenderness with palpation. NEURO: normal L DTR, hypo R DTR LE. Normal sensation. [place] Santy- 3 emerging on 4. Tinetti- 9/28. 5 rep sit to stand 28sec from elevated chair. ROM: tight HS and hip flexors, and achilles on R sidebut rest of ROM is normal. MMT: LLE- 5/5 throughout. RLE- ankle 4/5, execpt DF 4-/5 DF, 3/5 hip abd and hip flexion. GAIT: PT. ambulates with FWW and CGA- SMITH to amintain stability. Pt. has increased functional weakness with RLE d uring stance phase. STEPS: with LLE only, did not load RLE with attempts. - Goals Goal 1:: Pt. to be I with HEP. Goal Time Frame: 4-6 Weeks Goal 2:: Pt. to have increased RLE strength by 1/2 grade throughout effected musculature. Goal Time Frame: 4-6 Weeks Goal 3:: Pt. to ambulate with FWW vs LRD 1000'+ allowing for increased independent mobility in community. Goal Time Frame: 4-6 Weeks Goal 4:: Pt. to be MITCHELL with LRD in home allowing for safe mobility in home. Goal Time Frame: 4-6 Weeks Goal 5:: Pt. to complete tinetti with score of 15/28 indicating reduced risk for falls. Goal Time Frame: 4-6 Weeks Goal 6:: Pt. to complete 5 rep sit to stand test with in 15seconds indicating increased functional strength. Goal Time Frame: 4-6 Weeks - Rehabilitation Potential Physical Therapy Diagnosis: Pt. has signs and symptoms consistent wtih CVA with R sided weakness. Pt. would benefit from PT to increase RLE strength, stability in stance/gait, dynamic balance and functional strength/independence. Rehabilitation Potential: Good - Anticipated Interventions Patient/Client Instruction: Educate patient on: Condition, Plan of Care, Risk Factors, Benefits of Fitness Program For the Purpose of:: To facilitate caregiver knowledge, To improve self management, To prevent re-injury, To improve ability to perform tasks related to life management, To improve tolerance to ADL's Therapeutic Exercise to Include: Strength training, Power training, Endurance training, Balance training, Body mechanics, Postural training, Flexibilty denisa bertha, Gait and locomotor training, Passive ROM, Active ROM, Dynamic Lumbar Stabilization For the Purpose of:: To decrease pain, To increase ROM, To improve nutrient delivery to tissue, To improve muscle performance and motor function, To improve ability of physical actions for home/community/work/leisure, To improve gait and locomotor functions, To improve health of tissue, To decrease soft tissue restriction, To increase flexibility/ROM Thank you for the opportunity to evaluate your patient. For Medicare and Medicare HMO plans, please review the plan of care and approve it. It will need to be FAXED BACK to us at [phone] for Medicare purposes. For Medicare only, by signing this I certify the plan of care. Please let me know if there are questions or concerns regarding this plan of care. Physician Signature: Date:
--- NOTE | 2019-01-24 15:05 | HP.OTEVAL ---
Patient's Visit Information SONIA DOUGHERTY is a 83 year old F, referred to Occupational Therapy by Carlton Perez MD, with a diagnosis of right UE weakness. Date of Evaluation: 01/24/19 Occupational Therapist: CHERELLE Tucker/Cm, CHT - Subjective Subjective: This 83 year old female was seen for OT eval with dx. of CVA and right side hemipareses. pt was on [facility] for about two months- pt states she continues to struggle with right UE ROM/ ability to use her right UE for ADLs. Pt was amb, ind. short distance- for long distance a rollator. PT is right handed. PLOF pt IND with all ADLs, meals and home mtg. - ADLs Dressing: Bra, Button shirt, Socks, Shoes Fasteners: Tie shoes, Buttons, Zippers, [place] Eating: Bring food to mouth, Use silverware, Cut food, Drink from glass Toileting: Manage clothing Kitchen: Chop with knife, Peel fruits & vegetables, Open jars, Open bottle caps, Lift gallon of milk, Pour from pitcher, Lift saucepan, Take dish out of oven, Load/unload insurance billing specialist, Place dish in microwave Comments: family providing meals at this time - ROM Shoulder: right flex 90 left WNL Elbow: right -10/145 left WNL Forearm: right N left WNL Wrist: right 30/60 Opposition: 5 ROM Comments: pt demo with a right decrease in composite fist- - Strength Shoulder: right 3/5 left 4+/5 Elbow: right 3/5 left 4+/5 Spinner Tender: right 5# left 20# Lateral Pinch: right 4# left 10# Tripod Pinch: right 4# left 7# - In-Hand Manipulation Finger to Palm Translation: Severe - Right, Normal - Left Palm to Finger Translation: Severe - Right, Normal - Left Shift: Moderate - Right, Severe - Right, Normal - Left Rotation: Moderate - Right, Severe - Right, Normal - Left - Stroke Specific Quality of Life Total SS-QOL Score: 159 - Goals Goal:: pt will demo increase MMT strength to 4+/5 to increase pts ind. with ROM and ADLs tasks. pt will demo a increase in right civil engineering design draftsperson strength by 10# to increase pts ind. with ADLs and Meal prep tasks. Goal:: pt will demo right shoulder ROM equal to left to increase pts ind. with self dressing and bathing tasks by d/c Goal:: pt will demo increase in right hand coordination demo by manipulating fasteners at Ind. level for ADLs and IADLS by d/c - Rehabilitation General Assessment: Pt demo with a decline in right UE ROM strength/coordination limiting use of right UE with ADLS/IADls and bilateral coordination tasks. Pt would benefit from skilled OT services 2x week for 6-8 weeks. Therapy will challenge pts ROM/strength and coordination to return pt to PLOF. Today pt was ed. in AAROM of shoulder ROM, and stabilization ex. pt given handout on ex and demo understanding and agrees to POC. Rehabilitation Potential: Good - Anticipated Interventions Anticipated Interventions: A/AAROM/PROM, Strengthening, Fine Motor Coord/Gregorio, Neuro Reeducation, ADL Training, Education re assistive Equipment, Caregiver Training - Visit Plan Frequency: 2-3x /Week Duration: 2 Months TEXT: Thank you for the opportunity to evaluate your patient. For Medicare and Medicare HMO plans, please review the plan of care and approve it. It will need to be FAXED BACK to us at [phone] for Medicare purposes. Please let me know if there are questions or concerns regarding this plan of care. Physician Signature: Date:
--- NOTE | 2019-03-05 15:05 | HP.OTREVAL ---
Carlton Perez MD, It has been my pleasure to treat SONIA DOUGHERTY over the last 10 visits for right UE weakness. Please see the progress note below for an update on the occupational therapy plan of care! Subjective: pt arrives from PT- states she has been doing her HEP- noticed limited supination of right forearm and ability to straighten her fingers- pt states she continues to have trouble with self feeding. Objective/Function: PT demo with a increase in right UE shoulder flex to 120* a increase in ROM- pt demo full elbow flex- elbow ext. limited by 15* pt demo good ability to extend wrist but inability to extend digits and wrist at the same time- pt demo good grasp but limited MCPJ ext. and forearm supination limiting pts ability to hold book and read. Plan Frequency: 2-3x /Week Duration: 2 Months Plan: pt would benefit from further skilled OT services 2x week for 6 weeks to increase right UE strength and increase pts ability to grasp and hold a number of different size objects to improve wrist and digit simtaniusly Goals - Goals Goal:: pt will demo increase MMT strength to 4+/5 to increase pts ind. with ROM and ADLs tasks. pt will demo a increase in right irish moss gatherer strength by 10# to increase pts ind. with ADLs and Meal prep tasks. Goal:: pt will demo right shoulder ROM equal to left to increase pts ind. with self dressing and bathing tasks by d/c Goal:: pt will demo increase in right hand coordination demo by manipulating fasteners at Ind. level for ADLs and IADLS by d/c Anticipated Interventions Anticipated Interventions: A/AAROM/PROM, Strengthening, Fine Motor Coord/Gregorio, Neuro Reeducation, ADL Training, Education re assistive Equipment, Caregiver Training Please do not hesitate to contact me at [phone] by phone or if you have questions or concerns regarding this new plan of care! Sincerely, Mara Bryant, OTR/L, CHT
--- NOTE | 2019-04-29 13:22 | HP.PTREVAL ---
Carlton Perez MD, It has been my pleasure to treat SONIA DOUGHERTY over the last 23 visits for CVA wtih R sided weakness. Please see the progress note below for an update on the physical therapy plan of care! Subjective: Pt. reports she is doing better. Pt. reports bitn 50% better overall. Pt. was able to walk in home without issues. Pt. Objective/Function: Pt. did better today. Tinetti: . MMT: 5/5 throughout, except 4-/5 hip abd. GAIT: Pt. ambulates 324' with FWW with improved pattern. WIthout AD increased lateral hip weakness noted, decreased R step length and R stance phase. slight improvement with quad cane. Pt. is able to rise of chair without issues, decreased stability with eccentric lowering to chair without use of uEs. Plan Plan: Pt. is progressing with balance and gait. tried walking with SPC this date to test. I would really like her to start walking with a rollator or atleast practiciong to increase independence and functional mobility. Cpont. to strengthen her glute on her RLE including glute med. Goals Goal 1:: Pt. to be I with HEP. Goal Time Frame: 4-6 Weeks Goal Progress: Progressing Goal 2:: Pt. to have increased RLE strength by 1/2 grade throughout effected musculature. (RLE- ankle 5/5;knee ext 5-/5, flexion 4/5; hip- flexion 4/5, abd 4/5, ext 4+/5) Goal Time Frame: 4-6 Weeks Goal 3:: Pt. to ambulate with FWW vs LRD 1000'+ allowing for increased independent mobility in community. (324' with FWW MITCHELL) Goal Time Frame: 4-6 Weeks Goal 4:: Pt. to be MITCHELL with LRD in home allowing for safe mobility in home. (Pt. is able to walk in the home without assistance with FWW. Pt. reports some walking in home, A few steps without AD). Goal Time Frame: 4-6 Weeks Goal Progress: Progressing Goal 5:: Pt. to complete tinetti with score of 15/28 indicating reduced risk for falls. (score: Goal Time Frame: 4-6 Weeks Goal 6:: Pt. to complete 5 rep sit to stand test with in 15seconds indicating increased functional strength. (9.8 sec with UE, 18.1 sec without UE) Goal Time Frame: 4-6 Weeks Goal Progress: Progressing Anticipated Interventions Patient/Client Instruction: Educate patient on: Condition, Plan of Care, Risk Factors, Benefits of Fitness Program For the Purpose of:: To facilitate caregiver knowledge, To improve self management, To prevent re-injury, To improve ability to perform tasks related to life management, To improve tolerance to ADL's Therapeutic Exercise to Include: Strength training, Power training, Endurance training, Balance training, Body mechanics, Postural training, Flexibilty training, Gait and locomotor training, Passive ROM, Active ROM, Dynamic Lumbar Stabilization For the Purpose of:: To decrease pain, To increase ROM, To improve nutrient delivery to tissue, To improve muscle performance and motor function, To improve ability of physical actions for home/community/work/leisure, To improve gait and locomotor functions, To improve health of tissue, To decrease soft tissue restriction, To increase flexibility/ROM Please do not hesitate to contact me at [phone] by phone or if you have questions or concerns regarding this new plan of care! Sincerely, REAL PaganT
--- NOTE | 2019-05-09 12:53 | HP.OTREVAL ---
Carlton Perez MD, It has been my pleasure to treat SONIA DOUGHERTY over the last 25 visits for right UE weakness. Please see the progress note below for an update on the occupational therapy plan of care! Subjective: pt arrives states she is doing fine- has concerns with limited shoulder flex Objective/Function: pt demo active shoulder flex to 80* prior to compensation of elbow flx- and back ext- therapist ec. pt with use of visual feedback with mirror- therapist added in green t-band ex for tricep due to compensation of shoulder ext- pt making gains with her functional use of right UE- but still limited with ROM and strength- therapy will cont to work with shoulder flex- and tricep ext to work on a functional shoulder flex ROM and digit/wrist ext- Plan Frequency: 2-3x /Week Duration: 2 Months Plan: PT is making gians with right UE strength and ROM- would benefit from skilled OT services- therapy will cont tx of right UE functional ROM and strength- pt need cues to hold end range for 3 sec. to increase return of her movement Goals - Goals Goal:: pt will demo increase MMT strength to 4+/5 to increase pts ind. with ROM and ADLs tasks. pt will demo a increase in right railroad construction director strength by 10# to increase pts ind. with ADLs and Meal prep tasks. Goal:: pt will demo right shoulder ROM equal to left to increase pts ind. with self dressing and bathing tasks by d/c Goal:: pt will demo increase in right hand coordination demo by manipulating fasteners at Ind. level for ADLs and IADLS by d/c Anticipated Interventions Anticipated Interventions: A/AAROM/PROM, Strengthening, Fine Motor Coord/Gregorio, Neuro Reeducation, ADL Training, Education re assistive Equipment, Caregiver Training Please do not hesitate to contact me at [phone] by phone or if you have questions or concerns regarding this new plan of care! Sincerely, Mara Bryant, OTR/L, CHT
--- NOTE | 2019-07-24 14:41 | HP.OTDCSUM_ITS ---
HP - OT D/C Summary It has been my pleasure to treat SONIA DOUGHERTY under orders from Carlton Perez MD, for the diagnosis of right UE weakness for a total of 11 visit(s). Please see the following information for a summary of their discharge status. - Overall Improvement % Improvement: 85 - Objective Objective/Function: pt has made good gains in OT with right UE ROM and strength. Pt reports she is MITCHELL with bathing/dressing tasks. pt demo good ability to use right UE for grasping small and large objects. pt cont. to demo with MMT wrist and digit ext.3+/5 and shoulder MMT 3+/5. Pt will cont with a HEP to cont to increase pts strength and endurance. - Goals Patient Goals: Regain Mobility, Regain Strength, Improve Fine Motor Skills, Use Hand/Wrist/Arm Normally Again, Be More Independent in ADLS Goal:: pt will demo increase MMT strength to 4+/5 to increase pts ind. with ROM and ADLs tasks. pt will demo a increase in right dining service supervisor strength by 10# to increase pts ind. with ADLs and Meal prep tasks. Goal:: pt will demo right shoulder ROM equal to left to increase pts ind. with self dressing and bathing tasks by d/c Goal:: pt will demo increase in right hand coordination demo by manipulating fasteners at Ind. level for ADLs and IADLS by d/c - Plan Plan: D/C with HEP. for shoulder ROM. AAROM. PRE. t-putty for dining service supervisor. digit ext ex - D/C Information Discharge Comments: pt was seen for OT since Dec. pt has made good gains with right UE ROM and strength- pt has platued with progress last few weeks and after further discussion pt will cont.with a HEP foucsed on UE and FMS. pt agree to POC. PT will cont with physical therapy services to cont to focus on ambulation and LE strength . If there are questions or concerns regarding this patient's occupational therapy, please fell free to call me at [phone]. Thank you for the referral of this patient. Sincerely, Mara Bryant, OTR/L, CHT
--- NOTE | 2019-08-05 14:07 | HP.PTREVAL ---
Carlton Perez MD, It has been my pleasure to treat SONIA DOUGHERTY over the last 28 visits for CVA wtih R sided weakness. Please see the progress note below for an update on the physical therapy plan of care! Subjective: Pt. reports no new issues. Pt. reprots beign HEP compliant. She was lance to walk a little bit at RKO is her walker. Objective/Function: Pt. did well with PT this date. She is progressing with gait with SPC. She is not independent with this cane, but has done very well. She does fatigue fast with her cane, but has overall increased stability. Pt. reprots no pain this date. Pt. has has marked R sided hip weakness, but her quad is doing a bit better. Plan Plan: Cont. with PT wtih focus on RLE weakness and progress functional strengthening as able. Goals Goal 1:: Pt. to be I with HEP. Goal Time Frame: 4-6 Weeks Goal Progress: Progressing Goal 2:: Pt. to have increased RLE strength by 1/2 grade throughout effected musculature. (RLE- ankle 5/5;knee ext 5-/5, flexion 4+/5; hip- flexion 4+/5, abd 4/5, ext 4+/5) Goal Time Frame: 4-6 Weeks Goal Progress: Progressing Goal 3:: Pt. to ambulate with FWW vs LRD 1000'+ allowing for increased independent mobility in community. (550' wtih FWW SBA/ERICA, 150 ft. with SPC with CGA) Goal Time Frame: 4-6 Weeks Goal 4:: Pt. to be MITCHELL with LRD in home allowing for safe mobility in home. (Pt. is able to walk with SPC with CGA upto 150ft. at this point in time) Goal Time Frame: 4-6 Weeks Goal Progress: Progressing Goal 5:: Pt. to complete tinetti with score of 15/28 indicating reduced risk for falls. (score: 13/30) Goal Time Frame: 4-6 Weeks Goal Progress: Progressing Goal 6:: Pt. to complete 5 rep sit to stand test with in 15seconds indicating increased functional strength. (9.9 sec with UE, 17.2 sec without UE) Goal Time Frame: 4-6 Weeks Goal Progress: Progressing Anticipated Interventions Patient/Client Instruction: Educate patient on: Condition, Plan of Care, Risk Factors, Benefits of Fitness Program For the Purpose of:: To facilitate caregiver knowledge, To improve self management, To prevent re-injury, To improve ability to perform tasks related to life management, To improve tolerance to ADL's Therapeutic Exercise to Include: Strength training, Power training, Endurance training, Balance training, Body mechanics, Postural training, Flexibilty training, Gait and locomotor training, Passive ROM, Active ROM, Dynamic Lumbar Stabilization For the Purpose of:: To decrease pain, To increase ROM, To improve nutrient delivery to tissue, To improve muscle performance and motor function, To improve ability of physical actions for home/community/work/leisure, To improve gait and locomotor functions, To improve health of tissue, To decrease soft tissue restriction, To increase flexibility/ROM Please do not hesitate to contact me at [phone] by phone or if you have questions or concerns regarding this new plan of care! Sincerely, Daquan Sanches DPT
== END 2019-08-15 19:00 | disposition home or self-care (01) ==
LOC: PT 13:00
PROVIDERS: Family Provider Family Medicine; PCP Family Medicine; Referring Provider Family Medicine Geriatric Medicine; Visit Provider Family Medicine Geriatric Medicine
DX: I69.359 Hemiplegia and hemiparesis following cerebral infarction affecting unspecified side (principal)
CPT/HCPCS: 97110; 97112; 97116; 97140; 97161; 97166; 97168; 97530

== ENCOUNTER 2020-01-09 14:30 | Outpatient (RCR) | payer MEDICARE, OTHER, SELFPAY ==
--- NOTE | 2019-10-08 13:57 | HP.PTREVAL ---
Dr. Carlton Perez MD, It has been my pleasure to treat SONIA DOUGHERTY over the last 32 visits for CVA. Please see the progress note below for an update on the physical therapy plan of care! Subjective: Pt. is back after being off PT with euceda virus pandemic. Pt. has not been sick, but family did not want her to attempt PT during this time. Pt. reports overall she is doing well. Pt. is walking in home, but not going azeb community for increased walking at this point in time. No pain pre treatment. Objective/Function: Transfered to [facility] due to length of time in PT. MMT: LLE- 5/5 throughout. RLE- ankle DF 4/5, PF 5-/5; knee- ext 3/5, flexion 4/5; hip- flexion 4-/5, abd 4-/5, ext 4/5. Core strength- poor+. Sit to stand: Pt. is able to complete I, but does require occassional second attempt to get up and has difficulty with controlled eccentric lowering. GAIT: Pt. tends to have RLE lag behind with gait. Pt. also tends to rotate trunk to advance RLE with decreased hip flexion motion. Pt. improves with VCing. Plan Plan: Resume working on BLE strengtheing/core strength, gait progression with use of FWW with focus on improved mechanics and tempo for increased independence. Work on gait control to increase stbaility and proper RLE movement and stability. Goals Goal 1:: LTG: Pt. to be I with HEP. Goal Time Frame: 4-6 Weeks Goal Progress: Progressing Goal 2:: LTG: Pt. to ambulate 500' with FWW with imrpoved gait mechanics MOD I allowing for increased independence in community. Goal Time Frame: 6-8 Weeks Goal Progress: Progressing Goal 3:: STG: Pt. to ambulate 200' with FWW MOD I without LOB allowing for increased safety in home. Goal Time Frame: 4-6 Weeks Goal Progress: Progressing Goal 4:: STG: PT. to complete 5 rep sit stand test without UE assistance in <12 seconds indicating increased BLE strength. Goal Time Frame: 4-6 Weeks Goal Progress: Progressing Goal 5:: LTG: Pt. to have increased TUG score to >20sec with FWW indicating increased stability wtih balance and gait. Goal Time Frame: 6-8 Weeks Anticipated Interventions Patient/Client Instruction: Educate patient on: Condition, Plan of Care, Risk Factors, Benefits of Fitness Program For the Purpose of:: To improve decision making, To facilitate caregiver knowledge, To improve self management, To prevent re-injury, To improve ability to perform tasks related to life management, To improve tolerance to ADL's Therapeutic Exercise to Include: Strength training, Power training, Endurance training, Balance training, Coordination, Agility training, Body mechanics, Postural training, Flexibilty training, Gait and locomotor training, Passive ROM, Active ROM, Dynamic Lumbar Stabilization For the Purpose of:: To increase ROM, To improve nutrient delivery to tissue, To increase oxygenation perfusion, To improve muscle performance and motor function, To improve ability to perform ADL's, To increase tolerance to activity/condition/position, To improve performance and independence with ADL's, To improve gait and locomotor functions, To improve health of tissue, To decrease soft tissue restriction, To increase flexibility/ROM, To improve endurance, To improve balance, To improve safety with gait Please do not hesitate to contact me at [phone] by phone or if you have questions or concerns regarding this new plan of care! Sincerely, Daquan Sanches DPT
== END 2020-01-09 19:00 | disposition home or self-care (01) ==
LOC: PT 14:30
PROVIDERS: PCP Family Medicine; Referring Provider Family Medicine Geriatric Medicine; Visit Provider Family Medicine Geriatric Medicine
DX: Z86.73 Personal history of transient ischemic attack (TIA), and cerebral infarction without residual deficits (principal)
CPT/HCPCS: 97110; 97164; 97530

== ENCOUNTER 2020-06-26 10:50 | Outpatient (RCR) | payer MEDICARE, OTHER, SELFPAY ==
[2020-06-23 09:03] VITALS: BMI 34.3
== END 2020-06-26 23:59 ==
LOC: IMMUN 10:50
PROVIDERS: PCP Family Medicine; Visit Provider Family Medicine
DX: Z23 Encounter for immunization (principal)
CPT/HCPCS: 0011A; 0012A; 91301

== ENCOUNTER 2021-03-25 14:31 | Emergency (ER) | payer MEDICARE, OTHER, SELFPAY ==
[2021-03-25 14:32] VITALS: BP 124/53; PULSE 95; RESP 18; TEMP 36.2; O2SAT 93; BMI 31.7
[2021-03-25 14:55] VITALS: O2SAT 93
--- NOTE | 2021-03-25 15:16 | ED.VIS.DYS ---
HPI History of Present Illness Chief Complaint: Cough Informant: patient Onset/Context/Timing Onset: Today Context: sudden Timing: Continuous Quality: Positive for - (Fatigued) Worsened by: Nothing Relieved by: Nothing Associated Symptoms cough; Negative for rhinorrhea, ear pain, fever, sore throat, chills, sweats, clear sputum, white sputum, yellow sputum or green sputum Chest Pain: Positive for None Narrative Narrative: Patient presents with shortness of breath, cough, fatigue, and headache that began today. Daughter states patient was recently exposed to someone with COVID-19. Patient states she has been feeling fatigued. Patient states this is generalized. Patient states nothing makes it worse and nothing makes it better. Patient admits to a cough but denies any sputum production. Patient denies any fevers or chills. Patient denies any chest pain. Patient denies any nausea or vomiting. [facility] Medical History (Updated 03/25/21 @ 16:[address] Murphy Perkins, DO) Anemia Autonomic neuropathy Bilateral headaches Chronic back pain Colitis CVA (cerebral vascular accident) (10/2018) Debility Essential (primary) hypertension GERD (gastroesophageal reflux disease) GERD (gastroesophageal reflux disease) Hemorrhoid HLD (hyperlipidemia) Left bundle branch block Neck pain Obesity Orthostatic hypotension Osteoarthritis Osteoarthritis Osteopenia Paroxysmal ventricular tachycardia (11/15/18) Rheumatoid arthritis Right hemiparesis Syncope Type 2 diabetes mellitus Uterine cancer Home Medications aspirin 81 mg PO DAILY@0800 11/13/18 [History Last Taken Unknown] multivitamin 1 ea PO DAILY 11/13/18 [History Last Taken Unknown] atorvastatin 40 mg tablet 40 mg PO QHS 12/21/18 [History Last Taken Unknown] levothyroxine 75 mg PO DAILY 06/29/19 [History Last Taken Unknown] hydrochlorothiazide 12.5 mg tablet 12.5 mg PO DAILY 10/16/19 [History Last Taken Unknown] lisinopril 2.5 mg tablet 2.5 mg PO DAILY 10/16/19 [History Last Taken Unknown] venlafaxine 37.5 mg capsule,extended release 24 hr 75 mg PO DAILY 10/16/19 [History Last Taken Unknown] vit A 7,160 unit-vit C 113 mg-vit E 100 [id number] tablet 2 tab PO BID tab 10/16/19 [History Last Taken Unknown] acetaminophen 500 mg tablet 650 mg PO .QID tab 03/24/21 [History Last Taken Unknown] Allergy/AdvReac Type Severity Reaction Status Date / Time erythromycin base Allergy Rash Verified 03/25/21 14:32 [Erythromycin Base] Sulfa (Sulfonamide Allergy Rash Verified 03/25/21 14:32 Antibiotics) sulfamethoxazole Allergy Rash Verified 03/25/21 14:32 [From Septra] trimethoprim [From ] Allergy Rash Verified 03/25/21 14:32 Family History (Reviewed 03/24/21 @ 15:00 by Irene Marc [employer], [employer]) Mother No problems noted. Father No problems noted. Other Asthma Heart disease Myocardial infarction Surgical History History of colonoscopy History of esophagogastroduodenoscopy (EGD) History of foot surgery History of hysterectomy History of laparoscopic cholecystectomy History of left knee replacement History of skin graft History of tonsillectomy Social History Smoking Status: Never smoker alcohol intake: current alcohol intake frequency: holidays/special occasions only substance use type: does not use what type of physical activity do you participate in: walking frequency: 1-2 times per week ROS ROS ED Constitutional Constitutional ED: Denies chills or fever(s) Eyes Eyes: Denies blurry vision or change in vision ENT ENT ED: Denies rhinorrhea or sore throat Cardiovascular Cardiovascular: Denies chest pain or palpitations Respiratory/Chest Respiratory/Chest: Reports cough and dyspnea Gastrointestinal Gastrointestinal: Denies nausea or vomiting Genitourinary Genitourinary ED: Denies dysuria or hematuria Musculoskeletal Musculoskeletal: Denies back pain or neck pain Integumentary Denies abscess or rash Neurologic Neurologic: Reports headache(s); Denies weakness Allergic/Immunologic Allergic/Immunologic ED: Denies mouth swelling or urticaria EXAM Physical Exam Const Vital Signs: 03/25/21 14:32 03/25/21 14:55 03/25/21 15:55 Temperature 97.2 F L 98.6 F Temperature Source Temporal Oral Pulse Rate 95 85 Respiratory Rate 18 16 Respiratory Effort Normal Non-Labored Respiratory Depth Normal Respiratory Pattern Normal Blood Pressure 124/53 H 118/44 L Blood Pressure Mean 76 68 Pulse Ox 93 96 Oxygen Delivery Method Room Air Room Air Room Air Positive well nourished and well developed General Appearance ED: well developed HEENT Reports moist mucous membranes Neck supple and no JVD Resp normal respiratory effort and clear to auscultation bilaterally Cardio regular rate, regular rhythm and no murmurs GI normal to inspection, nondistended, normoactive bowel sounds and non-tender Palpation: soft Extremity normal to inspection General Extremety ED: Negative for edema or tenderness General Extremity: Negative for edema Neuro oriented x3, CN's II-XII intact bilaterally and no sensory deficits noted Sensorium / Orientation: alert Motor Exam: strength 5/5 throughout Psych mental status grossly normal Skin no rashes or lesions noted MDM MDM MDM Narrative Medical decision making narrative: Patient was given 4 puffs of an albuterol inhaler. CBC and comprehensive metabolic profile were obtained and were essentially within normal limits. Portable 1 view chest x-ray was obtained. On my interpretation, lung vargas are clear. There is normal cardiac silhouette. Bony thorax is normal. There is no acute process noted. Radiologist also interpreted the x-ray and agrees. COVID-19 rapid antigen was obtained and was negative. Patient was instructed to continue using her inhaler as needed. Patient was instructed to follow-up with her primary care physician in 3 to 5 days. Patient and family understood and were agreeable with the plan. All questions were answered. Lab Data Attestation: I reviewed the patient's lab results. Labs: Laboratory Results - last 24 hr 03/25/21 03/25/21 15:52 15:52 WBC 5.5 RBC 4.21 Hgb 13.7 Hct 41.8 MCV 99.3 H MCH 32.5 H MCHC 32.8 RDW Std Deviation 49.0 H RDW Coeff of Tiffany 13.3 Plt Count 302 MPV 8.5 Immature Gran % (Auto) 0.500 Neut % (Auto) 67.7 Lymph % (Auto) 12.8 L [place] % (Auto) 16.5 H Eos % (Auto) 1.8 Baso % (Auto) 0.7 Absolute Neuts (auto) 3.7 Absolute Lymphs (auto) 0.70 L Nucleated RBC % 0 Sodium 139 Potassium 3.9 Chloride 102 Carbon Dioxide 31.0 Anion Gap 6 BUN 15 Creatinine 0.78 Estim Creat Clear Calc 36.16 Est GFR (MDRD) Af Amer 91 Est GFR (MDRD) Non-Af 75 BUN/Creatinine Ratio 19.2 Glucose 100 Calcium 9.1 Total Bilirubin 0.30 AST 26 ALT 32 Alkaline Phosphatase 143 H Total Protein 7.5 Albumin 3.2 Globulin 4.3 H Albumin/Globulin Ratio 0.7 L Radiography Chest X-Ray - ED: 1 View, Read by ED Physician, Read by Radiologist and Normal Diagnostic Testing: Clinical Impression(s) from Imaging Studies Chest X-Ray 03/25/21 16:18 IMPRESSION: Nonacute portable x-ray examination of the chest. Electronically Signed: Judah Vu MD ([place]) at 16:35 EDT , Service support , Discharge Plan Triage Chief Complaint: Cough ED Provider: Murphy Perkins Dx/Rx/DC Orders Clinical Impression: Viral illness Instructions: ED Viral Syndrome (Adult) Prescriptions: No Action hydrochlorothiazide 12.5 mg tablet 12.5 mg PO DAILY RF: 0 lisinopril 2.5 mg tablet 2.5 mg PO DAILY RF: 0 vit A-vit C-vit [id number] 7,160-113-100 [id number] tablet 2 tab PO BID RF: 0 multivitamin 1 EACH tablet 1 ea PO DAILY RF: 0 aspirin 81 MG tablet,chewable 81 mg PO DAILY@0800 RF: 0 levothyroxine 75 MCG tablet 75 mg PO DAILY RF: 0 venlafaxine 37.5 mg capsule,extended release 24hr 75 mg PO DAILY RF: 0 acetaminophen 500 mg tablet 650 mg PO .QID RF: 0 atorvastatin 40 mg tablet 40 mg PO QHS RF: 0 Primary Care Provider: Russ Cardozo Referrals: Russ Cardozo MD [Primary Care Provider] - 3-5 Days Disposition Disposition: Home, Self Care
[2021-03-25 15:55] VITALS: BP 118/44; PULSE 85; RESP 16; TEMP 37; O2SAT 96
[2021-03-25 15:57] LABS: Absolute Neutrophil Count 3.7 X10^3/uL (2.0-7.7); Basophil# 0.04 X10^3/uL; Basophil% 0.7 % (0-1); Eosinophils% 1.8 % (0-5); Hematocrit 41.8 % (37-47); Hemoglobin 13.7 g/dL (12.0-15.0); Lymphocyte % 12.8 % (19-41); Mean Corp Hgb Conc 32.8 g/dL (32-36); Mean Corpuscular Hgb 32.5 pg (27.0-32.0); Mean Corpuscular Volume 99.3 fL (81-99); Mean Platelet Vol. 8.5 fl (6.2-12.0); Monocyte% 16.5 % (0-10); NRBC Flagged by Analyzer 0 % (0-5); Neutrophil # 3.69 X10^3/uL (2.7-7.7); Neutrophil % 67.7 % (47-70); Platelet Count 302 K/mm3 (150-450); RBC Distribution Width CV 13.3 % (11.6-14.6); Red Blood Count 4.21 M/mm3 (4.2-5.4); White Blood Count 5.5 K/mm3 (4.4-11.0)
[2021-03-25 16:16] LABS: ALB/GLOB Ratio 0.7 RATIO (0.9-2.4); AST(SGOT) 26 U/L (15-37); Alanine Aminotransfer ALT/SGPT 32 U/L (13-56); Albumin, Serum 3.2 g/dL (3.2-5.0); Alkaline Phosphatase 143 U/L (45-117); Anion Gap 6 (5-15); BUN 15 mg/dL (7-18); BUN/Creat Ratio 19.2 RATIO (10-20); Calcium,Total 9.1 mg/dL (8.5-10.1); Chloride 102 mmol/L (98-107); Creatinine, Serum 0.78 mg/dL (0.55-1.02); EST Glomerular Filtration Rate 75 mL/min (>60); Est Glom Filt Rate - Afr Amer 91 mL/min (>60); Estimated Creatinine Clearance 36.16 ml/min; Globulin 4.3 g/dL (2.2-4.2); Glucose 100 mg/dL (74-106); Potassium 3.9 mmol/L (3.5-5.1); Protein, Total 7.5 g/dL (6.4-8.2); Sodium Level 139 mmol/L (136-145)
--- NOTE | 2021-03-25 16:18 | RAD_ITS ---
STUDY: X-RAY CHEST REASON FOR EXAM: Female, 86 years old. Cough TECHNIQUE: AP COMPARISON: 11/13/2018 FINDINGS: The lungs are clear and expanded. There is no demonstrated pleural abnormality. Normal size heart. Normal mediastinum and keira. Normal visualized pulmonary arteries. There is atherosclerotic tortuosity of the aortic arch and descending thoracic aorta. No acute bony process. There is no demonstrated abnormality of the visualized soft tissue structures of the upper abdomen. RAD/Chest 1 View (Portable) IMPRESSION: Nonacute portable x-ray examination of the chest. Electronically Signed: Judah Vu MD ([place]) at 16:35 EDT , Service support ,
[2021-03-25 16:56] VITALS: BP 126/63; PULSE 88; RESP 16; TEMP 36.1; O2SAT 93
== END 2021-03-25 16:57 | disposition home or self-care (01) ==
PROVIDERS: Emergency Provider Emergency Medicine; PCP Family Medicine
DX: B34.9 Viral infection, unspecified (principal); I10 Essential (primary) hypertension; E78.5 Hyperlipidemia, unspecified; I44.7 Left bundle-branch block, unspecified; I47.2 Ventricular tachycardia; M19.90 Unspecified osteoarthritis, unspecified site; M06.9 Rheumatoid arthritis, unspecified; E66.9 Obesity, unspecified; Z68.31 Body mass index [BMI] 31.0-31.9, adult; Z20.822 Contact with and (suspected) exposure to COVID-19; Z79.82 Long term (current) use of aspirin; Z79.899 Other long term (current) drug therapy; Z86.73 Personal history of transient ischemic attack (TIA), and cerebral infarction without residual deficits
CPT/HCPCS: 71045; 80053; 85025; 87426; 99283; A4216

== ENCOUNTER → 2022-04-28 | Outpatient (CLI) | payer MEDICARE, OTHER, SELFPAY ==
[2022-04-28 14:57] LABS: Absolute Lymphocyte Count 2.59 X10^3/uL (0.83-4.51); Absolute Neutrophil Count 5.3 X10^3/uL (2.0-7.7); Basophil# 0.07 X10^3/uL; Basophil% 0.8 % (0-1); Eosinophil# 0.28 X10^3/uL; Hematocrit 41.4 % (37-47); Hemoglobin 13.2 g/dL (12.0-15.0); Lymphocyte # 2.59 X10^3/ul (0.83-4.51); Mean Corp Hgb Conc 31.9 g/dL (32-36); Mean Corpuscular Hgb 32.2 pg (27.0-32.0); Mean Platelet Vol. 8.7 fl (6.2-12.0); Monocyte# 0.98 X10^3/uL; Monocyte% 10.6 % (0-10); NRBC Flagged by Analyzer 0 % (0-5); Neutrophil # 5.28 X10^3/uL (2.7-7.7); Neutrophil % 57.2 % (47-70); Platelet Count 373 K/mm3 (150-450); RBC Distribution Width CV 13.2 % (11.6-14.6); RBC Distribution Width SD 49.4 fl (35.1-43.9); White Blood Count 9.2 K/mm3 (4.4-11.0)
[2022-04-28 15:43] LABS: AST(SGOT) 15 U/L (15-37); Alanine Aminotransfer ALT/SGPT 27 U/L (13-56); Alkaline Phosphatase 128 U/L (45-117); Anion Gap 7 (5-15); BUN 19 mg/dL (7-18); BUN/Creat Ratio 23.4 RATIO (10-20); Bilirubin, Direct 0.09 mg/dL (0.00-0.30); Calcium,Total 9.2 mg/dL (8.5-10.1); Chloride 102 mmol/L (98-107); Cholesterol 162 mg/dL (200); Creatinine, Serum 0.81 mg/dL (0.55-1.02); EST Glomerular Filtration Rate 71 mL/min (>60); Est Glom Filt Rate - Afr Amer 86 mL/min (>60); Globulin 3.9 g/dL (2.2-4.2); Glucose 100 mg/dL (74-106); High Density Lipoprotein 55 mg/dL; Magnesium 2.2 mg/dL (1.6-2.6); Potassium 3.9 mmol/L (3.5-5.1); Protein, Total 6.9 g/dL (6.4-8.2); Sodium Level 138 mmol/L (136-145); Thyroid Stim Hormone (TSH) 1.21 uIU/mL (0.358-3.74); Triglycerides 201 mg/dL; Very Low Density Lipoprotein 40 mg/dL (5-40)
== END | disposition home or self-care (01) ==
LOC: LAB 14:09
PROVIDERS: PCP Family Medicine; Visit Provider Internal Medicine Cardiovascular Disease
DX: I47.20 Ventricular tachycardia, unspecified (principal); I63.9 Cerebral infarction, unspecified; E78.5 Hyperlipidemia, unspecified; I10 Essential (primary) hypertension
CPT/HCPCS: 36415; 80048; 80061; 80076; 83735; 84443; 85025

== ENCOUNTER → 2022-10-13 | Outpatient (REF) | payer MEDICARE, OTHER, SELFPAY ==
[2022-10-13 07:13] LABS: Absolute Lymphocyte Count 2.29 X10^3/uL (0.83-4.51); Absolute Neutrophil Count 5.3 X10^3/uL (2.0-7.7); Basophil# 0.06 X10^3/uL; Basophil% 0.7 % (0-1); Eosinophil# 0.33 X10^3/uL; Eosinophils% 3.7 % (0-5); Hemoglobin 12.8 g/dL (12.0-15.0); Lymphocyte # 2.29 X10^3/ul (0.83-4.51); Lymphocyte % 25.4 % (19-41); Mean Corpuscular Hgb 32.4 pg (27.0-32.0); Mean Corpuscular Volume 101.3 fL (81-99); Mean Platelet Vol. 9.1 fl (6.2-12.0); Monocyte# 1.02 X10^3/uL; Monocyte% 11.3 % (0-10); NRBC Flagged by Analyzer 0 % (0-5); Neutrophil # 5.29 X10^3/uL (2.7-7.7); Neutrophil % 58.7 % (47-70); Platelet Count 355 K/mm3 (150-450); RBC Distribution Width CV 13.8 % (11.6-14.6); RBC Distribution Width SD 51.5 fl (35.1-43.9); Red Blood Count 3.95 M/mm3 (4.2-5.4)
[2022-10-13 07:42] LABS: ALB/GLOB Ratio 0.8 RATIO (0.9-2.4); AST(SGOT) 16 U/L (15-37); Alanine Aminotransfer ALT/SGPT 25 U/L (13-56); Albumin, Serum 2.7 g/dL (3.2-5.0); Alkaline Phosphatase 128 U/L (45-117); Anion Gap 3 (5-15); BUN 17 mg/dL (7-18); BUN/Creat Ratio 24.9 RATIO (10-20); Calcium,Total 8.7 mg/dL (8.5-10.1); Chloride 107 mmol/L (98-107); Cholesterol 149 mg/dL (200); Creatinine, Serum 0.68 mg/dL (0.55-1.02); EST Glomerular Filtration Rate 87 mL/min (>60); Est Glom Filt Rate - Afr Amer 105 mL/min (>60); Globulin 3.6 g/dL (2.2-4.2); Glucose 108 mg/dL (74-106); High Density Lipoprotein 51 mg/dL; Potassium 4.5 mmol/L (3.5-5.1); Protein, Total 6.3 g/dL (6.4-8.2); Sodium Level 141 mmol/L (136-145); Triglycerides 184 mg/dL; Very Low Density Lipoprotein 37 mg/dL (5-40)
[2022-10-13 09:22] LABS: Hemoglobin A1c 6.2 % (3.8-5.6)
== END ==
LOC: OLS.DANBUR 05:00
PROVIDERS: PCP Family Medicine; Visit Provider Family Medicine
DX: I10 Essential (primary) hypertension (principal); E03.9 Hypothyroidism, unspecified; Z79.899 Other long term (current) drug therapy
CPT/HCPCS: 36415; 80053; 80061; 83036; 84443; 85025

== ENCOUNTER 2023-05-26 11:20 | Emergency (ER) | payer MEDICARE, OTHER, SELFPAY ==
[2023-05-26 11:21] VITALS: BP 136/70; PULSE 104; RESP 27; TEMP 36.6; O2SAT 96; BMI 34.2
--- OUTSIDE RECORDS SUMMARY | 2023-05-26 12:04 | XMS RPT_ITS | CCD ---
Author Name Unknown Address [address] [place] [address] Organization [facility] Care Team Providers Care Gas Leak Tester Name Role Phone Zia Echeverria MD Primary Care Provider ZIA ECHEVERRIA Primary Care Unavailable ZIA ECHEVERRIA Attending Unavailable ZIA ECHEVERRIA Primary Care Unavailable ALLISON WEINSTEIN Attending Unavailable ZIA ECHEVERRIA Primary Care Unavailable ZIA ECHEVERRIA Attending Unavailable ZIA ECHEVERRIA Primary Care Unavailable DUTCH OLVERA Referring Unavailable ZIA ECHEVERRIA Primary Care Unavailable Allergies Allergy Classification Reported Allergen(s) Allergy Type Date of Onset Reaction(s) Facility (18 sources) Erythromycin; Translations: [ERYTHROMYCIN] Drug Allergy 6 Itching [facility] (18 sources) Sulfamethoxazole / Trimethoprim; Translations: [SULFAMETHOXAZOLE-TR IMETHOPRIM] Drug [facility] Work Phone: (18 sources) Sulfonamides (Antibiotic); Translations: [SULFA (SULFONAMIDE ANTIBIOTICS)] Propensity to adverse reactions 6 [facility] Medications Current Medications Medication Drug Class(es) Dates Sig (Normalized) Sig (Original) ciprofloxacin 250 mg oral tablet (1 source) Quinolone Antimicrobial Start: 03-01-2022 End: 03-04-2022 take 1 tablet by mouth twice daily ciprofloxacin HCl (CIPRO) 250 mg tablet Take 1 tablet by mouth twice daily for 3 days. 6 tablet 0 03/01/2022 03/04/2022 Active Completed/Discontinued Medications Medication Drug Class(es) Dates Sig (Normalized) Sig (Original) acetaminophen 325 mg oral tablet (17 sources) Start: 12-13-2010 take 2 tablets by mouth every four hours as needed acetaminophen (TYLENOL) 325 mg tablet Take 2 tablets by mouth every 4 hours as needed. 0 12/13/2010 Active Problems Active Problems Problem Classification Problem Date Documented Date Episodic/Chronic Acute cerebrovascular disease (19 sources) Cerebrovascular accident; Translations: [Cerebral infarction, unspecified] Onset: 9 01-18-2019 Chronic Cardiac dysrhythmias (16 sources) Paroxysmal ventricular tachycardia; Translations: [Ventricular tachycardia] Onset: 9 01-21-2019 Chronic Diabetes mellitus without complication (20 sources) Prediabetes; Translations: [Prediabetes] Onset: 1 03-28-2021 Episodic Disorders of lipid metabolism (19 sources) Mixed hypercholesterolemia and hypertriglyceridemia; Translations: [Mixed hyperlipidemia] Onset: 5 03-31-2015 Chronic Essential hypertension (20 sources) Benign essential hypertension; Translations: [Essential (primary) hypertension] Onset: 0 Chronic Genitourinary symptoms and ill-defined conditions (1 source) Urinary incontinence; Translations: [Unspecified urinary incontinence] Chronic Mood disorders (20 sources) Depressive disorder; Translations: [Depression] Onset: 1 04-05-2021 Chronic Mycoses (1 source) Candidiasis; Translations: [Other sites of candidiasis] 03-17-2023 Episodic Osteoarthritis (20 sources) Osteoarthritis of knee; Translations: [Unilateral primary osteoarthritis, unspecified knee] Onset: 9 05-12-2009 Chronic Osteoporosis (17 sources) Osteoporosis; Translations: [Age-related osteoporosis without current pathological fracture] Onset: 6 09-26-2016 Chronic Other injuries and conditions due to external causes (1 source) Hematoma; Translations: [Other injury of unspecified body region, initial encounter] 12-15-2022 Episodic Other lower respiratory disease (1 source) Cough; Translations: [Acute cough] Episodic Spondylosis; intervertebral disc disorders; other back problems (20 sources) Lumbar spondylosis; Translations: [Spondylosis without myelopathy or radiculopathy, lumbar region] Onset: 0 05-11-2010 Chronic Thyroid disorders (20 sources) Hypothyroidism caused by drug; Translations: [Hypothyroidism due to medicaments and other exogenous substances] Onset: 9 03-23-2019 Chronic Unclassified (1 source) Acute cough; Translations: [Acute cough] Onset: Past or Other Problems Problem Classification Problem Date Documented Date Episodic/Chronic Cancer of uterus (17 sources) H/O: malignant neoplasm; Translations: [Personal history of malignant neoplasm of other parts of uterus] Onset: 02-25-2008 02-25-2008 Episodic Noninfectious gastroenteritis (18 sources) Idiopathic colitis; Translations: [Noninfective gastroenteritis and colitis, unspecified] Onset: 07-22-2016 07-22-2016 Episodic Other and unspecified benign neoplasm (17 sources) Benign neoplasm of adrenal gland; Translations: [Benign neoplasm of unspecified adrenal gland] Onset: 08-31-2007 08-31-2007 Episodic Results Test Name Value Interpretation Reference Range Facil ity Vital Signs Date Time Vital Sign Value Performing Clinician Faci lity 04-17-2023 13:14-0500 Body weight 89.36 kg Zia Echeverria MD Work Phone: [facility] 04-17-2023 13:14-0500 Diastolic blood pressure 70 mm[Hg] Zia Echeverria MD Work Phone: [facility] 04-17-2023 13:14-0500 Heart rate 80 /min Zia Echeverria MD Work Phone: [facility] 04-17-2023 13:14-0500 Respiratory rate 18 /min Zia Echeverria MD Work Phone: [facility] 04-17-2023 13:14-0500 Systolic blood pressure 124 mm[Hg] Zia Echeverria MD Work Phone: [facility] 12-15-2022 11:31-0400 Diastolic blood pressure 86 mm[Hg] Allison Weinstein CORPORATE EVENTS DIRECTOR.[employer] Work Phone: [facility] 12-15-2022 11:31-0400 Heart rate 96 /min Allison Weinstein CORPORATE EVENTS DIRECTOR.[employer]IST Work Phone: [facility] 12-15-2022 11:31-0400 Respiratory rate 16 /min Allison Weinstein CORPORATE EVENTS DIRECTOR.[employer] Work Phone: [facility] 12-15-2022 11:31-0400 SaO2% (BldA) [Mass fraction] 95 % Allison Weinstein CORPORATE EVENTS DIRECTOR.[employer] Work Phone: [facility] 12-15-2022 11:31-0400 Systolic blood pressure 132 mm[Hg] Allison Weinstein CORPORATE EVENTS DIRECTOR.[employer] Work Phone: [facility] 09-23-2022 09:16-0400 Body temperature 97.9 [degF] Dutch Olvera MD Work Phone: [facility] 09-23-2022 09:16-0400 Body weight 88.27 kg Dutch Olvera MD Work Phone: [facility] 09-23-2022 09:16-0400 Diastolic blood pressure 68 mm[Hg] Dutch Olvera MD Work Phone: [facility] 09-23-2022 09:16-0400 Heart rate 94 /min Dutch Olvera MD Work Phone: [facility] 09-23-2022 09:16-0400 Respiratory rate 18 /min Dutch Olvera MD Work Phone: [facility] 09-23-2022 09:16-0400 SaO2% (BldA) [Mass fraction] 94 % Dutch Olvera MD Work Phone: [facility] 09-23-2022 09:16-0400 Systolic blood pressure 122 mm[Hg] Dutch Olvera MD Work Phone: [facility] 04-18-2022 11:07-0500 Body weight 86.91 kg Zia Echeverria MD Work Phone: [facility] 04-18-2022 11:07-0500 Diastolic blood pressure 72 mm[Hg] Zia Echeverria MD Work Phone: [facility] 04-18-2022 11:07-0500 Heart rate 80 /min Zia Echeverria MD Work Phone: [facility] 04-18-2022 11:07-0500 Respiratory rate 16 /min Zia Echeverria MD Work Phone: [facility] 04-18-2022 11:07-0500 Systolic blood pressure 118 mm[Hg] Zia Echeverria MD Work Phone: [facility] Encounters Encounter Date Encounter Type Care Provider Facility Start: 04-17-2023 End: 04-17-2023 ambulatory ZIA ECHEVERRIA Facility:[facility] Start: 04-17-2023 End: 04-17-2023 Patient encounter procedure Zia Echeverria MD Work Phone: [facility] Plan of Treatment Date Care Activity Detail Author Start: 10-13-2025 DIABETES SCREEN DIABETES SCREEN [facility] Start: 10-13-2025 Diabetes Screening Diabetes Screening [facility] Start: 04-11-2025 DIABETES SCREEN DIABETES SCREEN [facility] Start: 10-04-2024 DIABETES SCREEN DIABETES SCREEN [facility] Start: 10-16-2023 End: 01-15-2024 Comprehensive metabolic 2000 panel - Serum or Plasma COMP METABOLIC PANEL Lab Routine Hypothyroidism due to medication Essential hypertension, benign Hypercholesterolemia with hypertriglyceridemia Prediabetes Expected: 10/16/2023 (Approximate), Expires: 01/15/2024 [facility] Work Phone: Immunizations Immunization Date Immunization Notes Care Provider Fa [facility] 04-10-2023 COVID-19 vaccine, unspecified formulation Zia Echeverria MD Work Phone: [facility] 03-22-2023 influenza, high dose seasonal, preservative-free Zia Echeverria MD Work Phone: [facility] 03-29-2022 COVID-19 booster vaccine, age 12+ yr, bivalent (PFIZER-BIONTECH) Zia Echeverria MD Work Phone: [facility] 03-29-2022 influenza, high dose seasonal, preservative-free Zia Echeverria MD Work Phone: [facility] 03-29-2022 influenza virus vacc ine, unspecified formulation Nba Valero APRN.[employer] Work Phone: [facility] 06-10-2021 COVID-19 vaccine, ag e 12+ yr (PFIZER-BIONTECH - PURPLE TOP) Yassine Bragg APRN.[employer], DNP Work Phone: [facility] 04-05-2021 influenza, high-dose , quadrivalent vaccine (FLUZONE HIGH DOSE QUADRIVALENT) Yassine Bragg APRN.[facility] Work Phone: [facility] 07-24-2020 COVID-19 vaccine, fu ll dose (MODERNA) Yassine Bragg APRN.[facility] Work Phone: [facility] 06-26-2020 COVID-19 vaccine, fu ll dose (MODERNA) Yassine Bragg APRN.[facility] Work Phone: [facility] 03-19-2019 influenza, high dose seasonal, preservative-free Yassine Bragg APRN.[facility] Work Phone: [facility] 08-18-2015 pneumococcal conjuga te vaccine, 13 valent Yassine Bragg APRN.[facility] Work Phone: [facility] 02-24-2012 influenza virus vacc ine, unspecified formulation Yassine Bragg APRN.[facility] Work Phone: [facility] 03-12-2010 influenza virus vacc ine, unspecified formulation Yassine Bragg APRN.[facility] Work Phone: [facility] Work Phone: 10-27-2009 pneumococcal polysaccharide vaccine, 23 valent Zia Echeverria MD Work Phone: [facility] 06-16-2009 tetanus and diphther ia toxoids, adsorbed, preservative free, for adult use (2 Lf of tetanus toxoid and 2 Lf of diphtheria toxoid) Yassine Bragg APRN.[facility] Work Phone: [facility] 05-14-2008 zoster vaccine, live Yassine Bragg APRN.[facility] Work Phone: [facility] 04-25-2005 pneumococcal polysaccharide vaccine, 23 valent Yassine Bragg APRN.[facility] Work Phone: [facility] 02-02-1999 diphtheria and tetan us toxoids, adsorbed for pediatric use Yassine Bragg APRN.[employer], DNP Work Phone: [facility] Payers Date Payer Category Payer Medicare MEDICARE MEDICAR E A AND B [id number] 2002-Present [phone] [place] [address] Medicare [id number] 2002 Medicare MEDICARE MEDICAR E A AND B [id number] 2002-Present [phone] [place] [address] Medicare [id number] 2002 Medicare [id number] Social History Date Type Detail Facility Start: 09-16-2011 Tobacco smoking stat [facility] Never smoked tobacco [facility] Start: 10-11-2021 End: 04-17-2023 Alcohol intake Current drinker of alcohol (finding) [facility] Start: 10-11-2021 End: 10-18-2022 Alcohol intake [facility] Start: 1935 Sex Assigned At Not on file [facility] Start: 09-16-2011 Tobacco use and exposure Smokeless tobacco non-user [facility] Work Phone: Start: 1935 Sex Assigned At Female [facility] Start: 04-08-2022 End: 04-18-2022 Exposure to SARS-CoV-2 (event) Not sure [facility] Start: 10-18-2022 End: 12-15-2022 Tobacco use panel [facility] National Score (1-100), lower number is lower risk 66 [facility] Start: 02-01-2022 Gender identity Identifies as female gender (finding) [facility] Clinical Notes 09-26-2016 to 04-17-2023 Zia Echeverria MD - 04/17/2023 1:20 PM ESTTelephone Encounter - Nba Valero APRN.CNP - 03/17/2023 10:27 AM EDTTelephone Encounter - Zaida Johnson Ma - 03/17/2023 10:11 AM EDT Note Date & Type Note Facility 04-17-2023 Note HNO ID: [id number] Author: Zia Echeverria MD Service: ? Author Type: Physician Type: Progress Notes Filed: 04/17/2023 2:15 PM Note Text: Chief Complaint Patient presents with: F/U 6 Month HPI Keli Simmons is a 88 year old female who presents here today for 6 month follow up. Pt here today for a 6 month follow up. Lives in [facility], doing well there. Here with Daughter, Ila. No bowel, Gi, or urinary issues. Does use Imodium prn and MOM as needed. HTN: Takes Lisinopril 2.5 mg daily. Checks BP daily by Nursing staff, BP ranging from 117-140's/69-91. No chest pains, dizziness, or SOB. Lipid/CVA/Glucose: Denies watching her diet. Does do chair exercises and tries to do all the activities that are offered. Daughter states that her main mode of transportation is with the wheelchair. Daughter tells her to walk in her room, but occasionally staff will push her in her chair. Has not used the walker. Admits she walks as much as she cares too. Taking Lipitor 40 mg daily. Tolerating well. Also takes ASA 81 mg daily. Currently on no medication for pre-diabetes. Depression/CAMRYN: Stable with Effexor xr 150 mg daily. Doing well on medication, with no side effects. Thyroid: Taking Synthroid 75 mcg daily. Denies any missed dosages. Asking about recent lab results. [place] gives patient her medications. Pt is able to walk in her room with walker and able to get on/off toilet. She is able to shower with assistance. HM - Received Flu and Covid through [facility]. Past medical history, appointments, medications, allergies reviewed. Previous Medical History PAST MEDICAL HISTORY Diagnosis Date Anemia Anxiety Degenerative arthritis of lumbar spine 05/11/2010 Diverticulosis of colon (without mention of hemorrhage) Essential hypertension, benign 2008 External hemorrhoids without mention of complication Generalized osteoarthrosis, unspecified site GERD (gastroesophageal reflux disease) Hypercholesterolemia with hypertriglyceridemia 03/31/2015 Leiomyoma of uterus, unspecified MALIG HE CORPUS UTERI 02/08/2007 Osteoporosis, unspecified 10/25/2005 Other and unspecified hyperlipidemia Other and unspecified ovarian cyst 05/09/2006 Previous Surgical History PAST SURGICAL HISTORY Procedure Laterality Date ARTHRP KNE CONDYLEANDPLATU MEDIALANDLAT COMPARTMENTS 03/10/2014 Knee replacement, total (left) CHOLECYSTECTOMY Cholecystectomy COLONOSCOPY FLX DX W/COLLJ SPEC WHEN PFRMD 2007 HOLTER MONITOR 24 HOUR HYSTERECTOMY HX 2006 PAST SURGICAL HISTORY OF 02/2001 FOOT SURGERY REM LESION TRUNK,ARM, LEG <0.5 CM 11/11/2009 Exc. left anterior chest skin lesion REM LESION TRUNK,ARM,LEG 0.6 -1.0CM Left 02/10/16 Exc. left olecrenon skin lesion SKIN GRAFT HX 1938 to bilateral hands TONSILLECTOMY PRIMARY/SECONDARY Tonsillectomy Family History FAMILY HISTORY Problem Relation Age of Onset Heart Mother Stroke Mother Heart Son Alcohol/Drug Father Arthritis Father other (sepsis) Father Diabetes Maternal Aunt Heart Brother Patient Allergies ALLERGIES Allergen Reactions Erythromycin Itching Septra [Sulfamethox* Itching Sulfa (Sulfonamide * Itching Current Medications Current Outpatient Medications on File Prior to Visit Medication Sig levothyroxine (SYNTHROID) 75 mcg tablet Take 1 tablet by mouth once daily. Take on empty stomach. For Thyroid nystatin (NYSTOP) powder Apply 1 application to affected area two times a day. APPLY TOPICALLY TO MOISTENED AREAS TWICE DAILY atorvastatin (LIPITOR) 40 mg tablet TAKE 1 TABLET BY MOUTH DAILY AT BEDTIME. FOR CHOLESTEROL venlafaxine ER (EFFEXOR XR) 150 mg 24 hr capsule take 1 capsule by mouth once daily lisinopril 2.5 mg tablet Take 1 tablet by mouth once daily. 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 Loperamide HCl (IMODIUM) 2 mg tab Take 1 tablet by mouth as needed. magnesium hydroxide (MILK OF MAGNESIA) 400 mg/5 mL suspension Take 15 mL by mouth once daily as needed for Constipation. (Patient not taking: Reported on 12/15/2022) MULTIVIT WITH CALCIUM,IRON,MIN (WOMEN'S MULTIPLE VITAMINS ORAL) Take by mouth once daily. VIT C/VIT E/LUTEIN/MIN/OMEGA-3 (OCUVITE ORAL) Take by mouth. acetaminophen (TYLENOL) 325 mg tablet Take 2 tablets by mouth every 4 hours as needed. No current facility-administered medications on file prior to visit. Social History Social History Tobacco Use Smoking status: Never Smokeless tobacco: Never Substance Use Topics Alcohol use: Yes Alcohol/week: 2.5 standard drinks of alcohol Types: 1 Glasses of Wine (5oz) per week Drug use: No EXAM: BP 124/70 (BP Site: Left Arm, BP Position: Sitting, BP Cuff Size: Large Adult) Pulse 80 Resp 18 Wt 89.4 kg (197 lb) BMI 34.90 kg/m? General (more content not included)... [facility] 04-17-2023 History of Present illness Narrative Chief Complaint Patient presents with: F/U 6 Month HPI Keli Simmons is a 88 year old female who presents here today for 6 month follow up. Pt here today for a 6 month follow up. Lives in [facility], doing well there. Here with Daughter, Ila. No bowel, Gi, or urinary issues. Does use Imodium prn and MOM as needed. HTN: Takes Lisinopril 2.5 mg daily. Checks BP daily by Nursing staff, BP ranging from 117-140's/69-91. No chest pains, dizziness, or SOB. Lipid/CVA/Glucose: Denies watching her diet. Does do chair exercises and tries to do all the activities that are offered. Daughter states that her main mode of transportation is with the wheelchair. Daughter tells her to walk in her room, but occasionally staff will push her in her chair. Has not used the walker. Admits she walks as much as she cares too. Taking Lipitor 40 mg daily. Tolerating well. Also takes ASA 81 mg daily. Currently on no medication for pre-diabetes. Depression/CAMRYN: Stable with Effexor xr 150 mg daily. Doing well on medication, with no side effects. Thyroid: Taking Synthroid 75 mcg daily. Denies any missed dosages. Asking about recent lab results. [place] gives patient her medications. Pt is able to walk in her room with walker and able to get on/off toilet. She is able to shower with assistance. HM - Received Flu and Covid through [place]. Past medical history, appointments, medications, allergies reviewed. Previous Medical History PAST MEDICAL HISTORY Diagnosis Date Anemia Anxiety Degenerative arthritis of lumbar spine 05/11/2010 Diverticulosis of colon (without mention of hemorrhage) Essential hypertension, benign 2009 External hemorrhoids without mention of complication Generalized osteoarthrosis, unspecified site GERD (gastroesophageal reflux disease) Hypercholesterolemia with hypertriglyceridemia 03/31/2015 Leiomyoma of uterus, unspecified MALIG HE CORPUS UTERI 02/08/2007 Osteoporosis, unspecified 10/25/2005 Other and unspecified hyperlipidemia Other and unspecified ovarian cyst 05/09/2006 Previous Surgical History PAST SURGICAL HISTORY Procedure Laterality Date ARTHRP KNE CONDYLE&PLATU MEDIAL&LAT COMPARTMENTS 03/10/2014 Knee replacement, total (left) CHOLECYSTECTOMY Cholecystectomy COLONOSCOPY FLX DX W/COLLJ SPEC WHEN PFRMD 2007 HOLTER MONITOR 24 HOUR HYSTERECTOMY HX 2006 PAST SURGICAL HISTORY OF 02/2001 FOOT SURGERY REM LESION TRUNK,ARM, LEG <0.5 CM 11/11/2009 Exc. left anterior chest skin lesion REM LESION TRUNK,ARM,LEG 0.6 -1.0CM Left 02/10/16 Exc. left olecrenon skin lesion SKIN GRAFT HX 1938 to bilateral hands TONSILLECTOMY PRIMARY/SECONDARY <AGE 12 1945 Tonsillectomy Family History FAMILY HISTORY Problem Relation Age of Onset Heart Mother Stroke Mother Heart Son Alcohol/Drug Father Arthritis Father other (sepsis) Father Diabetes Maternal Aunt Heart Brother Patient Allergies ALLERGIES Allergen Reactions Erythromycin Itching Septra [Sulfamethox* Itching Sulfa (Sulfonamide * Itching Current Medications Current Outpatient Medications on File Prior to Visit Medication Sig levothyroxine (SYNTHROID) 75 mcg tablet Take 1 tablet by mouth once daily. Take on empty stomach. For Thyroid nystatin (NYSTOP) powder Apply 1 application to affected area two times a day. APPLY TOPICALLY TO MOISTENED AREAS TWICE DAILY atorvastatin (LIPITOR) 40 mg tablet TAKE 1 TABLET BY MOUTH DAILY AT BEDTIME. FOR CHOLESTEROL venlafaxine ER (EFFEXOR XR) 150 mg 24 hr capsule take 1 capsule by mouth once daily lisinopril 2.5 mg tablet Take 1 tablet by mouth once daily. 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 Loperamide HCl (IMODIUM) 2 mg tab Take 1 tablet by mouth as needed. magnesium hydroxide (MILK OF MAGNESIA) 400 mg/5 mL suspension Take 15 mL by mouth once daily as needed for Constipation. (Patient not taking: Reported on 12/15/2022) MULTIVIT WITH CALCIUM,IRON,MIN (WOMEN'S MULTIPLE VITAMINS ORAL) Take by mouth once daily. VIT C/VIT E/LUTEIN/MIN/OMEGA-3 (OCUVITE ORAL) Take by mouth. acetaminophen (TYLENOL) 325 mg tablet Take 2 tablets by mouth every 4 hours as needed. No current facility-administered medications on file prior to visit. Social History Social History Tobacco Use Smoking status: Never Smokeless tobacco: Never Substance Use Topics Alcohol use: Yes Alcohol/week: 2.5 standard drinks of alcohol Types: 1 Glasses of Wine (5oz) per week Drug use: No EXAM: BP 124/70 (BP Site: Left Arm, BP Position: Sitting, BP Cuff Size: Large Adult) Pulse 80 Resp 18 Wt 89.4 kg (197 lb) BMI 34.90 kg/m General Appearance: Well appearing, alert, in no acute distress, well-hydrated, well nourished and Obese. In personal wheelchair today. Neck: Supple, no adenopathy; thyroid symmetric, normal size, no bruits. Lungs: Lungs clear to auscultation. No wheezing, rhonchi, rales.. Heart: RRR without murmur, gallop, or rubs. No ectopy. Health Maintenance List RSV Vaccine(1 - 1-dose 60+ series) Never done Shingrix Vaccine(2 of 3) due on 07/09/2008 DTaP,Tdap,Td Vaccine(3 - Tdap) due on 06/16/2019 Influenza Vaccine(1) due on 01/27/2023 Covid-19 Vaccine(5 - 2022- season) due on 01/27/2023 Diabetes Screening due on 10/13/2025 Bone Density Screening Completed Advance Directive Discussion Completed Pneumococcal Vaccine: 65+ Completed Data reviewed External labs completed; TSH normal, Glu 101 ASSESSMENT/PLAN: 1. Hypothyroidism due to medication - ICD9: 244.8, E980.5, ICD10: E03.2 (primary diagnosis) - Instructed patient on importance of taking on an empty stomach either first thing in the morning or at bedtime. - check TSH in 6 months 2. Essential hypertension, benign - ICD9: 401.1, ICD10: I10 - Controlled - Continue current medications - Recommend home blood pressure monitoring, to bring results to next visit - Encouraged sodium restriction, DASH or Mediterranean diet - Recommend regular aerobic exercise 3. Hypercholesterolemia with hypertriglyceridemia - ICD9: 272.2, ICD10: E78.2 - Controlled - Continue current medications - Counseled on healthy diet and regular exercise 4. Prediabetes - ICD9: 790.29, ICD10: R73.03 - Stable, continue watching diet and exercise. - Monitor labs. 5. Depression, unspecified depression type - ICD9: 311, ICD10: F32.A - Stable on current regimen 6. Cerebrovascular accident (CVA), unspecified mechanism (HCC) - ICD9: 434.91, ICD10: I63.9 - Stable - Continue current medication regimen. - Continue to watch diet/exercise 6 mo f/u with labs. Will print lab orders to give to daughter today. I agree with the Chief Complaint, ROS, and Past Histories independently gathered by the clinical academic support specialist and the remaining scribed note accurately describes my personal service to the patient. Medical Decision Making: Problems: Moderate: 2+ stable chronic illnesses Data: Unique test result(s) reviewed: 3+ Risk: Moderate: Drug management Medical Decision Making Level: 4 - Moderate Zia Echeverria MD The documentation for this note was completed by Summer Dolan Ma acting as scribe for Zia Echeverria MD. April 17, 2023 1:17 PM. Summer Dolan Ma documented in this encounter [facility] 03-17-2023 Miscellaneous Notes The following approved medication requests have been transmitted electronically. Requested Prescriptions Pending Prescriptions Disp Refills levothyroxine (SYNTHROID) 75 mcg tablet 90 tablet 3 Sig: Take 1 tablet by mouth once daily. Take on empty stomach. For Thyroid Nba Valero APRN.CNP Patient last visit 12/15/22 Follow up appointment scheduled 04/17/23 Zaida Johnson Ma Patient has been identified by name and date of : Yes Requested Prescriptions Pending Prescriptions Disp Refills levothyroxine (SYNTHROID) 75 mcg tablet 90 tablet 3 Sig: Take 1 tablet by mouth once daily. Take on empty stomach. For Thyroid RX INSTRUCTIONS: Patient aware RX will be sent to pharmacy. No need to notify patient. Rochelle Pendleton documented in this encounter [facility] 03-17-2023 Miscellaneous Notes The following approved medication requests have been transmitted electronically. Requested Prescriptions Pending Prescriptions Disp Refills nystatin (NYSTOP) powder 30 g 2 Sig: Apply 1 application to affected area two times a day. APPLY TOPICALLY TO MOISTENED AREAS TWICE DAILY Nba Valero APRN.CNP Patient last visit 12/15/22 Follow up appointment scheduled 04/17/23 Zaida Johnson Ma Patient has been identified by name and date of : Yes nystatin (NYSTOP) powder (Discontinued) 30 g 2 RX INSTRUCTIONS: Patient aware RX will be sent to pharmacy. No need to notify patient. Rochelle Pendleton documented in this encounter [facility] 03-14-2023 Miscellaneous Notes The following approved medication requests have been transmitted electronically. Requested Prescriptions Pending Prescriptions Disp Refills atorvastatin (LIPITOR) 40 mg tablet [Pharmacy Med Name: ATORVASTATIN 40 MG TABLET] 90 tablet 3 Sig: TAKE 1 TABLET BY MOUTH DAILY AT BEDTIME. FOR CHOLESTEROL venlafaxine ER (EFFEXOR XR) 150 mg 24 hr capsule [Pharmacy Med Name: VENLAFAXINE HCL ER 150 MG CAP] 90 capsule 3 Sig: take 1 capsule by mouth once daily Nba Valero APRN.[employer] G[employer]EN[employer] SPECIALIST Patient has been identified by name and date of : Yes, Pharmacy phones for refill(s): Requested Prescriptions Pending Prescriptions Disp Refills atorvastatin (LIPITOR) 40 mg tablet [Pharmacy Med Name: ATORVASTATIN 40 MG TABLET] 90 tablet 3 Sig: TAKE 1 TABLET BY MOUTH DAILY AT BEDTIME. FOR CHOLESTEROL venlafaxine ER (EFFEXOR XR) 150 mg 24 hr capsule [Pharmacy Med Name: VENLAFAXINE HCL ER 150 MG CAP] 90 capsule 3 Sig: take 1 capsule by mouth once daily Date of last office visit in primary care: 10/18/2022 Date of next office visit in primary care: 04/17/2023 Please advise. Thank you. Terra Rodas LPN. documented in this encounter [facility] 12-15-2022 Note HNO ID: [id number] Author: Allison Weinstein APRN.[employer] G[employer]EN[employer] SPECIALIST Service: ? Author Type: Nurse Practitioner Type: Progress Notes Filed: 12/15/2022 12:02 PM Note Text: This is a 87 year old female who presents today with: Patient presents with: Acute Visit: sore on right thigh HISTORY OF PRESENT ILLNESS: Keli Simmons is a 87 year old female. Patient presents with: Acute Visit: sore on right thigh Here in the office for skin lesion on right outer thigh. LTCF noticed it when showering her. Not tender or itchy. Sitting in a wheelchair most of the day. PAST MEDICAL HISTORY: PAST MEDICAL HISTORY Diagnosis Date Anemia Anxiety Degenerative arthritis of lumbar spine 05/11/2010 Diverticulosis of colon (without mention of hemorrhage) Essential hypertension, benign 2008 External hemorrhoids without mention of complication Generalized osteoarthrosis, unspecified site GERD (gastroesophageal reflux disease) Hypercholesterolemia with hypertriglyceridemia 03/31/2015 Leiomyoma of uterus, unspecified MALIG HE CORPUS UTERI 02/08/2007 Osteoporosis, unspecified 10/25/2005 Other and unspecified hyperlipidemia Other and unspecified ovarian cyst 05/09/2006 PAST SURGICAL HISTORY Procedure Laterality Date ARTHRP KNE CONDYLEANDPLATU MEDIALANDLAT COMPARTMENTS 03/10/2014 Knee replacement, total (left) CHOLECYSTECTOMY Cholecystectomy COLONOSCOPY FLX DX W/COLLJ SPEC WHEN PFRMD 2007 HOLTER MONITOR 24 HOUR HYSTERECTOMY HX 2006 PAST SURGICAL HISTORY OF 02/2001 FOOT SURGERY REM LESION TRUNK,ARM, LEG <0.5 CM 11/11/2009 Exc. left anterior chest skin lesion REM LESION TRUNK,ARM,LEG 0.6 -1.0CM Left 02/10/16 Exc. left olecrenon skin lesion SKIN GRAFT HX 1938 to bilateral hands TONSILLECTOMY PRIMARY/SECONDARY Tonsillectomy ALLERGIES Erythromycin, Septra [Sulfamethoxazole-Trimethoprim], and Sulfa (Sulfonamide Antibiotics) MEDICATIONS Current Outpatient Medications Medication Sig lisinopril 2.5 mg tablet Take 1 tablet by mouth once daily. atorvastatin (LIPITOR) 40 mg tablet Take 1 tablet by mouth daily at bedtime. For cholesterol. venlafaxine ER (EFFEXOR XR) 150 mg 24 hr capsule Take 1 capsule by mouth once daily. levothyroxine (SYNTHROID) 75 mcg tablet Take 1 tablet by mouth once daily. Take on empty stomach. 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 Loperamide HCl (IMODIUM) 2 mg tab Take 1 tablet by mouth as needed. magnesium hydroxide (MILK OF MAGNESIA) 400 mg/5 mL suspension Take 15 mL by mouth once daily as needed for Constipation. MULTIVIT WITH CALCIUM,IRON,MIN (WOMEN'S MULTIPLE VITAMINS ORAL) Take by mouth once daily. VIT C/VIT E/LUTEIN/MIN/OMEGA-3 (OCUVITE ORAL) Take by mouth. acetaminophen (TYLENOL) 325 mg tablet Take 2 tablets by mouth every 4 hours as needed. No current facility-administered medications for this visit. FAMILY HISTORY Problem Relation Age of Onset Heart Mother Stroke Mother Heart Son Alcohol/Drug Father Arthritis Father other (sepsis) Father Diabetes Maternal Aunt Heart Brother Social History Tobacco Use Smoking status: Never Smokeless tobacco: Never Substance Use Topics Alcohol use: Yes Alcohol/week: 2.5 standard drinks of alcohol Types: 1 Glasses of Wine (5oz) per week Drug use: No REVIEW OF SYSTEMS GENERAL: No weight loss, malaise or fevers/chills HEENT: Negative for frequent or significant headaches, No changes in hearing or vision. NECK: Negative for lumps, goiter, pain and significant neck swelling RESPIRATORY: Negative for cough, hemoptysis, wheezing, dyspnea or shortness of breath CARDIOVASCULAR: Negative for chest pain, leg swelling, orthopnea, or palpitations GI: No nausea, vomiting, or diarrhea/constipation. No hematochezia/melena. No heartburn or reflux symptoms. : No history of dysuria, frequency or incontinence MUSCULOSKELETAL: Negative for joint pain or swelling. SKIN: + Skin Lesion Right Thigh ENDOCRINE: Negative for cold or heat intolerance, polyuria, polydipsia and goiter NEURO: No history of headaches, syncope, paralysis, seizures or tremors MOOD: Negative for depression, anxiety, or suicidal ideation. EXAM: BP 132/86 Pulse 96 Resp 16 SpO2 95% PHYSICAL EXAM: General Appearance: Well appearing, alert, in no acute distress, well-hydrated, well nourished. Skin: 5x4 cm , elevated mobile mass noted on right upper thigh, no ecchymosis or erythema noted. Non-tender. No crusting. Head: Normocephalic, no masses, lesions, tenderness or abnormalities. Eyes: Anicteric sclera. Extraocular movements are intact. Extremities: No deformities, edema, skin discoloration, clubbing or cyanosis. Good capillary refill. Peripheral Pulses: Normal, Capillary refill <2secs, strong peripheral pulses, Pulses palpable. (more content not included)... [facility] 12-15-2022 Instructions Allison Weinstein APRN.CNP - 12/15/2022 11:44 AM EDT Lesion on the thigh is consistent with hematoma. Continue supportive care at home. May use a bad in the wheelchair to prevent rubbing May consider ultrasound in the future if lesion gets larger or tender. Follow up if no improvement. documented in this encounter [facility] 12-15-2022 History of Present illness Narrative This is a 87 year old female who presents today with: Patient presents with: Acute Visit: sore on right thigh HISTORY OF PRESENT ILLNESS: Keli Simmons is a 87 year old female. Patient presents with: Acute Visit: sore on right thigh Here in the office for skin lesion on right outer thigh. LTCF noticed it when showering her. Not tender or itchy. Sitting in a wheelchair most of the day. PAST MEDICAL HISTORY: PAST MEDICAL HISTORY Diagnosis Date Anemia Anxiety Degenerative arthritis of lumbar spine 05/11/2010 Diverticulosis of colon (without mention of hemorrhage) Essential hypertension, benign 2009 External hemorrhoids without mention of complication Generalized osteoarthrosis, unspecified site GERD (gastroesophageal reflux disease) Hypercholesterolemia with hypertriglyceridemia 03/31/2015 Leiomyoma of uterus, unspecified MALIG HE CORPUS UTERI 02/08/2007 Osteoporosis, unspecified 10/25/2005 Other and unspecified hyperlipidemia Other and unspecified ovarian cyst 05/09/2006 PAST SURGICAL HISTORY Procedure Laterality Date ARTHRP KNE CONDYLE&PLATU MEDIAL&LAT COMPARTMENTS 03/10/2014 Knee replacement, total (left) CHOLECYSTECTOMY Cholecystectomy COLONOSCOPY FLX DX W/COLLJ SPEC WHEN PFRMD 2007 HOLTER MONITOR 24 HOUR HYSTERECTOMY HX 2006 PAST SURGICAL HISTORY OF 02/2001 FOOT SURGERY REM LESION TRUNK,ARM, LEG <0.5 CM 11/11/2009 Exc. left anterior chest skin lesion REM LESION TRUNK,ARM,LEG 0.6 -1.0CM Left 02/10/16 Exc. left olecrenon skin lesion SKIN GRAFT HX 1938 to bilateral hands TONSILLECTOMY PRIMARY/SECONDARY <AGE 14 1945 Tonsillectomy ALLERGIES Erythromycin, Septra [Sulfamethoxazole-Trimethoprim], and Sulfa (Sulfonamide Antibiotics) MEDICATIONS Current Outpatient Medications Medication Sig lisinopril 2.5 mg tablet Take 1 tablet by mouth once daily. atorvastatin (LIPITOR) 40 mg tablet Take 1 tablet by mouth daily at bedtime. For cholesterol. venlafaxine ER (EFFEXOR XR) 150 mg 24 hr capsule Take 1 capsule by mouth once daily. levothyroxine (SYNTHROID) 75 mcg tablet Take 1 tablet by mouth once daily. Take on empty stomach. 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 Loperamide HCl (IMODIUM) 2 mg tab Take 1 tablet by mouth as needed. magnesium hydroxide (MILK OF MAGNESIA) 400 mg/5 mL suspension Take 15 mL by mouth once daily as needed for Constipation. MULTIVIT WITH CALCIUM,IRON,MIN (WOMEN'S MULTIPLE VITAMINS ORAL) Take by mouth once daily. VIT C/VIT E/LUTEIN/MIN/OMEGA-3 (OCUVITE ORAL) Take by mouth. acetaminophen (TYLENOL) 325 mg tablet Take 2 tablets by mouth every 4 hours as needed. No current facility-administered medications for this visit. FAMILY HISTORY Problem Relation Age of Onset Heart Mother Stroke Mother Heart Son Alcohol/Drug Father Arthritis Father other (sepsis) Father Diabetes Maternal Aunt Heart Brother Social History Tobacco Use Smoking status: Never Smokeless tobacco: Never Substance Use Topics Alcohol use: Yes Alcohol/week: 2.5 standard drinks of alcohol Types: 1 Glasses of Wine (5oz) per week Drug use: No REVIEW OF SYSTEMS GENERAL: No weight loss, malaise or fevers/chills HEENT: Negative for frequent or significant headaches, No changes in hearing or vision. NECK: Negative for lumps, goiter, pain and significant neck swelling RESPIRATORY: Negative for cough, hemoptysis, wheezing, dyspnea or shortness of breath CARDIOVASCULAR: Negative for chest pain, leg swelling, orthopnea, or palpitations GI: No nausea, vomiting, or diarrhea/constipation. No hematochezia/melena. No heartburn or reflux symptoms. : No history of dysuria, frequency or incontinence MUSCULOSKELETAL: Negative for joint pain or swelling. SKIN: + Skin Lesion Right Thigh ENDOCRINE: Negative for cold or heat intolerance, polyuria, polydipsia and goiter NEURO: No history of headaches, syncope, paralysis, seizures or tremors MOOD: Negative for depression, anxiety, or suicidal ideation. EXAM: BP 132/86 Pulse 96 Resp 16 SpO2 95% PHYSICAL EXAM: General Appearance: Well appearing, alert, in no acute distress, well-hydrated, well nourished. Skin: 5x4 cm , elevated mobile mass noted on right upper thigh, no ecchymosis or erythema noted. Non-tender. No crusting. Head: Normocephalic, no masses, lesions, tenderness or abnormalities. Eyes: Anicteric sclera. Extraocular movements are intact. Extremities: No deformities, edema, skin discoloration, clubbing or cyanosis. Good capillary refill. Peripheral Pulses: Normal, Capillary refill <2secs, strong peripheral pulses, Pulses palpable. Neurologic: In wheelchair, Reflexes normal and symmetric. Sensation grossly intact. ASSESSMENT/PLAN: 1. Hematoma - ICD9: 924.9, ICD10: T14.8XXA - Based on history and exam symptoms consistent with a hematoma, more than likely from wheelchair. - Recommend cushioning the side of the wheelchair to prevent rubbing. - Discussed soft tissue US in the future if mass gets larger, changes in color, or becomes tender. Patient and family member agreeable to this plan. Follow-up if no improvement. Discussed treatment plan and patient voices understanding. Patient's questions answered appropriately. Medications and potential side effects were discussed and patient voices understanding. Allison Weinstein APRN.[employer] SPECIALIST This note was partially generated using [employer] voice recognition system. Note was reviewed for accuracy. There may be minor misspellings or grammar miscues with [employer] voice recognition. documented in this encounter [facility] 10-18-2022 Note HNO ID: [id number] Author: Zia Echeverria MD Service: ? Author Type: Physician Type: Progress Notes Filed: 10/18/2022 11:56 AM Note Text: Chief Complaint Patient presents with: 6 Month Exam HPI Keli Simmons is a 87 year old female who presents here today for a 6 month follow up. Pt here today for her routine 6 month follow up. Labs received in office. Here with her daughter. She has a son but he does not visit or come around. Has an advanced directive. Resides at [facility] in [place], been there since May 2022. Has had 2 falls in the last year. Has issues with her right knee trying to give out on her. She had her left knee replaced. Walking is limited per her choice. She is not walking much as the nurses find it easier to push her in the chair and pt feels it is easier and quicker to use wheel chair. Her daughter makes her walk when she visits. Uses a walker when she walks. Fall Risk Assessment: Patient age 65 or over, unsteady, or was advised to use special equipment to aid ambulation (i.e., cane or walker)? Yes Has the patient had two falls in the past year, or one with injury? Yes Does the patient need to use their hands when pushing up from chair, or hold onto furniture when ambulating at home? Yes Is the patient worried about falling? Yes Please inform patient that answering Yes to one or more of the questions above can increase their risk of falling Patient is at greater risk for falls. Falls Instruction: Teaching document below - reviewed and given to patient [facility] - FALLS Prevention Safety Plan Denies any stomach or bowel issues. Occasional diarrhea due to colitis. Uses MOM and imodium prn. Admits to have urinary incontinence issues. Not able to stop urinating. Wearing pads and underwear. Wears depends over night. Depression: Is on Effexor XR 150 mg daily, feels good on this dosage. Pt overall doing okay. Notes with moving to [place] saddens her due to leaving her home. She has friends at [place] and enjoys visiting with them. HTN: Her BP is checked daily by HH aids. BP ranging from 100-125/60-70's. There's an occasional 140's. Denies any chest pain, dizziness, or SOB. Taking Lisinopril 2.5 mg daily. The HCTZ 25 mg daily was d/c in May due to pt BP running too low. Follows with Cardio, Dr. Mir. Thyroid: Stable on current regimen of Synthroid 75 mcg once daily. Pain: Chronic back and neck, had DDD lumbar and OA knees. Doing well on Tylenol arthritis, 3 pills daily. Previously took 4 per day. Lipid/CVA: Right side effected,uses a walker at home, daughter doesn't let her use a wheelchair. In a wheelchair today, needs assistance with ambulation. No longer doing any therapy. Does exercises at home daily that she completed in therapy. Is on Lipitor 40 mg daily and Aspirin 81 mg daily. She does go to the Exercise classes offered at [place] half the time. It is mostly chair exercises. Daughter has expressed some issues with memory at previous OV's. Her short term memory is not great, they have the same conversation over and over again at times. Past medical history, appointments, medications, allergies reviewed. Previous Medical History PAST MEDICAL HISTORY Diagnosis Date Anemia Anxiety Degenerative arthritis of lumbar spine 05/11/2010 Diverticulosis of colon (without mention of hemorrhage) Essential hypertension, benign 2008 External hemorrhoids without mention of complication Generalized osteoarthrosis, unspecified site GERD (gastroesophageal reflux disease) Hypercholesterolemia with hypertriglyceridemia 03/31/2015 Leiomyoma of uterus, unspecified MALIG HE CORPUS UTERI 02/08/2007 Osteoporosis, unspecified 10/25/2005 Other and unspecified hyperlipidemia Other and unspecified ovarian cyst 05/09/2006 Previous Surgical History PAST SURGICAL HISTORY Procedure Laterality Date ARTHRP KNE CONDYLEANDPLATU MEDIALANDLAT COMPARTMENTS 03/10/2014 Knee replacement, total (left) CHOLECYSTECTOMY Cholecystectomy COLONOSCOPY FLX DX W/COLLJ SPEC WHEN PFRMD 2007 HOLTER MONITOR 24 HOUR HYSTERECTOMY HX 2006 PAST SURGICAL HISTORY OF 02/2001 FOOT SURGERY REM LESION TRUNK,ARM, LEG <0.5 CM 11/11/2009 Exc. left anterior chest skin lesion REM LESION TRUNK,ARM,LEG 0.6 -1.0CM Left 02/10/16 Exc. left olecrenon skin lesion SKIN GRAFT HX 193 to bilateral hands TONSILLECTOMY PRIMARY/SECONDARY Tonsillectomy Family History FAMILY HISTORY Problem Relation Age of Onset Heart Mother Stroke Mother Heart Son Alcohol/Drug Father Arthritis Father other (sepsis) Father Diabetes Maternal Aunt Heart Brother Patient Allergies ALLERGIES Allergen Reactions Erythromycin Itching Septra [Sulfamethox* Itching Sulfa (Sulfonamide * Itching Current Medications Current Outpatient Medications on File Prior to Visit Medication Sig lisinopril 2.5 mg tablet Take 1 tablet by mouth once daily. atorva (more content not included)... [facility] 10-12-2022 Miscellaneous Notes Daughter called and requested lab orders be faxed to [place] where pt is residing. Pt has an apt coming up. Faxed orders to [phone] Done Mraisol Connor LPN documented in this encounter [facility] 09-26-2022 Miscellaneous Notes Done Zia Echeverria MD Darline with [facility] received fax for doxycycline 100 mg 1 tab twice daily x 10 days. Darline reports daughter wants rx to go to [facility] in [place]. Please file. Alva Oleary LPN documented in this encounter [facility] 09-23-2022 Note HNO ID: [id number] Author: RT Alycia(R) Service: Radiology Author Type: Technologist Type: Progress Notes Filed: 09/23/2022 10:01 AM Note Text: Radiology Service Progress Note PATIENT NAME: Keli Simmons DATE OF SERVICE: September 23, 2022 TIME: 9:45 AM PATIENT IDENTITY VERIFICATION COMPLETED USING TWO (2) IDENTIFIERS: Name and Date of confirmed by patient verbally. FALL SCREENING: Has the patient had 2 falls in the last year or 1 fall with injury or currently using an Ambulatory Assistive Device (Walker, Cane, Wheelchair, Crutches, etc.)? Yes, Patient High Risk for Falls What interventions were put in place to prevent falls during this visit? Instructed Patient to Call for Help if Needed, Offered Assistance with Transfers/Clothing, and Increased Observations by Caregivers PATIENT GENDER DATA: Female. status: : No status: NO. PATIENT RELEVANT IMPLANT DATA REVIEWED: Yes RADIOLOGY DEPARTMENT: General X-ray: Exam(s) Completed: Chest X-Ray PERIPHERAL IV DATA: Not applicable SIGNED BY: RT Alycia(R) September 23, 2022 9:45 AM [facility] 09-23-2022 Note HNO ID: [id number] Author: Dutch Olvera MD Service: ? Author Type: Physician Type: Progress Notes Filed: 09/23/2022 10:33 AM Note Text: Patient presents with: Cough: Pt reported chest congestion, x6 days. HPI: Feeling sick for 6 days, worsening. Positive symptoms: cough, chest congestion, Nasal Congestion, Rhinorrhea, Headache, Negative symptoms: Shortness of breath, Fever, Chills, Vomiting, Diarrhea, OTC: Cold Medicine, Tylenol, advil PAST MEDICAL HISTORY Diagnosis Date Anemia Anxiety Degenerative arthritis of lumbar spine 05/11/2010 Diverticulosis of colon (without mention of hemorrhage) Essential hypertension, benign 2009 External hemorrhoids without mention of complication Generalized osteoarthrosis, unspecified site GERD (gastroesophageal reflux disease) Hypercholesterolemia with hypertriglyceridemia 03/31/2015 Leiomyoma of uterus, unspecified MALIG HE CORPUS UTERI 02/08/2007 Osteoporosis, unspecified 10/25/2005 Other and unspecified hyperlipidemia Other and unspecified ovarian cyst 05/09/2006 MEDICATIONS: Current Outpatient Medications Medication Sig lisinopril 2.5 mg tablet Take 1 tablet by mouth once daily. atorvastatin (LIPITOR) 40 mg tablet Take 1 tablet by mouth daily at bedtime. For cholesterol. venlafaxine ER (EFFEXOR XR) 150 mg 24 hr capsule Take 1 capsule by mouth once daily. levothyroxine (SYNTHROID) 75 mcg tablet Take 1 tablet by mouth once daily. Take on empty stomach. 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 magnesium hydroxide (MILK OF MAGNESIA) 400 mg/5 mL suspension Take 15 mL by mouth once daily as needed for Constipation. MULTIVIT WITH CALCIUM,IRON,MIN (WOMEN'S MULTIPLE VITAMINS ORAL) Take by mouth once daily. VIT C/VIT E/LUTEIN/MIN/OMEGA-3 (OCUVITE ORAL) Take by mouth. acetaminophen (TYLENOL) 325 mg tablet Take 2 tablets by mouth every 4 hours as needed. hydroCHLOROthiazide (HYDRODIURIL, ESIDRIX) 12.5 mg capsule Take 1 capsule by mouth once daily. For blood pressure. (Patient not taking: Reported on 09/23/2022) aspirin, enteric coated (ASPIRIN, ENTERIC COATED) 81 mg EC tablet Take 1 tablet by mouth once daily. No current facility-administered medications for this visit. ALLERGIES: ALLERGIES Allergen Reactions Erythromycin Itching Septra [Sulfamethox* Itching Sulfa (Sulfonamide * Itching VITALS: BP 122/68 Pulse 94 Temp 36.6 ?C (97.9 ?F) (Tympanic) Resp 18 Wt 88.3 kg (194 lb 9.6 oz) SpO2 94% BMI 34.47 kg/m? PHYSICAL EXAM: GEN: mildly ill appearing. Accompanied by her daughter. HEENT: PERRL, EOMI, conjunctiva clear Ears: wearing hearing aids Sinuses: non-tender frontal sinus, non-tender maxillary sinuses Throat: moist mucous membranes, no erythema, no exudate Neck: supple, no thyromegaly, no lymphadenopathy HEART: regular rate and rhythm, no murmurs LUNGS: mild upper lung wheezes and crackles clear with coughing, no increased WOB ASSESSMENT/PLAN: 1. Acute cough - ICD9: 786.2, ICD10: R05.1 - suspect viral URI, differential includes COVID-19. - Discussed supportive care treatment with masking, rest, cough medicine, and analgesia. Her daughter will try to get the assisted living to give robitussin on a scheduled basis the next few days. - Red flags to seek further treatment include chest pain, shortness of breath, and lethargy; in the ER if severe. - 2019 CORONAVIRUS - XR CHEST 2V FRONTAL/LAT Dutch Olvera MD [facility] 09-23-2022 Instructions Dutch Olvera MD - 09/23/2022 10:25 AM EDT Your chest xray showed no pneumonia. COVID results will be available in MyChart. Take robitussin for cough per bottle instructions. documented in this encounter [facility] 09-23-2022 History of Present illness Narrative Patient presents with: Cough: Pt reported chest congestion, x6 days. HPI: Feeling sick for 6 days, worsening. Positive symptoms: cough, chest congestion, Nasal Congestion, Rhinorrhea, Headache, Negative symptoms: Shortness of breath, Fever, Chills, Vomiting, Diarrhea, OTC: Cold Medicine, Tylenol, advil PAST MEDICAL HISTORY Diagnosis Date Anemia Anxiety Degenerative arthritis of lumbar spine 05/11/2010 Diverticulosis of colon (without mention of hemorrhage) Essential hypertension, benign 2008 External hemorrhoids without mention of complication Generalized osteoarthrosis, unspecified site GERD (gastroesophageal reflux disease) Hypercholesterolemia with hypertriglyceridemia 03/31/2015 Leiomyoma of uterus, unspecified MALIG HE CORPUS UTERI 02/08/2007 Osteoporosis, unspecified 10/25/2005 Other and unspecified hyperlipidemia Other and unspecified ovarian cyst 05/09/2006 MEDICATIONS: Current Outpatient Medications Medication Sig lisinopril 2.5 mg tablet Take 1 tablet by mouth once daily. atorvastatin (LIPITOR) 40 mg tablet Take 1 tablet by mouth daily at bedtime. For cholesterol. venlafaxine ER (EFFEXOR XR) 150 mg 24 hr capsule Take 1 capsule by mouth once daily. levothyroxine (SYNTHROID) 75 mcg tablet Take 1 tablet by mouth once daily. Take on empty stomach. 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 magnesium hydroxide (MILK OF MAGNESIA) 400 mg/5 mL suspension Take 15 mL by mouth once daily as needed for Constipation. MULTIVIT WITH CALCIUM,IRON,MIN (WOMEN'S MULTIPLE VITAMINS ORAL) Take by mouth once daily. VIT C/VIT E/LUTEIN/MIN/OMEGA-3 (OCUVITE ORAL) Take by mouth. acetaminophen (TYLENOL) 325 mg tablet Take 2 tablets by mouth every 4 hours as needed. hydroCHLOROthiazide (HYDRODIURIL, ESIDRIX) 12.5 mg capsule Take 1 capsule by mouth once daily. For blood pressure. (Patient not taking: Reported on 09/23/2022) aspirin, enteric coated (ASPIRIN, ENTERIC COATED) 81 mg EC tablet Take 1 tablet by mouth once daily. No current facility-administered medications for this visit. ALLERGIES: ALLERGIES Allergen Reactions Erythromycin Itching Septra [Sulfamethox* Itching Sulfa (Sulfonamide * Itching VITALS: BP 122/68 Pulse 94 Temp 36.6 C (97.9 F) (Tympanic) Resp 18 Wt 88.3 kg (194 lb 9.6 oz) SpO2 94% BMI 34.47 kg/m PHYSICAL EXAM: GEN: mildly ill appearing. Accompanied by her daughter. HEENT: PERRL, EOMI, conjunctiva clear Ears: wearing hearing aids Sinuses: non-tender frontal sinus, non-tender maxillary sinuses Throat: moist mucous membranes, no erythema, no exudate Neck: supple, no thyromegaly, no lymphadenopathy HEART: regular rate and rhythm, no murmurs LUNGS: mild upper lung wheezes and crackles clear with coughing, no increased WOB ASSESSMENT/PLAN: 1. Acute cough - ICD9: 786.2, ICD10: R05.1 - suspect viral URI, differential includes COVID-19. - Discussed supportive care treatment with masking, rest, cough medicine, and analgesia. Her daughter will try to get the assisted living to give robitussin on a scheduled basis the next few days. - Red flags to seek further treatment include chest pain, shortness of breath, and lethargy; in the ER if severe. - 2019 CORONAVIRUS - XR CHEST 2V FRONTAL/LAT Dutch Olvera MD documented in this encounter [facility] 05-20-2022 Miscellaneous Notes This has been completed and faxed back. Summer Dolan Ma Form done Zia Echeverria MD Type of form: H&P completion for [place]. Pt being admitted into [place]. Form received via fax When form is completed, Fax form to [place] at [phone] Form has been forwarded to Physician Desk: Dr. Juliane Dolan Ma documented in this encounter [facility] 05-16-2022 Miscellaneous Notes Noted; med list updated Zia Echeverria MD Pt's daughter calls to report that pt is no longer going to take Ditropan XL because it doesn't seem to be changing the situation. Daughter is requesting Ditropan be taken off pt med list because pt will be moving to [place] and daughter wants to make sure it is not on the med list when Jeison requests it from 's office. Daughter reports at this time pt does not want to try anything else. Alva Oleary LPN documented in this encounter [facility] 04-18-2022 History of Present illness Narrative Chief Complaint Patient presents with: F/U 6 Month HPI Keli Simmons is a 87 year old female who presents here today for 6 month follow up. Pt still lives alone but has daily care, HH aids that come to home from 8 AM to 8 PM. She is alone at night but there are cameras and life alert to monitor pt. Daughter, Ila here today. Pt will be moving to [facility] at the beginning of May. Will have her own apartment, but they will be cooking her meals, doing laundry and they will assist her in showering. GI/Uro - Denies any stomach or bowel issues. Occasional diarrhea due to colitis. Uses MOM and imodium prn. Admits to have urinary incontinence issues. Not able to stop urinating. Wearing pads and underwear. Wears depends over night. Depression: Is on Effexor XR 150 mg daily, feels good on this dosage. Pt overall doing okay. Notes with moving to [place] saddens her due to leaving her home. HTN: Her BP is checked daily by HH aids. BP ranging from 100-125/60-70's. There's an occasional 140's. Occasional lows, but not bothersome. Denies any chest pain, dizziness, or SOB. Taking Lisinopril 2.5 mg daily and HCTZ 25 mg daily. Follows with Cardio, Dr. Mir. Thyroid - Stable on current regimen of Synthroid 75 mcg once daily. Pain: Chronic back and neck, had DDD lumbar and OA knees. Doing well on Tylenol arthritis, 3 pills daily. Previously took 4 per day. Lipid/CVA: Right side effected,uses a walker at home, daughter doesn't let her use a wheelchair. In a wheelchair today, needs assistance with ambulation. No longer doing any therapy. Does exercises at home daily that she completed in therapy. Is on Lipitor 40 mg daily and Aspirin 81 mg daily. Daughter notes some short term memory issues, but mcc is fine. Plays a lot of games and does really well. Plays Upwards and Matching games. HM - Discussed getting Tdap and Shingrix vaccine at the Pharmacy. Past medical history, appointments, medications, allergies reviewed. Previous Medical History PAST MEDICAL HISTORY Diagnosis Date Anemia Anxiety Degenerative arthritis of lumbar spine 05/11/2010 Diverticulosis of colon (without mention of hemorrhage) Essential hypertension, benign 2009 External hemorrhoids without mention of complication Generalized osteoarthrosis, unspecified site GERD (gastroesophageal reflux disease) Hypercholesterolemia with hypertriglyceridemia 03/31/2015 Leiomyoma of uterus, unspecified MALIG HE CORPUS UTERI 02/08/2007 Osteoporosis, unspecified 10/25/2005 Other and unspecified hyperlipidemia Other and unspecified ovarian cyst 05/09/2006 Previous Surgical History PAST SURGICAL HISTORY Procedure Laterality Date ARTHRP KNE CONDYLE&PLATU MEDIAL&LAT COMPARTMENTS 03/10/2014 Knee replacement, total (left) CHOLECYSTECTOMY Cholecystectomy COLONOSCOPY FLX DX W/COLLJ SPEC WHEN PFRMD 2007 HOLTER MONITOR 24 HOUR HYSTERECTOMY HX 2006 PAST SURGICAL HISTORY OF 02/2001 FOOT SURGERY REM LESION TRUNK,ARM, LEG <0.5 CM 11/11/2009 Exc. left anterior chest skin lesion REM LESION TRUNK,ARM,LEG 0.6 -1.0CM Left 02/10/16 Exc. left olecrenon skin lesion SKIN GRAFT HX 1938 to bilateral hands TONSILLECTOMY PRIMARY/SECONDARY <AGE 14 1945 Tonsillectomy Family History FAMILY HISTORY Problem Relation Age of Onset Heart Mother Stroke Mother Heart Son Alcohol/Drug Father Arthritis Father other (sepsis) Father Diabetes Maternal Aunt Heart Brother Patient Allergies ALLERGIES Allergen Reactions Erythromycin Itching Septra [Sulfamethox* Itching Sulfa (Sulfonamide * Itching Current Medications Current Outpatient Medications on File Prior to Visit Medication Sig atorvastatin (LIPITOR) 40 mg tablet Take 1 tablet by mouth daily at bedtime. For cholesterol. venlafaxine ER (EFFEXOR XR) 150 mg 24 hr capsule Take 1 capsule by mouth once daily. levothyroxine (SYNTHROID) 75 mcg tablet Take 1 tablet by mouth once daily. Take on empty stomach. For Thyroid balsalazide (COLAZAL) 750 mg capsule Take 1 capsule by mouth three times daily for 14 days. hydroCHLOROthiazide (HYDRODIURIL, ESIDRIX) 12.5 mg capsule Take 1 capsule by mouth once daily. For blood pressure. nystatin (NYSTOP) powder Apply 1 application to affected area twice daily. APPLY TOPICALLY TO MOISTENED AREAS TWICE DAILY lisinopril 2.5 mg tablet Take 1 tablet by mouth once daily. 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 Loperamide HCl (IMODIUM) 2 mg tab Take 1 tablet by mouth as needed. magnesium hydroxide (MILK OF MAGNESIA) 400 mg/5 mL suspension Take 15 mL by mouth once daily as needed for Constipation. MULTIVIT WITH CALCIUM,IRON,MIN (WOMEN'S MULTIPLE VITAMINS ORAL) Take by mouth once daily. VIT C/VIT E/LUTEIN/MIN/OMEGA-3 (OCUVITE ORAL) Take by mouth. acetaminophen (TYLENOL) 325 mg ORAL tablet Take 2 tablets by mouth every 4 hours as needed. No current facility-administered medications on file prior to visit. Social History Social History Tobacco Use Smoking status: Never Smokeless tobacco: Never Substance Use Topics Alcohol use: Yes Alcohol/week: 2.5 standard drinks Types: 1 Glasses of Wine (5oz) per week Drug use: No EXAM: BP 118/72 (BP Site: Left Arm, BP Position: Sitting, BP Cuff Size: Regular Adult) Pulse 80 Resp 16 Wt 86.9 kg (191 lb 9.6 oz) BMI 33.94 kg/m General Appearance: Well appearing, alert, in no acute distress, well-hydrated, well nourished. and Overweight. Neck: Supple, no adenopathy; thyroid symmetric, normal size, no bruits. Lungs: Lungs clear to auscultation. No wheezing, rhonchi, rales.. Heart: RRR without murmur, gallop, or rubs. No ectopy. Health Maintenance List SHINGRIX VACCINE(2 of 3) due on 07/09/2008 DTAP,TDAP,TD(3 - Tdap) due on 06/16/2019 DIABETES SCREEN due on 10/04/2024 BONE DENSITY Completed INFLUENZA Completed ADVANCE DIRECTIVE DISCUSSION Completed COVID-19 VACCINE Completed PNEUMOCOCCAL: 65+ Completed Data reviewed Appointment on 04/11/2022 Component Date Value Protein, Total 04/11/2022 6.7 Albumin 04/11/2022 3.8 (A) Calcium, Total 04/11/2022 9.9 Bilirubin, Total 04/11/2022 0.5 Alkaline Phosphatase 04/11/2022 141 (A) AST 04/11/2022 20 ALT 04/11/2022 16 Glucose 04/11/2022 126 (A) BUN 04/11/2022 16 Creatinine 04/11/2022 0.72 Sodium 04/11/2022 140 Potassium 04/11/2022 4.2 Chloride 04/11/2022 101 CO2 04/11/2022 27 Anion Gap 04/11/2022 12 Estimated Glomerular Yonny* 04/11/2022 82 Cholesterol, Total 04/11/2022 187 Triglyceride 04/11/2022 201 (A) HDL Cholesterol 04/11/2022 48 Non HDL Cholesterol 04/11/2022 139 (A) Fasting Time 04/11/2022 12 VLDL Cholesterol 04/11/2022 40 (A) TC:HDL Ratio 04/11/2022 3.90 LDL Cholesterol 04/11/2022 99 LDL:HDL Ratio 04/11/2022 2.06 Hemoglobin A1C 04/11/2022 6.1 (A) Estimated Average Glucose 04/11/2022 128 TSH 04/11/2022 1.330 WBC 04/11/2022 8.15 RBC 04/11/2022 4.16 Hemoglobin 04/11/2022 13.6 Hematocrit 04/11/2022 42.4 MCV 04/11/2022 101.9 (A) MCH 04/11/2022 32.7 MCHC 04/11/2022 32.1 RDW-CV 04/11/2022 13.2 Platelet Count 04/11/2022 390 MPV 04/11/2022 9.2 Neut% 04/11/2022 66.4 Abs Neut 04/11/2022 5.41 Lymph% 04/11/2022 21.7 Abs Lymph 04/11/2022 1.77 [place]% 04/11/2022 7.9 Abs [place] 04/11/2022 0.64 Eosin% 04/11/2022 2.9 Abs Eosin 04/11/2022 0.24 Baso% 04/11/2022 0.9 Abs Baso 04/11/2022 0.07 Immature Gran % 04/11/2022 0.2 Abs Immature Gran 04/11/2022 <0.03 NRBC 04/11/2022 0.0 Absolute nRBC 04/11/2022 <0.01 Diff Type 04/11/2022 Auto ASSESSMENT/PLAN: 1. Essential hypertension, benign - ICD9: 401.1, ICD10: I10 (primary diagnosis) - good control - Continue current medication(s) - Recommended regular aerobic exercise. - Recommend home blood pressure monitoring, to bring results in on next visit - Goal of BP <130/80 - LISINOPRIL 2.5 MG TABLET 2. Hypercholesterolemia with hypertriglyceridemia - ICD9: 272.2, ICD10: E78.2 - good control - Continue current medication. - Encouraged following a low fat, low cholesterol diet. - Discussed the benefits of regular aerobic exercise and weight loss. 3. Prediabetes - ICD9: 790.29, ICD10: R73.03 - Stable, without medication 4. Hypothyroidism due to medication - ICD9: 244.8, E980.5, ICD10: E03.2 - Instructed patient on importance of taking on an empty stomach either first thing in the morning or at bedtime. - Continue current medication regimen. 5. Depression, unspecified depression type - ICD9: 311, ICD10: F32.A - Doing well. - Continue current medication regimen. 6. Cerebrovascular accident (CVA), unspecified mechanism (HCC) - ICD9: 434.91, ICD10: I63.9 - Stable - Continue current medication regimen. 7. Arthritis of both knees - ICD9: 716.96, ICD10: M17.0 - Stable with OTC Tylenol 8. Degenerative disc disease, lumbar - ICD9: 722.52, ICD10: M51.36 Chronic low back pain - Stable with OTC Tylenol 6 mo f/u with labs. I agree with the Chief Complaint, ROS, and Past Histories independently gathered by the clinical academic support specialist and the remaining scribed note accurately describes my personal service to the patient. Medical Decision Making: Problems: Moderate: 2+ stable chronic illnesses Data: Unique test result(s) reviewed: 3+ Unique test(s) ordered: 3+ Risk: Moderate: Drug management Medical Decision Making Level: 4 - Moderate Zia Echeverria MD The documentation for this note was completed by Summer Dolan Ma acting as scribe for Zia Echeverria MD. April 18, 2022 11:10 AM. Summer Dolan Ma documented in this encounter [facility] 03-14-2022 Miscellaneous Notes The following approved medication requests have been transmitted electronically. Requested Prescriptions Pending Prescriptions Disp Refills venlafaxine ER (EFFEXOR XR) 150 mg 24 hr capsule 90 capsule 3 Sig: Take 1 capsule by mouth once daily. Nba Valero APRN.GWEN Patient phones requesting refills as follows: Requested Prescriptions Pending Prescriptions Disp Refills venlafaxine ER (EFFEXOR XR) 150 mg 24 hr capsule 90 capsule 3 Sig: Take 1 capsule by mouth once daily. TOM-10/11/21 Labs-10/04/21Mar-04/18/22 Med filled 04/05/21 Please review and advise. Martha Baer LPN documented in this encounter [facility] 03-08-2022 Miscellaneous Notes The following approved medication requests have been transmitted electronically. Requested Prescriptions Pending Prescriptions Disp Refills levothyroxine (SYNTHROID) 75 mcg tablet 90 tablet 3 Sig: Take 1 tablet by mouth once daily. Take on empty stomach. For Thyroid Nba Valero APRN.GWEN Patient phones requesting refills as follows: Requested Prescriptions Pending Prescriptions Disp Refills levothyroxine (SYNTHROID) 75 mcg tablet 90 tablet 3 Sig: Take 1 tablet by mouth once daily. Take on empty stomach. For Thyroid TOM-10/11/21 Labs-10/04/21Mar-04/18/22 med filled 03/11/21 Please review and advise. Martha Baer LPN documented in this encounter [facility] 03-01-2022 Miscellaneous Notes Spoke with daughter, Ila who's aware her mother called in. Notified her that an Rx was sent in. Ila will update her mother and drive in to get Rx. Summer Dolan Ma OK for 3 days of Cipro as ordered Zia Echeverria MD Pt called in and reports she wants a prescription for a kidney infection. She reports tingling with urination and urinary frequency. Pt denies back pain, urinary having a different color or odor. Pt was offered to have an appointment made for her as the provider would want to see her for this, but she states she has one in March. Pt requesting provider send medication for her to [facility] in [place]. Please call and advise. documented in this encounter [facility] 02-25-2022 Miscellaneous Notes Letter printed, signed and placed in mail. Daughter notified. Juan Carlos Cardoza LPN Letter printed Zia Echeverria MD Patient daughter Ila calls and states patient's handicap placard is set to . Ila asking if provider can write a letter for handicap placard and mail the letter to patient's home address? Address verified with Ila. Please review and advise, Jaylene Vázquez RN documented in this encounter [facility] 01-21-2022 Miscellaneous Notes Daughter called and notified of message below. Verbalized understanding. Summer Dolan Ma I sent in a refill for 2 weeks of the medicine that he had used for colitis several years ago Zia Echeverria MD Patient's daughter calls and states that patient has had diarrhea all day. Patient did have prescription to be given for patient's colitis but that has . Daughter asking if provider can send in prescription? Patient's pharmacy is [facility]. Patient is eating and drinking. Advised daughter that if patient gets any worse or if patient becomes dehydrated then patient should go to ED. Daughter voiced understanding. Daughter does not feel patient needs this at this time. Please review and advise, Jaylene Vázquez RN documented in this encounter [facility] 12-01-2021 Miscellaneous Notes The following approved medication requests have been transmitted electronically. Signed Prescriptions Disp Refills hydroCHLOROthiazide (HYDRODIURIL, ESIDRIX) 12.5 mg capsule 90 capsule 3 Sig: Take 1 capsule by mouth once daily. For blood pressure. TRUMAN: No Authorizing Provider: ZIA ECHEVERRIA Ma OK to refill as ordered Zia Echeverria MD Last office visit: 10/11/21 F/u scheduled: 04/18/22 Madeline Goldberg Ma documented in this encounter [facility] documented as of this encounter (statuses as of 04/18/2023) [facility] History of Past illness Narrative* Problem Noted Date Resolved Date Situational mixed anxiety and depressive disorde r 09/26/2016 06/25/2018 Incontinence of feces 06/21/2016 09/26/2016 Diarrhea 06/21/2016 09/26/2016 Iron deficiency anemia due to chronic blood loss 06/16/2016 06/25/2018 NSAID induced gastritis 06/14/2016 06/25/19 19 Eczema intertrigo 06/04/2010 09/26/2016 Moniliasis, cutaneous 06/04/2010 09/26/2016 Xerosis cutis 06/04/2010 09/26/2016 Other seborrheic dermatitis 06/04/201005/2016 Other seborrheic keratosis (eg underside L breas t) 06/04/2010 09/26/2016 Phlebitis and thrombophlebit is of superficial vessels of lower extremities 02/22/2008 09/26/2016 Embolism and thrombosis of unspecified site 01/2809/26/2016 Malignant neoplasm of corpus uteri, except [facility] 02/08/2007 09/26/2016 Adjustment disorder with depressed mood 01/25/2009/26/2016 Other and unspecified ovarian cyst 05/09/2006 08/31/2007 documented as of this encounter (statuses as of 12/01/2021) [facility] History of Past illness Narrative* Problem Noted Date Resolved Date Situational mixed anxiety and depressive disorde r 09/26/2016 06/25/2018 Incontinence of feces 06/21/2016 09/26/2016 Diarrhea 06/21/2016 09/26/2016 Iron deficiency anemia due to chronic blood loss 06/16/2016 06/25/2018 NSAID induced gastritis 06/14/2016 06/25/19 19 Eczema intertrigo 06/04/2010 09/26/2016 Moniliasis, cutaneous 06/04/2010 09/26/2016 Xerosis cutis 06/04/2010 09/26/2016 Other seborrheic dermatitis 06/04/201005/2016 Other seborrheic keratosis (eg underside L breas t) 06/04/2010 09/26/2016 Phlebitis and thrombophlebit is of superficial vessels of lower extremities 02/22/2008 09/26/2016 Embolism and thrombosis of unspecified site 01/2809/26/2016 Malignant neoplasm of corpus uteri, except [facility] 02/08/2007 09/26/2016 Adjustment disorder with depressed mood 01/25/20 07 09/26/2016 Other and unspecified ovarian cyst 05/09/2006 08/31/2007 documented as of this encounter (statuses as of 01/21/2022) [facility] History of Past illness Narrative* Problem Noted Date Resolved Date Situational mixed anxiety and depressive disorde r 09/26/2016 06/25/2018 Incontinence of feces 06/21/2016 09/26/2016 Diarrhea 06/21/2016 09/26/2016 Iron deficiency anemia due to chronic blood loss 06/16/2016 06/25/2018 NSAID induced gastritis 06/14/2016 06/25/19 19 Eczema intertrigo 06/04/2010 09/26/2016 Moniliasis, cutaneous 06/04/2010 09/26/2016 Xerosis cutis 06/04/2010 09/26/2016 Other seborrheic dermatitis 06/04/201005/2016 Other seborrheic keratosis (eg underside L breas t) 06/04/2010 09/26/2016 Phlebitis and thrombophlebit is of superficial vessels of lower extremities 02/22/2008 09/26/2016 Embolism and thrombosis of unspecified site 01/2809/26/2016 Malignant neoplasm of corpus uteri, except [facility] 02/08/2007 09/26/2016 Adjustment disorder with depressed mood 01/25/20 07 09/26/2016 Other and unspecified ovarian cyst 05/09/2006 08/31/2007 documented as of this encounter (statuses as of 02/25/2022) [facility] of Past illness Narrative* Problem Noted Date Resolved Date Situational mixed anxiety and depressive disorde r 09/26/2016 06/25/2018 Incontinence of feces 06/21/2016 09/26/2016 Diarrhea 06/21/2016 09/26/2016 Iron deficiency anemia due to chronic blood loss 06/16/2016 06/25/2018 NSAID induced gastritis 06/14/2016 06/25/19 19 Eczema intertrigo 06/04/2010 09/26/2016 Moniliasis, cutaneous 06/04/2010 09/26/2016 Xerosis cutis 06/04/2010 09/26/2016 Other seborrheic dermatitis 06/04/201005/2016 Other seborrheic keratosis (eg underside L breas t) 06/04/2010 09/26/2016 Phlebitis and thrombophlebit is of superficial vessels of lower extremities 02/22/2008 09/26/2016 Embolism and thrombosis of unspecified site 01/2809/26/2016 Malignant neoplasm of corpus uteri, except [facility] 02/08/2007 09/26/2016 Adjustment disorder with depressed mood 01/25/20 07 09/26/2016 Other and unspecified ovarian cyst 05/09/2006 08/31/2007 documented as of this encounter (statuses as of 03/01/2022) [facility] of Past illness Narrative* Problem Noted Date Resolved Date Situational mixed anxiety and depressive disorde r 09/26/2016 06/25/2018 Incontinence of feces 06/21/2016 09/26/2016 Diarrhea 06/21/2016 09/26/2016 Iron deficiency anemia due to chronic blood loss 06/16/2016 06/25/2018 NSAID induced gastritis 06/14/2016 06/25/19 19 Eczema intertrigo 06/04/2010 09/26/2016 Moniliasis, cutaneous 06/04/2010 09/26/2016 Xerosis cutis 06/04/2010 09/26/2016 Other seborrheic dermatitis 06/04/201005/2016 Other seborrheic keratosis (eg underside L breas t) 06/04/2010 09/26/2016 Phlebitis and thrombophlebit is of superficial vessels of lower extremities 02/22/2008 09/26/2016 Embolism and thrombosis of unspecified site 01/2809/26/2016 Malignant neoplasm of corpus uteri, except [facility] 02/08/2007 09/26/2016 Adjustment disorder with depressed mood 01/25/20 07 09/26/2016 Other and unspecified ovarian cyst 05/09/2006 08/31/2007 documented as of this encounter (statuses as of 03/08/2022) [facility] of Past illness Narrative* Problem Noted Date Resolved Date Situational mixed anxiety and depressive disorde r 09/26/2016 06/25/2018 Incontinence of feces 06/21/2016 09/26/2016 Diarrhea 06/21/2016 09/26/2016 Iron deficiency anemia due to chronic blood loss 06/16/2016 06/25/2018 NSAID induced gastritis 06/14/2016 06/25/19 19 Eczema intertrigo 06/04/2010 09/26/2016 Moniliasis, cutaneous 06/04/2010 09/26/2016 Xerosis cutis 06/04/2010 09/26/2016 Other seborrheic dermatitis 06/04/201005/2016 Other seborrheic keratosis (eg underside L breas t) 06/04/2010 09/26/2016 Phlebitis and thrombophlebit is of superficial vessels of lower extremities 02/22/2008 09/26/2016 Embolism and thrombosis of unspecified site 01/2809/26/2016 Malignant neoplasm of corpus uteri, except [facility]. [facility] 02/08/2007 09/26/2016 Adjustment disorder with depressed mood 01/25/2009/26/2016 Other and unspecified ovarian cyst 05/09/2006 08/31/2007 documented as of this encounter (statuses as of 03/14/2022) [facility]2017 History of Past illness Narrative* Problem Noted Date Resolved Date Situational mixed anxiety and depressive disorde r 09/26/2016 06/25/2018 Incontinence of feces 06/21/2016 09/26/2016 Diarrhea 06/21/2016 09/26/2016 Iron deficiency anemia due to chronic blood loss 06/16/2016 06/25/2018 NSAID induced gastritis 06/14/2016 06/25/19 19 Eczema intertrigo 06/04/2010 09/26/2016 Moniliasis, cutaneous 06/04/2010 09/26/2016 Xerosis cutis 06/04/2010 09/26/2016 Other seborrheic dermatitis 06/04/201005/2016 Other seborrheic keratosis (eg underside L breas t) 06/04/2010 09/26/2016 Phlebitis and thrombophlebit is of superficial vessels of lower extremities 02/22/2008 09/26/2016 Embolism and thrombosis of unspecified site 01/2809/26/2016 Malignant neoplasm of corpus uteri, except isl.v. [facility] 02/08/2007 09/26/2016 Adjustment disorder with depressed mood 01/25/2009/26/2016 Other and unspecified ovarian cyst 05/09/2006 08/31/2007 documented as of this encounter (statuses as of 04/19/2022) [facility] History of Past illness Narrative* Problem Noted Date Resolved Date Situational mixed anxiety and depressive disorde r 09/26/2016 06/25/2018 Incontinence of feces 06/21/2016 09/26/2016 Diarrhea 06/21/2016 09/26/2016 Iron deficiency anemia due to chronic blood loss 06/16/2016 06/25/2018 NSAID induced gastritis 06/14/2016 06/25/19 19 Eczema intertrigo 06/04/2010 09/26/2016 Moniliasis, cutaneous 06/04/2010 09/26/2016 Xerosis cutis 06/04/2010 09/26/2016 Other seborrheic dermatitis 06/04/201005/2016 Other seborrheic keratosis (eg underside L breas t) 06/04/2010 09/26/2016 Phlebitis and thrombophlebit is of superficial vessels of lower extremities 02/22/2008 09/26/2016 Embolism and thrombosis of unspecified site 01/2809/26/2016 Malignant neoplasm of corpus uteri, except [facility] 02/08/2007 09/26/2016 Adjustment disorder with depressed mood 01/25/20 07 09/26/2016 Other and unspecified ovarian cyst 05/09/2006 08/31/2007 documented as of this encounter (statuses as of 05/16/2022) [facility] History of Past illness Narrative* Problem Noted Date Resolved Date Situational mixed anxiety and depressive disorde r 09/26/2016 06/25/2018 Incontinence of feces 06/21/2016 09/26/2016 Diarrhea 06/21/2016 09/26/2016 Iron deficiency anemia due to chronic blood loss 06/16/2016 06/25/2018 NSAID induced gastritis 06/14/2016 06/25/19 19 Eczema intertrigo 06/04/2010 09/26/2016 Moniliasis, cutaneous 06/04/2010 09/26/2016 Xerosis cutis 06/04/2010 09/26/2016 Other seborrheic dermatitis 06/04/201005/2016 Other seborrheic keratosis (eg underside L breas t) 06/04/2010 09/26/2016 Phlebitis and thrombophlebit is of superficial vessels of lower extremities 02/22/2008 09/26/2016 Embolism and thrombosis of unspecified site /2 05/200609/26/2016 Malignant neoplasm of corpus uteri, except isl.v. [facility] 02/08/2007 09/26/2016 Adjustment disorder with depressed mood 01/25/20 07 09/26/2016 Other and unspecified ovarian cyst 05/09/2006 08/31/2007 documented as of this encounter (statuses as of 05/22/2022) [facility] History of Past illness Narrative* Problem Noted Date Resolved Date Situational mixed anxiety and depressive disorde r 09/26/2016 06/25/2018 Incontinence of feces 06/21/2016 09/26/2016 Diarrhea 06/21/2016 09/26/2016 Iron deficiency anemia due to chronic blood loss 06/16/2016 06/25/2018 NSAID induced gastritis 06/14/2016 06/25/19 19 Eczema intertrigo 06/04/2010 09/26/2016 Moniliasis, cutaneous 06/04/2010 09/26/2016 Xerosis cutis 06/04/2010 09/26/2016 Other seborrheic dermatitis 06/04/2010 05/05/2016 Other seborrheic keratosis (eg underside L breas t) 06/04/2010 09/26/2016 Phlebitis and thrombophlebit is of superficial vessels of lower extremities 02/22/2008 09/26/2016 Embolism and thrombosis of unspecified site /05/200609/26/2016 Malignant neoplasm of corpus uteri, except isl.v. [facility] 02/08/2007 09/26/2016 Adjustment disorder with depressed mood 01/25/20 07 09/26/2016 Other and unspecified ovarian cyst 05/09/2006 08/31/2007 documented as of this encounter (statuses as of 09/23/2022) [facility] History of Past illness Narrative* Problem Noted Date Resolved Date Situational mixed anxiety and depressive disorde r 09/26/2016 06/25/2018 Incontinence of feces 06/21/2016 09/26/2016 Diarrhea 06/21/2016 09/26/2016 Iron deficiency anemia due to chronic blood loss 06/16/2016 06/25/2018 NSAID induced gastritis 06/14/2016 06/25/19 19 Eczema intertrigo 06/04/2010 09/26/2016 Moniliasis, cutaneous 06/04/2010 09/26/2016 Xerosis cutis 06/04/2010 09/26/2016 Other seborrheic dermatitis 06/04/201005/2016 Other seborrheic keratosis (eg underside L breas t) 06/04/2010 09/26/2016 Phlebitis and thrombophlebit is of superficial vessels of lower extremities 02/22/2008 09/26/2016 Embolism and thrombosis of unspecified site 01/2809/26/2016 Malignant neoplasm of corpus uteri, except isthm 02/08/2007 09/26/2016 Adjustment disorder with depressed mood 01/25/20 07 09/26/2016 Other and unspecified ovarian cyst 05/09/2006 08/31/2007 documented as of this encounter (statuses as of 09/27/2022) [facility] History of Past illness Narrative* Problem Noted Date Resolved Date Situational mixed anxiety and depressive disorde r 09/26/2016 06/25/2018 Incontinence of feces 06/21/2016 09/26/2016 Diarrhea 06/21/2016 09/26/2016 Iron deficiency anemia due to chronic blood loss 06/16/2016 06/25/2018 NSAID induced gastritis 06/14/2016 06/25/19 19 Eczema intertrigo 06/04/2010 09/26/2016 Moniliasis, cutaneous 06/04/2010 09/26/2016 Xerosis cutis 06/04/2010 09/26/2016 Other seborrheic dermatitis 06/04/201005/2016 Other seborrheic keratosis (eg underside L breas t) 06/04/2010 09/26/2016 Phlebitis and thrombophlebit is of superficial vessels of lower extremities 02/22/2008 09/26/2016 Embolism and thrombosis of unspecified site 01/2809/26/2016 [facility] [place] 09/26/2016 Adjustment disorder with depressed mood 01/25/20 07 09/26/2016 Other and unspecified ovarian cyst 05/09/2006 08/31/2007 documented as of this encounter (statuses as of 10/12/2022) [facility] History of Past illness Narrative* Problem Noted Date Diagnosed Date Resolved Date Situational mixed anxiety an d depressive disorder 09/26/2016 06/25/2018 Incontinence of feces 06/21/20162016 Diarrhea 06/21/2016 09/26/2016 Iron deficiency anemia due t o chronic blood loss 06/16/2016 06/25/2018 NSAID induced gastritis 06/14/201605/30 Eczema intertrigo 06/04/2010 09/26/2016 Moniliasis, cutaneous 06/04/20102016 Xerosis cutis 06/04/2010 09/26/2016 Other seborrheic dermatitis 06/04/2010 09/26/2016 Other seborrheic keratosis ( eg underside L breast) 06/04/2010 09/26/2016 Phlebitis and thrombophlebit is of superficial vessels of lower extremities 02/22/2008 09/26/2016 Embolism and thrombosis of unspecified site 02/16/2007 09/26/2016 Malignant neoplasm of corpus uteri, except isthmus 02/08/2007 09/26/2016 Adjustment disorder with depressed mood 01/24/2007 09/26/2016 Other and unspecified ovarian cyst 05/09/2006 08/31/2007 documented as of this encounter (statuses as of 12/15/2022) [facility] of Past illness Narrative* Problem Noted Date Diagnosed Date Resolved Date Situational mixed anxiety an d depressive disorder 09/26/2016 06/25/2018 Incontinence of feces 06/21/20162016 Diarrhea 06/21/2016 09/26/2016 Iron deficiency anemia due t o chronic blood loss 06/16/2016 06/25/2018 NSAID induced gastritis 06/14/201605/30 Eczema intertrigo 06/04/2010 09/26/2016 Moniliasis, cutaneous 06/04/20102016 Xerosis cutis 06/04/2010 09/26/2016 Other seborrheic dermatitis 06/04/2010 09/26/2016 Other seborrheic keratosis ( eg underside L breast) 06/04/2010 09/26/2016 Phlebitis and thrombophlebit is of superficial vessels of lower extremities 02/22/2008 09/26/2016 Embolism and thrombosis of unspecified site 02/16/2007 09/26/2016 Malignant neoplasm of corpus uteri, except isthmus 02/08/2007 09/26/2016 Adjustment disorder with depressed mood 01/24/2007 09/26/2016 Other and unspecified ovarian cyst 05/09/2006 08/31/2007 documented as of this encounter (statuses as of 03/14/2023) [facility] of Past illness Narrative* Problem Noted Date Diagnosed Date Resolved Date Situational mixed anxiety an d depressive disorder 09/26/2016 06/25/2018 Incontinence of feces 06/21/20162016 Diarrhea 06/21/2016 09/26/2016 Iron deficiency anemia due t o chronic blood loss 06/16/2016 06/25/2018 NSAID induced gastritis 06/14/201605/30 Eczema intertrigo 06/04/2010 09/26/2016 Moniliasis, cutaneous 06/04/20102016 Xerosis cutis 06/04/2010 09/26/2016 Other seborrheic dermatitis 06/04/2010 09/26/2016 Other seborrheic keratosis ( eg underside L breast) 06/04/2010 09/26/2016 Phlebitis and thrombophlebit is of superficial vessels of lower extremities 02/22/2008 09/26/2016 Embolism and thrombosis of unspecified site 02/16/2007 09/26/2016 Malignant neoplasm of corpus uteri, except isthmus 02/08/2007 09/26/2016 Adjustment disorder with depressed mood 01/24/2007 09/26/2016 Other and unspecified ovarian cyst 05/09/2006 08/31/2007 documented as of this encounter (statuses as of 03/17/2023) [facility] Essential hypertension, benign [facility] Colitis Other and unspecified noninfectious gastroenteritis and colitis [facility] due to medication [facility] Depression, unspecified depression type [facility] Diagnosis Essential hypertension, benign- Primary Hypercholesterolemia with hypertriglyceridemia Mixed hyperlipidemia Prediabetes Other abnormal glucose Hypothyroidism due to medication Depression, unspecified depression type Cerebrovascular accident (CVA), unspecified mechanism (HCC) Arthritis of both knees Unspecified arthropathy, lower leg Degenerative disc disease, lumbar Degeneration of lumbar or lumbosacral intervertebral disc Urinary incontinence, unspecified type documented in this encounter [facility] note* Diagnosis Acute cough- Primary documented in this encounter [facility] note* Diagnosis Hematoma- Primary Contusion of unspecified site documented in this encounter [facility] note* Diagnosis Depression, unspecified depression type documented in this encounter [facility] note* Diagnosis Candidiasis of breast Other candidiasis of other specified sites documented in this encounter [facility] note* Diagnosis Hypothyroidism due to medication documented in this encounter [facility] note* Diagnosis Hypothyroidism due to medication- Primary Essential hypertension, benign Hypercholesterolemia with hypertriglyceridemia Mixed hyperlipidemia Prediabetes Other abnormal glucose Depression, unspecified depression type Cerebrovascular accident (CVA), unspecified mechanism (HCC) documented in this encounter [facility] Advance Directives No Advanced Directives Records FoundDocuments on File 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 Advance Directive(s) 10/12/2020 3:29 PM Advance Directive(s) 06/28/2016 5:57 AM Advance Directive(s) 12/29/2006 12:00 AM Documents on File 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 Advance Directive(s) 10/12/2020 3:29 PM Advance Directive(s) 12/29/2006 Summary Purpose Family History No Family History Records Found Additional Source Comments Source Comments (unrecognize d section and content) In the event this informatio n is protected by the Federal Confidentiality of Alcohol and Drug Abuse Patient Records regulations: The Federal rules restrict any use of the information to criminally investigate or prosecute any alcohol or drug abuse patient.[facility] the event this information is protected by the Federal Confidentiality of Alcohol and Drug Abuse Patient Records regulations: The Federal rules restrict any use of the information to criminally investigate or prosecute any alcohol or drug abuse patient.[facility] the event this information is protected by the Federal Confidentiality of Alcohol and Drug Abuse Patient Records regulations: The Federal rules restrict any use of the information to criminally investigate or prosecute any alcohol or drug abuse patient.[facility] the event this information is protected by the Federal Confidentiality of Alcohol and Drug Abuse Patient Records regulations: The Federal rules restrict any use of the information to criminally investigate or prosecute any alcohol or drug abuse patient.[facility] the event this information is protected by the Federal Confidentiality of Alcohol and Drug Abuse Patient Records regulations: The Federal rules restrict any use of the information to criminally investigate or prosecute any alcohol or drug abuse patient.[facility] the event this information is protected by the Federal Confidentiality of Alcohol and Drug Abuse Patient Records regulations: The Federal rules restrict any use of the information to criminally investigate or prosecute any alcohol or drug abuse patient.[facility] the event this information is protected by the Federal Confidentiality of Alcohol and Drug Abuse Patient Records regulations: The Federal rules restrict any use of the information to criminally investigate or prosecute any alcohol or drug abuse patient.[facility] the event this information is protected by the Federal Confidentiality of Alcohol and Drug Abuse Patient Records regulations: The Federal rules restrict any use of the information to criminally investigate or prosecute any alcohol or drug abuse patient.[facility] the event this information is protected by the Federal Confidentiality of Alcohol and Drug Abuse Patient Records regulations: The Federal rules restrict any use of the information to criminally investigate or prosecute any alcohol or drug abuse patient.[facility] the event this information is protected by the Federal Confidentiality of Alcohol and Drug Abuse Patient Records regulations: The Federal rules restrict any use of the information to criminally investigate or prosecute any alcohol or drug abuse patient.[facility] the event this information is protected by the Federal Confidentiality of Alcohol and Drug Abuse Patient Records regulations: The Federal rules restrict any use of the information to criminally investigate or prosecute any alcohol or drug abuse patient.[facility] the event this information is protected by the Federal Confidentiality of Alcohol and Drug Abuse Patient Records regulations: The Federal rules restrict any use of the information to criminally investigate or prosecute any alcohol or drug abuse patient.[facility] the event this information is protected by the Federal Confidentiality of Alcohol and Drug Abuse Patient Records regulations: The Federal rules restrict any use of the information to criminally investigate or prosecute any alcohol or drug abuse patient.[facility] the event this information is protected by the Federal Confidentiality of Alcohol and Drug Abuse Patient Records regulations: The Federal rules restrict any use of the information to criminally investigate or prosecute any alcohol or drug abuse patient.[facility] the event this information is protected by the Federal Confidentiality of Alcohol and Drug Abuse Patient Records regulations: The Federal rules restrict any use of the information to criminally investigate or prosecute any alcohol or drug abuse patient.[facility] the event this information is protected by the Federal Confidentiality of Alcohol and Drug Abuse Patient Records regulations: The Federal rules restrict any use of the information to criminally investigate or prosecute any alcohol or drug abuse patient.[facility] the event this information is protected by the Federal Confidentiality of Alcohol and Drug Abuse Patient Records regulations: The Federal rules restrict any use of the information to criminally investigate or prosecute any alcohol or drug abuse patient.[facility] Reason for Visit (unrecogniz ed section and content) Reason Comments Patient Question Reason Comments Handicap Placard Reason Comments Patient Question Medication Request Reason Onset Date Comments Refill Request 03/05/2022 Reason Onset Date Comments Refill Request 03/12/2022 Reason Comments F/U 6 Month Reason Comments Patient Update Reason Comments Forms [place] Reason Comments Cough Pt reported chest co ngestion, x6 days. Reason Comments medication rx file Reason Comments fax lab orders to [place] Reason Comments Acute Visit sore on right thigh Reason Comments Refill Request Reason Onset Date Comments Refill Request 03/17/2023 Reason Onset Date Comments Refill Request 03/16/2023 Care Teams (unrecognized sec tion and content) Gas Leak Tester Relationship Specialty Start Date End Date Zia Echeverria MD [address] [place] [address] PCP - General Family Medicine 04/05/21 Gas Leak Tester Relationship Specialty Start Date End Date Zia Echeverria MD [address] [place] [address] PCP - General Family Medicine 04/05/21 Gas Leak Tester Relationship Specialty Start Date End Date Zia Echeverria MD [address] [place] [address] PCP - General Family Medicine 04/05/21 Gas Leak Tester Relationship Specialty Start Date End Date Zia Echeverria MD [address] [place] [address] PCP - General Family Medicine 04/05/21 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 Leak 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 Relationship Specialty Start Date End Date Zia Echeverria MD [address] [place] [address] PCP - General Family Medicine 04/05/21 Gas Leak Tester Relationship Specialty Start Date End Date Zia Echeverria MD [address] [place] [address] PCP - General Family Medicine 04/05/21 Gas Leak Tester Relationship Specialty Start Date End Date Zia Echeverria MD [address] [place], [place] [id number] PCP - General Family Medicine 04/05/21 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 This clinical summary was aggregated from multiple sources. Caution should be exercised in using it in the provision of clinical care. This summary normalizes information from multiple sources, and as a consequence, information in this document may materially change the coding, format and clinical context of patient data. In addition, data may be omitted in some cases. CLINICAL DECISIONS SHOULD BE BASED ON THE PRIMARY CLINICAL RECORDS. [employer] [facility]. provides no warranty or guarantee of the accuracy or completeness of information in this document.
[2023-05-26 13:00] VITALS: BP 139/66; PULSE 104; RESP 18; O2SAT 97
--- NOTE | 2023-05-26 13:03 | EKG12_ITS ---
Test Reason : Blood Pressure : / mmHG Vent. Rate : 102 BPM Atrial Rate : 102 BPM P-R Int : 170 ms QRS Dur : 148 ms QT Int : 362 ms P-R-T Axes : 054 -56 084 degrees QTc Int : 471 ms Sinus tachycardia Left axis deviation Left bundle branch block Abnormal ECG Confirmed by ANGEL STONER, SOLEDAD ([id number]), sound editor CHRISTIAN SANTIAGO ([id number]) on 05/30/2023 8:24:27 AM Referred By: CHOCO/SAMY Confirmed By:SOLEDAD ORTIZ MD
--- NOTE | 2023-05-26 13:03 | CT_ITS ---
INDICATION: weakness EXAMINATION: CT BRAIN - CT Head or Brain W/O Contrast Injection TECHNIQUE: Multiple axial images were obtained of the head without intravenous contrast. A radiation dose optimization technique was used for this scan. IV Contrast dosage and agent: None. RADIATION DOSAGE (If Supplied By Facility): CTDIvol = ( 47.06 ) mGy, DLP = ( 890.33 ) mGycm COMPARISON: MRI of the brain of 11/13/2018. FINDINGS: BRAIN PARENCHYMA: No intra- or extra-axial hemorrhage. No evidence of acute infarct. Old infarct in the left basal ganglia. Chronic periventricular deep white matter changes likely due to microvascular disease. There is otherwise preservation of the edge/white matter interface. Posterior fossa structures are unremarkable. CSF SPACES: Appropriate for age. No hydrocephalus. Basal cisterns are patent. CALVARIUM, SKULL BASE, PARANASAL SINUSES AND MASTOID AIR CELLS: Clear. No discrete lytic or blastic abnormalities. ORBITS: Status post bilateral cataract surgery. CT/Brain/Head without Contrast IMPRESSION: 1. No acute intracranial process. 2. Small old lacunar infarct in the left basal ganglia. Electronically Signed: Jaylan Stallworth MD at 14:06 EST ,
--- NOTE | 2023-05-26 13:10 | RAD_ITS ---
INDICATION: cough EXAMINATION/TECHNIQUE: X-RAY - XR Chest 1 View COMPARISON: Prior study dated: 03/25/2021. FINDINGS: LINES/DEVICES: None. LUNGS: Hypoventilatory changes. No focal infiltrate is seen. No evidence of pleural effusions. MEDIASTINUM AND CARDIOVASCULAR STRUCTURES: Stable cardiomediastinal silhouette. BONES AND SOFT TISSUES: Unremarkable. RAD/Chest 1 View (Portable) IMPRESSION: No radiographic evidence of acute cardiopulmonary disease. Electronically Signed: Jaylan Stallworth MD at 13:31 EST ,
[2023-05-26 13:24] LABS: Absolute Lymphocyte Count 0.73 X10^3/uL (0.83-4.51); Absolute Neutrophil Count 13.4 X10^3/uL (2.0-7.7); Basophil# 0.05 X10^3/uL; Basophil% 0.3 % (0-1); Eosinophil# 0.14 X10^3/uL; Hematocrit 39.9 % (37-47); Hemoglobin 12.9 g/dL (12.0-15.0); Lymphocyte # 0.73 X10^3/ul (0.83-4.51); Mean Corp Hgb Conc 32.3 g/dL (32-36); Mean Corpuscular Hgb 32.6 pg (27.0-32.0); Mean Corpuscular Volume 100.8 fL (81-99); Mean Platelet Vol. 9.1 fl (6.2-12.0); Monocyte# 0.33 X10^3/uL; Monocyte% 2.2 % (0-10); NRBC Flagged by Analyzer 0 % (0-5); Neutrophil # 13.42 X10^3/uL (2.7-7.7); Neutrophil % 91.1 % (47-70); Platelet Count 373 K/mm3 (150-450); RBC Distribution Width CV 13.7 % (11.6-14.6); RBC Distribution Width SD 50.6 fl (35.1-43.9); Red Blood Count 3.96 M/mm3 (4.2-5.4); White Blood Count 14.7 K/mm3 (4.4-11.0)
--- NOTE | 2023-05-26 13:30 | EDS_ITS ---
HPI History of Present Illness Chief Complaint: Confusion Informant: patient and family Narrative Narrative: Patient presents with episode of generalized weakness and possible mild confusion. History is from patient and daughter and son. Evidently yesterday the patient was doing well. Daughter and son both stated she was acting normally. Monday she did not feel well. She just was not hungry. She was not getting out of bed. Her energy level is low. But see she seem to be coming back. Today she seemed to be weaker again. She had to get up to go the bathroom. When she tried to get up and use her walker which is normal, she was shaky. The daughter states it is common that she will use her left hand to place her right hand on the walker. She had a stroke about 4-1/2 years ago affecting the right side of her body. But today both her right and le ft were shaky. They were not weak. When she sat on the toilet her legs were shaky. Evidently they checked vitals at [facility] and everything was normal. Patient feels well now. She is not shaking now. She did not want to come in. Even the family admits that she seems to be lately acting normal. [facility] Medical History Anemia Autonomic neuropathy Bilateral headaches Chronic back pain Colitis CVA (cerebral vascular accident) (10/2018) Debility Essential (primary) hypertension GERD (gastroesophageal reflux disease) Hemorrhoid HLD (hyperlipidemia) Left bundle branch block Neck pain Obesity Orthostatic hypotension Osteoarthritis Osteopenia Paroxysmal ventricular tachycardia (11/15/18) Rheumatoid arthritis Right hemiparesis Syncope Type 2 diabetes mellitus Uterine cancer Home Medications aspirin 81 mg chewable tablet 81 mg PO DAILY@0800 heart 11/13/18 [History Last Taken Unknown] atorvastatin 40 mg tablet 40 mg PO QHS 12/21/18 [History Last Taken Unknown] levothyroxine 75 mcg tablet 75 mg PO DAILY 06/29/19 [History Last Taken Unknown] lisinopril 2.5 mg tablet 2.5 mg PO DAILY 10/16/19 [History Last Taken Unknown] vit A 7,160 unit-vit C 113 mg-vit E 100 [id number] tablet 2 tab PO BID 10/16/19 [History Last Taken Unknown] acetaminophen 650 mg tablet,extended release (Tylenol Arthritis Pain) 650 mg PO Q8H 04/28/22 [History Last Taken Unknown] multivitamin 1 tab PO DAILY supplement 04/28/22 [History Last Taken Unknown] venlafaxine 150 mg capsule,extended release 24 hr 150 mg PO DAILY 04/28/22 [History Last Taken Unknown] cephalexin 500 mg capsule 500 mg PO TID #30 CAPSULES 05/26/23 [Rx Last Taken Unknown] Allergy/AdvReac Type Severity Reaction Status Date / Time erythromycin base Allergy Rash Verified 05/26/23 11:20 [Erythromycin Base] Sulfa (Sulfonamide Allergy Rash Verified 05/26/23 11:20 Antibiotics) sulfamethoxazole Allergy Rash Verified 05/26/23 11:20 [From Janra] trimethoprim [From ] Allergy Rash Verified 05/26/23 11:20 Family History Mother No problems noted. Father No problems noted. Other Asthma Heart disease Myocardial infarction Surgical History History of colonoscopy History of esophagogastroduodenoscopy (EGD) History of foot surgery History of hysterectomy History of laparoscopic cholecystectomy History of left knee replacement History of skin graft History of tonsillectomy Social History Smoking Status: Never smoker alcohol intake: current alcohol intake frequency: holidays/special occasions only substance use type: does not use what type of physical activity do you participate in: walking frequency: 1-2 times per week ROS ROS ED Constitutional Constitutional ED: Denies chills, fever(s), subjective or sweats Eyes Eyes: Denies change in vision ENT ENT ED: Denies ear pain, rhinorrhea or sore throat Cardiovascular Cardiovascular: Denies chest pain, palpitations or racing heartbeat Respiratory/Chest Respiratory/Chest: Denies cough, dyspnea or sputum Gastrointestinal Gastrointestinal: Denies abdominal pain, diarrhea, nausea or vomiting Genitourinary Genitourinary ED: Reports other Details: Patient did just have some urinary incontinence in bed. But she denies dysuria ; Denies dysuria Musculoskeletal Musculoskeletal: Denies neck pain Integumentary Denies rash Neurologic Neurologic: Reports other Details: See history of present illness. ; Denies headache(s), paresthesias or weakness Hematologic/Lymphatic Hematologic/Lymphatic: Denies easy bleeding or easy bruising Allergic/Immunologic Allergic/Immunologic ED: Denies urticaria EXAM Physical Exam Narrative Exam Narrative: General: Patient is awake alert nontoxic in appearance. Pleasant. HEENT shows moist mucous membranes. No sign of trauma. No erythema. No congestion. Eyes show normal range of motion pupillary function. Neck is supple. No pain with motion or palpation. Chest is clear bilaterally. Saturations are about 97 to 99% on room air showing no hypoxia. No coughing. Heart is regular. She does have a rate of about 100. I do not hear a murmur on her despite her age. Abdomen is mildly obese but there is no tenderness whatsoever. Extremities show no trauma or tenderness. Pulses are normal x 4. Neuro: Patient is awake alert appropriate at baseline function and acting normally per family. There is some relative weakness on the right side versus left and there is some right facial droop but this is all chronic and unchanged. Const Vital Signs: 05/26/23 11:21 05/26/23 13:00 05/26/23 14:41 Temperature 97.9 F Temperature Source Temporal Pulse Rate 104 H 104 H 102 H Respiratory Rate 27 H 18 28 H Blood Pressure 136/70 H 139/66 H 119/63 Blood Pressure Mean 92 90 81 Pulse Ox 96 97 98 Oxygen Delivery Method Room Air Room Air Room Air MDM MDM MDM Narrative Medical decision making narrative: My independent interpretation of the patient's CT of the head shows atrophy but no acute process. My independent interpretation of the patient's single AP view of the chest shows slightly poor inspiration but no definite infiltrate. The final reading also showed no radiographic evidence of acute cardiopulmonary disease. Knoop graph patient's CBC did show elevated white count at 14.7 which is not normal for her. Platelets and hemoglobin were normal. Patient's electrolytes show no marked abnormalities. Minimal elevation in the BUN to creatinine. And minimal elevation of glucose at 136 COVID flu and RSV are negative. Urinalysis showed urine that was cloudy, positive nitrites, positive leukocyte Estrace, large number of white cells and 2+ bacteria. This is all consistent with a UTI. With her transient confusion, white count in this urinalysis I would treat this. We will send the culture. We will get her back to [facility] which the patient and the family is happy with. The family states that she is back to her normal and seems perfectly fine. Lab Data Attestation: I reviewed the patient's lab results. Labs: Laboratory Results - last 24 hr 05/26/23 05/26/23 11:30 14:34 WBC 14.7 H RBC 3.96 L Hgb 12.9 Hct 39.9 MCV 100.8 H MCH 32.6 H MCHC 32.3 RDW Std Deviation 50.6 H RDW Coeff of Tiffany 13.7 Plt Count 373 MPV 9.1 Immature Gran % (Auto) 0.400 Neut % (Auto) 91.1 H Lymph % (Auto) 5.0 L Glasscock % (Auto) 2.2 Eos % (Auto) 1.0 Baso % (Auto) 0.3 Absolute Neuts (auto) 13.4 H Absolute Lymphs (auto) 0.73 L Nucleated RBC % 0 Sodium 138 Potassium 4.7 Chloride 103 Carbon Dioxide 31.0 Anion Gap 4 L BUN 19 H Creatinine 0.92 Estim Creat Clear Calc 39.50 Est GFR (MDRD) Af Amer 75 Est GFR (MDRD) Non-Af 62 BUN/Creatinine Ratio 20.7 H Glucose 136 H Calcium 10.0 Urine Color Yellow Urine Clarity Sl. Cloudy Urine pH 7.0 Ur Specific [place] 1.010 Urine Protein 30 H Urine Glucose (UA) Normal Urine Ketones Negative Urine Occult Blood 150 H Urine Nitrite Positive H Urine Bilirubin Negative Urine Urobilinogen Normal Ur Leukocyte Esterase 500 H Urine RBC 10-25 SEEN Urine WBC 25-50 SEEN Ur Squamous Epith Cells 0-5 SEEN Urine Bacteria 2+ Urine Mucus 0 SEEN Radiography Diagnostic Testing: Clinical Impression(s) from Imaging Studies Brain CT 05/26/23 13:03 IMPRESSION: 1. No acute intracranial process. 2. Small old lacunar infarct in the left basal ganglia. Electronically Signed: Jaylan Stallworth MD at 14:06 EST , Chest X-Ray 05/26/23 13:10 IMPRESSION: No radiographic evidence of acute cardiopulmonary disease. Electronically Signed: Jaylan Stallworth MD at 13:31 EST , EKG Initial EKG: Comments: My independent interpretation of the patient's EKG done for generalized weakness shows sinus rhythm with tachycardic rate she does have left bundle branch block with diffuse secondary changes but no convincing evidence of infarct or ischemia. Sgarbossa criteria are negative. AR interval and QTc are normal. QRS duration is a bit long. Other than the slightly increased rate, the pattern is similar to 07 January 2019. Discharge Plan Triage Chief Complaint: Confusion ED Provider: Stanton Beverly Dx/Rx/DC Orders Clinical Impression: Episode of generalized weakness, Acute UTI Instructions: Urinary Tract Infections in Women Prescriptions: New cephalexin [cephalexin] 500 mg capsule 500 mg PO TID Qty: 30 0RF No Action lisinopril 2.5 mg tablet 2.5 mg PO DAILY vit A-vit C-vit [id number] [id number] [id number] tablet 2 tab PO BID venlafaxine 150 mg capsule,extended release 24hr 150 mg PO DAILY acetaminophen [Tylenol Arthritis Pain] 650 mg tablet extended release 650 mg PO Q8H aspirin 81 MG tablet,chewable 81 mg PO DAILY@0800 multivitamin Tablet 1 tab PO DAILY levothyroxine 75 MCG tablet 75 mg PO DAILY Patient Comments: TAKE 1 TABLET BY MOUTH ONCE DAILY. TAKE ON EMPTY STOMACH. FOR THYROID atorvastatin 40 mg tablet 40 mg PO QHS Primary Care Provider: Russ Cardozo Referrals: Russ Cardozo MD [Primary Care Provider] - 3-5 Days if not improving Disposition Disposition: Quality Assurance Supervisor Body Acute Care Discharge Location: [facility]
[2023-05-26 13:36] LABS: Anion Gap 4 (5-15); BUN 19 mg/dL (7-18); BUN/Creat Ratio 20.7 RATIO (10-20); Chloride 103 mmol/L (98-107); Creatinine, Serum 0.92 mg/dL (0.55-1.02); EST Glomerular Filtration Rate 62 mL/min (>60); Est Glom Filt Rate - Afr Amer 75 mL/min (>60); Glucose 136 mg/dL (74-106); Potassium 4.7 mmol/L (3.5-5.1); Sodium Level 138 mmol/L (136-145)
[2023-05-26 14:38] LABS: Mucous, Urine 0 SEEN /hpf (<or=2+)
[2023-05-26 14:41] VITALS: BP 119/63; PULSE 102; RESP 28; O2SAT 98
[2023-05-26 14:41] LABS: Color, Urine Yellow (Yellow); Glucose, Dipstick Normal (Normal); Ketone-Dipstick Negative (Negative); Leukocyte Esterase-Dipstick 500 /ul (Negative); Nitrite-Dipstick Positive (Negative); Occult Blood-Urine 150 /ul (Negative); Protein-Dipstick 30 mg/dl (Negative); Urine Bilirubin Dipstick Negative (Negative); Urine Clarity Sl. Cloudy (Clear); Urine Urobilinogen Normal (Normal)
[2023-05-26 14:51] LABS: Bacteria 2+ /hpf (None Seen); Red Blood Cells-Urine 10-25 SEEN /hpf (0-5); Squamous Epithelial Cells - UA 0-5 SEEN /hpf (5-10); White Blood Cells 25-50 SEEN /hpf (0-5)
[2023-05-26] MEDS: Cephalexin 250 MG Capsule 500 MG PO (15:23)
[2023-05-26 15:33] VITALS: BP 139/55; PULSE 100; RESP 15; O2SAT 96
== END 2023-05-26 15:35 ==
PROVIDERS: Emergency Provider Emergency Medicine; PCP Family Medicine; Visit Provider Emergency Medicine
DX: R53.1 Weakness (principal); E11.9 Type 2 diabetes mellitus without complications; N39.0 Urinary tract infection, site not specified; Z86.73 Personal history of transient ischemic attack (TIA), and cerebral infarction without residual deficits
CPT/HCPCS: 70450; 71045; 80048; 81001; 85025; 87086; 87088; 87186; 87631; 93005; 99284